=== PATIENT | male | born 1975 | race Caucasian/White ===

== ENCOUNTER → 2020-07-01 12:39 | Outpatient (CLI) | payer BC, SELFPAY ==
--- NOTE | 2020-07-01 12:44 | RAD_ITS ---
STUDY: X-RAY - LUMBAR SPINE REASON FOR EXAM: Male, 44 years old. LBP W/ RADIATION DOWN TOWARD LLE. NKI TECHNIQUE: 4 view(s) of the lumbar spine were obtained. COMPARISON: None FINDINGS: Normal lumbar lordosis. There is no substantial scoliosis. There is a normal alignment of the vertebrae. Normal vertebral bodies and endplates. Normal disc space heights. The soft tissue structures are unremarkable. RAD/L/S Spine Min 4 Views IMPRESSION: Normal x-ray examination of the lumbar spine. Electronically Signed: Steve Chappell DO at 18:41 EDT Tel [phone], Service support ,
--- NOTE | 2020-07-01 12:45 | US_ITS ---
STUDY: ABDOMINAL ULTRASOUND - RIGHT UPPER QUADRANT REASON FOR VISIT: Male, 44 years old ELEVATED LFTS TECHNIQUE: Ultrasound evaluation of the right upper quadrant was performed with real-time and static townsend-scale imaging. TECHNICAL QUALITY: Adequate. COMPARISON: None. FINDINGS: Liver: The liver measures 15.7 cm. There is increased echogenicity consistent with mild degree of fatty infiltration. The bile ducts are within normal limits. There is hepatic color flow. The direction of portal flow is hepatopetal. There is a 1.4 cm x 1.2 cm x 1.4 cm cyst in the right lobe of the liver. Gallbladder: Normal distended gallbladder. The gallbladder wall measures 3.0 mm. There is a negative sonographic Meeks''s sign. There is no pericholecystic fluid. There are no gallstones. Common Bile Duct (C.B.D.): The common bile duct measures 4.0 mm. Pancreas: Normal size of the head, body and tail of the pancreas. There is normal echogenicity of the pancreas. There is no demonstrated pancreatic mass or cyst. Right Kidney: Normal size of the right kidney. The right kidney measures 10.4 cm x 5.4 cm x 3.7 cm. Normal renal cortex. The right cortex measures 1.3 cm. There is no demonstrated renal mass or cyst. There is no right hydronephrosis. US/Liver IMPRESSION: 1.4 cm x 1.2 cm x 1.4 cm cyst in the right lobe of the liver. Mild degree of fatty infiltration of the liver. Electronically Signed: Apolinar Wise, at 14:37 EDT , Service support ,
== END ==
PROVIDERS: PCP Nurse Practitioner; Referring Provider Nurse Practitioner; Visit Provider Nurse Practitioner
DX: K76.89 Other specified diseases of liver (principal); K76.0 Fatty (change of) liver, not elsewhere classified; R74.8 Abnormal levels of other serum enzymes; M54.9 Dorsalgia, unspecified
CPT/HCPCS: 72110; 76705

== ENCOUNTER 2021-11-11 15:01 | Outpatient (CLI) | payer BC, SELFPAY ==
[2021-11-11 15:19] VITALS: BP 136/90; PULSE 107; RESP 16; TEMP 36.8; O2SAT 98; BMI 25.8
[2021-11-11] MEDS: 0.9% Saline Lock 10 ML Syringe IV (15:24)
[2021-11-11 16:09] VITALS: BP 123/82; PULSE 74; RESP 16; TEMP 36.6; O2SAT 99
[2021-11-11 17:02] VITALS: BP 125/91; PULSE 65; RESP 16; TEMP 36.6; O2SAT 100
== END 2021-11-11 23:59 | disposition home or self-care (01) ==
LOC: MS3OUT 15:01 → MS3 15:02
PROVIDERS: PCP Nurse Practitioner; Referring Provider Nurse Practitioner Adult Health; Visit Provider Nurse Practitioner Adult Health
DX: Z23 Encounter for immunization (principal); U07.1 COVID-19
CPT/HCPCS: J7050; M0245; Q0245; A4216

== ENCOUNTER 2023-07-18 10:47 | Day surgery (SDC) | payer BC, SELFPAY ==
[2023-07-18 11:08] VITALS: BP 131/78; PULSE 87; RESP 16; TEMP 36.9; O2SAT 100; BMI 23.8
[2023-07-18] MEDS: Lactated Ringers 1,000 ML 15 ML IV (11:17)
--- NOTE | 2023-07-18 11:24 | HP.PCM_ITS ---
History and Physical Date of Admission: 07/18/23 47 M who presents to the office today for PCP OV to establish care. Notes history of celiac disease with active symptoms of gassy loose stools with intermittent blood when wiping. Notes skin changes on his back, red and raised. *BGI established 5.31.23 continues with gluten free diet; notes recent change in BM to lose stools with intermittent bleeding. PCP recommended fiber supplement which as been helpful. Would like to have colonoscopy screening. ROS Const Constitutional: Positive for body ache, chills and headache(s) ENT ENT: Positive for headache(s) and sore throat Resp Respiratory: Positive for cough, chest congestion and shortness of breath Neuro Neurology: Positive for headache(s) Exam Const General: cooperative and comfortable Nutritional Appearance: average body habitus and well nourished HENMT Head: normal to inspection Ears: hearing grossly normal bilaterally Nose: external nose normal Face and sinus: normal facial exam Mouth: oral mucosae normal Throat: posterior oropharynx normal Eyes General: appearance normal, both eyes and all related structures Neck Neck: normal visual inspection Chest Chest palpation & inspection: normal inspection of the chest and normal palpation of entire chest wall Resp Effort & Inspection: normal respiratory effort Auscultation: Bilateral: Clear to Auscultation Cardio Palpation: normal PMI Rate: regular rate Rhythm: regular rhythm GI Inspection: normal to inspection Auscultation: normal bowel sounds Percussion: normal to percussion Palpation: no hepatosplenomegaly Skin General: no rashes or lesions noted Neuro General: patient alert Extrem General: normal to inspection Psych Affect: normal affect Quality Reporting Tobacco Screening ([facility] 138) Smoking Status: Never smoker Assessment and Plan Assessment and Plan (1) Encounter for screening for malignant neoplasm of colon: Status: Chronic Plan: He was explained alternatives, risk, benefits include not withstanding bleeding, infection, sepsis, perforation, need for emergent surgery . Have an ASA of 2. (2) Celiac disease: Status: Chronic Plan: He will undergo an upper endoscopy so we can evaluate his upper GI tract at the same time. We recommend repeating his tissue transglutaminase along with his IgA levels. I have examined the patient and the H&P has been reviewed. There are no clinical changes since date of exam.
--- NOTE | 2023-07-18 12:00 | COLBX_PTH ---
PATIENT: KETAN RAJAN LOC: EN U#:[id number] AGE/SX: 47/M ROOM: RE07/18/[address]: Dr. Tino Duckworht DO : 1975 BED: DIS: 07/18/2023 SPEC #: [id number] RECD: 07/18/23 14:18 STATUS: ZHANE DOYLE #: [id number] WAYNE: 07/18/23 12:[address]: Tino Duckworth DEPT: SURGICAL PATHOLOGY RECD BY: Brandon Lundberg ENTERED: 07/19/23 08:32 SP TYPE: COLON BX OT DR: Dr. Sunni Foster MD Tissues: A - Duodenum, NOS B - Gastric mucous membrane C - Ileum, NOS D - COLON BIOPSY Procedures: Trichrome (control) Special Stain Group II Surgery Specimen Level IV HEADER OPERATION: Colonoscopy, EGD ([facility]), biopsy PRE-OP DIAGNOSIS: Screening, celiac disease TISSUE SUBMITTED: A - Duodenum biopsy, B - Gastric polyp biopsy, C - Terminal ileum biopsy, D - Random colonic biopsy MICROSCOPIC DIAGNOSIS A. Duodenum, biopsy: Fragments of duodenal mucosa, no pathologic diagnosis. B. Gastric polyp, biopsy: Fundic gland polyp. Mild chronic inflammation. See comment. C. Terminal ileum, biopsy: Fragments of small intestinal mucosa, no pathologic diagnosis. D. Colon, random biopsy: Lymphocytic (microscopic) colitis and collagenous colitis. See comment. SJ:jake 07/20/2023 COMMENT B. The results of immunohistochemistry for Helicobacter pylori will be reported separately ([id number]). D. Trichrome stain with matched control was used in the evaluation of the specimen and shows focal thickening of subepithelial collagen band. Case has been reviewed in consultation with Dr. Michel who concurs with the above diagnosis. IDC:AM MICROSCOPIC DESCRIPTION Slides are reviewed. GROSS DESCRIPTION A - Received in fixative is one container labeled with the patient's name and designated duodenum biopsy. The specimen consists of two irregular fragments of light barnes soft tissue that in aggregate measure 1.0 x 0.5 x 0.1 cm. The specimen is totally submitted in one cassette. B - Received in fixative is one container labeled with the patient's name and designated gastric polyp. The specimen consists of one irregular fragment of light barnes soft tissue that measures 0.5 x 0.3 x 0.1 cm. The specimen is totally submitted in one cassette. C - Received in fixative is one container labeled with the patient's name and designated terminal ileum. The specimen consists of two irregular fragments of light barnes soft tissue that in aggregate measure 0.7 x 0.5 x 0.1 cm. The specimen is totally submitted in one cassette. D - Received in fixative is one container labeled with the patient's name and designated random colon biopsy. The specimen consists of multiple irregular fragments of light barnes soft tissue that in aggregate measure 2.0 x 0.6 x 0.1 cm. The specimen is totally submitted in one cassette. / AM:jake 07/19/2023 TC:3 CPT: 12257 x4, 01983
--- NOTE | 2023-07-18 12:00 | IMM_PTH ---
PATIENT: KETAN RAJAN LOC: EN U#:[id number] AGE/SX: 47/M ROOM: RE07/18/[address]: Dr. Tino uDckworth DO : 1975 BED: DIS: 07/18/2023 SPEC #: [id number] RECD: 07/19/23 09:38 STATUS: ZHANE REQ #: [id number] WAYNE: 07/18/23 12:[address]: Tino Duckworth DEPT: IMMUNOHISTOCHEMISTRY RECD BY: Adry Ambrosio ENTERED: 07/19/23 09:39 SP TYPE: IMMUNO OTHR DR: Dr. Sunni Foster MD Tissues: B - Stomach, NOS Procedures: H Pylori (initial) PHYSICIAN & INSTITUTION [place] [address] SPECIMEN INFORMATION: Tissue Source: B - Gastric polyp Clinical Info: Screening, celiac disease Specimen Number: [id number] CPT code: 28085 METHODOLOGY: Deparaffinized sections of prefer/formalin-fixed tissue or PAP/DQ stained slides are incubated with monoclonal/polyclonal antibodies/oligonucleotide probes. Localization is made via biotin free immunoperoxidase method. Appropriate controls are performed and reacted as expected. Results on target cell population are indicated in the following table: RESULTS: ANTIBODY / CLONE RESULT Block B H Pylori (polyclonal) negative These tests were developed and their performance characteristics determined by [facility]. They may not have been cleared or approved by the U.S. Food and Drug Administration. The FDA has determined that such clearance or approval is not necessary. The above immunohistochemical/dualISH markers are ordered and reviewed by the Pathologist. INTERPRETATION: B. Gastric polyp, biopsy: Negative for Helicobacter pylori organisms. ANNEMARIE:jake 07/21/2023
[2023-07-18 12:11] VITALS: BP 131/78; BP 87/59; PULSE 60; RESP 18; TEMP 36; O2SAT 96
[2023-07-18 12:15] VITALS: BP 131/78; BP 99/62; PULSE 59; RESP 18; O2SAT 96
--- NOTE | 2023-07-18 12:18 | OP.EGD_ITS ---
Patient Name: Jono Menchaca Procedure Date: 07/18/2023 11:38 AM Date of : 1975 Age: 47 Procedure: Upper GI endoscopy Indications: Functional Dyspepsia, Failure to respond to medical treatment Providers: Tino Duckworth DO Referring MD: Sunni Foster Medicines: Monitored Anesthesia Care Patient Profile: This is a 47 year old male. Refer to note in patient chart for documentation of history and physical. Patient has symptoms of chronic abdominal cramping, chronic chest pain and chronic heartburn. Complications: No immediate complications. Procedure: Pre-Anesthesia Assessment: - Prior to the procedure, a History and Physical was performed, and patient medications and allergies were reviewed. The patient is competent. The risks and benefits of the procedure and the sedation options and risks were discussed with the patient. All questions were answered and informed consent was obtained. Patient identification and proposed procedure were verified in the pre-procedure area. Mental Status Examination: alert and oriented. Airway Examination: normal oropharyngeal airway and neck mobility. Respiratory Examination: clear to auscultation. CV Examination: normal. Prophylactic Antibiotics: The patient does not require prophylactic antibiotics. Prior Anticoagulants: The patient has taken no anticoagulant or antiplatelet agents. ASA Grade Assessment: II - A patient with mild systemic disease. After reviewing the risks and benefits, the patient was deemed in satisfactory condition to undergo the procedure. The anesthesia plan was to use monitored anesthesia care (MAC). Immediately prior to administration of medications, the patient was re-assessed for adequacy to receive sedatives. The heart rate, respiratory rate, oxygen saturations, blood pressure, adequacy of pulmonary ventilation, and response to care were monitored throughout the procedure. The physical status of the patient was re-assessed after the procedure. After obtaining informed consent, the endoscope was passed under direct vision. Throughout the procedure, the patient's blood pressure, pulse, and oxygen saturations were monitored continuously. The colonoscope was introduced through the mouth, and advanced to the second part of duodenum. The upper GI endoscopy was accomplished without difficulty. The patient tolerated the procedure well. Scope In: 11:48:06 AM Scope Out: 11:52:06 AM Total Procedure Duration Time 0 hours 4 minutes 0 seconds Findings: LA Grade A (one or more mucosal breaks less than 5 mm, not extending between tops of 2 mucosal folds) esophagitis with no bleeding was found 37 to 40 cm from the incisors. No gross lesions were noted in the entire examined stomach. Decreased folds were found in the duodenal bulb, decreased folds were found in the first portion of the duodenum, decreased folds were found in the second portion of the duodenum, decreased folds were found in the area of the minor papilla, flattening was found in the duodenal bulb, flattening was found in the first portion of the duodenum, flattening was found in the second portion of the duodenum, scalloped mucosa was found in the duodenal bulb, scalloped mucosa was found in the first portion of the duodenum, thickened folds were found in the duodenal bulb, thickened folds were found in the first portion of the duodenum and thickened folds were found in the second portion of the duodenum. Biopsies for histology were taken with a cold forceps for evaluation of celiac disease. Verification of patient identification for the specimen was done. Estimated blood loss was minimal. A single 5 mm sessile polyp with no stigmata of recent bleeding was found in the cardia. The polyp was removed with a cold snare. Resection and retrieval were complete. Verification of patient identification for the specimen was done. Estimated blood loss was minimal. Impression: - LA Grade A reflux esophagitis with no bleeding. - No gross lesions in the entire stomach. - Duodenal mucosal changes seen, diagnostic of celiac disease. Biopsied. Recommendation: - Discharge patient to home. - Resume previous diet. - Continue present medications. - Await pathology results. Procedure Code(s): --- Professional --- 37895, Esophagogastroduodenoscopy, flexible, transoral; with removal of tumor(s), polyp(s), or other lesion(s) by snare technique 08593, 59,51, Esophagogastroduodenoscopy, flexible, transoral; with biopsy, single or multiple CPT copyright 2021 [employer]. All rights reserved. The codes documented in this report are preliminary and upon title i teacher review may be revised to meet current compliance requirements. Tino Duckworth DO 07/18/2023 12:18:49 PM This report has been signed electronically. Number of Addenda: 0 Note Initiated On: 07/18/2023 11:38 AM
--- NOTE | 2023-07-18 12:19 | OP.CCLET_ITS ---
07/18/2023 Sunni Foster Re : Upper GI endoscopy procedure for Jono Menchaca Dear Kristin This procedure was performed on Tuesday, July 18, 2023. My impressions and recommendations are as follows: Impressions : - LA Grade A reflux esophagitis with no bleeding. - No gross lesions in the entire stomach. - Duodenal mucosal changes seen, diagnostic of celiac disease. Biopsied. Recommendations : - Discharge patient to home. - Resume previous diet. - Continue present medications. - Await pathology results. My findings are described in the full procedure note, which is enclosed. If I can be of further assistance, please feel free to contact me at . Sincerely, Tino Duckworth, 07/18/2023 12:18:49 PM This report has been signed electronically.
--- NOTE | 2023-07-18 12:21 | OP.COLON_ITS ---
Patient Name: Jono Menchaca Procedure Date: 07/18/2023 11:52 AM Date of : 1975 Age: 47 Procedure: Colonoscopy Indications: Clinically significant diarrhea of unexplained origin Providers: Tino Duckworth DO Referring MD: Sunni Foster Medicines: Monitored Anesthesia Care Patient Profile: This is a 47 year old male. Refer to note in patient chart for documentation of history and physical. Patient has symptoms of chronic abdominal cramping, chronic chest pain and chronic heartburn. Last Colonoscopy: none. The patient's first colonoscopy is today. Complications: No immediate complications. Procedure: Pre-Anesthesia Assessment: - Prior to the procedure, a History and Physical was performed, and patient medications and allergies were reviewed. The patient is competent. The risks and benefits of the procedure and the sedation options and risks were discussed with the patient. All questions were answered and informed consent was obtained. Patient identification and proposed procedure were verified in the pre-procedure area. Mental Status Examination: alert and oriented. Airway Examination: normal oropharyngeal airway and neck mobility. Respiratory Examination: clear to auscultation. CV Examination: normal. Prophylactic Antibiotics: The patient does not require prophylactic antibiotics. Prior Anticoagulants: The patient has taken no anticoagulant or antiplatelet agents. ASA Grade Assessment: II - A patient with mild systemic disease. After reviewing the risks and benefits, the patient was deemed in satisfactory condition to undergo the procedure. The anesthesia plan was to use monitored anesthesia care (MAC). Immediately prior to administration of medications, the patient was re-assessed for adequacy to receive sedatives. The heart rate, respiratory rate, oxygen saturations, blood pressure, adequacy of pulmonary ventilation, and response to care were monitored throughout the procedure. The physical status of the patient was re-assessed after the procedure. After I obtained informed consent, the scope was passed under direct vision. Throughout the procedure, the patient's blood pressure, pulse, and oxygen saturations were monitored continuously. The colonoscope was introduced through the anus and advanced to the terminal ileum. The colonoscopy was performed without difficulty. The patient tolerated the procedure well. The quality of the bowel preparation was adequate. The terminal ileum, ileocecal valve, appendiceal orifice, and rectum were photographed. Scope In: 11:54:27 AM Scope Withdrawal Time 0 hours 8 minutes 54 seconds Scope Out: 12:06:44 PM Total Procedure Duration Time 0 hours 12 minutes 17 seconds Findings: The perianal and digital rectal examinations were normal. An area of mildly congested mucosa was found in the entire colon. Biopsies were taken with a cold forceps for histology. Verification of patient identification for the specimen was done. Estimated blood loss was minimal. Patchy mild mucosal changes were found in the terminal ileum. Biopsies were taken with a cold forceps for histology. Verification of patient identification for the specimen was done. Estimated blood loss was minimal. Impression: - Congested mucosa in the entire examined colon. Biopsied. - Mild mucosal changes were found in the ileum secondary to ileitis. Biopsied. Recommendation: - Discharge patient to home. - Resume previous diet. - Continue present medications. - Await pathology results. - Repeat colonoscopy in 5 years for surveillance. Procedure Code(s): --- Professional --- 23652, Colonoscopy, flexible; with biopsy, single or multiple CPT copyright 2021 [employer]. All rights reserved. The codes documented in this report are preliminary and upon telecommunications professional review may be revised to meet current compliance requirements. Tino Duckworth DO 07/18/2023 12:21:03 PM This report has been signed electronically. Number of Addenda: 0 Note Initiated On: 07/18/2023 11:52 AM
--- NOTE | 2023-07-18 12:21 | OP.CCLET_ITS ---
07/18/2023 Sunni Foster Re : Colonoscopy procedure for Jono Menchaca Dear Kristin This procedure was performed on Tuesday, July 18, 2023. My impressions and recommendations are as follows: Impressions : - Congested mucosa in the entire examined colon. Biopsied. - Mild mucosal changes were found in the ileum secondary to ileitis. Biopsied. Recommendations : - Discharge patient to home. - Resume previous diet. - Continue present medications. - Await pathology results. - Repeat colonoscopy in 5 years for surveillance. My findings are described in the full procedure note, which is enclosed. If I can be of further assistance, please feel free to contact me at . Sincerely, Tino Duckworth, 07/18/2023 12:21:03 PM This report has been signed electronically.
[2023-07-18 12:22] VITALS: BP 131/78; BP 96/71; PULSE 57; RESP 18; O2SAT 99
[2023-07-18 12:24] VITALS: BP 131/78; BP 96/67; PULSE 66; RESP 18; TEMP 36.2; O2SAT 100
[2023-07-18 12:43] VITALS: BP 131/78
== END 2023-07-18 12:52 | disposition home or self-care (01) ==
LOC: EN 10:47 → AC 10:48
PROVIDERS: PCP Internal Medicine; Referring Provider Internal Medicine; Visit Provider Internal Medicine Gastroenterology
PROC: 0DJD8ZZ Inspection of Lower Intestinal Tract, Via Natural or Artificial Opening Endoscopic (ICD-10-PCS; CPT 45378; principal; 2023-07-18 11:55)
DX: Z12.11 Encounter for screening for malignant neoplasm of colon (principal); K52.831 Collagenous colitis; K21.00 Gastro-esophageal reflux disease with esophagitis, without bleeding; K31.7 Polyp of stomach and duodenum; R19.7 Diarrhea, unspecified; E55.9 Vitamin D deficiency, unspecified; F32.A Depression, unspecified; Z79.899 Other long term (current) drug therapy; Z86.16 Personal history of COVID-19
CPT/HCPCS: 45380; 43239; 43251; 88305; 88313; 88342; J7120; J2405

== ENCOUNTER → 2023-08-23 | Outpatient (CLI) | payer BC, SELFPAY ==
[2023-08-23 13:23] LABS: ALB/GLOB Ratio 1.1 RATIO (0.9-2.4); AST(SGOT) 19 U/L (15-37); Alanine Aminotransfer ALT/SGPT 50 U/L (16-61); Albumin, Serum 3.9 g/dL (3.2-5.0); Alkaline Phosphatase 77 U/L (45-117); Anion Gap 3 (5-15); BUN 12 mg/dL (7-18); BUN/Creat Ratio 13.8 RATIO (10-20); CRP < 2.90 mg/L (0.0-3.0); Chloride 107 mmol/L (98-107); Creatinine, Serum 0.87 mg/dL (0.70-1.30); EST Glomerular Filtration Rate 99 mL/min (>60); Est Glom Filt Rate - Afr Amer 120 mL/min (>60); Globulin 3.7 g/dL (2.2-4.2); Glucose 91 mg/dL (74-106); LDH 169 U/L (87-241); Potassium 3.5 mmol/L (3.5-5.1); Protein, Total 7.6 g/dL (6.4-8.2); Sodium Level 140 mmol/L (136-145)
[2023-08-23 13:26] LABS: Erythrocyte Sedimentation Rate 7 mm/hr (0-20)
[2023-08-23 13:29] LABS: Absolute Lymphocyte Count 1.27 X10^3/uL (0.83-4.51); Absolute Neutrophil Count 3.2 X10^3/uL (2.0-7.7); Basophil# 0.07 X10^3/uL; Basophil% 1.3 % (0-1); Eosinophils% 7.4 % (0-5); Hematocrit 46.1 % (40-54); Hemoglobin 15.2 g/dL (13.0-16.5); Lymphocyte # 1.27 X10^3/ul (0.83-4.51); Lymphocyte % 23.5 % (19-41); Mean Corpuscular Hgb 29.1 pg (27.0-32.0); Mean Corpuscular Volume 88.3 fL (80-94); Mean Platelet Vol. 10.3 fl (6.2-12.0); Monocyte# 0.49 X10^3/uL; Monocyte% 9.1 % (0-10); NRBC Flagged by Analyzer 0 % (0-5); Neutrophil # 3.17 X10^3/uL (2.7-7.7); Neutrophil % 58.5 % (47-70); Platelet Count 331 K/mm3 (150-450); RBC Distribution Width CV 11.8 % (11.6-14.6); RBC Distribution Width SD 37.9 fl (35.1-43.9); Red Blood Count 5.22 M/mm3 (4.6-6.2); White Blood Count 5.4 K/mm3 (4.4-11.0)
[2023-08-24 12:08] LABS: Anti-Centromere B Ab <0.2 AI (0.0-0.9); Anti-Chromatin 0.2 AI (0.0-0.9); Anti-Jo <0.2 AI (0.0-0.9); Anti-Scleroderma-70 AB <0.2 AI (0.0-0.9); Anti-dsDNA Ab <1 IU/mL (0-9); RNP Ab 0.2 AI (0.0-0.9); SJOGREN'S Anti-SS-A test < 0.2 AI (0.0-0.9); SJOGREN'S Anti-SS-B test < 0.2 AI (0.0-0.9); Smith Ab <0.2 AI (0.0-0.9)
[2023-08-27 04:06] LABS: Alpha-1-Globulins 0.2 g/dL (0.0-0.4); Alpha-2-Globulins 0.6 g/dL (0.4-1.0); Cytoplasmic Ab (C-ANCA) <1:20 titer (Neg:<1:20); Endomysial Antibody IgA Negative (Negative); Gamma Globulin 1.2 g/dL (0.4-1.8); Immunoglobulin A 145 mg/dL (90-386); Immunoglobulin E 355 IU/mL (6-495); Immunoglobulin G 1238 mg/dL (603-1613); Immunoglobulin M 121 mg/dL (20-172); PROEL- TOTAL PROTEIN 7.1 g/dL (6.0-8.5); Perinuclear Ab (P-ANCA) <1:20 titer (Neg:<1:20); t-Transglutaminase IgA <2 U/mL (0-3)
== END | disposition home or self-care (01) ==
LOC: LAB 12:13
PROVIDERS: PCP Internal Medicine; Referring Provider Internal Medicine Gastroenterology; Visit Provider Internal Medicine Gastroenterology
DX: K52.832 Lymphocytic colitis (principal); K90.0 Celiac disease
CPT/HCPCS: 36415; 80053; 82784; 82785; 83516; 83615; 84165; 85025; 85652; 86140; 86225; 86235; 86255; 86256; 86334

== ENCOUNTER → 2024-11-26 | Outpatient (CLI) | payer BC, SELFPAY ==
[2024-11-26 09:27] LABS: Absolute Lymphocyte Count 1.12 X10^3/uL (0.83-4.51); Absolute Neutrophil Count 2.5 X10^3/uL (2.0-7.7); Basophil# 0.05 X10^3/uL; Basophil% 1.1 % (0-1); Eosinophils% 8.6 % (0-5); Hematocrit 48.6 % (40-54); Hemoglobin 16.2 g/dL (13.0-16.5); Lymphocyte # 1.12 X10^3/ul (0.83-4.51); Mean Corp Hgb Conc 33.3 g/dL (32-36); Mean Corpuscular Volume 86.9 fL (80-94); Mean Platelet Vol. 10.1 fl (6.2-12.0); Monocyte% 12.8 % (0-10); NRBC Flagged by Analyzer 0 % (0-5); Neutrophil # 2.49 X10^3/uL (2.7-7.7); Neutrophil % 53.3 % (47-70); Platelet Count 338 K/mm3 (150-450); RBC Distribution Width CV 11.9 % (11.6-14.6); Red Blood Count 5.59 M/mm3 (4.6-6.2); White Blood Count 4.7 K/mm3 (4.4-11.0)
[2024-11-26 09:51] LABS: CRP < 2.90 mg/L (0.0-3.0)
[2024-11-26 10:10] LABS: Erythrocyte Sedimentation Rate 8 mm/hr (0-20)
[2024-11-28 08:10] LABS: Deamidated Gliadin IgA 6 units (0-19); Deamidated Gliadin IgG 4 units (0-19); Endomysial Antibody IgA Negative (Negative); Immunoglobulin A 149 mg/dL (90-386); t-Transglutaminase IgA <2 U/mL (0-3)
== END | disposition home or self-care (01) ==
LOC: LAB 08:38
PROVIDERS: PCP Internal Medicine; Referring Provider Internal Medicine Gastroenterology; Visit Provider Internal Medicine Gastroenterology
DX: K52.832 Lymphocytic colitis (principal); K90.0 Celiac disease
CPT/HCPCS: 36415; 82784; 83516; 85025; 85652; 86140; 86255

== ENCOUNTER → 2025-07-08 | Outpatient (CLI) | payer BC, SELFPAY ==
[2025-07-08 17:55] LABS: Hematocrit 45.4 % (40-54); Hemoglobin 15.7 g/dL (13.0-16.5); Immature Granulocytes Count 0.020 X10^3/uL (0.0-0.0); Mean Corp Hgb Conc 34.6 g/dL (32-36); Mean Corpuscular Volume 85.0 fL (80-94); Mean Platelet Vol. 10.3 fl (6.2-12.0); NRBC Flagged by Analyzer 0 % (0-5); Platelet Count 355 K/mm3 (150-450); RBC Distribution Width CV 12.0 % (11.6-14.6); RBC Distribution Width SD 36.9 fl (35.1-43.9); Red Blood Count 5.34 M/mm3 (4.6-6.2); White Blood Count 8.2 K/mm3 (4.4-11.0)
[2025-07-08 19:14] LABS: AST(SGOT) 23 U/L (<=37); Alanine Aminotransfer ALT/SGPT 51 U/L (<=46); Albumin, Serum 4.5 g/dL (3.5-5.0); Alkaline Phosphatase 78 U/L (40-129); Anion Gap 12 (5-15); BUN 17 mg/dL (4-19); BUN/Creat Ratio 19.2 RATIO (10-20); Calcium,Total 9.7 mg/dL (7.6-11.0); Carbon Dioxide 25.5 mmol/L (21.0-32.0); Chloride 102 mmol/L (98-108); Globulin 3.1 g/dL (2.2-4.2); Glucose 80 mg/dL (70-99); Potassium 3.7 mmol/L (3.3-5.1); Vitamin D,25 Hydroxy 33.4 ng/mL (30-100)
[2025-07-08 19:21] LABS: CRP < 3.00 mg/L (0.0-3.0)
== END | disposition home or self-care (01) ==
LOC: MTLAB 15:58
PROVIDERS: PCP Internal Medicine; Referring Provider Internal Medicine; Visit Provider Internal Medicine
DX: E55.9 Vitamin D deficiency, unspecified (principal); R51.9 Headache, unspecified
CPT/HCPCS: 36415; 80053; 82306; 84443; 85025; 85652; 86140

== ENCOUNTER → 2025-08-21 | Outpatient (CLI) | payer BC, SELFPAY ==
[2025-08-21 15:24] LABS: AST(SGOT) 31 U/L (<=37); Alanine Aminotransfer ALT/SGPT 66 U/L (<=46); Albumin, Serum 4.2 g/dL (3.5-5.0); Alkaline Phosphatase 83 U/L (40-129); Bilirubin, Direct 0.15 mg/dL (0.00-0.30); Ferritin 163 ng/mL (37-417); Globulin 2.8 g/dL (2.2-4.2)
[2025-08-23 04:07] LABS: HEPATITIS B SURFACE AG Negative (Negative); Hep C Antibodies Non Reactive (Non Reactive)
[2025-08-25 14:08] LABS: ANTINUCLEAR ANTIBODIES DIRECT Negative (Negative)
== END | disposition home or self-care (01) ==
PROVIDERS: PCP Internal Medicine; Referring Provider Internal Medicine; Visit Provider Internal Medicine
DX: R74.8 Abnormal levels of other serum enzymes (principal); G44.221 Chronic tension-type headache, intractable
CPT/HCPCS: 36415; 70553; 76705; 76981; 80074; 80076; 82728; 83516; 86038; A9575; A4216

== ENCOUNTER → 2025-10-29 | Outpatient (CLI) | payer BC, SELFPAY ==
--- OUTSIDE RECORDS SUMMARY | 2025-10-29 06:43 | XMS RPT_ITS | CCD ---
Author Organization [facility] Care Team Providers Care Air Value Tester Name Role Phone Blossom Moncada E Unavailable Tiago Ortiz Unavailable Tiago Ortiz Unavailable Gene Gallegos Unavailable Unavailable Unavailable Unavailable Unavailable Unavailable Tiago Ortiz Unavailable Gene Gallegos Unavailable Unavailable Gene Armando Unavailable Unavailable Slarb, Gretchen Unavailable Unavailable Unavailable Unavailable Nikolaifili LYNNBlossom E Unavailable Tiago Ortiz MD Unavailable Angel , Tiago Mccormick Unavailable Gene Armando LPN Unavailable Unavailable Slatia ADORNO, Gretchen Unavailable Unavailable Unavailable Unavailable Coral Blossom Unavailable Coral Blossom Unavailable Sunni Foster MD Unavailable Friend, Dr. Jiménez Unavailable Nia Brizuela Unavailable Radha Bonilla LPN Unavailable Unavailable Coral Blossom Unavailable Sunni Foster MD Referring Unavailable Sunni Foster MD Attending Unavailable Sunni Foster MD Consulting Unavailable Nikolaia FOUNDATION MAKER, FOUNDATION MAKER-C Blossom Primary Care Provider Coral FOUNDATION MAKER, FOUNDATION MAKER-C Blossom Referring Provider Friend, Dr. Jiménez Attending Provider Dr. Sunni Foster Primary Care Provider Dr. Sunni Foster Referring Provider Friend, Dr. Jiménez Other Provider Friend, Dr. Jiménez Attending Provider Kristin UMANA, Dr. Moeller Primary Care Physician Kristin UMANA, Dr. Moeller Attending Physician Kristin UMANA, Dr. Moeller Referring Provider Bonezzi, Sunni Primary Care Unavailable Bonezzi, Sunni Attending Unavailable Bonezzi, Sunni Primary Care Unavailable Friend, Tino Attending Unavailable Friend, Tino Referring Unavailable Bonezzi, Sunni Referring Unavailable Bonezzi, Sunni Primary Care Unavailable Bonezzi, Sunni Attending Unavailable Bonezzi, Sunni Referring Unavailable Bonezzi, Sunni Primary Care Unavailable Bonezzi, Sunni Attending Unavailable Bonezzi, Sunni Primary Care Unavailable Friend, Tino Attending Unavailable Bonezzi, Sunni Referring Unavailable Allergies Allergy Classification Reported Allergen(s) Allergy Type Date of Onset Reaction(s) Facility Budesonide / formoterol (1 source) Budesonide / formoterol; Translations: [Symbicort *ANTIASTHMATIC AND BRONCHODILATOR AGENTS*] Drug Allergy [facility] Work Phone: Comment on above: rash Dust (1 source) Dust; Translations: [Dust] Substance Allergy [facility] Work Phone: Pollen (1 source) Pollen; Translations: [Pollens] Substance Allergy [facility] Work Phone: (20 sources) Budesonide / formoterol; Translations: [Symbicort *ANTIASTHMATIC AND BRONCHODILATOR AGENTS*] Drug Allergy [facility] Work Phone: Comment on above: rash (20 sources) Dust; Translations: [Dust] allergy to substance [facility] Work Phone: (20 sources) Mold spore; Translations: [Mold Spores] allergy to substance [facility] Work Phone: (20 sources) Pollen; Translations: [Pollens] allergy to substance [facility] Work Phone: (3 sources) Wheat preparation Drug Allergy 07-18-20 [facility] (1 source) Wheat preparation Drug Allergy 07-18-20 [facility] Repository Medications Current Medications Medication Drug Class(es) Dates Sig (Normalized) Sig (Original) albuterol 0.83 mg/ml inhalation solution (20 sources) beta2-Adrenergic Agonist Start: 01-13-2023 take 2.5 mg by inhalation every six hours as needed for wheezing Start: 11-28-2022 albuterol sulf ate 2.5 mg /3 mL (0.083 %) inhalation vial for nebulizer 1 (one) Nebulized Soln QID/PRN for 0 days Quantity: 30 {Each} Refills: 6 Ordered: 28-Nov-2022 Kristin UMANA, Sunni Foster MD, Sunni Littlejohn Start : 28-Nov-2022 Active Start: 04-11-2022 Albuterol Sulf ate (2.5 MG/3ML) 0.083% Inhalation Nebulization Solution 1 (one) Nebulized Soln QID/PRN for 0 days Quantity: 30 {Each} Refills: 6 Ordered: 11-Apr-2022 Brenda Lozano CNP Start : 11-Apr-2022 Active Start: 08-26-2021 Albuterol Sulf ate (2.5 MG/3ML) 0.083% Inhalation Nebulization Solution 1 (one) Nebulized Soln QID/PRN for 0 days Quantity: 30 {Ampule} Refills: 6 Ordered: 26-Aug-2021 Blossom Moncada Mary Start : 26-Aug-2021 Active Start: 07-28-2020 Albuterol Sulf ate (2.5 MG/3ML) 0.083% Inhalation Nebulization Solution 1 (one) Nebulized Soln QID/PRN for 0 days Quantity: 30 {Ampule} Refills: 6 Ordered: 28-Jul-2020 Blossom Moncada CNP, CNP, Mary E Start : 28-Jul-2020 Active Start: 06-08-2020 Albuterol Sulf ate (2.5 MG/3ML) 0.083% Inhalation Nebulization Solution 1 (one) Nebulized Soln QID/PRN for 0 days Quantity: 30 {Ampule} Refills: 6 Ordered: 08-Jun-2020 Gene Gallegos LPN Start : 08-Jun-2020 Active Start: 04-20-2020 Albuterol Sulf ate (2.5 MG/3ML) 0.083% Inhalation Nebulization Solution 1 (one) Nebulized Soln QID/PRN for 0 days Quantity: 30 {Ampule} Refills: 6 Ordered: 20-Apr-2020 Blossom Moncada CNP, CNP Blossom Montenegro Start : 20-Apr-2020 Active Start: 01-30-2019 Albuterol Sulf ate (2.5 MG/3ML) 0.083% Inhalation Nebulization Solution 1 (one) Nebulized Soln QID/PRN for 0 days Quantity: 30 {Ampule} Refills: 6 Ordered: 30-Jan-2019 Blossom Moncada CNP, CNP Nohemi Start : 30-Jan-2019 Active Start: 02-07-2018 Albuterol Sulf ate (2.5 MG/3ML) 0.083% Inhalation Nebulization Solution 1 (one) Nebulized Soln QID/PRN for 0 days Quantity: 30 {Ampule} Refills: 6 Ordered: 07-Feb-2018 Blossom Moncada CNP, CNP Blossom Montenegro Start : 07-Feb-2018 Active budesonide 3 mg delayed release oral capsule (2 sources) Corticosteroid Start: 07-31-[address] [facility] once daily Start: 07-31-2023 take 9 mg by mouth once daily Budesonide Active 9 MG PO DAILY July 31, 2023 12:00am cholecalciferol 0.05 mg oral capsule (20 sources) Vitamin D Start: 01-13-2023 take 1 capsule by [facility] once daily Start: 06-22-2020 take 2 tablets by mo [facility] once daily Vitamin D3 50 MCG (1999) Oral Tablet 2 (two) Tablet daily for 0 days Quantity: 30 {Tablet} Refills: 0 Ordered: 22-Jun-2020 Blossom Moncada Start : 22-Jun-2020 Active Start: 01-30-2019 take 1 tablet by [place] th once daily Vitamin D3 2000 UNIT Oral Tablet 1 (one) Tablet Tablet daily for 0 days Quantity: 30 {Tablet} Refills: 0 Ordered: 30-Jan-2019 Coral LEAH, Blossom Moncada LEAH, Blossom Montenegro Start : 30-Jan-2019 Active Start: 05-11-2016 take 1 tablet by [place] th once daily Vitamin D3 2000 UNIT Oral Tablet 1 (one) Tablet Tablet daily for 0 days Quantity: 30 {Tablet} Refills: 0 Ordered: 13-Feb-2018 Gene Gallegos Start : 11-May-2016 Active take 1 [IU] by mouth twice daily VITAMIN D3, 2000UNIT (Oral Tablet) bid (2000 UNIT) Inactive Completed/Discontinued Medications Medication Drug Class(es) Dates Sig (Normalized) Sig (Original) amitriptyline hydrochloride 50 mg oral tablet (20 sources) Tricyclic Antidepressant Start: 08-17-2006 End: 05-16-2008 take 1 tablet by mouth once daily at bedtime AMITRIPTYLINE HCL, 50MG (Oral Tablet) Tablet QHS / HS for 0 days Refills: 0 Ordered: 17-Aug-2006 KAYLAH Crawford LPN Start : 17-Aug-2006 End : 16-May-2008 Discontinued bacitracin zinc 0.5 unt/mg topical ointment (20 sources) Start: 12-11-2015 End: 02-04-2016 BACITRACIN ZINC, 500UNIT/GM (External Ointment) uad Ointment dailly prn to affected area for 0 days Quantity: 15 {Gram} Refills: 1 Ordered: 04-Feb-2016 KAYLAH Crawford LPN Start : 11-Dec-2015 End : 04-Feb-2016 Inactive Start: 12-11-2015 End: 02-04-2016 BACITRACIN ZINC, 500UNIT/GM (External Ointment) uad Ointment dailly prn to affected area for 0 days Quantity: 15 {Gram} Refills: 1 Ordered: 04-Feb-2016 KAYLAH Crawford LPN Start : 11-Dec-2015 End : 04-Feb-2016 Inactive 120 actuat budesonide 0.08 mg/actuat / formoterol fumarate 0.0045 mg/actuat metered dose inhaler (20 sources) Corticosteroid, beta2-Adrenergic Agonist Start: 04-30-2014 End: 05-30-2014 take 2 puff(s) by inhalation twice daily SYMBICORT, 80-4.5MCG/ACT (Inhalation Aerosol) 2 (two) puff puff bid for 30 days Quantity: 1 {Inhaler} Refills: 0 Ordered: 30-Apr-2014 KAYLAH Crawford LPN Start : 30-Apr-2014 End : 30-May-2014 Inactive Start: 04-30-2014 End: 05-30-2014 take 2 puff(s) by inhalation twice daily SYMBICORT, 80-4.5MCG/ACT (Inhalation Aerosol) 2 (two) puff puff bid for 30 days Quantity: 1 {Inhaler} Refills: 0 Ordered: 30-Apr-2014 KAYLAH Crawford LPN Start : 30-Apr-2014 End : 30-May-2014 Inactive chlorhexidine gluconate 40 mg/ml medicated liquid soap (20 sources) Start: 12-07-2010 End: 01-26-2012 HIBICLENS, 4% (External Liquid) 1 Liquid daily scrub for 2 weeks for 0 days Quantity: 1 {Liquid} Refills: 0 Ordered: 26-Jan-2012 KAYLAH Crawford LPN Start : 07-Dec-2010 End : 26-Jan-2012 Inactive clobetasol propionate 0.5 mg/ml topical cream (20 sources) Corticosteroid Start: 06-08-2020 End: 11-10-2021 Clobetasol Propionate 0.05 % External Cream 1 (one) Cream bid to area on buttocks for 0 days Quantity: 1 {Tube} Refills: 0 Ordered: 10-Nov-2021 Gene Armando LPN Start : 08-Jun-2020 End : 10-Nov-2021 Inactive Start: 02-13-2018 Clobetasol Pro pionate 0.05 % External Cream 1 (one) Cream bid to area on buttocks for 0 days Quantity: 1 {Tube} Refills: 0 Ordered: 13-Feb-2018 Blossom Moncada CNP, CNP, Mary E Start : 13-Feb-2018 Active 12 hr dextromethorphan polistirex 6 mg/ml extended release suspension (16 sources) Uncompetitive X-ztyiie-G-aspartate Receptor Antagonist, Sigma-1 Agonist Start: 11-10-2021 End: 12-26-2022 take 1 mL by mouth twice daily Delsym 12 hour 30 mg/5 mL oral suspension,extended release 1 (one) Milliliter twice a day for 0 days Quantity: 1 {Milliliter} Refills: 0 Ordered: 26-Dec-2022 Radha Bonilla LPN Start : 10-Nov-2021 End : 26-Dec-2022 Inactive diphenhydrAMINE hydrochloride 25 mg oral tablet (20 sources) Histamine-1 Receptor Antagonist Start: 12-13-2010 End: 01-26-2012 take 1 tablet by mouth once daily BENADRYL, 25MG (Oral Tablet) 1 Tablet daily for 0 days Quantity: 30 {Tablet} Refills: 0 Ordered: 26-Jan-2012 KAYLAH Crawford LPN Start : 13-Dec-2010 End : 26-Jan-2012 Inactive doxycycline hyclate 100 mg oral capsule (20 sources) Tetracycline-class Drug Start: 12-13-2010 End: 12-23-2010 take 1 capsule by mouth twice daily DOXYCYCLINE HYCLATE, 100MG (Oral Capsule) 1 Capsule bid for 10 days Quantity: 20 {Capsule} Refills: 0 Ordered: 13-Dec-2010 Monicamarina Blossom Start : 13-Dec-2010 End : 23-Dec-2010 Inactive ergocalciferol 1.25 mg oral capsule (20 sources) Provitamin D2 Compound Start: 02-16-2009 End: 12-07-2010 take 1 capsule by mouth two times weekly DRISDOL, [id number] (Oral Capsule) 1 Capsule twice weekly for 0 days Quantity: 4 {Capsule} Refills: 1 Ordered: 07-Dec-2010 KAYLAH Crawford LPN Start : 28-Jan-2010 End : 07-Dec-2010 Inactive Comment on above: This order discontin ued per [facility]. famotidine 20 mg oral tablet (20 sources) Histamine-2 Receptor Antagonist Start: 12-13-2010 End: 01-26-2012 take 1 tablet by mouth twice daily PEPCID, 20MG (Oral Tablet) 1 Tablet bid for 0 days Quantity: 30 Refills: 0 Ordered: 26-Jan-2012 KAYLAH Crawford LPN Start : 13-Dec-2010 End : 26-Jan-2012 Inactive 14 actuat fluticasone propionate 0.1 mg/actuat / salmeterol 0.05 mg/actuat dry powder inhaler (20 sources) Corticosteroid, beta2-Adrenergic Agonist Start: 01-11-2023 Advair Diskus 100 mcg-50 mcg/dose powder for inhalation 1 Aero Pow Br Act bid for 90 days Quantity: 3 {Each} Refills: 3 Ordered: 11-Jan-2023 Kristin UMANA, Sunni Foster MD, Sunni Littlejohn Start : 11-Jan-2023 Active Comments: or generic Start: 02-15-2022 Advair Diskus 100-50 MCG/DOSE Inhalation Aerosol Powder Breath Activated 1 Aero Pow Br Act bid for 0 days Quantity: 3 {Box} Refills: 3 Ordered: 15-Feb-2022 Fast DO, Jeri A Start : 15-Feb-2022 Active Comments: or generic Start: 02-15-2022 Advair Diskus 100-50 MCG/DOSE Inhalation Aerosol Powder Breath Activated 1 Aero Pow Br Act bid for 0 days Quantity: 3 {Box} Refills: 3 Ordered: 15-Feb-2022 Fast DO, Jeri A Start : 15-Feb-2022 Active Comments: or generic Start: 12-28-2021 Advair Diskus 100-50 MCG/DOSE Inhalation Aerosol Powder Breath Activated 1 Aero Pow Br Act bid for 0 days Quantity: 3 {Box} Refills: 3 Ordered: 28-Dec-2021 Blossom Moncada CNP, CNP, Mary E Start : 28-Dec-2021 Active Comments: or generic Start: 11-11-2021 Start: 11-11-2021 Fluticasone Pr opion-Salmeterol (Advair Diskus) 100-50 mcg/dose Blister With Device Active 1 INH INHALATION TWICE A DAY November 11, 2021 1:00am Start: 02-15-2021 Advair Diskus 100-50 MCG/DOSE Inhalation Aerosol Powder Breath Activated 1 Aero Pow Br Act bid for 0 days Quantity: 3 {Box} Refills: 3 Ordered: 15-Feb-2021 Blossom Moncada CNP, CNP, Mary E Start : 15-Feb-2021 Active Comments: or generic Start: 11-23-2020 Advair Diskus 100-50 MCG/DOSE Inhalation Aerosol Powder Breath Activated 1 Aero Pow Br Act bid for 0 days Quantity: 1 {Box} Refills: 0 Ordered: 23-Nov-2020 Blossom Moncada CNP, CNP, Mary E Start : 23-Nov-2020 Active Comments: or generic Start: 07-28-2020 Advair Diskus 100-50 MCG/DOSE Inhalation Aerosol Powder Breath Activated 1 Aero Pow Br Act bid for 0 days Quantity: 1 {Box} Refills: 0 Ordered: 28-Jul-2020 Blossom Moncada CNP E Blossom Moncada CNP Start : 28-Jul-2020 Active Comments: or generic Start: 07-04-2020 Advair Diskus 100-50 MCG/DOSE Inhalation Aerosol Powder Breath Activated 1 Aero Pow Br Act bid for 0 days Quantity: 1 {Box} Refills: 0 Ordered: 04-Jul-2020 Blossom Moncada CNP E Blossom Moncada CNP Start : 04-Jul-2020 Active Comments: or generic Start: 06-08-2020 Advair Diskus 100-50 MCG/DOSE Inhalation Aerosol Powder Breath Activated 1 Aero Pow Br Act bid for 0 days Quantity: 1 {Box} Refills: 0 Ordered: 08-Jun-2020 Gene Gallegos LPN Start : 08-Jun-2020 Active Comments: or generic Start: 04-26-2020 Advair Diskus 100-50 MCG/DOSE Inhalation Aerosol Powder Breath Activated 1 Aero Pow Br Act bid for 0 days Quantity: 1 {Box} Refills: 0 Ordered: 26-Apr-2020 Blossom Moncada CNP E Blossom Moncada CNP Start : 26-Apr-2020 Active Comments: or generic Start: 01-30-2019 Advair Diskus 100-50 MCG/DOSE Inhalation Aerosol Powder Breath Activated 1 Aero Pow Br Act bid for 0 days Quantity: 1 {Box} Refills: 6 Ordered: 30-Jan-2019 Blossom Moncada CNP E Blossom Moncada CNP Start : 30-Jan-2019 Active Comments: or generic Start: 02-13-2018 Advair Diskus 100-50 MCG/DOSE Inhalation Aerosol Powder Breath Activated 1 Aero Pow Br Act bid for 0 days Quantity: 1 {Box} Refills: 6 Ordered: 13-Feb-2018 Blossom Moncada CNP E Blossom Moncada CNP Start : 13-Feb-2018 Active Start: 06-12-2009 End: 07-28-2010 ADVAIR DISKUS, 100-50MCG/DOS E (Inhalation Miscellaneous) 1 Misc BID for 0 days Quantity: 1 {Misc} Refills: 10 Ordered: 12-Jun-2009 Blossom Moncada Start : 12-Jun-2009 End : 28-Jul-2010 Discontinued Comments: This order discontinued per [facility]. Start: 06-12-2009 End: 07-28-2010 ADVAIR DISKUS, 100-50MCG/DOS E (Inhalation Miscellaneous) 1 Misc BID for 0 days Quantity: 1 {Misc} Refills: 10 Ordered: 12-Jun-2009 Blossom Moncada Mary Start : 12-Jun-2009 End : 28-Jul-2010 Discontinued Comments: This order discontinued per [facility]. Start: 06-12-2009 End: 07-28-2010 ADVAIR DISKUS, 100-50MCG/DOS E (Inhalation Miscellaneous) 1 Misc BID for 0 days Quantity: 1 {Misc} Refills: 10 Ordered: 12-Jun-2009 Blossom Moncada CNP, CNP, Mary E Start : 12-Jun-2009 End : 28-Jul-2010 Discontinued Comments: This order discontinued per [facility]. Comment on above: This order discontin ued per [facility]. or generic folic acid 1 mg / polysaccharide iron complex 150 mg / vitamin b12 0.025 mg oral capsule (20 sources) Vitamin B12 End: 016 take 1 capsule by mouth twice daily FERREX 150 FORTE, 971-06-5MJ-MCG-MG (Oral Capsule) 1 cap bid (150-25-1 MG-MCG-MG) End : 11-May-2016 Discontinued halobetasol propionate 0.5 mg/ml topical cream (20 sources) Corticosteroid Start: 014 End: 015 ULTRAVATE, 0.05% (External Cream) 1 (one) Cream bid for 0 days Quantity: 1 {Each} Refills: 0 Ordered: 21-May-2015 KAYLAH Crawford LPN Start : 30-May-2014 End : 21-May-2015 Inactive levocetirizine dihydrochloride 5 mg oral tablet (5 sources) Histamine-1 Receptor Antagonist Start: 023 take 1 tablet by mouth in the morning XyzaL 5 mg oral tablet 1 (one) tablet in am for 0 days Quantity: 30 {Tablet} Refills: 6 Ordered: 11-Jan-2023 Kristin UMANA, Sunni Donald MD Start : 11-Jan-2023 Active methylPREDNISolone 4 mg oral tablet (20 sources) Corticosteroid Start: 022 End: 023 take 1 tablet by mouth once Medrol (Rosendo) 4 mg oral Tablet, Dose Pack 1 (one) Each use as directed per instructions in pack for 0 days Quantity: 1 {Each} Refills: 0 Ordered: 26-Dec-2022 Radha Bonilla LPN Start : 10-Nov-2021 End : 26-Dec-2022 Inactive Comments: with foodpack Start: 09-28-2020 End: 10-05-2020 take 7 tablets by mouth once at mealtime Medrol 4 MG Oral Tablet Therapy Pack use as directed per instructions in pack for 0 days Quantity: 1 {Package} Refills: 0 Ordered: 05-Oct-2020 Gene Armando LPN Start : 28-Sep-2020 End : 05-Oct-2020 Inactive Comments: with food Start: 09-28-2020 Medrol 4 MG Or al Tablet Therapy Pack use as directed per instructions in pack for 0 days Quantity: 1 {Package} Refills: 0 Ordered: 28-Sep-2020 Blossom Moncada CNP E Coral LYNN, Nohemi Start : 28-Sep-2020 Active Comments: with food Start: 08-05-2020 End: 08-28-2020 Medrol 4 MG Oral Tablet Ther apy Pack use as directed per instructions in pack for 0 days Quantity: 1 {Package} Refills: 0 Ordered: 28-Aug-2020 Gene Armando LPN Start : 05-Aug-2020 End : 28-Aug-2020 Inactive Comments: with food Start: 08-05-2020 take 7 tablets by mo uth once at mealtime Medrol 4 MG Oral Tablet Therapy Pack use as directed per instructions in pack for 0 days Quantity: 1 {Package} Refills: 0 Ordered: 05-Aug-2020 Coral LYNN Nohemi Coral LYNN, Nohemi Start : 05-Aug-2020 Active Comments: with food Comment on above: with food with foodpack montelukast 10 mg oral tablet (20 sources) Leukotriene Receptor Antagonist Start: 4 End: 5 take 1 tablet by mouth once daily SINGULAIR, 10MG (Oral Tablet) 1 Tablet QD for 0 days Quantity: 30 {Tablet} Refills: 6 Ordered: 21-May-2015 KAYLAH Crawford LPN Start : 31-Jan-2014 End : 21-May-2015 Inactive Comments: . Comment on above: . mupirocin 20 mg/ml topical cream (20 sources) RNA Synthetase Inhibitor Antibacterial Start: 5 End: 6 BACTROBAN, 2% (External Cream) uad Cream bid to affected area(s) prn for 0 days Quantity: 15 {Gram} Refills: 3 Ordered: 04-Feb-2016 KAYLAH Crawford LPN Start : 15-Jun-2015 End : 04-Feb-2016 Inactive Start: 12-07-2010 End: 12-21-2010 BACTROBAN NASAL, 2% (Nasal O intment) 1 Ointment daily nasal 2 weeks for 14 days Quantity: 14 {Ointment} Refills: 0 Ordered: 07-Dec-2010 Blossom Moncada Start : 07-Dec-2010 End : 21-Dec-2010 Inactive sulfamethoxazole 800 mg / trimethoprim 160 mg oral tablet (20 sources) Dihydrofolate Reductase Inhibitor Antibacterial, Sulfonamide Antimicrobial Start: 12-10-2010 End: 12-17-2010 take 1 tablet by mouth twice daily BACTRIM DS, 800-160MG (Oral Tablet) 1 Tablet bid for 7 days Quantity: 14 {Tablet} Refills: 0 Ordered: 10-Dec-2010 Coral Blossom Start : 10-Dec-2010 End : 17-Dec-2010 Inactive tiZANidine 2 mg oral capsule (20 sources) Central alpha-2 Adrenergic Agonist Start: 09-28-2020 End: 11-10-2021 Zanaflex 2 MG Oral Capsule 1 (one) Capsule q6-8hrs prn for 0 days Quantity: 60 {Capsule} Refills: 0 Ordered: 10-Nov-2021 Gene Armando LPN Start : 28-Sep-2020 End : 10-Nov-2021 Inactive Comments: Max 3 doses a day Start: 08-28-2020 Zanaflex 2 MG Oral Capsule 1 (one) Capsule q6-8hrs prn for 0 days Quantity: 60 {Capsule} Refills: 0 Ordered: 28-Aug-2020 Blossom Moncada CNP, CNP, Mary E Start : 28-Aug-2020 Active Comments: Max 3 doses a day Comment on above: Max 3 doses a day 24 hr venlafaxine 37.5 mg extended release oral capsule (20 sources) Serotonin and Norepinephrine Reuptake Inhibitor Start: 06-08-20 End: 06-22-20 take 1 capsule by mouth once daily at mealtime Venlafaxine HCl ER 37.5 MG Oral Capsule Extended Release 24 Hour 1 (one) Capsule daily with food for 30 days Quantity: 30 {Capsule} Refills: 6 Ordered: 22-Jun-2020 Coral Blossom Start : 08-Jun-2020 End : 22-Jun-2020 Inactive Start: 04-20-2020 take 1 capsule by mo uth once daily at mealtime Venlafaxine HCl ER 37.5 MG Oral Capsule Extended Release 24 Hour 1 (one) Capsule daily with food for 30 days Quantity: 30 {Capsule} Refills: 6 Ordered: 20-Apr-2020 Coral LYNN NohemiMoni Moncada CNP Blossom Montenegro Start : 20-Apr-2020 Active Start: 09-02-2019 take 1 capsule by mo uth once daily at mealtime Venlafaxine HCl ER 37.5 MG Oral Capsule Extended Release 24 Hour 1 (one) Capsule daily with food for 30 days Quantity: 30 {Capsule} Refills: 6 Ordered: 02-Sep-2019 Coral LYNN NohemiMoni Moncada CNP Blossom Montenegro Start : 02-Sep-2019 Active Start: 01-30-2019 take 1 capsule by mo uth once daily at mealtime Venlafaxine HCl ER 37.5 MG Oral Capsule Extended Release 24 Hour 1 (one) Capsule daily with food for 30 days Quantity: 30 {Capsule} Refills: 6 Ordered: 30-Jan-2019 Coral LYNN NohemiMoni Moncada CNP Blossom Montenegro Start : 30-Jan-2019 Active Start: 12-25-2018 take 1 capsule by mo uth once daily at mealtime Venlafaxine HCl ER 37.5 MG Oral Capsule Extended Release 24 Hour 1 (one) Capsule daily with food for 30 days Quantity: 30 {Capsule} Refills: 0 Ordered: 25-Dec-2018 Coral LYNN NohemiMoni Moncada CNP Blossom Montenegro Start : 25-Dec-2018 Active Comments: needs follow up appt for additional refills after this Comment on above: needs follow up appt for additional refills after this vortioxetine 5 mg oral tablet (20 sources) Start: End: take 1 tablet by mouth once daily Vortioxetine (Trintellix) 5 mg Tablet Discontinued 5 mg PO DAILY November 11, 2021 1:00am November 26, 2024 9:01am Start: 02-15-2021 End: 03-17-2021 take 1 tablet by mouth once daily Trintellix 5 MG Oral Tablet 1 (one) Tablet daily as directed for 30 days Quantity: 30 {Tablet} Refills: 0 Ordered: 15-Feb-2021 Coral LYNN Blossom Moncada LEAH Blossom Montenegro Start : 15-Feb-2021 End : 17-Mar-2021 Inactive Start: 11-23-2020 take 1 tablet by [place] once daily Trintellix 5 MG Oral Tablet 1 (one) Tablet daily as directed for 0 days Quantity: 90 {Tablet} Refills: 0 Ordered: 23-Nov-2020 Coral LEAH Blossom Moncada LEAH Blossom Montenegro Start : 23-Nov-2020 Active Comments: Note 90 day supply Start: 06-22-2020 take 1 tablet by [place] once daily Trintellix 5 MG Oral Tablet 1 (one) Tablet daily as directed for 0 days Quantity: 90 {Tablet} Refills: 0 Ordered: 05-Aug-2020 Coral LYNN Blossom Moncada CNP Blossom Montenegro Start : 05-Aug-2020 Active Comments: Note 90 day supply Comment on above: Note 90 day supply Problems Active Problems Problem Classification Problem Date Documented Da te Episodic/Chronic Allergic reactions (20 sources) Food allergy; Translations: [Dermatitis] Resolved: 5 02-13-2018 Episodic Comment on above: ? ezcema food allerg ies. talkabout avoidance Asthma (20 sources) Asthma; Translations: [Asthma] 02-13-2018 Chronic Comment on above: stable Bacterial infection; unspecified site (20 sources) Methicillin resistant Staphylococcus aureus infection; Translations: [Methicillin resistant Staphylococcus aureus infection as the cause of diseases classified elsewhere] Resolved: 4 12-10-2015 Episodic Comment on above: of buttocks on bactr im, if rash not go away will need another antibiotic Cardiac dysrhythmias (20 sources) Palpitations; Translations: [Palpitation] 02-13-2018 Episodic Comment on above: patient states it brooks s been going with him for years, but notice last Monday while at home and has even happened at work, seem to only last for a second or two, has a funny feeling of heart beat denies any other sx. no chest pain, SOB, excessive sweating. denies any anxiety or [id number] echo and holter monitor look ok Deficiency and other anemia (20 sources) Anemia; Translations: [Anemia] Resolved: 3 02-13-2018 Episodic Disorders of lipid metabolism (20 sources) Hypercholesterolemia; Translations: [Hypercholesterolemia] 02-13-2018 Chronic Esophageal disorders (20 sources) Gastroesophageal reflux disease; Translations: [GERD (gastroesophageal reflux disease)] 02-13-2018 Chronic Comment on above: use otc use otc need to impr ove diet Gastrointestinal hemorrhage (20 sources) Blood in stool; Translations: [Melena] Resolved: 9 07-15-2013 Episodic Comment on above: see henmoorhoids thi nk cause Headache; including migraine (20 sources) Headache; Translations: [Headache] Resolved: 9 07-15-2013 Episodic Heart valve disorders (20 sources) Heart sounds abnormal; Translations: [Abnormal cardiac sounds] 02-13-2018 Episodic Immunizations and screening for infectious disease (20 sources) Antibody studies abnormal; Translations: [Abnormal celiac antibody panel] 02-13-2018 Episodic Comment on above: likely celiac has st opped gluten and improved, wt up has not seen Baggot Malaise and fatigue (20 sources) Fatigue; Translations: [FATIGUE] Resolved: 3 02-13-2018 Episodic Mood disorders (20 sources) Depression; Translations: [Depressive disorder] Resolved: 6 02-13-2018 Chronic Comment on above: resolved staying trintelix Noninfectious gastroenteritis (3 sources) Lymphocytic colitis; Translations: [Lymphocytic colitis] Onset: 5 07-31-2023 Chronic Nutritional deficiencies (20 sources) Unspecified vitamin D deficiency; Translations: [Unspecified protein-calorie malnutrition] Onset: 5 02-13-2018 Chronic Comment on above: ? liverprotein and a lbumin a little low, patient advised to increase protein in diet as he knows not get enough through the day Nutritional deficiencies (20 sources) Undernutrition; Translations: [Nutritional disorder] 01-30-2019 Episodic Comment on above: ? liverprotein and a lbumin a little low, patient advised to increase protein in diet as he knows not get enough through the day Other gastrointestinal disorders (20 sources) Celiac disease; Translations: [Celiac disease] 02-13-2018 Chronic Comment on above: pt has been gluten f ree but fatigue Other gastrointestinal disorders (1 source) Celiac disease; Translations: [Celiac disease] 03-29-2023 Chronic Other gastrointestinal disorders (19 sources) Hemorrhagic diarrhea ; Translations: [Bloody diarrhea] 12-26-2022 Episodic Comment on above: start off by adding metamucil willcheck labs get to GI for scope. Other inflammatory condition of skin (20 sources) Pruritus ani; Translations: [Pruritus ani] Resolved: 4 05-19-2014 Episodic Comment on above: handout given give w ith mrsa and at times cuts will use bactroban Other liver diseases (20 sources) Steatosis of liver; Translations: [Fatty liver] 08-28-2020 Chronic Comment on above: diet and exercise Other liver diseases (20 sources) Abnormal levels of other serum enzymes; Translations: [Elevated liver enzymes level] Onset: 5 02-13-2018 Episodic Comment on above: ? liver disease ? he patitis b and C from straw. thompson.ultrasound not done, will relook at liver enzymes and compare then decide Other nervous system disorders (10 sources) Neurological finding; Translations: [Nocturnal leg movements] 01-11-2023 Episodic Comment on above: had sleep study and PLMS tried some CBD and melatonin. talk about benadryl. increase exercise. keep caffiene early Other screening for suspected conditions (not mental disorders or infectious disease) (18 sources) Screening status; Translations: [Encounter for screening for malignant neoplasm of prostate (Renamed from Screening for prostate cancer)] 12-26-2022 Episodic Other skin disorders (20 sources) Inflammatory dermatosis; Translations: [Dermatitis] Resolved: 5 09-11-2015 Episodic Other skin disorders (20 sources) Folliculitis; Translations: [Folliculitis] Resolved: 4 09-18-2015 Episodic Comment on above: will abscess repack will recheck monday. pulled out old packing, pack with small amount with iodiphoform gauze to repack this. tell how to decolonize Other skin disorders (20 sources) Eruption; Translations: [Perineal rash, male] 02-13-2018 Episodic Comment on above: ? psoriasis not look bacterial. consider pemphigous with tense blister. will biopsy. tried many things not help. send to derm. using cortisone right now and continue. Other skin disorders (19 sources) Actinic keratosis; Translations: [Actinic keratosis] 12-26-2022 Episodic Comment on above: right and left shoul gypsy did cryotherapy Other skin disorders (19 sources) Ephelis; Translations: [Freckle] 12-26-2022 Episodic Other upper respiratory disease (10 sources) Allergic rhinitis; Translations: [Allergic rhinitis, mild] 01-11-2023 Chronic Pleurisy; pneumothorax; pulmonary collapse (20 sources) Pneumothorax; Translations: [Mediastinal emphysema] Resolved: 9 07-15-2013 Episodic Residual codes; unclassified (20 sources) Sleep disorder; Translations: [Disturbance in sleep behavior] Episodic Residual codes; unclassified (20 sources) Body mass index (BMI) 23.0-23.9, adult; Translations: [Body mass index (BMI) 22.0-22.9, adult] 02-13-2018 Episodic Residual codes; unclassified (20 sources) Disturbance in sleep behavior; Translations: [Sleep disturbance] Resolved: 3 02-13-2018 Episodic Residual codes; unclassified (20 sources) Current non-smoker ; Translations: [Current nonsmoker (Renamed from Current non-smoker)] 10-05-2020 Episodic Residual codes; unclassified (16 sources) Non-smoker; Translations: [Current nonsmoker (Renamed from Current non-smoker)] 01-11-2023 Episodic Spondylosis; intervertebral disc disorders; other back problems (20 sources) Backache; Translations: [Sciatica] 06-22-2020 Episodic Comment on above: always sore and tigh t he will try medrol a nd exercises medrol helped short term, but back again Going to chiropracte r, without relief, and has had xray, always sore and tigh t, sneezing makes it worse lower extremity weakness, has used ibuprofen, xray in past normal, has been seeing chiropracter not helping, will see MRIBack pain for 12 years Unclassified (20 sources) Elevated liver enzymes Unclassified (20 sources) Unclassified (20 sources) Current non-smoker ; Translations: [Current nonsmoker (Renamed from Current non-smoker)] 02-13-2018 Unclassified (20 sources) Allergic to food (Renamed from Food allergy) Unclassified (20 sources) BMI 23.0-23.9, adult; Translations: [Body mass index 20-24 - normal] 04-27-2020 Unclassified (20 sources) Malnourished Unclassified (20 sources) Abnormal celiac antibody panel Unclassified (20 sources) BMI 22.0-22.9, adult; Translations: [Body mass index 20-24 - normal] 04-27-2020 Viral infection (20 sources) Disease caused by 2019-nCoV; Translations: [COVID] Resolved: 3 11-10-2021 Episodic Comment on above: Symptoms began Nov 06 , Today Oct 12 is day #5Vaccinated pfizer 1&2 no booster Symptoms began Nov 06 , Today Oct is day #10Vaccinated pfizer 1&2 no booster Past or Other Problems Problem Classification Problem Date Documented Da te Episodic/Chronic Gastrointestinal hemorrhage (20 sources) Blood-tinged feces; Translations: [Blood in stool] 01-30-2019 Comment on above: see henmoorhoids thi nk cause Headache; including migraine (16 sources) Headache; including migraine Substance-related disorders (20 sources) Smoker; Translations: [Current smoker] Resolved: 12-10-2015 12-10-2015 Chronic Unclassified (20 sources) Rash (782.1) Unclassified (20 sources) INFECTION, MRSA STAPH AUREUS (041.12) Unclassified (20 sources) Unspecified Diagnosis Resolved: 09-11-2015 05-19-2014 Unclassified (20 sources) Foliculitis (704.8) Unclassified (20 sources) Perineal rash, male Unclassified (20 sources) Abnormal cardiac sounds Unclassified (20 sources) stomach bloating Resolved: 04-23-2009 07-15-2013 Unclassified (20 sources) Palpitation Unclassified (20 sources) Body mass index 20-24 - normal; Translations: [BMI 24.0-24.9, adult] 08-05-2020 Unclassified (20 sources) Sciatica, left side Unclassified (9 sources) Exposure to SARS virus Viral infection (20 sources) Disease caused by 2019-nCoV Results Test Name Value Interpretation Reference Range [facility] OSVALDO,DIRECT Negative Normal Negative [facility] Comment on above: Result Comment: Perf ormed at: [address] [id number] Fitness Professional: Santiago Sierra PhD, Phone: [phone] Performed By: #### L 503.6550, L500.3400, L3000.0375, L3410.9992, L3100.5475, L800.1280 #### [facility] [address] [place], [place], [id number] Anti-Mitochondrial ABon 07-31 ANTIMITOCHON AB <20.0 Normal 0.0-20.0 [facility] Comment on above: Result Comment: Nega tive 0.0 - 20.0 Equivocal 20.1 - 24.9 Positive >24.9 Mitochondrial (M2) Antibodies are found in 90-96% of patients with primary biliary cirrhosis. Performed By: #### L 503.6550, L500.3400, L3000.0375, L3410.9992, L3100.5475, L800.1280 #### [facility] [address] [place], [place], [id number] L3410.9992on 08-25-2025 [facility] COMMENT Normal . [facility] Comment on above: Order Comment: [place]ST [place] [id number] LKM AB Result Comment: Test Ordered: [id number] Liver-Kidney Microsomal Ab Liver-Kidney Microsomal Ab 2.0 Units Reference Range: 0.0-20.0 Negative 0.0 - 20.0 Equivocal 20.1 - 24.9 Positive >24.9 LKM type 1 antibodies are detected in patients with autoimmune hepatitis type 2 and in up to 8% of patients with chronic HCV infection. Performed at: [address] [id number] Fitness Professional: Santiago Sierra PhD, Phone: [phone] Performed By: #### L 503.6550, L500.3400, L3000.0375, L3410.9992, L3100.5475, L800.1280 #### [facility] [address] [place], [place], [id number] Hepatitis Panel Acuteon - COMMENT Comment Normal . [facility] Comment on above: Result Comment: Not infected with HCV unless early or acute infection is suspected (which may be delayed in an immunocompromised individual), or other evidence exists to indicate HCV infection. Performed at: [facility] [id number] Fitness Professional: Santiago Sierra PhD, Phone: [phone] Performed By: #### L 503.6550, L500.3400, L3000.0375, L3410.9992, L3100.5475, L800.1280 #### [facility] [address] [place], [place], [address] HEP B CORE,IgM Negative Normal Negative [facility] Comment on above: Performed By: #### L 503.6550, L500.3400, L3000.0375, L3410.9992, L3100.5475, L800.1280 #### [facility] [address] [place], [place], [id number] HEP B SURF AG Negative Normal Negative [facility] Comment on above: Performed By: #### L 503.6550, L500.3400, L3000.0375, L3410.9992, L3100.5475, L800.1280 #### [facility] [address] [place], [place], [id number] HEP C VIRUS AB Non-Reactive Normal Non Reactive [facility] Comment on above: Performed By: #### L 503.6550, L500.3400, L3000.0375, L3410.9992, L3100.5475, L800.1280 #### [facility] [address] [place], [address] HEPATITIS A-IgM Negative Normal Negative [facility] Comment on above: Result Comment: A ne gative anti-HAV IgM result suggests no recent or current HAV infection. Performed By: #### L 503.6550, L500.3400, L3000.0375, L3410.9992, L3100.5475, L800.1280 #### [facility] [address] [place], [address] ABD Limited w/ Elastographyo n 08-21-2025 ABD Limited w/ Elastography [facility] Imaging Services [address] [place], [place] [address] ABD Limited w/ Elastography MR#: [id number] Acct: [id number] Name: JONO RAJAN Rep #: [id number] : 1975 M 49 From: Apolinar to MD PCP: Dr. Sunni Foster MD Status: REG CLI Study: ABD Limited w/ Elastography Date of Exam: 07/31 01/21 Exam# [id number] Ordering Dr: Sunni Foster MD PROCEDURE: ABD LIMITED W/ ELASTOGRAPHY REASON FOR EXAM: CHRONIC TENSION TUPE HEADACHE COMPARISON: None. TECHNIQUE: Procedure Code: USABDLELPARO Modality: US Procedure: ABD LIMITED W/ ELASTOGRAPHY Right upper quadrant abdominal ultrasound. Crystal ElastQ Imaging shear wave elastography for non- invasive assessment of liver tissue stiffness. Crystal EPIQ Elite. FINDINGS: LIVER: Size: Unremarkable Length: 15.8 cm Echotexture: Normal Contour: Normal Lesions: There is a 1.7 cm 1.5 cm 1.2 cm echogenic nodule in the inferior aspect of the right lobe of the liver suggestive of hemangioma. 2 cysts are seen in the right lobe the larger measures 1.1 cm x 1.1 cm x 0.9 cm. Elastography: EQI Med: 3.6 kPa EQI Med Thuy: 1.1 m/s IQR/Med: 6.3 %* GALLBLADDER: No stones sludge wall thickening or tenderness. COMMON BILE DUCT: Normal measuring 3.2 mm . PANCREAS: Visualized portions are unremarkable. The distal body and tail are obscured by bowel gas. Visualized portions of the right kidney are unremarkable. No right upper quadrant ascites. US/ABD Limited w/ Elastography IMPRESSION: No significant hepatic fibrosis. Cysts are seen in the right lobe of the liver as well as a hyperechoic nodule suggestive of hemangioma. Reference Values: SRU <1.37 m/s (5.7kPa): No to mild fibrosis 1.37 m/s - 2.2 m/s: Moderate to severe fibrosis >2.2 m/s (15kPa): Significant fibrosis / cirrhosis METAVIR Score F2 or higher: 1.34 m/s (5.7kPa) F3 or higher: 1.55 m/s (7.3kPa) F4: 1.80 m/s (10kPa) * If the IQR/Med is >30%, the variance in the measurements is a large and the accuracy of the measurement may be in question. Reading Location: [place] [address] CC: Dr. Sunni Foster MD Marketing Operations Analyst: Signed Normal [facility] Brain W/WO Contraston 2024 Brain W/WO Contrast [facility] Imaging Services [address] [place] [address] Brain W/WO Contrast MR#: [id number] Acct: [id number] Name: JONO RAJAN Rep #: [id number] : 1975 M 49 From: Quique Jones MD PCP: Dr. Sunni Foster MD Status: REG CLI Study: Brain W/WO Contrast Date of Exam: 08/21/25 Exam# [id number] Ordering Dr: Sunni Foster MD PROCEDURE: BRAIN W/WO CONTRAST 08/21/2025 REASON FOR EXAM: CHRONIC TENSION TYPE HEADACHES TECHNIQUE: Procedure Code: MRIBRWW Modality: MR Procedure: BRAIN W/WO CONTRAST Multiplanar and multisequence images were obtained. CONTRAST: 15 cc Clariscan IV. FINDINGS: The brain parenchyma appears unremarkable. The townsend-white matter differentiation is appropriate. The ventricles are normal in size and configuration. No midline shift. The midline structures are intact, specifically the corpus callosum, septum pellucidum, pituitary gland, and cerebellar vermis. The cervicomedullary junction appears unremarkable. Mild mucosal thickening within the bilateral maxillary sinuses. The remainder of the paranasal sinuses and mastoid air cells are clear. Diffusion-weighted images demonstrate no restricted diffusion. No abnormal enhancement. MRI/Brain W/WO Contrast IMPRESSION: Unremarkable MRI of the brain. Mild bilateral maxillary sinusitis. Reading Location: [facility] CC: Dr. Sunni Foster MD Marketing Operations Analyst: Signed Normal [facility] Ferritinon 08-21-2025 Ferritin [Mass/Vol] 163 ng/mL Normal 37-417 [facility] Comment on above: Performed By: #### L 503.6550, L500.3400, L3000.0375, L3410.9992, L3100.5475, L800.1280 #### [facility] [address] [place], [address] Liver Profileon 08-21-2025 Albumin [Mass/Vol] 4.2 g/dL Normal 3.5-5.0 [facility] Comment on above: Performed By: #### L 503.6550, L500.3400, L3000.0375, L3410.9992, L3100.5475, L800.1280 #### [facility] [address] [place], [address] ALK PHOS 83 U/L Normal 40-129 [facility] Comment on above: Performed By: #### L 503.6550, L500.3400, L3000.0375, L3410.9992, L3100.5475, L800.1280 #### [facility] [address] [place], [address] ALT [Catalytic activity/Vol] 66 U/L High <=46 [facility] Comment on above: Performed By: #### L 503.6550, L500.3400, L3000.0375, L3410.9992, L3100.5475, L800.1280 #### [facility] [address] [place], [address] AST [Catalytic activity/Vol] 31 U/L Normal <=37 [facility] Comment on above: Performed By: #### L 503.6550, L500.3400, L3000.0375, L3410.9992, L3100.5475, L800.1280 #### [facility] [address] [place], [address] Bilirubin [Mass/Vol] 0.44 mg/dL Normal 0.00-1.30 [facility] Comment on above: Performed By: #### L 503.6550, L500.3400, L3000.0375, L3410.9992, L3100.5475, L800.1280 #### [facility] [address] [place], [address] Bilirubin.direct [Mass/Vol] 0.15 mg/dL Normal 0.00-0.30 [facility] Comment on above: Performed By: #### L 503.6550, L500.3400, L3000.0375, L3410.9992, L3100.5475, L800.1280 #### [facility] [address] [place], [address] Globulin (S) [Mass/Vol] 2.8 g/dL Normal 2.2-4.2 [facility] Comment on above: Performed By: #### L 503.6550, L500.3400, L3000.0375, L3410.9992, L3100.5475, L800.1280 #### [facility] [address] [place], [address] T PROT 7.0 g/dL Normal 5.9-8.4 [facility] Comment on above: Performed By: #### L 503.6550, L500.3400, L3000.0375, L3410.9992, L3100.5475, L800.1280 #### [facility] [address] [place], [place], [id number] Absolute lymphocyte countOrd ered By: Sunni Foster on 07-08-2025 Lymphocytes Auto (Unsp spec) [#/Vol] 2.07 10*3/uL 0.83-4.51 [facility] Absolute neutrophil countOrd ered By: Sunni Foster on 07-08-2025 Neutrophils (Bld) [#/Vol] 4.7 10*3/uL 2.0-7.7 [facility] Anion gap in Serum or Plasma Ordered By: Sunni Foster on 07-08-2025 Anion gap [Moles/Vol] 12 mmol/L 5-15 [facility] Automated blood erythrocyte countOrdered By: Sunni Foster on 07-08-2025 RBC (Bld) [#/Vol] 5.34 10*6/uL Normal 4.6-6.2 [facility] Comment on above: Performed By: #### L 503.6550, L500.3400, L3000.0375, L3410.9992, L3100.5475, L800.1280 #### [facility] [address] [facility] [address] [place], [place], [id number] Automated blood hematocrit ( percentage)Ordered By: Sunni Foster on 07-08-2025 Hematocrit (Bld) [Volume fraction] 45.4 % Normal 40-54 [facility] Comment on above: Performed By: #### L 503.6550, L500.3400, L3000.0375, L3410.9992, L3100.5475, L800.1280 #### [facility] [address] [place], [place], [id number] Automated lymphocyte count a s percentage of total leukocytesOrdered By: Sunni Foster on 07-08-2025 Lymphocytes/100 WBC Auto (Unsp spec) 25.4 % 19- [facility] BUN/creatinine ratioOrdered By: Sunni Pagansuni on 07-08-2025 Urea nitrogen/Creatinine [Mass ratio] 19.2 mg/mg 10-20 [facility] Basophil percentageOrdered B y: Sunni Harrisofe on 07-08-2025 Basophils/100 WBC (Bld) 1.0 % Normal 0-1 [facility] Comment on above: Performed By: #### L 503.6550, L500.3400, L3000.0375, L3410.9992, L3100.5475, L800.1280 #### [facility] [address] [place], [place], [id number] (012) Bilirubin, totalOrdered By: Sunnifili Foster on 07-08-2025 Bilirubin [Mass/Vol] 0.29 mg/dL Normal 0.00-1.30 [facility] Comment on above: Performed By: #### L 503.6550, L500.3400, L3000.0375, L3410.9992, L3100.5475, L800.1280 #### [facility] [address] [place], [place], [id number] [phone] CBC W/Diff, Automatedon 09-0 Absolute Lymph 2.07 X10 3/uL Normal 0.83-4.51 [facility] Comment on above: Performed By: #### L 503.6550, L500.3400, L3000.0375, L3410.9992, L3100.5475, L800.1280 #### [facility] [address] [place], [address] Absolute Neut 4.7 X10 3/uL Normal 2.0-7.7 [facility] Comment on above: Performed By: #### L 503.6550, L500.3400, L3000.0375, L3410.9992, L3100.5475, L800.1280 #### [facility] [address] [place], [address] IG% 0.200 Normal 0.0-0.9 [facility] Comment on above: Result Comment: IG% - Immature Granulocytes (promyelocytes, myelocytes and metamyelocytes) > 1% indicates that a LEFT SHIFT is Present. Performed By: #### L 503.6550, L500.3400, L3000.0375, L3410.9992, L3100.5475, L800.1280 #### [facility] [address] [place], [address] Lymphocytes/100 WBC (Bld) 25.4 % Normal 19-41 [facility] Comment on above: Performed By: #### L 503.6550, L500.3400, L3000.0375, L3410.9992, L3100.5475, L800.1280 #### [facility] [address] [place], [address] Nucleated RBC (Bld) [#/Vol] 0 10*3/uL Normal 0-5 [facility] Comment on above: Performed By: #### L 503.6550, L500.3400, L3000.0375, L3410.9992, L3100.5475, L800.1280 #### [facility] [address] [place], [address] RDW SD 36.9 fl Normal 35.1-43.9 [facility] Comment on above: Performed By: #### L 503.6550, L500.3400, L3000.0375, L3410.9992, L3100.5475, L800.1280 #### [facility] [address] [place], [address] CRPon 07-08-2025 C-REACTIVE PROT < 3.00 Normal 0.0-3.0 [facility] Comment on above: Performed By: #### L 503.6550, L500.3400, L3000.0375, L3410.9992, L3100.5475, L800.1280 #### [facility] [address] [place], [address] Carbon dioxide, total [Moles /volume] in Central venous bloodOrdered By: Sunni Foster on 07-08-2025 CO2 [Moles/Vol] 25.5 mmol/L Normal 21.0-32.0 [facility] Comment on above: Performed By: #### L 503.6550, L500.3400, L3000.0375, L3410.9992, L3100.5475, L800.1280 #### [facility] [address] [place], [address] Chloride assayOrdered By: Edmond Foster on 07-08-2025 Chloride [Moles/Vol] 102 mmol/L Normal 98-108 [facility] Comment on above: Performed By: #### L 503.6550, L500.3400, L3000.0375, L3410.9992, L3100.5475, L800.1280 #### [facility] [address] [place], [address] Comprehensive Metabolic Prof ilon 07-08-2025 ALK PHOS 78 U/L Normal 40-129 [facility] Comment on above: Performed By: #### L 503.6550, L500.3400, L3000.0375, L3410.9992, L3100.5475, L800.1280 #### [facility] [address] [place], [address] BUN/CRE 19.2 RATIO Normal 10-20 [facility] Comment on above: Performed By: #### L 503.6550, L500.3400, L3000.0375, L3410.9992, L3100.5475, L800.1280 #### [facility] [address] [place], [address] GAP 12 Normal 5-15 [facility] Comment on above: Performed By: #### L 503.6550, L500.3400, L3000.0375, L3410.9992, L3100.5475, L800.1280 #### [facility] [address] [place], [address] Potassium [Moles/Vol] 3.7 mmol/L Normal 3.3-5.1 [facility] Comment on above: Performed By: #### L 503.6550, L500.3400, L3000.0375, L3410.9992, L3100.5475, L800.1280 #### [facility] [address] [place], [address] T PROT 7.5 g/dL Normal 5.9-8.4 [facility] Comment on above: Performed By: #### L 503.6550, L500.3400, L3000.0375, L3410.9992, L3100.5475, L800.1280 #### [facility] [address] [place], [address] Comprehensive Metabolic Prof ilOrdered By: Sunni Foster on 07-08-2025 AST [Catalytic activity/Vol] 23 U/L Normal <=37 [facility] Comment on above: Performed By: #### L 503.6550, L500.3400, L3000.0375, L3410.9992, L3100.5475, L800.1280 #### [facility] [address] [place], [address] Eosinophil percentageOrdered By: Sunni Foster on 07-08-2025 Eosinophils/100 WBC (Bld) 6.6 % High 0-5 [facility] Comment on above: Performed By: #### L 503.6550, L500.3400, L3000.0375, L3410.9992, L3100.5475, L800.1280 #### [facility] [address] [place], [id number] Erythrocyte Sed Rateon 07-08 SED RATE 7 mm/hr Normal 0-20 [facility] Comment on above: Performed By: #### L 503.6550, L500.3400, L3000.0375, L3410.9992, L3100.5475, L800.1280 #### [facility] [address] [place], [place], [address] Erythrocyte distribution wid th ratioOrdered By: Sunni Foster on 07-08-2025 Erythrocyte distribution width (RBC) [Ratio] 12.0 % Normal 11.6-14.6 [facility] Comment on above: Performed By: #### L 503.6550, L500.3400, L3000.0375, L3410.9992, L3100.5475, L800.1280 #### [facility] [address] [place], [place], [address] Erythrocyte distribution wid th standard deviationOrdered By: Sunni Foster on 07-08-2025 Erythrocyte distribution width (RBC) [Ratio] 36.9 fl 35.1-43.9 [facility] Erythrocyte sedimentation ra teOrdered By: Sunni Foster on 07-08-2025 ESR (Bld) [Velocity] 7 mm/h 0-20 [facility] Glomerular filtration rate ( GFR) estimation/1.73 sq m using serum, plasma, or whole bOrdered By: Sunni Foster on 07-08-2025 GFR/1.73 sq M.predicted among non-blacks MDRD (S/P/Bld) [Vol rate/Area] 105 mL/min/{1.73_m2} Normal >60 [facility] Comment on above: mL/min/1.73m2 CKD-EP I Creatinine Equation (2020) Result Comment: mL/m in/1.73m2 CKD-EPI Creatinine Equation (2020) Performed By: #### L 503.6550, L500.3400, L3000.0375, L3410.9992, L3100.5475, L800.1280 #### [facility] [address], [place], [id number] Hemoglobin measurementOrdere d By: Sunni Foster on 07-08-2025 Hemoglobin (Bld) [Mass/Vol] 15.7 g/dL Normal 13.0-16.5 [facility] Comment on above: Performed By: #### L 503.6550, L500.3400, L3000.0375, L3410.9992, L3100.5475, L800.1280 #### [facility] [address], [place], [id number] Immature granulocytes/100 WB C Auto (Bld)Ordered By: Sunni Foster on 07-08-2025 Immature granulocytes/100 WBC (Bld) 0.200 % 0.0-0.9 [facility] Comment on above: IG% - Immature Granu locytes (promyelocytes, myelocytes and metamyelocytes) > 1% indicates that a LEFT SHIFT is Present. MCV (mean corpuscular volume ) determinationOrdered By: Sunni Foster on 07-08-2025 MCV (RBC) [Entitic vol] 85.0 fL Normal 80-94 [facility] Comment on above: Performed By: #### L 503.6550, L500.3400, L3000.0375, L3410.9992, L3100.5475, L800.1280 #### [facility] [address], [place], [id number] Mean corpuscular hemoglobin (MCH) determinationOrdered By: Sunni Foster on 07-08-2025 MCH (RBC) [Entitic mass] 29.4 pg Normal 27.0-32.0 [facility] Comment on above: Performed By: #### L 503.6550, L500.3400, L3000.0375, L3410.9992, L3100.5475, L800.1280 #### [facility] [address], [place], [id number] Mean corpuscular hemoglobin concentration (MCHC) determinationOrdered By: Sunni Foster on 07-08-2025 MCHC (RBC) [Mass/Vol] 34.6 g/dL Normal 32-36 [facility] Comment on above: Performed By: #### L 503.6550, L500.3400, L3000.0375, L3410.9992, L3100.5475, L800.1280 #### [facility] [address] [place], [address] Mean platelet volume determi nationOrdered By: Sunni Foster on 07-08-2025 Platelet mean volume (Bld) [Entitic vol] 10.3 fL Normal 6.2-12.0 [facility] Comment on above: Performed By: #### L 503.6550, L500.3400, L3000.0375, L3410.9992, L3100.5475, L800.1280 #### [facility] [address] [place], [address] Monocyte percentageOrdered B y: Sunni Foster on 07-08-2025 Monocytes/100 WBC (Bld) 9.0 % Normal 0-10 [facility] Comment on above: Performed By: #### L 503.6550, L500.3400, L3000.0375, L3410.9992, L3100.5475, L800.1280 #### [facility] [address] [place], [address] Neutrophil percentageOrdered By: Sunni Foster on 07-08-2025 Neutrophils/100 WBC (Bld) 57.8 % Normal 47-70 [facility] Comment on above: Performed By: #### L 503.6550, L500.3400, L3000.0375, L3410.9992, L3100.5475, L800.1280 #### [facility] [address] [place], [place], [id number] ([phone] Nucleated red blood cell per centageOrdered By: Sunni Foster on 07-08-2025 Nucleated RBC/100 WBC (Bld) [Ratio] 0 % 0-5 [facility] Platelet countOrdered By: Edmond Foster on 07-08-2025 Platelets (Bld) [#/Vol] 355 10*3/uL Normal 150-450 [facility] Comment on above: Performed By: #### L 503.6550, L500.3400, L3000.0375, L3410.9992, L3100.5475, L800.1280 #### [facility] [address], [place], [id number] Potassium measurement (mass/ volume)Ordered By: Sunni Foster on 07-08-2025 Potassium (Unsp spec) [Mass/Vol] 3.7 mmol/L 3.3-5.1 [facility] Serum creatinine measurement (mass/volume)Ordered By: Sunni Foster on 07-08-2025 Creatinine [Mass/Vol] 0.86 mg/dL Normal 0.70-1.20 [facility] Comment on above: Performed By: #### L 503.6550, L500.3400, L3000.0375, L3410.9992, L3100.5475, L800.1280 #### [facility] [address], [place], [id number] Serum globulin measurementOr dered By: Sunni Foster on 07-08-2025 Globulin (S) [Mass/Vol] 3.1 g/dL Normal 2.2-4.2 [facility] Comment on above: Performed By: #### L 503.6550, L500.3400, L3000.0375, L3410.9992, L3100.5475, L800.1280 #### [facility] [address] [facility] [place], [address] Serum glucose measurement (m ass/volume)Ordered By: Sunni Foster on 07-08-2025 Glucose [Mass/Vol] 80 mg/dL Normal 70-99 [facility] Comment on above: Performed By: #### L 503.6550, L500.3400, L3000.0375, L3410.9992, L3100.5475, L800.1280 #### [facility] [address] [place], [place], [phone] Serum or plasma C reactive p rotein measurement (mass/volume)Ordered By: Sunni Foster on 07-08-2025 CRP [Mass/Vol] mg/L 0.0-3.0 [facility] Serum or plasma alanine evans otransferase (ALT) measurementOrdered By: Sunni Foster on 07-08-2025 ALT [Catalytic activity/Vol] 51 U/L High <=46 [facility] Comment on above: Performed By: #### L 503.6550, L500.3400, L3000.0375, L3410.9992, L3100.5475, L800.1280 #### [facility] [address] [place], [place], [phone] [phone] Serum or plasma albumin ramya urement (mass/volume)Ordered By: Sunni Foster on 07-08-2025 Albumin [Mass/Vol] 4.5 g/dL Normal 3.5-5.0 [facility] Comment on above: Performed By: #### L 503.6550, L500.3400, L3000.0375, L3410.9992, L3100.5475, L800.1280 #### [facility] [address] [place], [place], [phone] Serum or plasma albumin/glob ulin mass ratioOrdered By: Sunni Foster on 07-08-2025 Albumin/Globulin [Mass ratio] 1.5 {ratio} Normal 0.9-2.4 [facility] Comment on above: Performed By: #### L 503.6550, L500.3400, L3000.0375, L3410.9992, L3100.5475, L800.1280 #### [facility] [address] [place], [address] Serum or plasma alkaline evan sphatase measurementOrdered By: Sunni Foster on 07-08-2025 ALP [Catalytic activity/Vol] 78 U/L 40-129 [facility] Serum or plasma calcium ramya urement (mass/volume)Ordered By: Sunni Foster on 07-08-2025 Calcium [Mass/Vol] 9.7 mg/dL Normal 7.6-11.0 [facility] Comment on above: Performed By: #### L 503.6550, L500.3400, L3000.0375, L3410.9992, L3100.5475, L800.1280 #### [facility] [address] [place], [place], [id number] Serum or plasma urea nitroge n measurement (mass/volume)Ordered By: Sunni Foster on 07-08-2025 Urea nitrogen [Mass/Vol] 17 mg/dL Normal 4-19 [facility] Comment on above: Performed By: #### L 503.6550, L500.3400, L3000.0375, L3410.9992, L3100.5475, L800.1280 #### [facility] [address] [place], [place], [id number] Sodium levelOrdered By: Sunni Foster on 07-08-2025 Sodium [Moles/Vol] 139 mmol/L Normal 133-145 [facility] Comment on above: Performed By: #### L 503.6550, L500.3400, L3000.0375, L3410.9992, L3100.5475, L800.1280 #### [facility] [address] [place], [address] TSH DL <= 0.005 mIU/L QnOrde red By: Sunni Foster on 07-08-2025 TSH Qn 1.930 uIU/mL 0.300-4.20 0 [facility] Thyroid Stim Hormone (TSH)on 07-08-2025 TSH 1.930 uIU/mL Normal 0.300-4.20 0 [facility] Comment on above: Performed By: #### L 503.6550, L500.3400, L3000.0375, L3410.9992, L3100.5475, L800.1280 #### [facility] [address] [place], [place], [id number] Total proteinOrdered By: Fam Foster on 07-08-2025 Protein [Mass/Vol] 7.5 g/dL 5.9-8.4 [facility] Vitamin D,25 Hydroxyon 07-08 Vitamin D 25-OH 33.4 ng/mL Normal 30-100 [facility] Comment on above: Result Comment: Yuki min D Status Deficiency: <20 ng/mL (50nmol/L) Insufficiency: 20-30 ng/mL (50-75 nmol/L) Sufficiency: 30-100 ng/mL (75-250 nmol/L) Toxicity: >100 ng/mL (>250 nmol/L) Performed By: #### L 503.6550, L500.3400, L3000.0375, L3410.9992, L3100.5475, L800.1280 #### [facility] [address] [place], [address] White blood cell (WBC) count Ordered By: Sunni Foster on 07-08-2025 WBC (Bld) [#/Vol] 8.2 10*3/uL Normal 4.4-11.0 [facility] Comment on above: Performed By: #### L 503.6550, L500.3400, L3000.0375, L3410.9992, L3100.5475, L800.1280 #### [facility] [address] [place], [address] Celiac AB,Comprehensiveon ANTIGLIADIN IGA 6 units Normal 0-19 [facility] Comment on above: Result Comment: Nega tive 0 - 19 Weak Positive 20 - 30 Moderate to Strong Positive >30 Performed By: #### L 3410.2350, L501.6710, L100.0100, L101.9900 #### [facility] [address] [place], [address] ANTIGLIADIN IGG 4 units Normal 0-19 [facility] Comment on above: Result Comment: Nega tive 0 - 19 Weak Positive 20 - 30 Moderate to Strong Positive >30 Performed By: #### L 3410.2350, L501.6710, L100.0100, L101.9900 #### [facility] [address] [place], [address] ENDOMYSIAL IGA Negative Normal Negative [facility] Comment on above: Performed By: #### L 3410.2350, L501.6710, L100.0100, L101.9900 #### [facility] [address] [place], [place], [id number] IMMUNOGLOB A QN 149 mg/dL Normal 90-386 [facility] Comment on above: Result Comment: Perf ormed at: - [facility] [address] [id number] Fitness Professional: Santiago Sierra PhD, Phone: [phone] Performed By: #### L 3410.2350, L501.6710, L100.0100, L101.9900 #### [facility] [address] [place], [place], [address] tTG IGA <2 Normal 0-3 [facility] Comment on above: Result Comment: Nega tive 0 - 3 Weak Positive 4 - 10 Positive >10 Tissue Transglutaminase (tTG) has been identified as the endomysial antigen. Studies have demonstr- ated that endomysial IgA antibodies have over 99% specificity for gluten sensitive enteropathy. Performed By: #### L 3410.2350, L501.6710, L100.0100, L101.9900 #### [facility] [address] [place], [address] tTG IGG 5 U/mL Normal 0-5 [facility] Comment on above: Result Comment: Nega tive 0 - 5 Weak Positive 6 - 9 Positive >9 Performed By: #### L 3410.2350, L501.6710, L100.0100, L101.9900 #### [facility] [address] [place], [address] CBC W/Diff, Automatedon 10-31 Absolute Lymph 1.12 X10 3/uL Normal 0.83-4.51 [facility] Comment on above: Performed By: #### L 3410.2350, L501.6710, L100.0100, L101.9900 #### [facility] [address] [place], [address] Absolute Neut 2.5 X10 3/uL Normal 2.0-7.7 [facility] Comment on above: Performed By: #### L 3410.2350, L501.6710, L100.0100, L101.9900 #### [facility] [address] [place], [address] Basophils/100 WBC (Bld) 1.1 % High 0-1 [facility] Comment on above: Performed By: #### L 3410.2350, L501.6710, L100.0100, L101.9900 #### [facility] [address] [place], [address] Eosinophils/100 WBC (Bld) 8.6 % High 0-5 [facility] Comment on above: Performed By: #### L 3410.2350, L501.6710, L100.0100, L101.9900 #### [facility] [address] [place], [address] Erythrocyte distribution width (RBC) [Ratio] 11.9 % Normal 11.6-14.6 [facility] Comment on above: Performed By: #### L 3410.2350, L501.6710, L100.0100, L101.9900 #### [facility] [address] [place], [address] Hematocrit (Bld) [Volume fraction] 48.6 % Normal 40-54 [facility] Comment on above: Performed By: #### L 3410.2350, L501.6710, L100.0100, L101.9900 #### [facility] [address] [place], [address] Hemoglobin (Bld) [Mass/Vol] 16.2 g/dL Normal 13.0-16.5 [facility] Comment on above: Performed By: #### L 3410.2350, L501.6710, L100.0100, L101.9900 #### [facility] [address] [place], [address] IG% 0.200 Normal 0.0-0.9 [facility] Comment on above: Result Comment: IG% - Immature Granulocytes (promyelocytes, myelocytes and metamyelocytes) > 1% indicates that a LEFT SHIFT is Present. Performed By: #### L 3410.2350, L501.6710, L100.0100, L101.9900 #### [facility] [address] [place], [address] Lymphocytes/100 WBC (Bld) 24.0 % Normal 19-41 [facility] Comment on above: Performed By: #### L 3410.2350, L501.6710, L100.0100, L101.9900 #### [facility] [address] [place], [address] MCH (RBC) [Entitic mass] 29.0 pg Normal 27.0-32.0 [facility] Comment on above: Performed By: #### L 3410.2350, L501.6710, L100.0100, L101.9900 #### [facility] [address] [place], [address] MCHC (RBC) [Mass/Vol] 33.3 g/dL Normal 32-36 [facility] Comment on above: Performed By: #### L 3410.2350, L501.6710, L100.0100, L101.9900 #### [facility] [address] [place], [address] MCV (RBC) [Entitic vol] 86.9 fL Normal 80-94 [facility] Comment on above: Performed By: #### L 3410.2350, L501.6710, L100.0100, L101.9900 #### [facility] [address] [place], [address] Monocytes/100 WBC (Bld) 12.8 % High 0-10 [facility] Comment on above: Performed By: #### L 3410.2350, L501.6710, L100.0100, L101.9900 #### [facility] [address] [place], [address] Neutrophils/100 WBC (Bld) 53.3 % Normal 47-70 [facility] Comment on above: Performed By: #### L 3410.2350, L501.6710, L100.0100, L101.9900 #### [facility] [address] [place], [address] Nucleated RBC (Bld) [#/Vol] 0 10*3/uL Normal 0-5 [facility] Comment on above: Performed By: #### L 3410.2350, L501.6710, L100.0100, L101.9900 #### [facility] [address] [place], [address] Platelet mean volume (Bld) [Entitic vol] 10.1 fL Normal 6.2-12.0 [facility] Comment on above: Performed By: #### L 3410.2350, L501.6710, L100.0100, L101.9900 #### [facility] [address] [place], [address] Platelets (Bld) [#/Vol] 338 10*3/uL Normal 150-450 [facility] Comment on above: Performed By: #### L 3410.2350, L501.6710, L100.0100, L101.9900 #### [facility] [address] [place], [address] RBC (Bld) [#/Vol] 5.59 10*6/uL Normal 4.6-6.2 [facility] Comment on above: Performed By: #### L 3410.2350, L501.6710, L100.0100, L101.9900 #### [facility] [address] [place], [address] RDW SD 38.0 fl Normal 35.1-43.9 [facility] Comment on above: Performed By: #### L 3410.2350, L501.6710, L100.0100, L101.9900 #### [facility] [address] [place], [address] WBC (Bld) [#/Vol] 4.7 10*3/uL Normal 4.4-11.0 [facility] Comment on above: Performed By: #### L 3410.2350, L501.6710, L100.0100, L101.9900 #### [facility] [address] [place], [address] CRPon 11-26-2024 C-REACTIVE PROT < 2.90 Normal 0.0-3.0 [facility] Comment on above: Result Comment: C-Re active Protein (CRP) provides useful information for the diagnosis, therapy and monitoring of inflammatory processes and associated diseases. For the evaluation of Relative Risk for Cardiovascular Disease, a High Sensitivity CRP (HSCRP) should be ordered. Performed By: #### L 3410.2350, L501.6710, L100.0100, L101.9900 #### [facility] [address] [place] [place], [address] Erythrocyte Sed Rateon 11-26 SED RATE 8 mm/hr Normal 0-20 [facility] Comment on above: Performed By: #### L 3410.2350, L501.6710, L100.0100, L101.9900 #### [facility] [address] [place], [address] Gastroenterology Visit Repor ton 11-26-2024 Gastroenterology Visit Report [facility] [address] [address] OFFICE VISIT Date of Service: 11/26/24 MR#: [id number] Acct: [id number] Name: JONO RAJAN Rep #: [id number] : 1975 Provider: Tino Duckworth DO Age/Sex: 49/M Location: [facility] [place] Status: Signed Intake Vital Signs 07/18/23 11:08 Height 5 ft 7 in Intake Visit Reasons: Follow up Allergies wheat Adverse Reaction (Intermediate, Verified 07/18/23 11:20) SKIN IRRITATION Medications ???Medication ???Instructions ???Recorded ???Confirmed ???Type fluticasone 100 mcg-salmeterol 50 1 inh inhalation BID 11/11/21 11/26/24 History mcg/dose blistr powdr for inhalation (Advair Diskus) albuterol sulfate 2.5 mg/3 mL 2.5 mg inhalation Q6H PRN 01/13/23 11/26/24 History (0.083 %) solution for nebulization shortness of breath or wheezing cholecalciferol (vitamin D3) 50 50 mcg PO DAILY 01/13/23 11/26/24 History mcg (2,000 unit) capsule budesonide 3 mg 9 mg (3 x 3 mg) PO DAILY #90 ea 07/31/23 Rx capsule,delayed,extende d release [facility] Medical History (Updated 07/31/23 @ 15:41 by Anastasiia Estrada) Wears glasses Marijuana use Restless legs Back pain Heartburn Asthma Non-smoker Vitamin D deficiency Pure hypercholesterolemia, unspecified Depression Bloody diarrhea Fatigue Food additives allergy status Surgical History (Updated 07/17/23 @ 09:55 by Clementina Michaels) Hx of wisdom tooth extraction Family History Other Seizures Thyroid disorder Social History Smoking Status: Never smoker alcohol intake: current HPI HPI Details: JONO MENCHACA, is a 49 M who presents to the office today forfollow up. PCP OV to establish care. Notes history of celiac disease with active symptoms of gassy loose stools with intermittent blood when wiping. Notes skin changes on his back, red and raised. *BGI established 03.29.23 continues with gluten free diet; notes recent change in BM to lose stools with intermittent bleeding. PCP recommended fiber supplement which as been helpful. Would like to have colonoscopy screening. EGD and Colonoscopy 07.18.23 EGD LA Grade A reflux esophagitis with no bleeding. No gross lesions in the entire stomach. Duodenal mucosal changes seen, diagnostic of celiac disease. Biopsied. Colonoscopy Congested mucosa in the entire examined colon. Biopsied. Mild mucosal changes were found in the ileum secondary to ileitis. Biopsied. OV 11.26.24 pt reports that he continues with a gluten free diet and feels well overall. Pt reports loose stools, but reports improvement with fiber supplement. Pt would like to review previous test results. ROS Const Constitutional: No fatigue, fever(s) or weight change ENT ENT: No difficulty swallowing Gastro GI: Positive for bloating and excessive flatus; No abdominal pain, belching, change in bowel habits, change in stool character, coffee ground emesis, constipation, cramping, diarrhea, heartburn, difficulty swallowing, feeling full early, incontinent of stools, Vomiting blood/hematemesis, Blood in stool, loose stools, Black,tarry stools, nausea/dyspepsia, pain with swallowing, vomiting or other Musc Musculoskeletal: Positive for back pain and stiffness; No joint pain Skin Skin: No yellowing of the eye or itchy eyes Psych Psychiatric: No anxiety and No depression Endo Endocrine: No fatigue or weight change Aller/Imm Allergy/Immunologic: No itchy eyes Konstantin/Lymp Hematologic/Lymphatic: No easy bleeding or easy bruising Exam Const General: cooperative and comfortable Nutritional Appearance: average body habitus and well nourished HENMT Head: normal to inspection Ears: hearing grossly normal bilaterally Nose: external nose normal Face and sinus: normal facial exam Mouth: oral mucosae normal Throat: posterior oropharynx normal Eyes General: appearance normal, both eyes and all related structures Neck Neck: normal visual inspection Chest Chest palpation inspection: normal inspection of the chest and normal palpation of entire chest wall Resp Effort Inspection: normal respiratory effort Auscultation: Bilateral: Clear to Auscultation Cardio Palpation: normal PMI Rate: regular rate Rhythm: regular rhythm GI Inspection: normal to inspection Auscultation: normal bowel sounds Percussion: normal to percussion Palpation: no hepatosplenomegaly Skin General: no rashes or lesions noted Neuro General: patient alert Extrem General: normal to inspection Psych Affect: normal affect Assessment and Plan Assessment and Plan (1) Lymphocytic colitis: Status: Chronic Plan: He underwent colonoscopy back in 2022 for diarrhea in the setting o (more content not included)... Normal [facility] Absolute lymphocyte countOrd ered By: Tino Duckworth on 08-23-2023 Lymphocytes Auto (Unsp spec) [#/Vol] 1.27 10*3/uL 0.83-4.51 [facility] Albumin Elph [Mass/Vol]Order ed By: Tino Duckworth on 08-23-2023 Albumin [Mass/Vol] 4.0 g/dL 2.9-4.4 [facility] Atypical perinuclear antineu trophil cytoplasmic antibodies measurementOrdered By: Tino Duckworth on 08-23-2023 Neutrophil cytoplasmic Ab.perinuclear.atypical IF (S) [Titer] <1:20 titer Neg:<1:20 [facility] Comment on above: The atypical pANCA p attern has been observed in asignificant percentage of patients with ulcerative colitis,primary sclerosing cholangitis and autoimmune hepatitis.Performed at: [facility] [id number] Director: Santiago Sierra PhD, Phone: [phone] at: [facility] [employer] [id number] Director: Gerardo Benavides MD, Phone: [phone] Basophil percentageOrdered B y: Tino Friend on 08-23-2023 Basophil percentage < 0.2 AI 0.0-0.9 [facility] Basophils/100 WBC (Bld) 1.3 % 0-1 [facility] Bilirubin [Mass/Vol] 0.60 mg/dL 0.20-1.00 [facility] Comment on above: For patients on eltr ombopag therapy, use of Dimension [place] TBIL is not recommended. Chloride [Moles/Vol] 107 mmol/L 98-107 [facility] Eosinophils/100 WBC (Bld) 7.4 % 0-5 [facility] Glucose [Mass/Vol] 91 mg/dL 74-106 [facility] LDH [Catalytic activity/Vol] 169 U/L 87-241 [facility] Neutrophils (Bld) [#/Vol] 3.2 10*3/uL 2.0-7.7 [facility] Neutrophils/100 WBC (Bld) 58.5 % 47-70 [facility] Potassium [Moles/Vol] 3.5 mmol/L 3.5-5.1 [facility] Protein [Mass/Vol] 7.6 g/dL 6.4-8.2 [facility] Sodium [Moles/Vol] 140 mmol/L 136-145 [facility] WBC (Bld) [#/Vol] 5.4 10*3/uL 4.4-11.0 [facility] Blood erythrocytes count (nu mber/volume)Ordered By: Tinoame Duckworth on 08-23-2023 RBC (Bld) [#/Vol] 5.22 10*6/uL 4.6-6.2 [facility] Blood hemoglobin measurement (mass/volume)Ordered By: Tinoame Dcukworth on 08-23-2023 Hemoglobin (Bld) [Mass/Vol] 15.2 g/dL 13.0-16.5 [facility] Blood lymphocytes/100 leukoc ytesOrdered By: Tino Duckworth on 08-23-2023 Lymphocytes/100 WBC (Bld) 23.5 % 19-41 [facility] Blood monocytes/100 leukocyt esOrdered By: Tino Duckworth on 08-23-2023 Monocytes/100 WBC (Bld) 9.1 % 0-10 [facility] Blood platelet mean volumeOr dered By: Tino Duckworth on 08-23-2023 Platelet mean volume (Bld) [Entitic vol] 10.3 fL 6.2-12.0 [facility] Determination of erythrocyte mean corpuscular volume (MCV)Ordered By: Tino Duckworth on 08-23-2023 MCV (RBC) [Entitic vol] 88.3 fL 80-94 [facility] Erythrocyte sedimentation ra teOrdered By: Tino Duckworth on 08-23-2023 ESR (Bld) [Velocity] 7 mm/h 0-20 [facility] Hematocrit Auto (Bld) [Volum e fraction]Ordered By: Tino Duckworth on 08-23-2023 Hematocrit (Bld) [Volume fraction] 46.1 % 40-54 [facility] Interpretation of serum or p lasma protein pattern by immunofixation (narrative resultOrdered By: Tino Duckworth on 08-23-2023 Protein Fractions Immunofixation Jared [Interp] See comment [facility] Comment on above: Result: Not Observed Laboratory - Chemistry and C hemistry - challengeOrdered By: Tino Duckworth on 08-23-2023 ALP [Catalytic activity/Vol] 77 U/L 45-117 [facility] ALT [Catalytic activity/Vol] 50 U/L 16-61 [facility] CO2 [Moles/Vol] 30.0 mmol/L 21.0-32.0 [facility] Urea nitrogen/Creatinine [Mass ratio] 13.8 mg/mg 10-20 [facility] - Hematology and Cell countsOrdered By: Tino Duckworth on 08-23-2023 Erythrocyte distribution width (RBC) [Entitic vol] 37.9 fL 35.1-43.9 [facility] Erythrocyte distribution width (RBC) [Ratio] 11.8 % 11.6-14.6 [facility] Immature granulocytes/100 WBC (Bld) 0.200 % 0.0-0.9 [facility] Comment on above: IG% - Immature Granu locytes (promyelocytes, myelocytes and metamyelocytes) > 1% indicates that a LEFT SHIFT is Present. MCH (RBC) [Entitic mass] 29.1 pg 27.0-32.0 [facility] Nucleated RBC/100 WBC (Bld) [Ratio] 0 % 0-5 [facility] MCHC Auto (RBC) [Mass/Vol]Or dered By: Tino Duckworth on 08-23-2023 MCHC (RBC) [Mass/Vol] 33.0 g/dL 32-36 [facility] No Panel InformationOrdered By: Tino Dukcworth on 08-23-2023 Addendum Document Comment . [facility] Comment on above: Protein electrophore sis scan will follow via computer,mail, or trailer rental clerk delivery. Centromere B Antibody <0.2 AI 0.0-0.9 [facility] Endomysial IgA Antibody Negative Negative [facility] Estimated GFR (MDRD) Amer 120 mL/min >60 [facility] Comment on above: GFR Calc Estimated GFR (MDRD) Non-Af Amer 99 mL/min >60 [facility] Comment on above: Non- GFR Calc Immunoglobulin E 355 IU/mL 6-495 [facility] OFFSET LITHOGRAPHIC PRESS SETTER Antibody 0.2 AI 0.0-0.9 [facility] Platelets bldOrdered By: Nathaniel Duckworth on 08-23-2023 Platelets (Bld) [#/Vol] 331 10*3/uL 150-450 [facility] Serum DNA double strand anti body assay (units/volume)Ordered By: Tino Duckworth on 08-23-2023 DNA double strand Ab Qn (S) [IU]/mL 0-9 [facility] Comment on above: Negative <5 Equivoca l 5 - 9 Positive >9 Serum Renate-1 antibody assay (u nits/volume)Ordered By: Tino Duckworth on 08-23-2023 Renate-1 extractable nuclear Ab Qn (S) <0.2 AI 0.0-0.9 [facility] Serum Scl-70 extractable nuc lear antibody assay (units/volume)Ordered By: Tino Duckworth on 08-23-2023 SCL-70 extractable nuclear Ab Qn (S) <0.2 AI 0.0-0.9 [facility] Serum Gallegos extractable nucl ear antibody detectionOrdered By: Tino Duckworth on 08-23-2023 Gallegos extractable nuclear Ab Ql (S) <0.2 AI 0.0-0.9 [facility] Serum [id number] measu rement by electrophoresisOrdered By: Tino Duckworth on 08-23-2023 Alpha 1 globulin Elph [Mass/Vol] 0.2 g/dL 0.0-0.4 [facility] Alpha 1 globulin Elph [Mass/Vol] 0.6 g/dL 0.4-1.0 [facility] Serum classic neutrophil cyt oplasmic antibody assay (units/volume)Ordered By: Tino Duckworth on 08-23-2023 Neutrophil cytoplasmic Ab.classic Qn (S) <1:20 titer Neg:<1:20 [facility] Serum globulin measurement ( mass/volume)Ordered By: Tino Duckworth on 08-23-2023 Globulin (S) [Mass/Vol] 3.1 g/dL 2.2-3.9 [facility] Serum or plasma C reactive p rotein measurement (mass/volume)Ordered By: Tino Duckworth on 08-23-2023 CRP [Mass/Vol] mg/L 0.0-3.0 [facility] Comment on above: C-Reactive Protein ( CRP) provides useful information for thediagnosis, therapy and monitoring of inflammatory processesand associated diseases. For the evaluation of Relative Riskfor Cardiovascular Disease, a High Sensitivity CRP (HSCRP)should be ordered. Serum or plasma IgA measurem ent (mass/volume)Ordered By: Tino Duckworth on 08-23-2023 IgA [Mass/Vol] 145 mg/dL 90-386 [facility] Serum or plasma IgG measurem ent (mass/volume)Ordered By: Tino Duckworth 08-23-2023 IgG [Mass/Vol] 1238 mg/dL 603-1613 [facility] Serum or plasma IgM measurem ent (mass/volume)Ordered By: Tino Duckworth on 08-23-2023 IgM [Mass/Vol] 121 mg/dL 20-172 [facility] Serum or plasma albumin ramya urement (mass/volume)Ordered By: Tino Duckworth on 08-23-2023 Albumin [Mass/Vol] 3.9 g/dL 3.2-5.0 [facility] Serum or plasma albumin/glob ulin mass ratioOrdered By: Tino Duckworth on 08-23-2023 Albumin/Globulin [Mass ratio] 1.1 {ratio} 0.9-2.4 [facility] Serum or plasma beta globuli n measurement by electrophoresis (mass/volume)Ordered By: Tino Duckworth on 08-23-2023 Beta globulin Elph [Mass/Vol] 1.1 g/dL 0.7-1.3 [facility] Serum or plasma calcium ramya urement (mass/volume)Ordered By: Tino Duckworth on 08-23-2023 Calcium [Mass/Vol] 9.0 mg/dL 8.5-10.1 [facility] Serum or plasma creatinine m easurement (mass/volume)Ordered By: Tino Duckworth on 08-23-2023 Creatinine [Mass/Vol] 0.87 mg/dL 0.70-1.30 [facility] Comment on above: The validity of the calculated GFR & GFRAA in patients over 70 years has not been determined. Clinical correlation is essential. Serum or plasma gamma globul in measurement by electrophoresis (mass/volume)Ordered By: Tino Duckworth on 08-23-2023 Gamma globulin Elph [Mass/Vol] 1.2 g/dL 0.4-1.8 [facility] Serum or plasma immunoelectr ophoresis interpretation (nominal result)Ordered By: Tino Duckworth on 08-23-2023 Interpretation IEP [Interp] Comment . [facility] Comment on above: No monoclonality det ected. Serum or plasma urea nitroge n measurement (mass/volume)Ordered By: Tino Duckworth on 08-23-2023 Urea nitrogen [Mass/Vol] 12 mg/dL 7-18 [facility] Serum perinuclear neutrophil cytoplasmic antibody titer by immunofluorescenceOrdered By: Tino Duckworth on 08-23-2023 Neutrophil cytoplasmic Ab.perinuclear IF (S) [Titer] <1:20 titer Neg:<1:20 [facility] Comment on above: The presence of posi tive fluorescence exhibiting P-ANCA orC-ANCA patterns alone is not specific for the diagnosis ofWegener's Granulomatosis (WG) or microscopic polyangiitis.Decisions about treatment should not be based solely onANCA IFA results. The International ANCA Group Consensusrecommends follow up testing of positive sera with both TX-3 and MPO-ANCA enzyme immunoassays. As many as 5% serumsamples are positive only by EIA. Ref. AM J Clin [id number];111:507-513. Serum tissue transglutaminas e IgA antibody assay (units/volume)Ordered By: Tino Duckworth on 08-23-2023 tTG IgA Qn (S) <2 U/mL 0-3 [facility] Comment on above: Negative 0 - 3 Weak Positive 4 - 10 Positive >10 Tissue Transglutaminase (tTG) has been identified as the endomysial antigen. Studies have demonstr- ated that endomysial IgA antibodies have over 99% specificity for gluten sensitive enteropathy. Thin prep Papanicolaou smear with manual screeningOrdered By: Tino Duckworth on 08-23-2023 Thin prep Papanicolaou smear with manual screening 19 U/L 15-37 [facility] Thin prep Papanicolaou smear with manual screening 3 5-15 [facility] Thin prep Papanicolaou smear with manual screening 1.3 0.7-1.7 [facility] Total protein bloodOrdered B y: Tino Duckworth on 08-23-2023 Protein [Mass/Vol] 7.1 g/dL 6.0-8.5 [facility] CARCINOEMBRYONIC ANTIGEN (CE A) ([id number])Ordered By: Certified Massage Therapist on 01-02-2023 Carcinoembryonic Ag [Mass/Vol] 1.6 ng/mL Normal 0.0-4.7 [facility]; [facility] Work Phone: Comment on above: Nonsmokers <3.9 Smok ers <5.6 . [facility] Electrochemiluminescence Immunoassay (ECLIA) . Values obtained with different assay methods or kits cannot be used interchangeably. Results cannot be interpreted as absolute evidence of the presence or absence of malignant disease. PATIENT WAS FASTINGP ERFORMED BY: [facility] Znvdgi9369 [facility] [id number] Ferritin ([id number])Ordered By: Certified Massage Therapist on 01-02-2023 Ferritin [Mass/Vol] 97 ng/mL Normal 30-400 [facility]; [facility] Work Phone: Comment on above: PATIENT WAS FASTINGP ERFORMED BY: [employer] Ebwtby0617 [facility] [id number] PSA (PROSTATE SPECIFIC ANTIG EN) (V76.44)Ordered By: Certified Massage Therapist on 01-02-2023 Prostate specific Ag [Mass/Vol] 0.6 ng/mL Normal 0.0-4.0 [facility]; [facility] Work Phone: Comment on above: [employer] ECLIA methodol ogy. .According to the [place] U[employer] Association, Serum PSA shoulddecrease and remain at undetectable levels after radicalprostatectomy. The AUA defines biochemical recurrence as an initialPSA value 0.2 ng/mL or greater followed by a subsequent confirmatoryPSA value 0.2 ng/mL or greater.Values obtained with different assay methods or kits cannot be usedinterchangeably. Results cannot be interpreted as absolute evidenceof the presence or absence of malignant disease. all thesse labs plus CHL labs with the nurse; PATIENT WAS FASTINGPERFORMED BY: [employer] [employer]6370 [facility] [id number] INHOUSE COVID 19 (ONLY) RAPI D ([id number])Ordered By: Radha Bonilla on 11-09-2021 SARS-CoV-2 (COVID-19) RNA [place]+probe Ql (Unsp spec) Positive Normal [facility]; [facility] Work Phone: Urinalysis, Office ([id number])Or dered By: Gretchen Haq on 09-28-2020 Bilirubin Ql (U) Negative Normal Comprehe nsive Internal Medicine Work Phone: Bilirubin Ql (U) Negative Normal Comprehe nsive [facility]; [facility] Work Phone: Glucose Test strip (U) [Mass/Vol] Negative Normal [facility] Work Phone: Glucose Test strip (U) [Mass/Vol] Negative Normal [facility]; [facility] Work Phone: Hemoglobin Ql (U) Negative Normal Compreh ensive [facility] Work Phone: Hemoglobin Ql (U) Negative Normal Compreh ensive [facility]; [facility] Work Phone: Ketones Ql (U) Negative Normal Comprehens jose [facility] Work Phone: Ketones Ql (U) Negative Normal Comprehens j[facility]; [facility] Work Phone: Leukocyte esterase Test strip Ql (U) Negative Normal [facility] Work Phone: Leukocyte esterase Test strip Ql (U) Negative Normal [facility]; [facility] Work Phone: Nitrite Ql (U) Negative Normal Comprehens [facility] Work Phone: Nitrite Ql (U) Negative Normal Comprehens j[facility]; [facility] Work Phone: pH (U) 6.0 [pH] Normal [facility] Work Phone: Protein Ql (U) Negative Normal Comprehens [facility] Work Phone: Protein Ql (U) Negative Normal Comprehens jose [facility]; [facility] Work Phone: Specific gravity (U) [Rel density] 1.020 1 Normal [facility] Work Phone: Urobilinogen (24H U) [Mass/Time] Normal Normal [facility] Work Phone: CALCIFEDIOL ([id number])Ordered B y: Certified Massage Therapist on 06-12-2020 25-Hydroxyvitamin D2+25-Hydroxyvitamin D3 [Mass/Vol] 37.9 ng/mL Normal 30.0-100.0 [facility] Work Phone: Comment on above: Vitamin D deficiency has been defined by the [place] ofMedicine and an Endocrine Society practice guideline as alevel of serum 25-OH vitamin D less than 20 ng/mL (1,2).The Endocrine Society went on to further define vitamin Dinsufficiency as a level between 21 and 29 ng/mL (2).1. IOM ([place] of Medicine). 2010. Dietary reference intakes for calcium and D. [place]: The National Academies Press.2. Lisy MF, Jovani NC, Montserrat BROOKS, et al. Evaluation, treatment, and prevention of vitamin D deficiency: an Endocrine Society clinical practice guideline. JCEM. 2010; 96(7):1911-30. PATIENT WAS FASTINGP ERFORMED BY: [facility] Hhvoot7150 [address]eter RoadDublin [place] [id number] CBC & PLATELETS (AUTO) (8502 [id number])Ordered By: Certified Massage Therapist on 06-12-2020 Erythrocyte distribution width (RBC) [Ratio] 11.6 % Normal 11.6-15.4 [facility] Work Phone: Comment on above: PATIENT WAS FASTINGP ERFORMED BY: LabTripleTreerp Fngayn8441 Jeter RoadDublin [place] [id number] Hematocrit (Bld) [Volume fraction] 47.0 % Normal 37.5-51.0 [facility] Work Phone: Comment on above: PATIENT WAS FASTINGP ERFORMED BY: Maintenance Assistant Oonqax2580 [address] RoadDublin [place] [id number] Hemoglobin (Bld) [Mass/Vol] 15.8 g/dL Normal 13.0-17.7 [facility] Work Phone: Comment on above: PATIENT WAS FASTINGP ERFORMED BY: LabTripleTreerp Ibdukq5466 Jeter RoadDublin [place] [id number] MCH (RBC) [Entitic mass] 28.6 pg Normal 26.6-33.0 [facility] Work Phone: Comment on above: PATIENT WAS FASTINGP ERFORMED BY: [facility] Tinuuv4104 [address]Dublin [place] [id number] MCHC (RBC) [Mass/Vol] 33.6 g/dL Normal 31.5-35.7 [facility] Internal Medicine Work Phone: Comment on above: PATIENT WAS FASTINGP ERFORMED BY: LabTripleTreerp Oirtwa8061 [address]Dublin [place] [id number] MCV (RBC) [Entitic vol] 85 fL Normal 79-97 C [facility] Internal Medicine Work Phone: Comment on above: PATIENT WAS FASTINGP ERFORMED BY: CB [facility] Csthar7618 [address]Dublin [place] [id number] Platelets (Bld) [#/Vol] 346 {x10E3/uL} Normal 150-450 [facility] Work Phone: Comment on above: PATIENT WAS FASTINGP ERFORMED BY: CB [facility] Qxaqod9096 [address] RoadDublin [place] [id number] Platelets (Bld) [#/Vol] 346 10*3/uL Normal 150-450 [facility]; [facility] Work Phone: Comment on above: PATIENT WAS FASTINGP ERFORMED BY: CB [facility] Btjfix9084 [address] RoadDublin [place] [id number] RBC (Bld) [#/Vol] 5.53 {x10E6/uL} Normal 4.14-5.80 [facility] Internal [facility] Work Phone: Comment on above: PATIENT WAS FASTINGP ERFORMED BY: CB [facility] Imqafm3086 [address] RoadDublin [place] [id number] RBC (Bld) [#/Vol] 5.53 10*6/uL Normal 4.14-5.80 [facility]; [facility] Work Phone: Comment on above: PATIENT WAS FASTINGP ERFORMED BY: CB [facility] Tnfzby8089 [address] RoadDublin [place] [id number] WBC (Bld) [#/Vol] 5.6 {x10E3/uL} Normal 3.4-10.8 [facility] Internal [facility] Work Phone: Comment on above: PATIENT WAS FASTINGP ERFORMED BY: CB [facility] Cfrlbi3419 J[address] RoadDublin [place] [id number] WBC (Bld) [#/Vol] 5.6 10*3/uL Normal 3.4-10.8 [facility]; [facility] Work Phone: Comment on above: PATIENT WAS FASTINGP ERFORMED BY: CB [facility] Navhve2587 J[address] RoadDublin [place] [id number] LIPID PANEL ([id number])Ordered B y: Certified Massage Therapist on 06-12-2020 Cholesterol [Mass/Vol] 214 mg/dL Abnormal 100-199 Co mprensive Internal Medicine Work Phone: Comment on above: PATIENT WAS FASTINGP ERFORMED BY: LORENA [facility] Fbukzu4820 [address] RoadDublin [place] [id number] Cholesterol in HDL [Mass/Vol] 48 mg/dL Normal [facility] Work Phone: Comment on above: PATIENT WAS FASTINGP ERFORMED BY: LORENA [facility] Caiitg1371 [address] RoadDublin [place] [id number] Cholesterol in LDL [Mass/Vol] 142 mg/dL Abnormal 0-99 [facility] Work Phone: Comment on above: PATIENT WAS FASTINGP ERFORMED BY: LORENA LabCoricardo PrescottKlowya4752 J[address] RoadDublin [place] [id number] Cholesterol in LDL/Cholesterol in HDL [Mass ratio] 3.0 {ratio} Normal 0.0-3.6 [facility] Work Phone: Comment on above: LDL/HDL Ratio Men Wo men 1/2 Avg.Risk 1.0 1.5 Avg.Risk 3.6 3.2 2X Avg.Risk 6.2 5.0 3X Avg.Risk 8.0 6.1 PATIENT WAS FASTINGP ERFORMED BY: LORENA LabCoricardo Bezqcj6674 [address]Dublin [place] [id number] Cholesterol in VLDL [Mass/Vol] 24 mg/dL Normal 5-40 [facility] Work Phone: Comment on above: PATIENT WAS FASTINGP ERFORMED BY: LORENA [facility] Vcasbs6479 [address] RoadDublin [place] [id number] Triglyceride [Mass/Vol] 118 mg/dL Normal 0-149 [facility] Work Phone: Comment on above: PATIENT WAS FASTINGP ERFORMED BY: LORENA [facility] Kuymgl9842 [address] RoadDublin [place] [id number] METABOLIC PANEL, COMPREHENSI VE ([id number])Ordered By: Certified Massage Therapist on 06-12-2020 Albumin [Mass/Vol] 4.5 g/dL Normal 4.0-5.0 [facility] Internal [facility] Work Phone: Comment on above: PATIENT WAS FASTINGP ERFORMED BY: CB [facility] Ibmrsi9525 [address] RoadDublin [place] [id number] Albumin/Globulin [Mass ratio] 1.8 {ratio} Normal 1.2-2.2 [facility] Work Phone: Comment on above: PATIENT WAS FASTINGP ERFORMED BY: CB [facility] Dmfwko1939 [address] RoadDublin [place] [id number] ALP [Catalytic activity/Vol] 86 [iU]/L Normal 39-117 [facility] Work Phone: Comment on above: PATIENT WAS FASTINGP ERFORMED BY: CB [facility] Xgapvb2177 [address] RoadDublin [place] [id number] ALP [Catalytic activity/Vol] 86 U/L Normal 39-117 [facility]; [facility] Work Phone: Comment on above: PATIENT WAS FASTINGP ERFORMED BY: [facility] Prkmym3319 [address] RoadDublin [place] [id number] ALT [Catalytic activity/Vol] 57 [iU]/L Abnormal 0-44 [facility] Work Phone: Comment on above: PATIENT WAS FASTINGP ERFORMED BY: [facility] Aowrtk7488 Jteer RoadDublin [place] [id number] ALT [Catalytic activity/Vol] 57 U/L Abnormal 0-44 [facility]; [facility] Work Phone: Comment on above: PATIENT WAS FASTINGP ERFORMED BY: CB [facility] Omyxpr6090 [address] RoadDublin [place] [id number] AST [Catalytic activity/Vol] 30 [iU]/L Normal 0-40 [facility] Work Phone: Comment on above: PATIENT WAS FASTINGP ERFORMED BY: CB [facility] Nieqru9145 [address]Dublin [place] [id number] AST [Catalytic activity/Vol] 30 U/L Normal 0-40 [facility]; [facility] Work Phone: Comment on above: PATIENT WAS FASTINGP ERFORMED BY: CB [facility] Ldkera4442 Ejter RoadDublin [place] [id number] Bilirubin [Mass/Vol] 0.7 mg/dL Normal 0.0-1.2 [facility] Work Phone: Comment on above: PATIENT WAS FASTINGP ERFORMED BY: CB [facility] Mcewod8355 [address] RoadDublin [place] [id number] Calcium [Mass/Vol] 9.4 mg/dL Normal 8.7-10.2 [facility] Internal [facility] Work Phone: Comment on above: PATIENT WAS FASTINGP ERFORMED BY: CB [facility] Ayebiz3581 [address] RoadDublin [place] [id number] Chloride [Moles/Vol] 102 mmol/L Normal 96-106 [facility] Work Phone: Comment on above: PATIENT WAS FASTINGP ERFORMED BY: [facility] Xyhcle7627 [address] RoadDublin [place] [id number] CO2 [Moles/Vol] 27 mmol/L Normal 20-[address] [facility] Internal Medicine Work Phone: Comment on above: PATIENT WAS FASTINGP ERFORMED BY: [facility] Ipnfgy7602 [address]Dublin [place] [id number] Creatinine [Mass/Vol] 1.04 mg/dL Normal 0.76-1.27 [facility] Internal Medicine Work Phone: Comment on above: PATIENT WAS FASTINGP ERFORMED BY: CB [facility] Vxtfcb5312 [address] RoadDublin [place] [id number] GFR/1.73 sq M predicted among blacks CKD-EPI (S/P/Bld) [Vol rate/Area] 99 mL/min/1.73 Normal [facility] Work Phone: Comment on above: PATIENT WAS FASTINGP ERFORMED BY: CB [facility] Xilrqh9762 [address] RoadDublin [place] [id number] GFR/1.73 sq M predicted among non-blacks CKD-EPI (S/P/Bld) [Vol rate/Area] 86 mL/min/1.73 Normal [facility] Work Phone: Comment on above: PATIENT WAS FASTINGP ERFORMED BY: LORENA [facility] Ndnknx2471 J[address] RoadDublin [place] [id number] Globulin (S) [Mass/Vol] 2.5 g/dL Normal 1.5-4.5 [facility]erens[facility] Work Phone: Comment on above: PATIENT WAS FASTINGP ERFORMED BY: LORENA [facility] Qmcedx9387 [address] RoadDublin [place] [id number] Glucose [Mass/Vol] 87 mg/dL Normal 65-99 [facility] Internal Medicine Work Phone: Comment on above: PATIENT WAS FASTINGP ERFORMED BY: LORENA [facility] Tfvykr3431 [address] RoadDublin [place] [id number] Potassium [Moles/Vol] 4.1 mmol/L Normal 3.5-5.2 [facility] Internal Medicine Work Phone: Comment on above: PATIENT WAS FASTINGP ERFORMED BY: LORENA [facility] Kaletr3212 [address] RoadDublin [place] [id number] Protein [Mass/Vol] 7.0 g/dL Normal 6.0-8.5 [facility] Internal Medicine Work Phone: Comment on above: PATIENT WAS FASTINGP ERFORMED BY: LORENA [facility] Kisnke7516 [address] RoadDublin [place] [id number] Sodium [Moles/Vol] 142 mmol/L Normal 134-144 [facility] Internal Medicine Work Phone: Comment on above: PATIENT WAS FASTINGP ERFORMED BY: LORENA [facility] Wctboh5826 Jeter RoadDublin [place] [id number] Urea nitrogen [Mass/Vol] 11 mg/dL Normal 6-24 [facility] Work Phone: Comment on above: PATIENT WAS FASTINGP ERFORMED BY: LORENA [facility] Nsvour2683 [address] RoadDublin [place] [id number] Urea nitrogen/Creatinine [Mass ratio] 11 mg/mg Normal 9-20 [facility] Work Phone: Comment on above: PATIENT WAS FASTINGP ERFORMED BY: [facility] Nzdrka3277 [address] [place] [id number] [facility] CNNURSE Nurse Visit (PEDSWS) JONO MENCHACA ([id number]) 1975 M Date Time Provider Department 08/12/19 7:00 PM NURSE/[facility] W[facility] PEDSWS During your visit today, we recorded the following information about you: Referring Provider: SELF [200] Allergies As of Date: 08/12/2019 (Not on File) Date Reviewed: Never Reviewed Reason for Visit: Immunizations [194] Primary Visit Diagnosis:Encounter for immunization [Z23] Order(s):INFLUENZA VAC 4 VALENT PSRV FREE 6 MO-64 YRS IM [[id number]] Order #: [id number] Problem List As Of Date: 08/12/2019 (None) Encounter Status:Closed by CHICA CASTILLO RN on 08/12/19 Normal [facility] CALCIFEDIOL ([id number])Ordered B y: Certified Massage Therapist on 02-14-2018 25-Hydroxyvitamin D2+25-Hydroxyvitamin D3 mass conc 27.2 ng/mL Abnormal 30.0-100.0 [facility] Work Phone: Comment on above: Vitamin D deficiency has been defined by the [place] of[place]icine and an Endocrine Society practice guideline as alevel of serum 25-OH vitamin D less than 20 ng/mL (1,2).The Endocrine Society went on to further define vitamin Dinsufficiency as a level between 21 and 29 ng/mL (2).1. IOM ([place] of [place]). 2010. Dietary reference intakes for calcium and D. [place]: The National Academies Press.2. Lisy MF, Jovani RUIZ, Montserrat BROOKS, et al. Evaluation, treatment, and prevention of vitamin D deficiency: an Endocrine Society clinical practice guideline. JCEM. 2010; 96(7):1911-30. PATIENT WAS FASTINGP ERFORMED BY: LORENA [facility] Imhtsc6197 [facility] [id number] BY: [address] [id number] CBC, Platelets & Auto Diff ( [id number])Ordered By: Certified Massage Therapist on 02-14-2018 Basophils #/vol (Bld) 0.1 {x10E3/uL} Normal 0.0-0.2 [facility] Work Phone: Comment on above: PATIENT WAS FASTINGP ERFORMED BY: LabCoAtlantic Rehabilitation InstituteEdmyfq1560 [facility] [id number] BY: [address] [id number] Basophils (Bld) [#/Vol] 0.1 10*3/uL Normal 0.0-0.2 [facility]; [facility] Work Phone: Comment on above: PATIENT WAS FASTINGP ERFORMED BY: [facility] Mxzhmn1961 [facility] [id number] BY: [address] [id number] Basophils/100 WBC (Bld) 1 % Normal C omprehensive [facility] Work Phone: Comment on above: PATIENT WAS FASTINGP ERFORMED BY: [facility] Kfuabo1202 [facility] [id number] BY: [address] [id number] Eosinophils #/vol (Bld) 0.6 {x10E3/uL} Abnormal 0.0-0.4 [facility] Work Phone: Comment on above: PATIENT WAS FASTINGP ERFORMED BY: [facility] Pxekno1398 [facility] [id number] BY: [address] [id number] Eosinophils (Bld) [#/Vol] 0.6 10*3/uL Abnormal 0.0-0.4 [facility]; [facility] Work Phone: Comment on above: PATIENT WAS FASTINGP ERFORMED BY: LabCoDavid [place] [id number] [facility] [id number] BY: [address] [id number] Eosinophils/100 WBC (Bld) 10 % Normal [facility] Work Phone: Comment on above: PATIENT WAS FASTINGP ERFORMED BY: LabCo[address] [id number] BY: [address] [id number] Erythrocyte distribution width Ratio (RBC) 12.7 % Normal 12.3-15.4 [facility] Work Phone: Comment on above: PATIENT WAS FASTINGP ERFORMED BY: LabTripleTreeDavid [place] [id number] [facility] [id number] BY: [address] [id number] Hematocrit Volume Fraction (Bld) 46.3 % Normal 37.5-51.0 [facility] Work Phone: Comment on above: PATIENT WAS FASTINGP ERFORMED BY: LabTripleTreeDavid [place] [id number] [facility] [id number] BY: [address] [id number] Hemoglobin mass conc (Bld) 15.8 g/dL Normal 13.0-17.7 [facility] Work Phone: Comment on above: PATIENT WAS FASTINGP ERFORMED BY: [facility] Ykkdyw9285 [facility] [id number] BY: [address] [id number] Immature granulocytes #/vol (Bld) 0.0 {x10E3/uL} Normal 0.0-0.1 [facility] Work Phone: Comment on above: PATIENT WAS FASTINGP ERFORMED BY: LORENA [facility] Crysts9508 [facility] [id number] BY: [address] [id number] Immature granulocytes (Bld) [#/Vol] 0.0 10*3/uL Normal 0.0-0.1 [facility]; [facility] Work Phone: Comment on above: PATIENT WAS FASTINGP ERFORMED BY: LORENA [facility] Acstmd1396 [facility] [id number] BY: [address] [id number] Immature granulocytes/100 WBC (Bld) 0 % Normal [facility] Work Phone: Comment on above: PATIENT WAS FASTINGP ERFORMED BY: LORENA [facility] Ebggdl9978 [facility] [id number] BY: Lab[address] [id number] Lymphocytes #/vol (Bld) 1.6 {x10E3/uL} Normal 0.7-3.1 [facility] Work Phone: Comment on above: PATIENT WAS FASTINGP ERFORMED BY: LORENA [facility] Wtzomm4276 [facility] [id number] BY: Lab[address] [id number] Lymphocytes (Bld) [#/Vol] 1.6 10*3/uL Normal 0.7-3.1 [facility]; [facility] Work Phone: Comment on above: PATIENT WAS FASTINGP ERFORMED BY: LORENA [facility] Divcan4151 [facility] [id number] BY: [address] [id number] Lymphocytes/100 WBC (Bld) 25 % Normal [facility] Work Phone: Comment on above: PATIENT WAS FASTINGP ERFORMED BY: [facility] Vlkxxy6683 [facility] [id number] BY: [address] [id number] MCH Entitic mass (RBC) 29.3 pg Normal 26.6-33.0 [facility] Internal Medicine Work Phone: Comment on above: PATIENT WAS FASTINGP ERFORMED BY: [facility] Ltably2983 [facility] [id number] BY: [address] [id number] MCHC mass conc (RBC) 34.1 g/dL Normal 31.5-35.7 [facility] Internal Medicine Work Phone: Comment on above: PATIENT WAS FASTINGP ERFORMED BY: [facility] Fetrmr9571 [facility] [id number] BY: [address] [id number] MCV Entitic volume (RBC) 86 fL Normal 79-97 [facility] Internal Medicine Work Phone: Comment on above: PATIENT WAS FASTINGP ERFORMED BY: [facility] Wywymm4365 [facility] [id number] BY: [address] [id number] Monocytes #/vol (Bld) 0.7 {x10E3/uL} Normal 0.1-0.9 [facility] Internal Medicine Work Phone: Comment on above: PATIENT WAS FASTINGP ERFORMED BY: [facility] Awuton9767 [facility] [id number] BY: [address] [id number] Monocytes (Bld) [#/Vol] 0.7 10*3/uL Normal 0.1-0.9 [facility]; [facility] Work Phone: Comment on above: PATIENT WAS FASTINGP ERFORMED BY: LORENA [facility] Hqreip0165 Jeter RoadDublin [place] [id number] BY: LabCo[address] [id number] Monocytes/100 WBC (Bld) 11 % Normal C omprehensive Internal Medicine Work Phone: Comment on above: PATIENT WAS FASTINGP ERFORMED BY: LORENA [facility] Qdwabq7806 Jeter RoadDublin [place] [id number] BY: LabCo[address] [id number] Neutrophils #/vol (Bld) 3.3 {x10E3/uL} Normal 1.4-7.0 [facility] Work Phone: Comment on above: PATIENT WAS FASTINGP ERFORMED BY: LORENA [facility] Bkgipv5068 Jeter RoadDublin [place] [id number] BY: [address] [id number] Neutrophils (Bld) [#/Vol] 3.3 10*3/uL Normal 1.4-7.0 [facility]; [facility] Work Phone: Comment on above: PATIENT WAS FASTINGP ERFORMED BY: LORENA [facility] Fggsxs7932 Jeter RoadDublin [place] [id number] BY: [address] [id number] Neutrophils/100 WBC (Bld) 53 % Normal [facility] Work Phone: Comment on above: PATIENT WAS FASTINGP ERFORMED BY: LORENA [facility] Zmcmqp6809 [address]eter RoadDublin [place] [id number] BY: Lab[address] [id number] Platelets #/vol (Bld) 342 {x10E3/uL} Normal 150-379 [facility] Work Phone: Comment on above: PATIENT WAS FASTINGP ERFORMED BY: LORENA [facility] Hzvjat8786 Jeter RoadDublin [place] [id number] BY: [address] [id number] Platelets (Bld) [#/Vol] 342 10*3/uL Normal 150-379 [facility]; [facility] Work Phone: Comment on above: PATIENT WAS FASTINGP ERFORMED BY: LabCoAtlantic Rehabilitation InstituteVyaijq8804 [facility] [id number] BY: [address] [id number] RBC #/vol (Bld) 5.39 {x10E6/uL} Normal 4.14-5.80 [facility] Work Phone: Comment on above: PATIENT WAS FASTINGP ERFORMED BY: [facility] Yvpcci6127 [facility] [id number] BY: [address] [id number] RBC (Bld) [#/Vol] 5.39 10*6/uL Normal 4.14-5.80 Compr ensive Internal Medicine; [facility] Work Phone: Comment on above: PATIENT WAS FASTINGP ERFORMED BY: [facility] Xnmtar6842 [facility] [id number] BY: [address] [id number] WBC #/vol (Bld) 6.3 {x10E3/uL} Normal 3.4-10.8 Compr ensive Internal Medicine Work Phone: Comment on above: PATIENT WAS FASTINGP ERFORMED BY: [facility]6370 [facility] [id number] BY: [address] [id number] WBC (Bld) [#/Vol] 6.3 10*3/uL Normal 3.4-10.8 [facility]pre [facility]; [facility] Work Phone: Comment on above: PATIENT WAS FASTINGP ERFORMED BY: CB [facility] Osdyto2410 Jeter RoadDublin [place] [id number] BY: BN [facility] [address] [id number] FERRITIN ([id number])Ordered By: Certified Massage Therapist on 02-14-2018 Ferritin mass conc 57 ng/mL Normal 30-400 [facility] Internal Medicine Work Phone: Comment on above: PATIENT WAS FASTINGP ERFORMED BY: CB [facility] Zdbyun6325 Jeter RoadDublin [place] [id number] BY: BN [facility] [address] [id number] IRON ([id number])Ordered By: Syst em Vinyl Cutter on 02-14-2018 Iron mass conc 161 ug/dL Normal 38-169 [facility] Internal Medicine Work Phone: Comment on above: PATIENT WAS FASTINGP ERFORMED BY: CB [facility] Zyabnl6060 [address]eter RoadDublin [place] [id number] BY: BN [facility] [address] [id number] LIPID PANEL ([id number])Ordered B y: Certified Massage Therapist on 02-14-2018 Cholesterol in HDL mass conc 56 mg/dL Normal [facility] Work Phone: Comment on above: PATIENT WAS FASTINGP ERFORMED BY: CB [facility] Zepeev5865 [address]eter RoadDublin [place] [id number] BY: [facility] [address] [id number] Cholesterol in LDL mass conc 117 mg/dL Abnormal 0-99 [facility] Work Phone: Comment on above: PATIENT WAS FASTINGP ERFORMED BY: CB [facility] Cbtcuh9735 Jeter RoadDublin [place] [id number] BY: BN [facility] [address] [id number] Cholesterol in LDL/Cholesterol in HDL mass ratio 2.1 {ratio} Normal 0.0-3.6 [facility] Work Phone: Comment on above: LDL/HDL Ratio Men Wo men 1/2 Avg.Risk 1.0 1.5 Avg.Risk 3.6 3.2 2X Avg.Risk 6.2 5.0 3X Avg.Risk 8.0 6.1 PATIENT WAS FASTINGP ERFORMED BY: CB [facility] Veizbf5675 [facility] [id number] BY: Lab[address] [id number] Cholesterol in VLDL mass conc 15 mg/dL Normal 5-40 [facility] Work Phone: Comment on above: PATIENT WAS FASTINGP ERFORMED BY: CB [facility] Ahwbmr0005 [address]eter [facility] [id number] BY: [facility] [address] [id number] Cholesterol mass conc 188 mg/dL Normal 100-199 [facility] prehensive Internal Medicine Work Phone: Comment on above: PATIENT WAS FASTINGP ERFORMED BY: CB [facility] Gxlxsx5700 [facility] [id number] BY: LabCo[address] [id number] Triglyceride mass conc 74 mg/dL Normal 0-149 [facility] Work Phone: Comment on above: PATIENT WAS FASTINGP ERFORMED BY: CB [facility] Gvixth1519 [facility] [id number] BY: LabCo[address] [id number] Metabolic Panel, Comprehensi ve ([id number])Ordered By: Certified Massage Therapist on 02-14-2018 Albumin mass conc 4.4 g/dL Normal 3.5-5.5 Compreh ensive Internal Medicine Work Phone: Comment on above: PATIENT WAS FASTINGP ERFORMED BY: CB [facility] Geryjm5180 [facility] [id number] BY: Lab[address] [id number] Albumin/Globulin mass ratio 1.7 {ratio} Normal 1.2-2.2 [facility] Work Phone: Comment on above: PATIENT WAS FASTINGP ERFORMED BY: [facility] Etjacd2645 [facility] [id number] BY: Lab[address] [id number] ALP [Catalytic activity/Vol] 76 U/L Normal 39-117 [facility]; [facility] Work Phone: Comment on above: PATIENT WAS FASTINGP ERFORMED BY: [facility] Rpsipb0061 [facility] [id number] BY: LabCo[address] [id number] ALP enzyme act/vol 76 [iU]/L Normal 39-117 [facility] Internal Medicine Work Phone: Comment on above: PATIENT WAS FASTINGP ERFORMED BY: [facility] Shcuvj7741 [facility] [id number] BY: Lab[address] [id number] ALT [Catalytic activity/Vol] 32 U/L Normal 0-44 [facility]; [facility] Work Phone: Comment on above: PATIENT WAS FASTINGP ERFORMED BY: [facility] Pqnfez3131 [facility] [id number] BY: Lab[address] [id number] ALT enzyme act/vol 32 [iU]/L Normal 0-44 [facility] Internal Medicine Work Phone: Comment on above: PATIENT WAS FASTINGP ERFORMED BY: [facility] Cpqbrk4874 [facility] [id number] BY: Lab[address] [id number] AST [Catalytic activity/Vol] 24 U/L Normal 0-40 [facility]; [facility] Work Phone: Comment on above: PATIENT WAS FASTINGP ERFORMED BY: [facility] Gokfzw3464 [address]eter RoadDublin [place] [id number] BY: LabCo[address] [id number] AST enzyme act/vol 24 [iU]/L Normal 0-40 Compre hensive Internal Medicine Work Phone: Comment on above: PATIENT WAS FASTINGP ERFORMED BY: CB [facility] Zpbnvb5211 [address]eter RoadDublin [place] [id number] BY: LabCo[address] [id number] Bilirubin mass conc 0.7 mg/dL Normal 0.0-1.2 Compr ensive Internal Medicine Work Phone: Comment on above: PATIENT WAS FASTINGP ERFORMED BY: LORENA [facility] Dnujms1707 Jeter RoadDublin [place] [id number] BY: Lab[address] [id number] Calcium mass conc 9.5 mg/dL Normal 8.7-10.2 Compreh ensive Internal Medicine Work Phone: Comment on above: PATIENT WAS FASTINGP ERFORMED BY: LORENA [facility] Wlcjel5177 Jeter RoadDublin [place] [id number] BY: [address] [id number] Chloride molar conc 100 mmol/L Normal 96-106 Compr ensive Internal Medicine Work Phone: Comment on above: PATIENT WAS FASTINGP ERFORMED BY: [facility] Vipslx1070 [address] RoadDublin [place] [id number] BY: Lab[address] [id number] CO2 molar conc 26 mmol/L Normal 18-29 Comprehens jose Internal Medicine Work Phone: Comment on above: PATIENT WAS FASTINGP ERFORMED BY: LORENA [facility] Axrnjy5105 [address] RoadDublin [place] [id number] BY: Lab[address] [id number] Creatinine mass conc 0.86 mg/dL Normal 0.76-1.27 Comp rehensive Internal Medicine Work Phone: Comment on above: PATIENT WAS FASTINGP ERFORMED BY: CB [facility] Wmollx1001 Jeter RoadDublin [place] [id number] BY: BN [facility] [address] [id number] GFR/1.73 sq M predicted among blacks CKD-EPI vol rate/area (S/P/Bld) 122 mL/min/1.73 Normal Comprehe nsive Internal Medicine Work Phone: Comment on above: PATIENT WAS FASTINGP ERFORMED BY: CB [facility] Qwdqnw7373 Jeter RoadO[facility] [id number] BY: BN [facility] [address] [id number] GFR/1.73 sq M predicted among non-blacks CKD-EPI vol rate/area (S/P/Bld) 105 mL/min/1.73 Normal [facility] Work Phone: Comment on above: PATIENT WAS FASTINGP ERFORMED BY: CB [facility] Szqmua0976 [address] [facility] [id number] BY: [facility] [address] [id number] Globulin mass conc (S) 2.6 g/dL Normal 1.5-4.5 [facility] Work Phone: Comment on above: PATIENT WAS FASTINGP ERFORMED BY: CB [facility] Fctpoi2215 [address] [facility] [place] [id number] BY: [facility] [address] [id number] Glucose mass conc 70 mg/dL Normal 65-99 Compreh ensive Internal Medicine Work Phone: Comment on above: PATIENT WAS FASTINGP ERFORMED BY: CB [facility] Lpuicq5059 [address] [facility] [id number] BY: [facility] [address] [id number] Potassium molar conc 4.5 mmol/L Normal 3.5-5.2 Comp rehensive Internal Medicine Work Phone: Comment on above: PATIENT WAS FASTINGP ERFORMED BY: LORENA [facility] Znsgvi7589 [facility] [id number] BY: [address] [id number] Protein mass conc 7.0 g/dL Normal 6.0-8.5 Compreh ensive Internal Medicine Work Phone: Comment on above: PATIENT WAS FASTINGP ERFORMED BY: CB [facility] Xcolhi0974 [facility] [id number] BY: Lab[address] [id number] Sodium molar conc 140 mmol/L Normal 134-144 Compreh ensive Internal Medicine Work Phone: Comment on above: PATIENT WAS FASTINGP ERFORMED BY: LORENA [facility] Mciibh5966 [facility] [id number] BY: Lab[address] [id number] Urea nitrogen mass conc 15 mg/dL Normal 6-24 C omprehensive Internal Medicine Work Phone: Comment on above: PATIENT WAS FASTINGP ERFORMED BY: [facility] Zwncks9502 [facility] [id number] BY: Lab[address] [id number] Urea nitrogen/Creatinine mass ratio 17 mg/mg Normal 9-20 [facility] Work Phone: Comment on above: PATIENT WAS FASTINGP ERFORMED BY: CB [facility] Eenvcb2540 [facility] [id number] BY: Lab[address] [id number] TESTOSTERONE FREE ([id number])Ord ered By: Certified Massage Therapist on 02-14-2018 Testosterone Free mass conc 13.6 pg/mL Normal 6.8-21.5 [facility] Work Phone: Comment on above: PATIENT WAS FASTINGP ERFORMED BY: LORENA [facility] Uhruap5286 [facility] [id number] BY: LabGina [place] 412017 [facility] [id number] TSH ([id number])Ordered By: Kloudcoe m Vinyl Cutter on 02-14-2018 Thyrotropin Qn 1.970 {uIU/mL} Normal 0.450-4.50 0 [facility] Work Phone: Comment on above: PATIENT WAS FASTINGP ERFORMED BY: LORENA [facility] Dryzcj7834 [facility] [id number] BY: LabGina [place] 412017 [facility] [id number] Celiac Disease Comphrehensiv e Profile ([id number])Ordered By: Certified Massage Therapist on 02-04-2016 Endomysium IgA Ql (S) Positive Abnormal Com prehensive Internal Medicine Work Phone: Comment on above: PATIENT NOT FASTINGP ERFORMED BY: LORENA [facility] Uqazfw0017 [facility] [id number] Information: [id number] Endomysium IgA Ql (S) Positive Abnormal Com prehensive Internal Medicine; [facility] Work Phone: Comment on above: PATIENT NOT FASTINGP ERFORMED BY: [facility] Qgsmis9118 [facility] [id number] Information: [id number] Gliadin peptide IgA Qn (S) 145 {units} Abnormal 0-19 [facility] Work Phone: Comment on above: Negative 0 - 19 Weak Positive 20 - 30 Moderate to Strong Positive >30 PATIENT NOT FASTINGP ERFORMED BY: [facility] Mqbutx3146 [facility] [id number] Information: [id number] Gliadin peptide IgG Qn (S) 96 {units} Abnormal 0-19 [facility] Work Phone: Comment on above: Negative 0 - 19 Weak Positive 20 - 30 Moderate to Strong Positive >30 PATIENT NOT FASTINGP ERFORMED BY: LORENA MandyCoricardo Uyslty1094 [address] [facility] [id number] Information: [id number] IgA mass conc 199 mg/dL Normal 90-386 Comprehensi Internal Medicine Work Phone: Comment on above: PATIENT NOT FASTINGP ERFORMED BY: LORENA MandyCo Jyoxsy4481 [address]eter [facility] [id number] Information: [id number] Tissue transglutaminase IgA Qn (S) >100 Abnormal 0-3 [facility] Work Phone: Comment on above: Negative 0 - 3 Weak Positive 4 - 10 Positive >10 . Tissue Transglutaminase (tTG) has been identified as the endomysial antigen. Studies have demonstr- ated that endomysial IgA antibodies have over 99% specificity for gluten sensitive enteropathy. PATIENT NOT FASTINGP ERFORMED BY: LORENA [facility]andyKind[facility] Hospital Uklrzm2006 [facility] [id number] Information: [id number] Tissue transglutaminase IgG Qn (S) 4 U/mL Normal 0-5 [facility] Internal Medicine Work Phone: Comment on above: Negative 0 - 5 Weak Positive 6 - 9 Positive >9 PATIENT NOT FASTINGP ERFORMED BY: LORENA Froyricardo PrescottUgdqwf6787 [facility] [id number] Information: [id number] FERRITIN ([id number])Ordered By: Certified Massage Therapist on 02-04-2016 Ferritin mass conc 8 ng/mL Abnormal 30-400 [facility] Internal [facility] Work Phone: Comment on above: 6 weeks; PATIENT NOT FASTINGPERFORMED BY: LORENA [facility] Qupunz4412 [facility] [id number] HEPATIC FUNCTION PANEL ([id number])Ordered By: Certified Massage Therapist on 02-04-2016 Albumin mass conc 4.0 g/dL Normal 3.5-5.5 Compreh [facility] Internal Medicine Work Phone: Comment on above: 6 weeks; PATIENT NOT FASTINGPERFORMED BY: LORENA [facility]Kind[facility] Hkisag8153 [facility] [id number] ALP [Catalytic activity/Vol] 95 U/L Normal 39-117 [facility]; [facility] Internal Medicine Work Phone: Comment on above: 6 weeks; PATIENT NOT FASTINGPERFORMED BY: CB [facility] Qhpsfd5129 [address] RoadDublin [place] [id number] ALP enzyme act/vol 95 [iU]/L Normal 39-117 [facility] Internal Medicine Work Phone: Comment on above: 6 weeks; PATIENT NOT FASTINGPERFORMED BY: CB [facility] Idgasm9716 [address] RoadDublin [place] [id number] ALT [Catalytic activity/Vol] 53 U/L Abnormal 0-44 [facility]; [facility] Internal Medicine Work Phone: Comment on above: 6 weeks; PATIENT NOT FASTINGPERFORMED BY: CB [facility] Mxpwye1845 [address] RoadDublin [place] [id number] ALT enzyme act/vol 53 [iU]/L Abnormal 0-44 [facility] Internal Medicine Work Phone: Comment on above: 6 weeks; PATIENT NOT FASTINGPERFORMED BY: CB [facility] Frzzii6821 [address] RoadDublin [place] [id number] AST [Catalytic activity/Vol] 41 U/L Abnormal 0-40 [facility]; [facility] Internal Medicine Work Phone: Comment on above: 6 weeks; PATIENT NOT FASTINGPERFORMED BY: CB [facility] Dmtwot7306 [address] RoadDublin [place] [id number] AST enzyme act/vol 41 [iU]/L Abnormal 0-40 [facility] Internal Medicine Work Phone: Comment on above: 6 weeks; PATIENT NOT FASTINGPERFORMED BY: CB [facility] Qvdgkj6738 [address] RoadDublin [place] [id number] Bilirubin [Mass/Vol] mg/dL Normal 0.0-1.2 [facility] Internal Medicine; [facility] Internal Medicine Work Phone: Comment on above: 6 weeks; PATIENT NOT FASTINGPERFORMED BY: CB [facility] Wxlxxu7110 [address] RoadDublin [place] [id number] Bilirubin mass conc mg/dL Normal 0.0-1.2 Compr ensive Internal Medicine Work Phone: Comment on above: 6 weeks; PATIENT NOT FASTINGPERFORMED BY: LORENA [facility] Yoiedn9109 [address]eter [facility]in [place] [id number] Bilirubin.direct mass conc 0.07 mg/dL Normal 0.00-0.40 [facility] Work Phone: Comment on above: 6 weeks; PATIENT NOT FASTINGPERFORMED BY: LORENA [facility] Egpuqr6170 [address] [facility] [id number] Protein mass conc 6.1 g/dL Normal 6.0-8.5 Compreh ensive Internal Medicine Work Phone: Comment on above: 6 weeks; PATIENT NOT FASTINGPERFORMED BY: LORENA [facility] Bgzlff1142 [facility]eter[facility] [id number] PREALBUMIN ([id number])Ordered By : Certified Massage Therapist on 02-04-2016 Prealbumin mass conc 23 mg/dL Normal 9-31 [facility] Internal Medicine Work Phone: Comment on above: PATIENT NOT FASTINGP ERFORMED BY: LORENA [facility] Vvcnpn2979 [address]eter [facility] [id number] SPEP ([id number])Ordered By: Syst em Vinyl Cutter on 02-04-2016 Albumin mass conc 3.6 g/dL Normal 3.2-5.6 Compreh [facility] Internal Medicine Work Phone: Comment on above: PATIENT NOT FASTINGP ERFORMED BY: LORENA [facility] Oejlps6336 [facility]eterCap[facility] [id number] Information: [id number] Albumin/Globulin mass ratio 1.2 {ratio} Normal 0.7-2.0 [facility] Work Phone: Comment on above: PATIENT NOT FASTINGP ERFORMED BY: LORENA [facility] Kayzyf3313 [address]eter [facility] [id number] Information: [id number] Alpha 1 globulin Elph mass conc 0.2 g/dL Normal 0.1-0.4 [facility] Work Phone: Comment on above: PATIENT NOT FASTINGP ERFORMED BY: LORENA GalvanCoAtlantic Rehabilitation InstituteDhcliw1356 [facility] [id number] Information: [id number] Alpha 2 globulin Elph mass conc 0.6 g/dL Normal 0.4-1.2 [facility] Work Phone: Comment on above: PATIENT NOT FASTINGP ERFORMED BY: LabCoAtlantic Rehabilitation InstituteNvpbly0416 [facility] [id number] Information: [id number],[id number] Beta globulin Elph mass conc 1.0 g/dL Normal 0.6-1.3 [facility] Work Phone: Comment on above: PATIENT NOT FASTINGP ERFORMED BY: LabStephanie Ville 0583370 [facility] [id number] Information: [id number] Gamma globulin Elph mass conc 1.0 g/dL Normal 0.5-1.6 [facility] Work Phone: Comment on above: PATIENT NOT FASTINGP ERFORMED BY: LabStephanie [place]ille 0583370 [facility] [id number] Information: [id number],[id number] Globulin mass conc (S) 2.9 g/dL Normal 2.0-4.5 [facility]prehlim[facility] Internal Medicine Work Phone: Comment on above: PATIENT NOT FASTINGP ERFORMED BY: [place] 4613770 [facility] [id number] Information: [id number] Laboratory comment Jared (Report) SPRCS Normal [facility] Work Phone: Comment on above: Protein electrophore sis scan will follow via computer, mail, orcourier delivery. PATIENT NOT FASTINGP ERFORMED BY: LabCoAtlantic Rehabilitation InstituteDmwlcs3543 [facility] [id number] Information: [id number] Protein mass conc 6.5 g/dL Normal 6.0-8.5 Compreh ensive Internal Medicine Work Phone: Comment on above: PATIENT NOT FASTINGP ERFORMED BY: LabStephanie Ville [id number] Jeter [facility] [id number] Information: [id number] Protein.monoclonal Elph mass conc Not Observed Normal [facility] Work Phone: Comment on above: PATIENT NOT FASTINGP ERFORMED BY: LORENA Maintenance Assistant Juenhb0994 Jeter [facility] [place] [id number] Information: [id number] ANTI-LIVER/KIDNEY MICROSOMAL ANTIBODY (94949)Ordered By: Certified Massage Therapist on 12-10-2015 Thyroperoxidase Ab Qn 9 {IU/mL} Normal 0-34 Com prehensive Internal Medicine Work Phone: Comment on above: PATIENT NOT FASTINGP ERFORMED BY: LORENA Maintenance Assistant Hvfphy7902 Jeter [facility] [id number] TPO Ab Qn 9 [IU]/mL Normal 0-34 [facility]; [facility] Work Phone: Comment on above: PATIENT NOT FASTINGP ERFORMED BY: Maintenance Assistant Jcwtnw2302 Jeter [facility] [id number] ASM (ANTI SMOOTH MUSCLE ANTI BODY) (98437)Ordered By: Certified Massage Therapist on 12-10-2015 Actin IgG Qn 8 {Units} Normal 0-19 Comprehensiv e Internal Medicine Work Phone: Comment on above: Negative 0 - 19 Weak positive 20 - 30 Moderate to strong positive >30 . Actin Antibodies are found in 52-85% of patients with autoimmune hepatitis or chronic active hepatitis and in 22% of patients with primary biliary cirrhosis. PATIENT NOT FASTINGP ERFORMED BY: SuperLikers Rqpnxp0790 Jeter [facility] [id number] CERULOPLASMIN ([id number])Ordered By: Certified Massage Therapist on 12-10-2015 Ceruloplasmin mass conc 21.7 mg/dL Normal 16.0-31.0 C omprehensive Internal Medicine Work Phone: Comment on above: all these today; PAT IENT NOT FASTINGPERFORMED BY: SuperLikers Ycuccr9221 Jeter ApseUnc Health Rex Holly Springsin [place] [id number] FERRITIN ([id number])Ordered By: Certified Massage Therapist on 12-10-2015 Ferritin mass conc 7 ng/mL Abnormal 30-400 Compre [facility] hospitalive Internal [facility] Work Phone: Comment on above: PATIENT NOT FASTINGP ERFORMED BY: LORENA Suzy Brewer6370 Jeter RoadDublin [place] [id number] HEPATITIS PANEL ([id number])Order ed By: Certified Massage Therapist on 12-10-2015 HAV IgM IA Ql Negative Normal Comprehensi ve Internal Medicine Work Phone: Comment on above: PATIENT NOT FASTINGP ERFORMED BY: LORENA [facility] Jizcif7689 Jeter RoadUnc Health Rex Holly Springsin [place] [id number] Information: [id number] HAV IgM IA Ql Negative Normal Comprehensi ve Internal Medicine; [facility] Work Phone: Comment on above: PATIENT NOT FASTINGP ERFORMED BY: LORENA MandyKadie PrescottKlgybd4073 Jeter RoadFall River [place] [id number] Information: [id number] HBV core IgM IA Ql Negative Normal Compre [facility] Internal Medicine Work Phone: Comment on above: PATIENT NOT FASTINGP ERFORMED BY: LORENA LabNadinericardo PrescottWaiwkz2978 Jeter [facility]in [place] [id number] Information: [id number] HBV core IgM IA Ql Negative Normal Compre [facility] Internal Medicine; [facility] Work Phone: Comment on above: PATIENT NOT FASTINGP ERFORMED BY: LORENA LabNadinericardo PrescottAkuqdw8607 Jeter [facility]in [place] [id number] Information: [id number] HBV surface Ag IA Ql Negative Normal Comp rehensive Internal Medicine Work Phone: Comment on above: PATIENT NOT FASTINGP ERFORMED BY: LORENA LabKadie PrescottOpftfx9985 Jeter [facility]in [place] [id number] Information: [id number] HBV surface Ag IA Ql Negative Normal Comp rehensive Internal Medicine; [facility] Work Phone: Comment on above: PATIENT NOT FASTINGP ERFORMED BY: LORENA [facility] Qkdwsz9228 [facility] [id number] Information: [id number] HCV Ab Signal/Cutoff IA [Rel units/Vol] {ratio} Normal 0.0-0.9 [facility]; [facility] Work Phone: Comment on above: Negative: < 0.8 Inde terminate: 0.8 - 0.9 Positive: > 0.9 . The CDC recommends that a positive HCV antibody result be followed up with a HCV Nucleic Acid Amplification test (763073). PATIENT NOT FASTINGP ERFORMED BY: [facility]6370 [facility] [id number] Information: [id number] HCV Ab Signal/Cutoff IA RelACnc {ratio} Normal 0.0-0.9 [facility] Work Phone: Comment on above: Negative: < 0.8 Inde terminate: 0.8 - 0.9 Positive: > 0.9 . The CDC recommends that a positive HCV antibody result be followed up with a HCV Nucleic Acid Amplification test (346303). PATIENT NOT FASTINGP ERFORMED BY: [facility]6370 [facility] [id number] Information: [id number] Iron and TIBCOrdered By: Allyn tem Vinyl Cutter on 12-10-2015 Iron binding capacity mass conc 367 ug/dL Normal 250-450 [facility] Work Phone: Comment on above: PATIENT NOT FASTINGP ERFORMED BY: LabCoAtlantic Rehabilitation InstituteHhdcjq8019 [facility] [id number] Information: [id number] Iron binding capacity.unsaturated mass conc 341 ug/dL Normal 111-343 [facility] Work Phone: Comment on above: PATIENT NOT FASTINGP ERFORMED BY: LabCoAtlantic Rehabilitation InstituteRbizix8869 [facility] [id number] Information: [id number] Iron mass conc 26 ug/dL Abnormal 38-169 Comprehens jose Internal Medicine Work Phone: Comment on above: PATIENT NOT FASTINGP ERFORMED BY: LORENA McduffieAtlantic Rehabilitation InstituteQwahfh9735 Jeter [facility]in [place] [id number] Information: 126684,L23793 Iron saturation mass fraction 7 % Abnormal 15-55 [facility] Work Phone: Comment on above: PATIENT NOT FASTINGP ERFORMED BY: LORENA Mcduffie Fbmgft3704 [facility] [id number] Information: [id number],[id number] PT (Prothrobim Time) (68701) Ordered By: Certified Massage Therapist on 12-10-2015 INR Coag RelTime (PPP) 1.1 {INR} Normal 0.8-1.2 Co [facility]ensive Internal [facility] Work Phone: Comment on above: Reference interval i s for non-anticoagulated patients. . Suggested INR therapeutic range for Vitamin K antagonist therapy: Standard Dose (moderate intensity therapeutic range): 2.0 - 3.0 Higher intensity therapeutic range 2.5 - 3.5 PATIENT NOT FASTINGP ERFORMED BY: LORENA [facility]vanKindred Hospital Mazjpw3196 Jeter [facility] [id number] Prothrombin time (PT) Coag time (PPP) 10.9 {sec} Normal 9.1-12.0 [facility] Work Phone: Comment on above: PATIENT NOT FASTINGP ERFORMED BY: LORENA Prescottlin6370 Jeter [facility]in [place] [id number] PT Coag (PPP) [Time] 10.9 s Normal 9.1-12.0 [facility] Internal Medicine; [facility] Work Phone: Comment on above: PATIENT NOT FASTINGP ERFORMED BY: [facility]andyKindred Hospital Ygjysy4100 Jeter [facility]in [place] [id number] PTT (Activated Partial Throm boplastin Time) (94370)Ordered By: Certified Massage Therapist on 12-10-2015 aPTT Coag (PPP) [Time] 29 s Normal 24-33 Co [facility] hospitalensive Internal [facility]; [facility] Work Phone: Comment on above: This test has not be en validated for monitoring unfractionated heparintherapy. aPTT-based therapeutic ranges for unfractionated heparintherapy have not been established. For general guidelines onHeparin monitoring, refer to the [facility]Kindred [facility] Directory of Services. PATIENT NOT FASTINGP ERFORMED BY: [facility]6370 [facility] [id number] aPTT Coag time (PPP) 29 {sec} Normal 24-33 [facility] Springsensive [facility] Work Phone: Comment on above: This test has not be en validated for monitoring unfractionated heparintherapy. aPTT-based therapeutic ranges for unfractionated heparintherapy have not been established. For general guidelines onHeparin monitoring, refer to the LabKindred [facility] Directory of Services. PATIENT NOT FASTINGP ERFORMED BY: [facility]6370 [facility] [id number] Written AuthorizationOrdered By: Certified Massage Therapist on 12-10-2015 Written Authorization WAR Normal [facility] Work Phone: Comment on above: Written Authorizatio n Received.Authorization received from Savannah QUARLES LPN [id number] by Analia Avery PATIENT NOT FASTINGP ERFORMED BY: [facility]6370 [facility] [id number] CBC with auto diff ([id number])Or dered By: Certified Massage Therapist on 11-30-2015 Basophils #/vol (Bld) 0.0 {x10E3/uL} Normal 0.0-0.2 [facility] Work Phone: Comment on above: PATIENT NOT FASTINGP ERFORMED BY: [facility]6370 [facility] [id number] Information: [id number] Basophils (Bld) [#/Vol] 0.0 10*3/uL Normal 0.0-0.2 [facility]; [facility] Work Phone: Comment on above: PATIENT NOT FASTINGP ERFORMED BY: [facility]6370 [facility] [id number] Information: 490344,[id number] Basophils/100 WBC (Bld) 1 % Normal C [facility] centerensive Internal Medicine Work Phone: Comment on above: PATIENT NOT FASTINGP ERFORMED BY: LORENA Mcduffie Lvzxyt1072 [facility] [id number] Information: [id number] Eosinophils #/vol (Bld) 0.5 {x10E3/uL} Abnormal 0.0-0.4 [facility] Work Phone: Comment on above: PATIENT NOT FASTINGP ERFORMED BY: MandyStephanie Ville 0583370 [facility] [id number] Information: 109521,[id number] Eosinophils (Bld) [#/Vol] 0.5 10*3/uL Abnormal 0.0-0.4 [facility]; [facility] Work Phone: Comment on above: PATIENT NOT FASTINGP ERFORMED BY: LORENA Froy Ejatwe97[address] [id number] Information: [id number] Eosinophils/100 WBC (Bld) 6 % Normal [facility] Work Phone: Comment on above: PATIENT NOT FASTINGP ERFORMED BY: LORENA GalvanKindred Hospital Dewmva64[address] [id number] Information: [id number] Erythrocyte distribution width Ratio (RBC) 13.8 % Normal 12.3-15.4 [facility] Work Phone: Comment on above: PATIENT NOT FASTINGP ERFORMED BY: Mandy[address] [id number] Information: [id number],[id number] Hematocrit Volume Fraction (Bld) 41.1 % Normal 37.5-51.0 [facility] Work Phone: Comment on above: PATIENT NOT FASTINGP ERFORMED BY: Mandy[address] [id number] Information: [id number] Hemoglobin mass conc (Bld) 13.1 g/dL Normal 12.6-17.7 [facility] Work Phone: Comment on above: PATIENT NOT FASTINGP ERFORMED BY: [facility]6370 [facility] [id number] Information: [id number],G13410 Immature granulocytes #/vol (Bld) 0.0 {x10E3/uL} Normal 0.0-0.1 [facility] Work Phone: Comment on above: PATIENT NOT FASTINGP ERFORMED BY: Froy[address] [id number] Information: [id number] Immature granulocytes (Bld) [#/Vol] 0.0 10*3/uL Normal 0.0-0.1 [facility]; [facility] Work Phone: Comment on above: PATIENT NOT FASTINGP ERFORMED BY: LORENA Mcduffie Alvgyd6000[address] [id number] Information: 484551,[id number] Immature granulocytes/100 WBC (Bld) 0 % Normal [facility] Work Phone: Comment on above: PATIENT NOT FASTINGP ERFORMED BY: Froy Thpdrj0125[address] [id number] Information: [id number] Lymphocytes #/vol (Bld) 1.5 {x10E3/uL} Normal 0.7-3.1 [facility] Work Phone: Comment on above: PATIENT NOT FASTINGP ERFORMED BY: Mandy[address] [id number] Information: [id number],[id number] Lymphocytes (Bld) [#/Vol] 1.5 10*3/uL Normal 0.7-3.1 [facility]; [facility] Work Phone: Comment on above: PATIENT NOT FASTINGP ERFORMED BY: LORENA Mcduffie Qoumss4203 [facility] [id number] Information: [id number],[id number] Lymphocytes/100 WBC (Bld) 19 % Normal [facility] Work Phone: Comment on above: PATIENT NOT FASTINGP ERFORMED BY: [place] 4613770 [facility] [id number] Information: [id number],[id number] MCH Entitic mass (RBC) 24.4 pg Abnormal 26.6-33.0 Co [facility] Internal Medicine Work Phone: Comment on above: PATIENT NOT FASTINGP ERFORMED BY: [address] [id number] Information: [id number],[id number] MCHC mass conc (RBC) 31.9 g/dL Normal 31.5-35.7 [facility] Internal Medicine Work Phone: Comment on above: PATIENT NOT FASTINGP ERFORMED BY: [address] [id number] Information: 332856,[id number] MCV Entitic volume (RBC) 77 fL Abnormal 79-97 [facility] Work Phone: Comment on above: PATIENT NOT FASTINGP ERFORMED BY: [address] [id number] Information: [id number],[id number] Monocytes #/vol (Bld) 0.8 {x10E3/uL} Normal 0.1-0.9 [facility] Work Phone: Comment on above: PATIENT NOT FASTINGP ERFORMED BY: [address] [id number] Information: [id number] Monocytes (Bld) [#/Vol] 0.8 10*3/uL Normal 0.1-0.9 [facility]; [facility] Work Phone: Comment on above: PATIENT NOT FASTINGP ERFORMED BY: [place] 4613770 [facility] [id number] Information: [id number] Monocytes/100 WBC (Bld) 9 % Normal C [facility] Internal Medicine Work Phone: Comment on above: PATIENT NOT FASTINGP ERFORMED BY: [address] RoadDublin [place] [id number] Information: [id number] Neutrophils #/vol (Bld) 5.2 {x10E3/uL} Normal 1.4-7.0 [facility] Work Phone: Comment on above: PATIENT NOT FASTINGP ERFORMED BY: LORENA Prescottlin6370 [facility] [id number] Information: [id number] Neutrophils (Bld) [#/Vol] 5.2 10*3/uL Normal 1.4-7.0 [facility]; [facility] Work Phone: Comment on above: PATIENT NOT FASTINGP ERFORMED BY: LORENA Browne [facility] [id number] Information: [id number],[id number] Neutrophils/100 WBC (Bld) 65 % Normal [facility] Work Phone: Comment on above: PATIENT NOT FASTINGP ERFORMED BY: LORENA Prescottlin6370 [facility] [id number] Information: [id number] Platelets #/vol (Bld) 422 {x10E3/uL} Abnormal 150-379 [facility] Work Phone: Comment on above: PATIENT NOT FASTINGP ERFORMED BY: LORENA Mcduffie Dldqkp5006 [facility] [id number] Information: [id number] Platelets (Bld) [#/Vol] 422 10*3/uL Abnormal 150-379 [facility]; [facility] Work Phone: Comment on above: PATIENT NOT FASTINGP ERFORMED BY: LORENA Prescottlin6370 [facility] [id number] Information: [id number] RBC #/vol (Bld) 5.36 {x10E6/uL} Normal 4.14-5.80 Comp [facility] Internal Medicine Work Phone: Comment on above: PATIENT NOT FASTINGP ERFORMED BY: LORENA Mcduffierp Ixvjry9755 Jeter [facility] [id number] Information: 710694,[id number] RBC (Bld) [#/Vol] 5.36 10*6/uL Normal 4.14-5.80 Compr ensive Internal Medicine; [facility] Work Phone: Comment on above: PATIENT NOT FASTINGP ERFORMED BY: LORENA [facility] Bzvarj8836 Jeter [facility] [id number] Information: [id number],[id number] WBC #/vol (Bld) 8.0 {x10E3/uL} Normal 3.4-10.8 Compr [facility] Internal Medicine Work Phone: Comment on above: PATIENT NOT FASTINGP ERFORMED BY: LORENA LabCoricardo BrewerNlpsyi0947 Jeter [facility] [id number] Information: 111637,[id number] WBC (Bld) [#/Vol] 8.0 10*3/uL Normal 3.4-10.8 Compre [facility] Internal Medicine; [facility] Work Phone: Comment on above: PATIENT NOT FASTINGP ERFORMED BY: LORENA [facility] Ukfsia5209 [facility] [id number] Information: [id number] METABOLIC PANEL, COMPREHENSI VE (42984)Ordered By: Certified Massage Therapist on 11-30-2015 Albumin mass conc 3.3 g/dL Abnormal 3.5-5.5 Compreh [facility] centerive Internal Medicine Work Phone: Comment on above: PATIENT NOT FASTINGP ERFORMED BY: LORENA [facility] Agbtuw8663 Jeter [facility] [id number] Albumin/Globulin mass ratio 1.4 {ratio} Normal 1.1-2.5 [facility] Work Phone: Comment on above: PATIENT NOT FASTINGP ERFORMED BY: LORENA [facility] Frcyqf3988 Jeter [facility] [id number] ALP [Catalytic activity/Vol] 85 U/L Normal 39-117 [facility]; [facility] Work Phone: Comment on above: PATIENT NOT FASTINGP ERFORMED BY: CB [facility] Oqefbu8199 Jeter RoadDublin [place] [id number] ALP enzyme act/vol 85 [iU]/L Normal 39-117 [facility] Internal Medicine Work Phone: Comment on above: PATIENT NOT FASTINGP ERFORMED BY: CB [facility] Qsktjd7735 Jeter RoadDublin [place] [id number] ALT [Catalytic activity/Vol] 84 U/L Abnormal 0-44 [facility] Internal [facility]; [facility] Internal Medicine Work Phone: Comment on above: PATIENT NOT FASTINGP ERFORMED BY: CB [facility] Dnalup4567 Jeter RoadDublin [place] [id number] ALT enzyme act/vol 84 [iU]/L Abnormal 0-44 [facility] Internal Medicine Work Phone: Comment on above: PATIENT NOT FASTINGP ERFORMED BY: CB [facility] Qkviyq2709 Jeter RoadDublin [place] [id number] AST [Catalytic activity/Vol] 53 U/L Abnormal 0-40 [facility]; [facility] Internal Medicine Work Phone: Comment on above: PATIENT NOT FASTINGP ERFORMED BY: CB [facility] Pxzzrx1168 Jeter RoadDublin [place] [id number] AST enzyme act/vol 53 [iU]/L Abnormal 0-40 [facility] Internal Medicine Work Phone: Comment on above: PATIENT NOT FASTINGP ERFORMED BY: CB [facility] Sdqbya3719 Jeter RoadDublin [place] [id number] Bilirubin [Mass/Vol] mg/dL Normal 0.0-1.2 [facility] Internal Medicine; [facility] Internal Medicine Work Phone: Comment on above: PATIENT NOT FASTINGP ERFORMED BY: CB [facility] Nyeebw6478 Jeter RoadDublin [place] [id number] Bilirubin mass conc mg/dL Normal 0.0-1.2 [facility] Internal [facility] Work Phone: Comment on above: PATIENT NOT FASTINGP ERFORMED BY: CB [facility] Weyvak1121 Jeter RoadDublin [place] [id number] Calcium mass conc 8.6 mg/dL Abnormal 8.7-10.2 Compreh ensive Internal Medicine Work Phone: Comment on above: PATIENT NOT FASTINGP ERFORMED BY: LORENA LabCoricardo PrescottOmdfhs2727 Jeter [facility] [id number] Chloride molar conc 104 mmol/L Normal 97-108 Compr ehensive Internal Medicine Work Phone: Comment on above: PATIENT NOT FASTINGP ERFORMED BY: CB [facility] Evcafk8678 Jeter [facility] [id number] CO2 molar conc 24 mmol/L Normal 18-29 Comprehens jose Internal Medicine Work Phone: Comment on above: PATIENT NOT FASTINGP ERFORMED BY: LORENA [facility] Wpfrba9051 Jeter [facility] [id number] Creatinine mass conc 0.65 mg/dL Abnormal 0.76-1.27 Comp rehensive Internal Medicine Work Phone: Comment on above: PATIENT NOT FASTINGP ERFORMED BY: CB [facility] Hifdez9413 Jeter [facility] [id number] GFR/1.73 sq M predicted among blacks CKD-EPI vol rate/area (S/P/Bld) 139 mL/min/1.73 Normal Comprehe nsive Internal Medicine Work Phone: Comment on above: PATIENT NOT FASTINGP ERFORMED BY: CB [facility] Snihaw0601 Jeter [facility] [place] [id number] GFR/1.73 sq M predicted among non-blacks CKD-EPI vol rate/area (S/P/Bld) 120 mL/min/1.73 Normal [facility] Work Phone: Comment on above: PATIENT NOT FASTINGP ERFORMED BY: CB [facility] Nkyepc8018 Jeter [facility] [place] [id number] Globulin mass conc (S) 2.3 g/dL Normal 1.5-4.5 Co mprehensive Internal Medicine Work Phone: Comment on above: PATIENT NOT FASTINGP ERFORMED BY: CB [facility] Bgzqyp2212 Jeter RoadDublin [place] [id number] Glucose mass conc 71 mg/dL Normal 65-99 Compreh ensive Internal Medicine Work Phone: Comment on above: PATIENT NOT FASTINGP ERFORMED BY: LORENA LabNadinerp Dgpnbu9742 Jeter [facility] [place] [id number] Potassium molar conc 4.6 mmol/L Normal 3.5-5.2 Comp rehensive Internal Medicine Work Phone: Comment on above: PATIENT NOT FASTINGP ERFORMED BY: LORENA [facility] Timmow8146 Jeter [facility] [id number] Protein mass conc 5.6 g/dL Abnormal 6.0-8.5 Compreh ensive Internal Medicine Work Phone: Comment on above: PATIENT NOT FASTINGP ERFORMED BY: LORENA [facility] Csodmi2007 Jeter [facility] [id number] Sodium molar conc 142 mmol/L Normal 134-144 Compreh ensive Internal Medicine Work Phone: Comment on above: PATIENT NOT FASTINGP ERFORMED BY: LORENA [facility] Ydxhpd2723 Jeter [facility] [id number] Urea nitrogen mass conc 15 mg/dL Normal 6-24 C omprehensive Internal Medicine Work Phone: Comment on above: PATIENT NOT FASTINGP ERFORMED BY: LORENA [facility] Ffrhyf6817 Jeter [facility] [id number] Urea nitrogen/Creatinine mass ratio 23 mg/mg Abnormal 9-20 [facility] Work Phone: Comment on above: PATIENT NOT FASTINGP ERFORMED BY: LORENA [facility] Omwcbq1794 Jeter [facility] [id number] TSH ([id number])Ordered By: Tamra m Vinyl Cutter on 11-30-2015 Thyrotropin Qn 1.630 {uIU/mL} Normal 0.450-4.50 0 [facility] Work Phone: Comment on above: PATIENT NOT FASTINGP ERFORMED BY: LORENA [facility] Swbpyl8131 Jeter [facility] [id number] Pathology ReportOrdered By: Certified Massage Therapist on 05-19-2014 Pathology report site of origin Narrative MATER Normal Comprehensiv e Internal Medicine Work Phone: Comment on above: Material submitted: .PUNCH BUTTOCKSClinician provided ICD-9:782.1 ; Rash and other nonspecific skin eruptionClinical history: .PATIENT HAD THICK LESIONS ON BUTTOCKRESPOND TO KETOCONAZLE ORAL, KETOCONAZOLE CREAM AND ORAL ATIS Diagnosis:PERIVASCULAR INFILTRATE WITH EOSINOPHILS..COMMENT:THE SPECIMEN DISPLAYS HYPERKERATOSIS, ACANTHOSIS, PAPILLARYDERMAL EDEMA AND A BRISK PERIVASCULAR INFILTRATE OF EOSINOPHILSADMIXED WITH LYMPHOCYTES..THE CHANGES PRESENT IN THIS BIOPSY SPECIMEN ARE CONSISTENT WITH ACHRONIC ECZEMATOUS DERMATITIS. THE INTENSITY OF THE EOSINOPHILSSUGGESTS ATOPIC OR DRUG-INDUCED DERMATITIS.05/30/2014 Electronically signed: .Mary Jane Steven MD, DermatopathologistGross description: .1 Container, formalin-filled, labeled with patient identification.PUNCH BUTTOCKS:Received in formalin labeled JONO MENCHACA is a barnes-yellow punchbiopsy measuring 0.3 x 0.3 x 0.4 cm.The margin is marked with greenink.It is bisected and submitted entirely in a single cassette./LMSLMS/LMSPathologist provided ICD-9:709.8CPT .073910 PERFORMED BY: CYT [facility] [id number] [facility] [id number] BY: Moni) [facility] Dept Of [address] [place] [address] [id number] Information: [id number] OSVALDO (ANTINUCLEAR ANTIBODY) ( [id number])Ordered By: Certified Massage Therapist on 01-31-2014 Nuclear Ab Ql (S) Negative Normal Compreh ensive Internal Medicine Work Phone: Comment on above: PATIENT NOT FASTINGP ERFORMED BY: LORENA [facility] Nsrgpy5076 Jeter [facility] [place] [id number] Nuclear Ab Ql (S) Negative Normal Compreh ensive Internal Medicine; [facility] Work Phone: Comment on above: PATIENT NOT FASTINGP ERFORMED BY: [facility] Stcggk2992 Jeter [facility] [id number] C-REACTIVE PROTEIN ([id number])Or dered By: Certified Massage Therapist on 01-31-2014 CRP mass conc 0.6 mg/L Normal 0.0-4.9 Comprehensi ve Internal Medicine Work Phone: Comment on above: PATIENT NOT FASTINGP ERFORMED BY: [facility] Ofppqi5408 [facility] [id number] CBC (AUTO) ([id number])Ordered By : Certified Massage Therapist on 01-31-2014 Erythrocyte distribution width Ratio (RBC) 13.1 % Normal 12.3-15.4 [facility] Work Phone: Comment on above: PATIENT NOT FASTINGP ERFORMED BY: LORENA LabTripleTreerp Hfavnd6421 [facility] [id number] Hematocrit Volume Fraction (Bld) 41.5 % Normal 37.5-51.0 [facility] Work Phone: Comment on above: PATIENT NOT FASTINGP ERFORMED BY: [facility] Rajvdx2919 [facility] [id number] Hemoglobin mass conc (Bld) 13.9 g/dL Normal 12.6-17.7 [facility] Work Phone: Comment on above: PATIENT NOT FASTINGP ERFORMED BY: LORENA [facility] Whmsom6940 Jeter [facility] [id number] MCH Entitic mass (RBC) 27.3 pg Normal 26.6-33.0 Co mprehensive Internal Medicine Work Phone: Comment on above: PATIENT NOT FASTINGP ERFORMED BY: CB [facility] Bkfrfw0869 [address]eter RoadDublin [place] [id number] MCHC mass conc (RBC) 33.5 g/dL Normal 31.5-35.7 [facility] Work Phone: Comment on above: PATIENT NOT FASTINGP ERFORMED BY: CB [facility] Ucchhs2037 Jeter RoadDublin [place] [id number] MCV Entitic volume (RBC) 81 fL Normal 79-97 [facility] Work Phone: Comment on above: PATIENT NOT FASTINGP ERFORMED BY: CB [facility] Lkwwym5519 Jeter RoadDublin [place] [id number] Platelets #/vol (Bld) 332 {x10E3/uL} Normal 155-379 [facility] Work Phone: Comment on above: PATIENT NOT FASTINGP ERFORMED BY: CB [facility] Sakcsx1523 Jeter RoadDublin [place] [id number] Platelets (Bld) [#/Vol] 332 10*3/uL Normal 155-379 [facility]; [facility] Work Phone: Comment on above: PATIENT NOT FASTINGP ERFORMED BY: CB [facility] Eiecun2892 [address]eter RoadDublin [place] [id number] RBC #/vol (Bld) 5.10 {x10E6/uL} Normal 4.14-5.80 [facility] Work Phone: Comment on above: PATIENT NOT FASTINGP ERFORMED BY: CB [facility] Tfsxmc2772 [address]eter RoadDublin [place] [id number] RBC (Bld) [#/Vol] 5.10 10*6/uL Normal 4.14-5.80 [facility]ensive Internal Medicine; [facility] Work Phone: Comment on above: PATIENT NOT FASTINGP ERFORMED BY: CB [facility] Xclwvu9722 Jeter RoadDublin [place] [id number] WBC #/vol (Bld) 7.0 {x10E3/uL} Normal 3.4-10.8 Compr ensive Internal Medicine Work Phone: Comment on above: PATIENT NOT FASTINGP ERFORMED BY: LORENA LabCoricardo PrescottOchmta5093 Jeter RoadJuan Manuelblin [place] [id number] WBC (Bld) [#/Vol] 7.0 10*3/uL Normal 3.4-10.8 Compre hensive Internal Medicine; [facility] Work Phone: Comment on above: PATIENT NOT FASTINGP ERFORMED BY: LORENA [facility] Ozhmje6536 Jeter RoadUnc Health Rex Holly Springsin [place] [id number] Folate ([id number])Ordered By: [employer] stem Vinyl Cutter on 01-31-2014 Folate mass conc 8.0 ng/mL Normal Comprehe nsive Internal Medicine Work Phone: Comment on above: A serum folate rosenda ntration of less than 3.1 ng/mL isconsidered to represent clinical deficiency. PATIENT NOT FASTINGP ERFORMED BY: LORENA [facility] Jnfvyh8667 Jeter [facility] [place] [id number] METABOLIC PANEL, COMPREHENSI VE (38558)Ordered By: Certified Massage Therapist on 01-31-2014 Albumin mass conc 3.6 g/dL Normal 3.5-5.5 Compreh ensive Internal Medicine Work Phone: Comment on above: PATIENT NOT FASTINGP ERFORMED BY: LORENA LabKadie Brewer6370 [address]eter [facility] [place] [id number] Information: [id number] Albumin/Globulin mass ratio 1.7 {ratio} Normal 1.1-2.5 [facility] Work Phone: Comment on above: PATIENT NOT FASTINGP ERFORMED BY: LORENA [facility] Qfpnhp9023 Jeter [facility] [place] [id number] Information: [id number] ALP [Catalytic activity/Vol] 95 U/L Normal 39-117 [facility]; [facility] Work Phone: Comment on above: PATIENT NOT FASTINGP ERFORMED BY: LORENA [facility] Blkrqg4168 Jeter [facility] [id number] Information: [id number] ALP enzyme act/vol 95 [iU]/L Normal 39-117 [facility] Internal Medicine Work Phone: Comment on above: PATIENT NOT FASTINGP ERFORMED BY: LORENA Brewer6370 Jeter [facility] [id number] Information: [id number] ALT [Catalytic activity/Vol] 56 U/L Abnormal 0-44 [facility]; [facility] Internal Medicine Work Phone: Comment on above: PATIENT NOT FASTINGP ERFORMED BY: LORENA Prescottlin6370 [facility] [id number] Information: [id number] ALT enzyme act/vol 56 [iU]/L Abnormal 0-44 [facility] Internal Medicine Work Phone: Comment on above: PATIENT NOT FASTINGP ERFORMED BY: LORENA Prescottlin6370 [facility] [id number] Information: [id number] AST [Catalytic activity/Vol] 40 U/L Normal 0-40 [facility] Internal Medicine; [facility] Internal Medicine Work Phone: Comment on above: PATIENT NOT FASTINGP ERFORMED BY: LORENA Brewer6370 [facility] [id number] Information: [id number] AST enzyme act/vol 40 [iU]/L Normal 0-40 [facility] Internal Medicine Work Phone: Comment on above: PATIENT NOT FASTINGP ERFORMED BY: LORENA [facility] Zhoojr3369 [facility] [id number] Information: [id number] Bilirubin mass conc 0.1 mg/dL Normal 0.0-1.2 [facility] Work Phone: Comment on above: PATIENT NOT FASTINGP ERFORMED BY: LORENA Prescottlin6370 [facility] [id number] Information: [id number] Calcium mass conc 9.2 mg/dL Normal 8.7-10.2 Compreh [facility] Internal Medicine Work Phone: Comment on above: PATIENT NOT FASTINGP ERFORMED BY: CB [facility] Vsloag2016 Jeter RoadUnc Health Rex Holly Springsin [place] [id number] Information: [id number] Chloride molar conc 106 mmol/L Normal 97-108 Compr ensive Internal Medicine Work Phone: Comment on above: PATIENT NOT FASTINGP ERFORMED BY: CB [facility] Bkgsod7927 Jeter RoadUnc Health Rex Holly Springsin [place] [id number] Information: [id number] CO2 molar conc 25 mmol/L Normal 19-28 Comprehens jose Internal Medicine Work Phone: Comment on above: PATIENT NOT FASTINGP ERFORMED BY: CB [facility] Qbtdsp8118 Jeter RoadOnslow [facility] [id number] Information: [id number] Creatinine mass conc 0.71 mg/dL Abnormal 0.76-1.27 [facility] Work Phone: Comment on above: PATIENT NOT FASTINGP ERFORMED BY: CB [facility] Perdad8023 Jeter [facility] [id number] Information: [id number] GFR/1.73 sq M predicted among blacks CKD-EPI vol rate/area (S/P/Bld) 136 mL/min/1.73 Normal Comprehe nsive Internal Medicine Work Phone: Comment on above: PATIENT NOT FASTINGP ERFORMED BY: CB [facility] Zaeqxl1505 Jeter [facility] [id number] Information: [id number] GFR/1.73 sq M predicted among non-blacks CKD-EPI vol rate/area (S/P/Bld) 117 mL/min/1.73 Normal [facility] Work Phone: Comment on above: PATIENT NOT FASTINGP ERFORMED BY: CB [facility] Emyinq6568 Jeter [facility] [place] [id number] Information: [id number] Globulin mass conc (S) 2.1 g/dL Normal 1.5-4.5 Co mprehensive Internal Medicine Work Phone: Comment on above: PATIENT NOT FASTINGP ERFORMED BY: LORENA LabCoricardo Hdlnuf4483 Jeter [facility]in [place] [id number] Information: [id number] Glucose mass conc 76 mg/dL Normal 65-99 Compreh ensive Internal Medicine Work Phone: Comment on above: PATIENT NOT FASTINGP ERFORMED BY: LORENA [facility] Izhiom3322 Jeter [facility] [id number] Information: [id number] Potassium molar conc 4.6 mmol/L Normal 3.5-5.2 Comp rehensive Internal Medicine Work Phone: Comment on above: PATIENT NOT FASTINGP ERFORMED BY: LORENA LabCoricardo BrewerCbhbnd5367 [facility] [id number] Information: [id number] Protein mass conc 5.7 g/dL Abnormal 6.0-8.5 Compreh ensive Internal Medicine Work Phone: Comment on above: PATIENT NOT FASTINGP ERFORMED BY: LORENA [facility] Mnltyk2650 Jeter [facility] [id number] Information: [id number] Sodium molar conc 143 mmol/L Normal 134-144 Compreh ensive Internal Medicine Work Phone: Comment on above: PATIENT NOT FASTINGP ERFORMED BY: LORENA [facility] Uvzpei6518 Jeter [facility] [id number] Information: [id number] Urea nitrogen mass conc 15 mg/dL Normal 6-24 C omprehensive Internal Medicine Work Phone: Comment on above: PATIENT NOT FASTINGP ERFORMED BY: LORENA [facility] Yhhzyv7064 Jeter [facility] [id number] Information: [id number] Urea nitrogen/Creatinine mass ratio 21 mg/mg Abnormal 9-20 [facility] Work Phone: Comment on above: PATIENT NOT FASTINGP ERFORMED BY: LORENA [facility] Xnyctu2784 Jeter [facility] [id number] Information: [id number] RHEUMATOID FACTOR-QUANT (135 34)Ordered By: Certified Massage Therapist on 01-31-2014 Rheumatoid factor Qn 6.3 {IU/mL} Normal 0.0-13.9 [facility] prehensive Internal Medicine Work Phone: Comment on above: PATIENT NOT FASTINGP ERFORMED BY: LORENA [facility] Jdvfyh7071 Jeter RoadDublin [place] [id number] Rheumatoid factor Qn 6.3 [IU]/mL Normal 0.0-13.9 [facility] prehensive Internal Medicine; [facility] Work Phone: Comment on above: PATIENT NOT FASTINGP ERFORMED BY: CB [facility] Qcduxp7777 Jeter RoadDublin [place] [id number] SED RATE ERYTHROCYTE (93157) Ordered By: Certified Massage Therapist on 01-31-2014 ESR Velocity (Bld) 3 mm/h Normal 0-15 [facility] Internal Medicine Work Phone: Comment on above: PATIENT NOT FASTINGP ERFORMED BY: LORENA [facility] Xwymec9535 Jeter RoadDublin [place] [id number] TSH (36431)Ordered By: Syste m Vinyl Cutter on 01-31-2014 Thyrotropin Qn 2.230 {uIU/mL} Normal 0.450-4.50 0 [facility] Work Phone: Comment on above: PATIENT NOT FASTINGP ERFORMED BY: CB [facility] Cwekza3889 Jeter RoadDublin [place] [id number] VITAMIN B-12 (CYANOCOBALAMIN ) (56592)Ordered By: Certified Massage Therapist on 01-31-2014 Cobalamin (Vitamin B12) mass conc 1267 pg/mL Abnormal 211-946 [facility] Work Phone: Comment on above: PATIENT NOT FASTINGP ERFORMED BY: CB [facility] Beaskj9914 Jeter RoadDublin [place] [id number] Vitamin D Hydroxy (42943)Ord ered By: Certified Massage Therapist on 01-31-2014 25-Hydroxyvitamin D2+25-Hydroxyvitamin D3 mass conc 27.6 ng/mL Abnormal 30.0-100.0 [facility] Work Phone: Comment on above: Vitamin D deficiency has been defined by the [place] ofMedicine and an Endocrine Society practice guideline as alevel of serum 25-OH vitamin D less than 20 ng/mL (1,2).The Endocrine Society went on to further define vitamin Dinsufficiency as a level between 21 and 29 ng/mL (2).1. IOM ([place] of Medicine). 2010. Dietary reference intakes for calcium and D. [place]: The National Academies Press.2. Lisy MF, Jovani RUIZ, Montserrat BROOKS, et al. Evaluation, treatment, and prevention of vitamin D deficiency: an Endocrine Society clinical practice guideline. JCEM. 2010; 96(7):1911-30. PATIENT NOT FASTINGP ERFORMED BY: LORENA Maintenance Assistantricardo BrewerVsnquk7690 Steffany ZhouOnslow [facility] Hospital [id number] MISCOrdered By: System Manag er on 02-06-2012 MISC . Normal [facility] Work Phone: Comment on above: TEST RESULT LIMITSPi nworm Prep - Enterobius No pinworm eggs seen. None Seen TESTING PERFORMED AT [facility]. ORIGINAL REPORT ON FILE IN LAB CONTAINS ADDITIONAL TEST SITE INFORMATION. CALCIFEDIOL (52984)Ordered B y: Certified Massage Therapist on 01-27-2010 Calcitriol mass conc 27.1 ng/mL Abnormal 32.0-100.0 [facility] Work Phone: Comment on above: Recent studies consi gypsy the lower limit of 32.0 ng/mL to be athreshold for optimal health.Robin [place]. J Nutr. 2004;135(2):317-22. PATIENT NOT FASTINGP ERFORMED BY: [employer] Gldnff7465 [facility] [id number] Information: [id number] Carbon Monoxide, BloodOrdere d By: Certified Massage Therapist on 02-12-2009 Carboxyhemoglobin/Hemog lobin.total mass fraction (Bld) 0.9 % Normal 0.0-1.9 [facility] Work Phone: Comment on above: Environmental Exposu re: Nonsmokers <2.0 Smokers <9.0 Occupational Exposure: XUAN 3.5 . Detection Limit = 0.1 PERFORMED BY: LIVELENZ [facility] [employer] [address] [id number] Vitamin D, 25-HydroxyOrdered By: Certified Massage Therapist on 02-12-2009 Calcitriol mass conc 20.9 ng/mL Abnormal 32.0-100.0 Comp rehensive Internal Medicine Work Phone: Comment on above: Recent studies consi gypsy the lower limit of 32.0 ng/mL to be athreshold for optimal health.Robin [place]. J Nutr. 2004;135(2):317-22. PERFORMED BY: LIVELENZ [facility] [address] [id number] Vital Signs Date Time Vital Sign Value Performing Clinician Facility 07-18-2023 12:24-0400 Body temperature 97.2 [degF] [employer] Blossom Moncada [employer] Work Phone: [facility] 07-18-2023 12:24-0400 Diastolic blood pressure 67 mm[Hg] [employer] Blossom Moncada [employer] Work Phone: [facility] 07-18-2023 12:24-0400 Heart rate 66 /min [employer] Blossom Moncada [employer] Work Phone: [facility] 07-18-2023 12:24-0400 Respiratory rate 18 /min [employer] Blossom Moncada [employer] Work Phone: [facility] 07-18-2023 12:24-0400 SaO2% (BldA) [Mass fraction] 100 % [employer] Blossom Moncada [employer] Work Phone: [facility] 07-18-2023 12:24-0400 Systolic blood pressure 96 mm[Hg] [employer] Blossom Moncada [employer] Work Phone: [facility] 07-18-2023 11:08-0400 Body height 170.18 cm [employer] Blossom Moncada [employer] Work Phone: [facility] 07-18-2023 11:08-0400 Body mass index (BMI) [Ratio] 23.8 kg/m2 [employer] Blossom Moncada [employer] Work Phone: [facility] 07-18-2023 11:08-0400 Body weight 69 kg [employer] Blossom Moncada [employer] Work Phone: [facility] 01-11-2023 07:54-0400 Body height 175.26 cm Radha Bonilla LPN [facility]; [facility] Work Phone: 01-11-2023 07:54-0400 Body mass index (BMI) [Ratio] 23.48 kg/m2 Radha Bonilla LPN [facility]; [facility] Work Phone: 01-11-2023 07:54-0400 Body surface area Derived from formula 1.87 m2 Radha Bonilla LPN [facility]; [facility] Work Phone: 01-11-2023 07:54-0400 Body temperature 98.3 [degF] Radha Bonilla LPN [facility]; [facility] Work Phone: 01-11-2023 07:54-0400 Body weight 72.12 kg Radha Bonilla LPN [facility]; [facility] Work Phone: 01-11-2023 07:54-0400 Diastolic blood pressure 68 mm[Hg] Radha Bonilla LPN [facility]; [facility] Work Phone: Comment on above: Patient Position: Sitting; Cuff Location : Left Arm; Cuff Size: Standard 01-11-2023 07:54-0400 Heart rate 85 /min Radha Bonilla LPN [facility]; [facility] Work Phone: Comment on above: Pattern: Regular 01-11-2023 07:54-0400 Respiratory rate 16 /min Radha Bonilla TILA [facility]; [facility] Work Phone: Comment on above: Pattern: Unlabored 01-11-2023 07:54-0400 SaO2% (BldA) [Mass fraction] 98 % Radha Bonilla TILA [facility]; [facility] Work Phone: Comment on above: Room air 01-11-2023 07:54-0400 Systolic blood pressure 110 mm[Hg] Radha Bonilla TILA [facility]; [facility] Work Phone: Comment on above: Patient Position: Sitting; Cuff Location : Left Arm; Cuff Size: Standard 12-26-2022 11:00-0500 Body height 175.26 cm Radha Bonilla TILA [facility]; [facility] Work Phone: 12-26-2022 11:00-0500 Body mass index (BMI) [Ratio] 24.37 kg/m2 Radha Bonilla TILA [facility]; [facility] Work Phone: 12-26-2022 11:00-0500 Body surface area Derived from formula 1.9 m2 Radha Bonilla TILA [facility]; [facility] Work Phone: 12-26-2022 11:00-0500 Body temperature 98.3 [degF] Radha Bonilla TILA [facility]; [facility] Work Phone: 12-26-2022 11:00-0500 Body weight 74.84 kg Radha Bonilla TILA [facility]; [facility] Work Phone: 12-26-2022 11:00-0500 Diastolic blood pressure 78 mm[Hg] Radha Bonilla TILA [facility]; [facility] Work Phone: Comment on above: Patient Position: Sitting; Cuff Location : Left Arm; Cuff Size: Standard 12-26-2022 11:00-0500 Heart rate 99 /min Radha Irene TILA [facility]; [facility] Work Phone: Comment on above: Pattern: Regular 12-26-2022 11:00-0500 Respiratory rate 16 /min Radha Irene ADORNO [facility]; [facility] Work Phone: Comment on above: Pattern: Unlabored 12-26-2022 11:00-0500 SaO2% (BldA) [Mass fraction] 98 % Radha Bonilla LPN [facility]; [facility] Work Phone: Comment on above: Room air 12-26-2022 11:00-0500 Systolic blood pressure 128 mm[Hg] Radha Bonilla LPN [facility]; [facility] Work Phone: Comment on above: Patient Position: Sitting; Cuff Location : Left Arm; Cuff Size: Standard 11-10-2021 09:43-0500 Body height 175.26 cm Blossom Moncada [employer]GR[employer] Work Phone: [facility]; [facility] Work Phone: 11-10-2021 09:43-0500 Body mass index (BMI) [Ratio] 24.81 kg/m2 Blossom Moncada [employer] Work Phone: [facility]; [facility] Work Phone: 11-10-2021 09:43-0500 Body surface area Derived from formula 1.92 m2 Blossom Moncada [employer]GR[employer] Work Phone: [facility]; [facility] Work Phone: 11-10-2021 09:43-0500 Body weight 76.21 kg Blossom Moncada [employer] PH[employer]GRAPHER Work Phone: [facility]; [facility] Work Phone: 10-05-2020 15:58-0500 BMI (Body Mass Index) 24.81 kg/m2 Gene Armando LPN [facility] Internal Medicine; [facility] Work Phone: 10-05-2020 15:58-0500 Body Temperature 97.8 [degF] Gene Armando LPN [facility]; [facility] Work Phone: Comment on above: Method: Infrared 10-05-2020 15:58-0500 Body weight 76.21 kg Gene Armando LPN [facility]; [facility] Work Phone: 10-05-2020 15:58-0500 BP Diastolic 58 mm[Hg] Gene Armando LPN [facility]; [facility] Work Phone: Comment on above: Patient Position: Sitting; Cuff Location : Left Arm; Cuff Size: Standard 10-05-2020 15:58-0500 BP Systolic 94 mm[Hg] Gene Armando LPN [facility]; [facility] Work Phone: Comment on above: Patient Position: Sitting; Cuff Location : Left Arm; Cuff Size: Standard 10-05-2020 15:58-0500 BSA (Body Surface Area) 1.92 m2 Gene Armando LPN [facility]; [facility] Work Phone: 10-05-2020 15:58-0500 Height 175.26 cm Gene Armando LPN [facility]; [facility] Work Phone: 10-05-2020 15:58-0500 Pulse (Heart Rate) 99 /min Gene Armando LPN Comprehensiv e Internal Medicine; [facility] Work Phone: Comment on above: Pattern: Regular 10-05-2020 15:58-0500 Pulse Oximetry 99 % Blossom Moncada [facility]; [facility] Work Phone: Comment on above: Room air 10-05-2020 15:58-0500 Respiratory Rate 16 /min Gene Armando LPN [facility]; [facility] Work Phone: Comment on above: Pattern: Unlabored 10-05-2020 15:58-0500 SaO2% (BldA) [Mass fraction] 99 % Gene Armando LPN [facility]; [facility] Work Phone: Comment on above: Room air 09-28-2020 14:08-0500 BMI (Body Mass Index) 24.07 kg/m2 Gretchen Haq LPN Comprehen sive Internal Medicine Work Phone: 09-28-2020 14:08-0500 Body Temperature 98.2 [degF] Gretchen Slarb [employer] [facility] Work Phone: 09-28-2020 14:08-0500 Body weight 73.94 kg Gretchen Codyrb [employer] [facility] Work Phone: 09-28-2020 14:08-0500 BP Diastolic 78 mm[Hg] Gretchen Slarb [employer] [facility] Work Phone: Comment on above: Patient Position: Sitting; Cuff Location : Left Arm; Cuff Size: Standard 09-28-2020 14:08-0500 BP Systolic 116 mm[Hg] Gretchen Slarb [employer] [facility] Work Phone: Comment on above: Patient Position: Sitting; Cuff Location : Left Arm; Cuff Size: Standard 09-28-2020 14:08-0500 BSA (Body Surface Area) 1.89 m2 Gretchen Codyrb [employer] [facility] Work Phone: 09-28-2020 14:08-0500 Height 175.26 cm Gretchen Codytia [employer] [facility] Work Phone: 09-28-2020 14:08-0500 Pulse (Heart Rate) 110 /min Gretchenfili Haq [employer] Comprehensiv e Internal Medicine Work Phone: Comment on above: Pattern: Regular 09-28-2020 14:08-0500 Pulse Oximetry 98 % Blossom Moncada [facility] Work Phone: Comment on above: Room air 09-28-2020 14:08-0500 Respiratory Rate 16 /min Gretchenfili Haq [employer] [facility] Work Phone: Comment on above: Pattern: Unlabored 09-28-2020 14:08-0500 SaO2% (BldA) [Mass fraction] 98 % Gretchne Slatia [employer] [facility]; [facility] Work Phone: Comment on above: Room air 08-28-2020 10:47-0400 BMI (Body Mass Index) 24.22 kg/m2 Gene Armando LPN Comprehen sive Internal Medicine Work Phone: 08-28-2020 10:47-0400 Body Temperature 96.9 [degF] Gene Armando LPN [facility] Work Phone: Comment on above: Method: Infrared 08-28-2020 10:47-0400 Body weight 74.4 kg Gene Armando LPN [facility] Work Phone: 08-28-2020 10:47-0400 BP Diastolic 68 mm[Hg] Gene Armando LPN [facility] Work Phone: Comment on above: Patient Position: Sitting; Cuff Location : Left Arm; Cuff Size: Standard 08-28-2020 10:47-0400 BP Systolic 112 mm[Hg] Gene Armando LPN [facility] Work Phone: Comment on above: Patient Position: Sitting; Cuff Location : Left Arm; Cuff Size: Standard 08-28-2020 10:47-0400 BSA (Body Surface Area) 1.9 m2 Gene Armando LPN [facility] Work Phone: 08-28-2020 10:47-0400 Height 175.26 cm Gene Armando LPN [facility] Work Phone: 08-28-2020 10:47-0400 Pulse (Heart Rate) 109 /min Gene Armando LPN [facility] Work Phone: Comment on above: Pattern: Regular 08-28-2020 10:47-0400 Pulse Oximetry 98 % Blossom Moncada [facility] Work Phone: Comment on above: Room air 08-28-2020 10:47-0400 Respiratory Rate 16 /min Gene Armando LPN [facility] Work Phone: Comment on above: Pattern: Unlabored 08-28-2020 10:47-0400 SaO2% (BldA) [Mass fraction] 98 % Gene Armando LPN [facility]; [facility] Work Phone: Comment on above: Room air 08-05-2020 13:10-0400 BMI (Body Mass Index) 24.22 kg/m2 Gene Armando LPN [facility] Work Phone: 08-05-2020 13:10-0400 Body Temperature 96.9 [degF] Gene Armando LPN [facility] Work Phone: Comment on above: Method: Infrared 08-05-2020 13:10-0400 Body weight 74.4 kg Gene Armando LPN [facility] Work Phone: 08-05-2020 13:10-0400 BP Diastolic 92 mm[Hg] Gene Armando LPN [facility] Work Phone: Comment on above: Patient Position: Sitting; Cuff Location : Left Arm; Cuff Size: Standard 08-05-2020 13:10-0400 BP Systolic 118 mm[Hg] Gene Armando LPN [facility] Work Phone: Comment on above: Patient Position: Sitting; Cuff Location : Left Arm; Cuff Size: Standard 08-05-2020 13:10-0400 BSA (Body Surface Area) 1.9 m2 Gene Armando LPN [facility] Work Phone: 08-05-2020 13:10-0400 Height 175.26 cm Gene Armando LPN [facility] Work Phone: 08-05-2020 13:10-0400 Pulse (Heart Rate) 110 /min Gene Armando LPN [facility] Work Phone: Comment on above: Pattern: Regular 08-05-2020 13:10-0400 Pulse Oximetry 97 % Blossom Moncada [facility] Work Phone: Comment on above: Room air 08-05-2020 13:10-0400 Respiratory Rate 16 /min Gene Armando LPN [facility] Work Phone: Comment on above: Pattern: Unlabored 08-05-2020 13:10-0400 SaO2% (BldA) [Mass fraction] 97 % Gene Armando LPN [facility]; [facility] Work Phone: Comment on above: Room air 06-22-2020 12:44-0400 BMI (Body Mass Index) 23.78 kg/m2 Gene Armando LPN [facility] Work Phone: 06-22-2020 12:44-0400 Body Temperature 97.6 [degF] Gene Armando LPN [facility] Work Phone: Comment on above: Method: Infrared 06-22-2020 12:44-0400 Body weight 73.03 kg Gene Armando LPN [facility] Work Phone: 06-22-2020 12:44-0400 BP Diastolic 78 mm[Hg] Gene Armando LPN [facility] Work Phone: Comment on above: Patient Position: Sitting; Cuff Location : Left Arm; Cuff Size: Standard 06-22-2020 12:44-0400 BP Systolic 142 mm[Hg] Gene Armando LPN [facility] Work Phone: Comment on above: Patient Position: Sitting; Cuff Location : Left Arm; Cuff Size: Standard 06-22-2020 12:44-0400 BSA (Body Surface Area) 1.88 m2 Gene Armando LPN [facility] Work Phone: 06-22-2020 12:44-0400 Height 175.26 cm Gene Armando LPN [facility] Work Phone: 06-22-2020 12:44-0400 Pulse (Heart Rate) 103 /min Gene Armando LPN [facility] Work Phone: Comment on above: Pattern: Regular 06-22-2020 12:44-0400 Pulse Oximetry 98 % Blossom Moncada [facility] Work Phone: Comment on above: Room air 06-22-2020 12:44-0400 Respiratory Rate 16 /min Gene Armando LPN [facility] Work Phone: Comment on above: Pattern: Unlabored 06-22-2020 12:44-0400 SaO2% (BldA) [Mass fraction] 98 % Gene Armando LPN [facility]; [facility] Work Phone: Comment on above: Room air 01-30-2019 12:52-0400 BMI (Body Mass Index) 22.6 kg/m2 Gene Armando LPN [facility] Work Phone: 01-30-2019 12:52-0400 Body Temperature 97.9 [degF] Gene Armando LPN [facility] Work Phone: Comment on above: Method: Temporal 01-30-2019 12:52-0400 Body weight 69.42 kg Gene Armando LPN [facility] Work Phone: 01-30-2019 12:52-0400 BP Diastolic 68 mm[Hg] Gene Armando LPN [facility] Work Phone: Comment on above: Patient Position: Sitting; Cuff Location : Left Arm; Cuff Size: Standard 01-30-2019 12:52-0400 BP Systolic 112 mm[Hg] Gene Armando LPN [facility] Work Phone: Comment on above: Patient Position: Sitting; Cuff Location : Left Arm; Cuff Size: Standard 01-30-2019 12:52-0400 BSA (Body Surface Area) 1.84 m2 Gene Armando LPN [facility] Work Phone: 01-30-2019 12:52-0400 Height 175.26 cm Gene Armando LPN [facility] Work Phone: 01-30-2019 12:52-0400 Pulse (Heart Rate) 110 /min Gene Armando LPN [facility] Work Phone: Comment on above: Pattern: Regular 01-30-2019 12:52-0400 Pulse Oximetry 95 % Blossom Coral [facility] Work Phone: Comment on above: Room air 01-30-2019 12:52-0400 Respiratory Rate 16 /min Gene Armando LPN [facility] Work Phone: Comment on above: Pattern: Unlabored 01-30-2019 12:52-0400 SaO2% (BldA) [Mass fraction] 95 % Gene Armando LPN [facility]; [facility] Work Phone: Comment on above: Room air 01-30-2019 12:52-0400 Weight 69.42 kg Blossom Coral [facility] Work Phone: 02-13-2018 11:18-0400 BMI (Body Mass Index) 23.04 kg/m2 Gene Armando LPN [facility] Work Phone: 02-13-2018 11:18-0400 Body Temperature 97.6 [degF] Gene Armando LPN [facility] Work Phone: 02-13-2018 11:18-0400 Body weight 70.76 kg Gene Tr ADORNO [facility] Work Phone: 02-13-2018 11:18-0400 BP Diastolic 68 mm[Hg] Gene Armando LPN [facility] Work Phone: Comment on above: Patient Position: Sitting; Cuff Location : Left Arm; Cuff Size: Standard 02-13-2018 11:18-0400 BP Systolic 102 mm[Hg] Gene Armando LPN [facility] Work Phone: Comment on above: Patient Position: Sitting; Cuff Location : Left Arm; Cuff Size: Standard 02-13-2018 11:18-0400 BSA (Body Surface Area) 1.86 m2 Gene Armando LPN [facility] Work Phone: 02-13-2018 11:18-0400 Height 175.26 cm Gene Armando LPN [facility] Work Phone: 02-13-2018 11:18-0400 Pulse (Heart Rate) 101 /min Gene Armando LPN [facility] Work Phone: Comment on above: Pattern: Regular 02-13-2018 11:18-0400 Pulse Oximetry 98 % Blossom Coral [facility] Work Phone: Comment on above: Room air 02-13-2018 11:18-0400 Respiratory Rate 17 /min Gene Armando LPN [facility] Work Phone: Comment on above: Pattern: Unlabored 02-13-2018 11:18-0400 SaO2% (BldA) [Mass fraction] 98 % Gene Armando LPN [facility]; [facility] Work Phone: Comment on above: Room air 02-13-2018 11:18-0400 Weight 70.76 kg Blossom Coral [facility] Work Phone: 05-11-2016 11:58-0400 BMI (Body Mass Index) 20.58 kg/m2 Gretchen Haq [facility] Work Phone: 05-11-2016 11:58-0400 Body Temperature 97 [degF] Gretchen Haq [employer] [facility] Work Phone: 05-11-2016 11:58-0400 Body weight 63.22 kg Gretchen Haq LPN [facility] Work Phone: 05-11-2016 11:58-0400 BP Diastolic 78 mm[Hg] Gretchen Haq [employer] [facility] Work Phone: Comment on above: Patient Position: Sitting; Cuff Location : Left Arm; Cuff Size: Standard 05-11-2016 11:58-0400 BP Systolic 116 mm[Hg] Gretchen Haq [employer] [facility] Work Phone: Comment on above: Patient Position: Sitting; Cuff Location : Left Arm; Cuff Size: Standard 05-11-2016 11:58-0400 BSA (Body Surface Area) 1.77 m2 Gretchen Haq LPN [facility] Work Phone: 05-11-2016 11:58-0400 Height 175.26 cm Gretchen Haq [employer] [facility] Work Phone: 05-11-2016 11:58-0400 Pulse (Heart Rate) 81 /min Gretchen Haq LPN [facility] Work Phone: Comment on above: Pattern: Regular 05-11-2016 11:58-0400 Pulse Oximetry 98 % Blossom Moncada [facility] Work Phone: Comment on above: Room air 05-11-2016 11:58-0400 Respiratory Rate 17 /min Gretchen Haq [employer] [facility] Work Phone: Comment on above: Pattern: Unlabored 05-11-2016 11:58-0400 SaO2% (BldA) [Mass fraction] 98 % Gretchen Haq [employer] [facility]; [facility] Work Phone: Comment on above: Room air 05-11-2016 11:58-0400 Weight 63.22 kg Blossom Moncada [facility] Work Phone: 02-04-2016 11:33-0400 BMI (Body Mass Index) 20.23 kg/m2 KAYLAH Crawford LPN [facility] Work Phone: 02-04-2016 11:33-0400 Body Temperature 97.6 [degF] KAYLAH Crawford LPN [facility] Work Phone: Comment on above: Method: Temporal 02-04-2016 11:33-0400 Body weight 62.14 kg KAYLAH Crawford LPN [facility] Work Phone: 02-04-2016 11:33-0400 BP Diastolic 80 mm[Hg] KAYLAH Crawford LPN [facility] Work Phone: Comment on above: Patient Position: Sitting; Cuff Location : Left Arm; Cuff Size: Standard 02-04-2016 11:33-0400 BP Systolic 120 mm[Hg] KAYLAH Crawford LPN [facility] Work Phone: Comment on above: Patient Position: Sitting; Cuff Location : Left Arm; Cuff Size: Standard 02-04-2016 11:33-0400 BSA (Body Surface Area) 1.76 m2 KAYLAH Crawford LPN [facility] Work Phone: 02-04-2016 11:33-0400 Height 175.26 cm KAYLAH Crawford LPN [facility] Work Phone: 02-04-2016 11:33-0400 Pulse (Heart Rate) 90 /min KAYLAH Crawford LPN [facility] Work Phone: Comment on above: Pattern: Regular 02-04-2016 11:33-0400 Pulse Oximetry 98 % Blossom Moncada [facility] Work Phone: Comment on above: Room air 02-04-2016 11:33-0400 Respiratory Rate 18 /min KAYLAH Crawford LPN [facility] Work Phone: Comment on above: Pattern: Unlabored 02-04-2016 11:33-0400 SaO2% (BldA) [Mass fraction] 98 % KAYLAH Crawford LPN [facility]; [facility] Work Phone: Comment on above: Room air 02-04-2016 11:33-0400 Weight 62.14 kg Blossom Moncada [facility] Work Phone: 12-10-2015 09:13-0500 BMI (Body Mass Index) 19.79 kg/m2 KAYLAH Crawford LPN [facility] Work Phone: 12-10-2015 09:13-0500 Body Temperature 97.2 [degF] KAYLAH Crawford LPN [facility] Work Phone: Comment on above: Method: Temporal 12-10-2015 09:13-0500 Body weight 60.78 kg KAYLAH Crawford LPN [facility] Work Phone: 12-10-2015 09:13-0500 BP Diastolic 74 mm[Hg] KAYLAH Crawford LPN [facility] Work Phone: Comment on above: Patient Position: Sitting; Cuff Location : Left Arm; Cuff Size: Standard 12-10-2015 09:13-0500 BP Systolic 114 mm[Hg] KAYLAH Crawford LPN [facility] Work Phone: Comment on above: Patient Position: Sitting; Cuff Location : Left Arm; Cuff Size: Standard 12-10-2015 09:13-0500 BSA (Body Surface Area) 1.74 m2 KAYLAH Crawford LPN [facility] Work Phone: 12-10-2015 09:13-0500 Height 175.26 cm KAYLAH Crawford LPN [facility] Work Phone: 12-10-2015 09:13-0500 Pulse (Heart Rate) 74 /min KAYLAH Crawford LPN [facility] Work Phone: Comment on above: Pattern: Regular 12-10-2015 09:13-0500 Pulse Oximetry 98 % Blossom Moncada [facility] Work Phone: Comment on above: Room air 12-10-2015 09:13-0500 Respiratory Rate 18 /min KAYLAH Crawford LPN [facility] Work Phone: Comment on above: Pattern: Unlabored 12-10-2015 09:13-0500 SaO2% (BldA) [Mass fraction] 98 % KAYLAH Crawford LPN [facility]; [facility] Work Phone: Comment on above: Room air 12-10-2015 09:13-0500 Weight 60.78 kg Blossom Moncada [facility] Work Phone: 11-30-2015 12:00-0500 BMI (Body Mass Index) 19.79 kg/m2 KAYLAH Crawford LPN [facility] Work Phone: 11-30-2015 12:00-0500 Body Temperature 97.6 [degF] KAYLAH Crawford LPN [facility] Work Phone: Comment on above: Method: Temporal 11-30-2015 12:00-0500 Body weight 60.78 kg KAYLAH Crawford LPN [facility] Work Phone: 11-30-2015 12:00-0500 BP Diastolic 74 mm[Hg] KAYLAH Crawford LPN [facility] Work Phone: Comment on above: Patient Position: Sitting; Cuff Location : Left Arm; Cuff Size: Standard 11-30-2015 12:00-0500 BP Systolic 118 mm[Hg] KAYLAH Crawford LPN [facility] Work Phone: Comment on above: Patient Position: Sitting; Cuff Location : Left Arm; Cuff Size: Standard 11-30-2015 12:00-0500 BSA (Body Surface Area) 1.74 m2 KAYLAH Crawford LPN [facility] Work Phone: 11-30-2015 12:00-0500 Height 175.26 cm KAYLAH Crawford LPN [facility] Work Phone: 11-30-2015 12:00-0500 Pulse (Heart Rate) 94 /min KAYLAH Crawford LPN [facility] Work Phone: Comment on above: Pattern: Regular 11-30-2015 12:00-0500 Pulse Oximetry 99 % Blossom Moncada [facility] Work Phone: Comment on above: Room air 11-30-2015 12:00-0500 Respiratory Rate 18 /min KAYLAH Crawford LPN [facility] Work Phone: Comment on above: Pattern: Unlabored 11-30-2015 12:00-0500 SaO2% (BldA) [Mass fraction] 99 % KAYLAH Crawford TILA [facility]; [facility] Work Phone: Comment on above: Room air 11-30-2015 12:00-0500 Weight 60.78 kg Blossom Moncada [facility] Work Phone: 09-11-2015 13:28-0500 BMI (Body Mass Index) 19.94 kg/m2 KAYLAH Crawford LPN [facility] Work Phone: 09-11-2015 13:28-0500 Body Temperature 97.9 [degF] KAYLAH Crawford LPN [facility] Work Phone: Comment on above: Method: Temporal 09-11-2015 13:28-0500 Body weight 61.24 kg KAYLAH Crawford LPN [facility] Work Phone: 09-11-2015 13:28-0500 BP Diastolic 68 mm[Hg] KAYLAH Crawford LPN [facility] Work Phone: Comment on above: Patient Position: Sitting; Cuff Location : Left Arm; Cuff Size: Standard 09-11-2015 13:28-0500 BP Systolic 110 mm[Hg] KAYLAH Crawford LPN [facility] Work Phone: Comment on above: Patient Position: Sitting; Cuff Location : Left Arm; Cuff Size: Standard 09-11-2015 13:28-0500 BSA (Body Surface Area) 1.75 m2 KAYLAH Crawford LPN [facility] Work Phone: 09-11-2015 13:28-0500 Height 175.26 cm KAYLAH Crawford LPN [facility] Work Phone: 09-11-2015 13:28-0500 Pulse (Heart Rate) 70 /min KAYLAH Crawford LPN [facility] Work Phone: Comment on above: Pattern: Regular 09-11-2015 13:28-0500 Pulse Oximetry 98 % Blossom Moncada [facility] Work Phone: Comment on above: Room air 09-11-2015 13:28-0500 Respiratory Rate 18 /min KAYLAH Crawford LPN [facility] Work Phone: Comment on above: Pattern: Unlabored 09-11-2015 13:28-0500 SaO2% (BldA) [Mass fraction] 98 % KAYLAH Crawford LPN [facility]; [facility] Work Phone: Comment on above: Room air 09-11-2015 13:28-0500 Weight 61.24 kg Blossom Moncada [facility] Work Phone: 05-21-2015 11:43-0400 BMI (Body Mass Index) 19.94 kg/m2 KAYLAH Crawford LPN [facility] Work Phone: 05-21-2015 11:43-0400 Body Temperature 97.9 [degF] KAYLAH Crawford LPN [facility] Work Phone: Comment on above: Method: Temporal 05-21-2015 11:43-0400 Body weight 61.24 kg KAYLAH Crawford LPN [facility] Work Phone: 05-21-2015 11:43-0400 BP Diastolic 70 mm[Hg] KAYLAH Crawford LPN [facility] Work Phone: Comment on above: Patient Position: Sitting; Cuff Location : Left Arm; Cuff Size: Standard 05-21-2015 11:43-0400 BP Systolic 114 mm[Hg] KAYLAH Crawford LPN [facility] Work Phone: Comment on above: Patient Position: Sitting; Cuff Location : Left Arm; Cuff Size: Standard 05-21-2015 11:43-0400 BSA (Body Surface Area) 1.75 m2 KAYLAH Crawford LPN [facility] Work Phone: 05-21-2015 11:43-0400 Height 175.26 cm KAYLAH Crawford LPN [facility] Work Phone: 05-21-2015 11:43-0400 Pulse (Heart Rate) 100 /min AKYLAH Crawford LPN [facility] Work Phone: Comment on above: Pattern: Regular 05-21-2015 11:43-0400 Pulse Oximetry 99 % Blossom Moncada [facility] Work Phone: Comment on above: Room air 05-21-2015 11:43-0400 Respiratory Rate 18 /min KAYLAH Crawford LPN [facility] Work Phone: Comment on above: Pattern: Unlabored 05-21-2015 11:43-0400 SaO2% (BldA) [Mass fraction] 99 % KAYLAH Crawford LPN [facility]; [facility] Work Phone: Comment on above: Room air 05-21-2015 11:43-0400 Weight 61.24 kg Blossom Moncada [facility] Work Phone: 05-19-2014 09:49-0400 BMI (Body Mass Index) 19.64 kg/m2 KAYLAH Crawford LPN [facility] Work Phone: 05-19-2014 09:49-0400 Body Temperature 97.9 [degF] KAYLAH Crawford LPN [facility] Work Phone: Comment on above: Method: Oral 05-19-2014 09:49-0400 Body weight 60.33 kg KAYLAH Crawford LPN [facility] Work Phone: 05-19-2014 09:49-0400 BP Diastolic 68 mm[Hg] KAYLAH Crawford LPN [facility] Work Phone: Comment on above: Patient Position: Sitting; Cuff Location : Left Arm; Cuff Size: Standard 05-19-2014 09:49-0400 BP Systolic 114 mm[Hg] KAYLAH Crawford LPN [facility] Work Phone: Comment on above: Patient Position: Sitting; Cuff Location : Left Arm; Cuff Size: Standard 05-19-2014 09:49-0400 BSA (Body Surface Area) 1.74 m2 KAYLAH Crawford LPN [facility] Work Phone: 05-19-2014 09:49-0400 Height 175.26 cm KAYLAH Crawford LPN [facility] Work Phone: 05-19-2014 09:49-0400 Pulse (Heart Rate) 76 /min KAYLAH Crawford LPN [facility] Work Phone: Comment on above: Pattern: Regular 05-19-2014 09:49-0400 Respiratory Rate 20 /min KAYLAH Crawford LPN [facility] Work Phone: Comment on above: Pattern: Unlabored 05-19-2014 09:49-0400 Weight 60.33 kg Blossom Moncada [facility] Work Phone: 01-31-2014 10:24-0400 BMI (Body Mass Index) 19.71 kg/m2 Na Valentin RN [facility] Work Phone: 01-31-2014 10:24-0400 Body Temperature 97.6 [degF] Na Valentin RN [facility] Work Phone: Comment on above: Method: Oral 01-31-2014 10:24-0400 Body weight 60.53 kg Na Valentin RN [facility] Work Phone: 01-31-2014 10:24-0400 BP Diastolic 62 mm[Hg] Na Valentin RN [facility] Work Phone: Comment on above: Patient Position: Sitting; Cuff Location : Left Arm; Cuff Size: Standard 01-31-2014 10:24-0400 BP Systolic 110 mm[Hg] Na Valentin RN [facility] Work Phone: Comment on above: Patient Position: Sitting; Cuff Location : Left Arm; Cuff Size: Standard 01-31-2014 10:24-0400 BSA (Body Surface Area) 1.74 m2 Na Valentin RN [facility] Work Phone: 01-31-2014 10:24-0400 Height 175.26 cm Na Valentin RN [facility] Work Phone: 01-31-2014 10:24-0400 Pulse (Heart Rate) 68 /min Na Valentin RN [facility] Work Phone: Comment on above: Pattern: Regular 01-31-2014 10:24-0400 Pulse Oximetry 98 % Blossom Moncada [facility] Work Phone: Comment on above: 9L O2 01-31-2014 10:24-0400 Respiratory Rate 20 /min Na Valentin RN [facility] Work Phone: Comment on above: Pattern: Unlabored 01-31-2014 10:24-0400 SaO2% (BldA) [Mass fraction] 98 % Na Valentin RN [facility]; [facility] Work Phone: Comment on above: 9L O2 01-31-2014 10:24-0400 Weight 60.53 kg Blossom Moncada [facility] Work Phone: 01-26-2012 12:17-0400 BMI (Body Mass Index) 18.46 kg/m2 KAYLAH Crawford TILA [facility] Work Phone: 01-26-2012 12:17-0400 Body Temperature 98 [degF] KAYLAH Crawford TILA [facility] Work Phone: Comment on above: Method: Oral 01-26-2012 12:17-0400 Body weight 56.7 kg KAYLAH Crawford TILA [facility] Work Phone: 01-26-2012 12:17-0400 BP Diastolic 60 mm[Hg] KAYLAH Crawford LPN [facility] Work Phone: Comment on above: Patient Position: Sitting; Cuff Location : Left Arm; Cuff Size: Standard 01-26-2012 12:17-0400 BP Systolic 100 mm[Hg] KAYLAHJOHNY Crawford LPN [facility] Work Phone: Comment on above: Patient Position: Sitting; Cuff Location : Left Arm; Cuff Size: Standard 01-26-2012 12:17-0400 BSA (Body Surface Area) 1.69 m2 KAYLAH Crawford LPN [facility] Work Phone: 01-26-2012 12:17-0400 Height 175.26 cm KAYLAH Crawford LPN [facility] Work Phone: 01-26-2012 12:17-0400 Pulse (Heart Rate) 70 /min KAYLAH Crawford LPN [facility] Work Phone: Comment on above: Pattern: Regular 01-26-2012 12:17-0400 Pulse Oximetry 98 % Blossom Moncada [facility] Work Phone: Comment on above: Room air 01-26-2012 12:17-0400 Respiratory Rate 18 /min KAYLAH Crawford TILA [facility] Work Phone: Comment on above: Pattern: Unlabored 01-26-2012 12:17-0400 SaO2% (BldA) [Mass fraction] 98 % KAYLAH Crawford LPN [facility]; [facility] Work Phone: Comment on above: Room air 01-26-2012 12:17-0400 Weight 56.7 kg Blossom Moncada [facility] Work Phone: 12-13-2010 14:06-0500 Body Temperature 96.9 [degF] Blossom Moncada [facility] Work Phone: Comment on above: Method: Oral 12-13-2010 14:06-0500 Body weight 56.7 kg Blossom Moncada [facility] Work Phone: 12-13-2010 14:06-0500 BP Diastolic 68 mm[Hg] Blossom Moncada [facility] Work Phone: Comment on above: Patient Position: Sitting; Cuff Location : Left Arm; Cuff Size: Standard 12-13-2010 14:06-0500 BP Systolic 104 mm[Hg] Blossom Moncada [facility] Work Phone: Comment on above: Patient Position: Sitting; Cuff Location : Left Arm; Cuff Size: Standard 12-13-2010 14:06-0500 Pulse (Heart Rate) 72 /min Blossom Moncada [facility] Work Phone: Comment on above: Pattern: Regular 12-13-2010 14:06-0500 Respiratory Rate 16 /min Blossom Moncada [facility] Work Phone: Comment on above: Pattern: Unlabored 12-13-2010 14:06-0500 Weight 56.7 kg Blossom Moncada [facility] Work Phone: 12-10-2010 11:42-0500 Body Temperature 97.9 [degF] Jeri Parker RN [facility] Work Phone: Comment on above: Method: Oral 12-10-2010 11:42-0500 BP Diastolic 68 mm[Hg] Jeri Parker RN [facility] Work Phone: Comment on above: Patient Position: Sitting; Cuff Location : Left Arm; Cuff Size: Standard 12-10-2010 11:42-0500 BP Systolic 102 mm[Hg] Jeri Parker RN [facility] Work Phone: Comment on above: Patient Position: Sitting; Cuff Location : Left Arm; Cuff Size: Standard 12-10-2010 11:42-0500 Pulse (Heart Rate) 64 /min Jeri Parker RN [facility] Work Phone: Comment on above: Pattern: Regular 12-10-2010 11:42-0500 Respiratory Rate 16 /min Jeri Parker RN [facility] Work Phone: Comment on above: Pattern: Unlabored 02-12-2009 09:57-0400 Body Temperature 97 [degF] Pina [facility] Work Phone: Comment on above: Method: Oral 02-12-2009 09:57-0400 Body weight 56.7 kg Pina [facility] Work Phone: 02-12-2009 09:57-0400 BP Diastolic 72 mm[Hg] [facility] Work Phone: Comment on above: Patient Position: Sitting; Cuff Location : Left Arm; Cuff Size: Standard 02-12-2009 09:57-0400 BP Systolic 118 mm[Hg] [facility] Work Phone: Comment on above: Patient Position: Sitting; Cuff Location : Left Arm; Cuff Size: Standard 02-12-2009 09:57-0400 Head Circumference 0 cm [facility] Work Phone: 02-12-2009 09:57-0400 Head Occipital-frontal circumference 0 cm [facility]; [facility] Work Phone: 02-12-2009 09:57-0400 Height 0 cm [facility] Work Phone: 02-12-2009 09:57-0400 Pulse (Heart Rate) 71 /min Pnia [facility] Work Phone: Comment on above: Pattern: Regular 02-12-2009 09:57-0400 Pulse Oximetry 99 % [facility] Work Phone: Comment on above: Room air 02-12-2009 09:57-0400 Respiratory Rate 18 /min Pina Francis [facility] Work Phone: Comment on above: Pattern: Unlabored 02-12-2009 09:57-0400 SaO2% (BldA) [Mass fraction] 99 % Pina [facility]; [facility] Work Phone: Comment on above: Room air 02-12-2009 09:57-0400 Weight 56.7 kg Blossom Moncada [facility] Work Phone: 05-16-2008 12:56-0400 Body Temperature 98.2 [degF] KAYLAH Crawford LPN [facility] Work Phone: Comment on above: Method: Oral 05-16-2008 12:56-0400 Body weight 56.7 kg KAYLAH Crawford LPN [facility] Work Phone: 05-16-2008 12:56-0400 BP Diastolic 80 mm[Hg] KAYLAH Crawford LPN [facility] Work Phone: Comment on above: Patient Position: Sitting; Cuff Location : Left Arm; Cuff Size: Standard 05-16-2008 12:56-0400 BP Systolic 124 mm[Hg] KAYLAH Crawford LPN [facility] Work Phone: Comment on above: Patient Position: Sitting; Cuff Location : Left Arm; Cuff Size: Standard 05-16-2008 12:56-0400 Head Circumference 0 cm Blossom Moncada [facility] Work Phone: 05-16-2008 12:56-0400 Head Occipital-frontal circumference 0 cm KAYLAH Crawford LPN [facility]; [facility] Work Phone: 05-16-2008 12:56-0400 Height 0 cm KAYLAH Crawford LPN [facility] Work Phone: 05-16-2008 12:56-0400 Pulse (Heart Rate) 90 /min KAYLAH Crawford LPN [facility] Work Phone: Comment on above: Pattern: Regular 05-16-2008 12:56-0400 Pulse Oximetry 98 % Blossom Moncada [facility] Work Phone: Comment on above: Room air 05-16-2008 12:56-0400 Respiratory Rate 16 /min KAYLAH Crawford LPN [facility] Work Phone: Comment on above: Pattern: Unlabored 05-16-2008 12:56-0400 SaO2% (BldA) [Mass fraction] 98 % KAYLAH Crawford LPN [facility]; [facility] Work Phone: Comment on above: Room air 05-16-2008 12:56-0400 Weight 56.7 kg Blossom Moncada [facility] Work Phone: 08-17-2006 08:12-0400 BMI (Body Mass Index) 18.51 kg/m2 Bruna Churchgett [facility] Internal [facility] Work Phone: 08-17-2006 08:12-0400 [facility] Work Phone: 08-17-2006 08:12-0400 BP Diastolic 60 mm[Hg] Bruna [facility] Work Phone: Comment on above: Patient Position: Sitting; Cuff Location : Right Arm; Cuff Size: Standard 08-17-2006 08:12-0400 BP Systolic 114 mm[Hg] Bruna [facility] Work Phone: Comment on above: Patient Position: Sitting; Cuff Location : Right Arm; Cuff Size: Standard 08-17-2006 08:12-0400 BSA (Body Surface Area) 1.69 m2 [facility] Work Phone: 08-17-2006 08:12-0400 Head Circumference 0 cm Blossom Moncada [facility] Work Phone: 08-17-2006 08:12-0400 Head Occipital-frontal circumference 0 cm [facility] Work Phone: 08-17-2006 08:12-0400 Height 175.26 [facility] Work Phone: 08-17-2006 08:12-0400 Pulse (Heart Rate) 60 /min [facility] Work Phone: Comment on above: Pattern: Regular 08-17-2006 08:12-0400 Weight 56.84 kg Blossom Moncada [facility] Work Phone: Encounters Encounter Date Encounter Type Care Provider Facility Start: 08-21-2025 End: 08-21-2025 ambulatory Sunni Bonedeepthii Facility:[facility] Start: 08-05-2025 ambulatory Sunni Bonedeepthii Facility:[facility] Start: 07-08-2025 End: 07-08-[address] Sunni Foster MD Work Phone: -[facility] Start: 07-08-2025 End: 07-08-[address] Sunni Foster MD -Laboratory [facility] Work Phone: Start: 07-08-2025 End: 07-08-2025 ambulatory Sunni Bonedeepthii Facility:[facility] Start: 11-26-2024 End: 11-26-2024 ambulatory Sunni Bonezzi Facility:[facility] Start: 11-26-2024 End: 11-26-2024 ambulatory Sunni Bonezzi Facility:[facility] Start: 08-23-2023 End: 08-23-[address] Sunni Foster Work Phone: [facility] Work Phone: Start: 08-23-2023 End: 08-23-[address] Sunni Foster Work Phone: [facility] Work Phone: Start: 07-18-2023 Non-patient / Non-visit [employer] Blossom Moncada [employer] Work Phone: [facility] Start: 07-18-2023 End: 07-18-2023 Admission to same day surgery center [employer] Blossom Moncada [employer] Work Phone: [facility] Work Phone: Start: 07-18-2023 End: 07-18-2023 ambulatory [employer] Blossom Moncada [employer] Work Phone: [facility] Work Phone: Start: 03-29-2023 End: 03-29-2023 Patient encounter procedure [employer] Blossom Moncada [employer] Work Phone: [facility] Work Phone: Start: 01-11-2023 ambulatory Sunni Foster MD [facility] Start: 01-11-2023 End: 01-11-2023 Patient encounter procedure Sunni Foster MD Work Phone: [facility] Start: 01-11-2023 End: 01-11-2023 Patient encounter status Sunni Foster MD Work Phone: [facility]; [facility] Work Phone: Comment on above: 01-11-23 VIMark settin g up coolnospcy and PSA 01-19 Start: 01-11-2023 Review Sunni Healy Work Phone: [facility] Start: 12-26-2022 End: 12-26-2022 Office outpatient visit 25 minutes Sunni Foster MD Work Phone: [facility] Start: 11-15-2021 End: 11-15-2021 Office outpatient visit 15 minutes Blossom Moncada [employer] Work Phone: [facility] Start: 11-10-2021 End: 11-10-2021 Office outpatient visit 15 minutes Blossom Moncada [employer] Work Phone: [facility] Start: 11-09-2021 End: 11-09-2021 Office outpatient visit 5 minutes Blossom Moncada [employer] Work Phone: [facility] Start: 10-05-2020 End: 10-05-2020 Office outpatient visit 15 minutes Blossom Moncada [facility] Start: 09-28-2020 End: 09-28-2020 Office outpatient visit 15 minutes Blossom Moncada [facility] Start: 09-28-2020 Review Blossom Garcia jose [facility] Start: 08-28-2020 End: 08-28-2020 Office outpatient visit 15 minutes Blossom Albrecht [facility] Start: 08-28-2020 Review Blossom Moncada Jose garcia [facility] Start: 08-05-2020 End: 08-05-2020 Office outpatient visit 15 minutes Blossom Albrecht [facility] Start: 06-22-2020 End: 06-22-2020 Office outpatient visit 25 minutes Blossom Albrecht [facility] Start: 06-08-2020 End: 06-08-2020 Annotation/Addendum Blossom Albrecht 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 Start: 04-27-2020 End: 04-27-2020 Lab Order Blossom Coral Albrecht 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 Start: 04-26-2020 End: 04-26-2020 Patient encounter procedure Blossom Albrecht [facility] Start: 01-30-2019 End: 01-30-2019 Office outpatient visit 15 minutes Blossom Albrecht [facility] Start: 02-13-2018 End: 02-13-2018 Office outpatient visit 25 minutes Blossom Albrecht [facility] Start: 05-11-2016 End: 05-11-2016 Office outpatient visit 15 minutes Blossom Albrecht [facility] Start: 02-10-2016 End: 02-10-2016 Phone Encounter Blossom Albrecht 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 Start: 02-04-2016 End: 02-04-2016 Periodic preventive med est patient 18-39 yrs Blossom Albrecht [facility] Start: 12-17-2015 End: 12-17-2015 Phone Encounter lBossom Albrecht 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 Start: 12-15-2015 End: 12-15-2015 Lab Order Blossom Albrecht 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 Start: 12-10-2015 End: 12-10-2015 Office outpatient visit 10 minutes Blossom Albrecht [facility] Start: 11-30-2015 End: 11-30-2015 Office outpatient visit 40 minutes Blossom Albrecht [facility] Start: 09-11-2015 End: 09-11-2015 Periodic preventive med est patient 40-64yrs Blossom Albrecht [facility] Start: 05-21-2015 End: 05-21-2015 Office outpatient visit 10 minutes Blossom Albrecht [facility] Start: 05-30-2014 End: 05-30-2014 Phone Encounter Blossom Albrecht 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 Start: 05-19-2014 End: 05-23-2014 Office outpatient visit 15 minutes Blossom Moncada [facility] Start: 04-30-2014 End: 04-30-2014 Phone Encounter Blossom Moncada Ambrocio 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 Start: 02-28-2014 End: 02-28-2014 Phone Encounter Blossom Moncada Ambrocio 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 Start: 01-31-2014 End: 01-31-2014 Patient encounter procedure Blossom Moncada [facility] Start: 01-26-2012 End: 01-26-2012 Patient encounter procedure Blossom Moncada [facility] Start: 12-13-2010 End: 12-13-2010 Annotation/Addendum Blossom Moncada Ambrocio 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 Start: 12-13-2010 End: 12-13-2010 Office outpatient visit 25 minutes Blossom Moncada [facility] Start: 12-10-2010 End: 12-10-2010 Patient encounter procedure Blossom Moncada [facility] Start: 12-07-2010 End: 12-07-2010 Patient encounter procedure Blossom Moncada [facility] Start: 07-28-2010 End: 07-28-2010 Annotation/Addendum Blossom Moncada [facility] 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 Start: 01-28-2010 End: 01-28-2010 Phone Encounter Blossom Moncada mAbrocio 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 Start: 02-16-2009 End: 02-16-2009 Patient encounter procedure Blossom Moncada [facility] Start: 02-12-2009 End: 02-12-2009 Office outpatient new 20 minutes Blossom Moncada [facility] Start: 05-16-2008 End: 05-16-2008 Patient encounter procedure Blossom Moncada [facility] Start: 08-17-2006 End: 08-17-2006 Patient encounter procedure Blossom Moncada [facility] Start: 08-16-2006 End: 08-16-2006 Historical Summary Blossom Moncada [facility] 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 Procedures Date Procedure Procedure Detail Performing Clinician Start: 07-08-2025 Vitamin D, 25-hydroxy measurement Dr. Sunni Foster MD Work Phone: Comment on above: Vitamin D StatusDeficiency: <20 ng/mL (5 0nmol/L)Insufficiency: 20-30 ng/mL (50-75 nmol/L)Sufficiency: 30-100 ng/mL (75-250 nmol/L)Toxicity: >100 ng/mL (>250 nmol/L) Start: 07-18-2023 End: 07-18-2023 Colonoscopy Report Procedure Note: See Note; NOTES: [facility] Medical Records Department [address] [place] [address] Colonoscopy Report MR#: [id number] Acct: [id number] Name: JONO RAJAN Rep #: [id number] : 1975 47 From: Tino Duckworth DO PCP: Dr. Sunni Foster MD Status:[facility] Patient Name: Jono Menchaca Procedure Date: 07/18/2023 11:52 AM Date of : 1975 Age: 47 Procedure: Colonoscopy Indications: Clinically significant diarrhea of unexplained origin Providers: Tino Duckworth DO Referring MD: Sunni Foster Medicines: Monitored Anesthesia Care Patient Profile: This is a 47 year old male. Refer to note in patient chart for documentation of history and physical. Patient has symptoms of chronic abdominal cramping, chronic chest pain and chronic heartburn. Last Colonoscopy: none. The patient's first colonoscopy is today. Complications: No immediate complications. Procedure: Pre-Anesthesia Assessment: - Prior to the procedure, a History and Physical was performed, and patient medications and allergies were reviewed. The patient is competent. The risks and benefits of the procedure and the sedation options and risks were discussed with the patient. All questions were answered and informed consent was obtained. Patient identification and proposed procedure were verified in the pre-procedure area. Mental Status Examination: alert and oriented. Airway Examination: normal oropharyngeal airway and neck mobility. Respiratory Examination: clear to auscultation. CV Examination: normal. Prophylactic Antibiotics: The patient does not require prophylactic antibiotics. Prior Anticoagulants: The patient has taken no anticoagulant or antiplatelet agents. ASA Grade Assessment: II - A patient with mild systemic disease. After reviewing the risks and benefits, the patient was deemed in satisfactory condition to undergo the procedure. The anesthesia plan was to use monitored anesthesia care (MAC). Immediately prior to administration of medications, the patient was re-assessed for adequacy to receive sedatives. The heart rate, respiratory rate, oxygen saturations, blood pressure, adequacy of pulmonary ventilation, and response to care were monitored throughout the procedure. The physical status of the patient was re-assessed after the procedure. After I obtained informed consent, the scope was passed under direct vision. Throughout the procedure, the patient's blood pressure, pulse, and oxygen saturations were monitored continuously. The colonoscope was introduced through the anus and advanced to the terminal ileum. The colonoscopy was performed without difficulty. The patient tolerated the procedure well. The quality of the bowel preparation was adequate. The terminal ileum, ileocecal valve, appendiceal orifice, and rectum were photographed. Scope In: 11:54:27 AM Scope Withdrawal Time 0 hours 8 minutes 54 seconds Scope Out: 12:06:44 PM Total Procedure Duration Time 0 hours 12 minutes 17 seconds Findings: The perianal and digital rectal examinations were normal. An area of mildly congested mucosa was found in the entire colon. Biopsies were taken with a cold forceps for histology. Verification of patient identification for the specimen was done. Estimated blood loss was minimal. Patchy mild mucosal changes were found in the terminal ileum. Biopsies were taken with a cold forceps for histology. Verification of patient identification for the specimen was done. Estimated blood loss was minimal. Impression: - Congested mucosa in the entire examined colon. Biopsied. - Mild mucosal changes were found in the ileum secondary to ileitis. Biopsied. Recommendation: - Discharge patient to home. - Resume previous diet. - Continue present medications. - Await pathology results. - Repeat colonoscopy in 5 years for surveillance. Procedure Code(s): --- Professional --- 40406, Colonoscopy, flexible; with biopsy, single or multiple CPT copyright 2021 [employer]. All rights reserved. The codes documented in this report are preliminary and upon electrical sign servicer review may be revised to meet current compliance requirements. Tino Duckworth DO 07/18/2023 12:21:03 PM This report has been signed electronically. Number of Addenda: 0 Note Initiated On: 07/18/2023 11:52 AM 07/18/23 1221 Date Tino Contreras Signature: Date (if indicated) CC: Dr. Sunni Foster MD; Tino Duckworth DO Date Dictated: 07/18/23 1152 Date Transcribed: Marketing Operations Analyst: RF Signed Sunni Foster MD Work Phone: Start: 07-18-2023 End: 07-18-2023 EGD Report Procedure Note: See Note; NOTES: [facility] Medical Records Department [address] [place] [address] EGD Report MR#: [id number] Acct: [id number] Name: JONO RAJAN Rep #: [id number] : 1975 47 From: Tino Duckworth DO PCP: Dr. 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 Refer to note in patient chart for documentation of history and physical. Patient has symptoms of chronic abdominal cramping, chronic chest pain and chronic heartburn. Complications: No immediate complications. Procedure: Pre-Anesthesia Assessment: - Prior to the procedure, a History and Physical was performed, and patient medications and allergies were reviewed. The patient is competent. The risks and benefits of the procedure and the sedation options and risks were discussed with the patient. All questions were answered and informed consent was obtained. Patient identification and proposed procedure were verified in the pre-procedure area. Mental Status Examination: alert and oriented. Airway Examination: normal oropharyngeal airway and neck mobility. Respiratory Examination: clear to auscultation. CV Examination: normal. Prophylactic Antibiotics: The patient does not require prophylactic antibiotics. Prior Anticoagulants: The patient has taken no anticoagulant or antiplatelet agents. ASA Grade Assessment: II - A patient with mild systemic disease. After reviewing the risks and benefits, the patient was deemed in satisfactory condition to undergo the procedure. The anesthesia plan was to use monitored anesthesia care (MAC). Immediately prior to administration of medications, the patient was re-assessed for adequacy to receive sedatives. The heart rate, respiratory rate, oxygen saturations, blood pressure, adequacy of pulmonary ventilation, and response to care were monitored throughout the procedure. The physical status of the patient was re-assessed after the procedure. After obtaining informed consent, the endoscope was passed under direct vision. Throughout the procedure, the patient's blood pressure, pulse, and oxygen saturations were monitored continuously. The colonoscope was introduced through the mouth, and advanced to the second part of duodenum. The upper GI endoscopy was accomplished without difficulty. The patient tolerated the procedure well. Scope In: 11:48:06 AM Scope Out: 11:52:06 AM Total Procedure Duration Time 0 hours 4 minutes 0 seconds Findings: LA Grade A (one or more mucosal breaks less than 5 mm, not extending between tops of 2 mucosal folds) esophagitis with no bleeding was found 37 to 40 cm from the incisors. No gross lesions were noted in the entire examined stomach. Decreased folds were found in the duodenal bulb, decreased folds were found in the first portion of the duodenum, decreased folds were found in the second portion of the duodenum, decreased folds were found in the area of the minor papilla, flattening was found in the duodenal bulb, flattening was found in the first portion of the duodenum, flattening was found in the second portion of the duodenum, scalloped mucosa was found in the duodenal bulb, scalloped mucosa was found in the first portion of the duodenum, thickened folds were found in the duodenal bulb, thickened folds were found in the first portion of the duodenum and thickened folds were found in the second portion of the duodenum. Biopsies for histology were taken with a cold forceps for evaluation of celiac disease. Verification of patient identification for the specimen was done. Estimated blood loss was minimal. A single 5 mm sessile polyp with no stigmata of recent bleeding was found in the cardia. The polyp was removed with a cold snare. Resection and retrieval were complete. Verification of patient identification for the specimen was done. Estimated blood loss was minimal. Impression: - LA Grade A reflux esophagitis with no bleeding. - No gross lesions in the entire stomach. - Duodenal mucosal changes seen, diagnostic of celiac disease. Biopsied. Recommendation: - Discharge patient to home. - Resume previous diet. - Continue present medications. - Await pathology results. Procedure Code(s): --- Professional --- 45041, Esophagogastroduodenoscopy , flexible, transoral; with removal of tumor(s), polyp(s), or other lesion(s) by snare technique 08748, 59,51, Esophagogastroduodenoscopy , flexible, transoral; with biopsy, single or multiple CPT copyright 2021 [employer]. All rights reserved. The codes documented in this report are preliminary and upon electrical sign servicer review may be revised to meet current compliance requirements. Tino Duckworth DO 07/18/2023 12:18:49 PM This report has been signed electronically. Number of Addenda: 0 Note Initiated On: 07/18/2023 11:38 AM 07/18/23 1218 Date Tino Duckworth DO Cosigner Signature: Date (if indicated) CC: Dr. Sunni Foster MD; Tino Duckworth DO Date Dictated: 07/18/23 1138 Date Transcribed: Marketing Operations Analyst: RF Signed Sunni Foster MD Work Phone: Start: 07-18-2023 Colonoscopy [employer] Blossom Moncada [employer] Work Phone: Start: 07-18-2023 End: 07-18-2023 History and Physical Exam Procedure Note: See Note; NOTES: [facility] Medical Records Department [address] [place] [address] History Physical Exam 07/18/23 1124 MR#: [id number] Acct: [id number] Name: JONO RAJAN Rep #: [id number] : 1975 47 From: Tino Duckworth DO PCP: Dr. Sunni Foster MD Status:[facility] Location: [place] [address] History and Physical Date of Admission: 07/18/23 47 M who presents to the office today for PCP OV to establish care. Notes history of celiac disease with active symptoms of gassy loose stools with intermittent blood when wiping. Notes skin changes on his back, red and raised. *BGI established 5.31.23 continues with gluten free diet; notes recent change in BM to lose stools with intermittent bleeding. PCP recommended fiber supplement which as been helpful. Would like to have colonoscopy screening. ROS Const Constitutional: Positive for body ache, chills and headache(s) ENT ENT: Positive for headache(s) and sore throat Resp Respiratory: Positive for cough, chest congestion and shortness of breath Neuro Neurology: Positive for headache(s) Exam Const General: cooperative and comfortable Nutritional Appearance: average body habitus and well nourished HENMT Head: normal to inspection Ears: hearing grossly normal bilaterally Nose: external nose normal Face and sinus: normal facial exam Mouth: oral mucosae normal Throat: posterior oropharynx normal Eyes General: appearance normal, both eyes and all related structures Neck Neck: normal visual inspection Chest Chest palpation inspection: normal inspection of the chest and normal palpation of entire chest wall Resp Effort Inspection: normal respiratory effort Auscultation: Bilateral: Clear to Auscultation Cardio Palpation: normal PMI Rate: regular rate Rhythm: regular rhythm GI Inspection: normal to inspection Auscultation: normal bowel sounds Percussion: normal to percussion Palpation: no hepatosplenomegaly Skin General: no rashes or lesions noted Neuro General: patient alert Extrem General: normal to inspection Psych Affect: normal affect Quality Reporting Tobacco Screening ([facility] 138) Smoking Status: Never smoker Assessment and Plan Assessment and Plan (1) Encounter for screening for malignant neoplasm of colon: Status: Chronic Plan: He was explained alternatives, risk, benefits include not withstanding bleeding, infection, sepsis, perforation, need for emergent surgery . Have an ASA of 2. (2) Celiac disease: Status: Chronic Plan: He will undergo an upper endoscopy so we can evaluate his upper GI tract at the same time. We recommend repeating his tissue transglutaminase along with his IgA levels. I have examined the patient and the H P has been reviewed. There are no clinical changes since date of exam. 07/18/23 1124 <Electronically signed by Tino Duckworth DO> Cosigner Signature (if applicable): CC: Dr. Sunni Foster MD; Tino Duckworth DO Signed Sunni Foster MD Work Phone: Start: 03-29-2023 End: 03-30-2023 Gastroenterology Visit Report Procedure Note: See Note; NOTES: [facility] Gastroenterology [address] [place] [address] OFFICE VISIT Date of Service: 03/29/23 MR#: [id number] Acct: [id number] Name: JONO RAJAN Rep #: [id number] : 1975 Provider: Tino Duckworth DO Age/Sex: 47/M Location: [facility] [place] Status: Signed Intake Vital Signs 11/11/21 15:19 Height 5 ft 7 in Intake Visit Reasons: Consult Allergies No Known Allergies Allergy (Verified 01/13/23 10:49) Medications fluticasone 100 mcg-salmeterol 50 mcg/dose blistr powdr for inhalation (Advair Diskus) 1 inh inhalation BID 11/11/21 [History Confirmed 01/13/23] vortioxetine 5 mg tablet (Trintellix) 5 mg PO DAILY 11/11/21 [History Confirmed 01/13/23] albuterol sulfate 2.5 mg/3 mL (0.083 %) solution for nebulization 2.5 mg inhalation Q6H 01/13/23 [History Confirmed 01/13/23] cholecalciferol (vitamin D3) 50 mcg (2,000 unit) capsule 50 mcg PO DAILY 01/13/23 [History Confirmed 01/13/23] PFSH Medical History (Updated 03/29/23 @ 15:15 by Anastasiia Estrada) Anemia Bloody diarrhea Depression Elevated LFTs Fatigue Fatty liver Food additives allergy status GERD (gastroesophageal reflux disease) Other cardiac sounds Palpitation Pure hypercholesterolemia, unspecified Vitamin D deficiency Family History Other Seizures Thyroid disorder Social History Smoking Status: Never smoker alcohol intake: current HPI HPI Details: JONO MENCHACA, is a 47 M who presents to the office today for PCP OV to establish care. Notes history of celiac disease with active symptoms of gassy loose stools with intermittent blood when wiping. Notes skin changes on his back, red and raised. *BGI established 5.31.23 continues with gluten free diet; notes recent change in BM to lose stools with intermittent bleeding. PCP recommended fiber supplement which as been helpful. Would like to have colonoscopy screening. ROS Const Constitutional: Positive for body ache, chills and headache(s) ENT ENT: Positive for headache(s) and sore throat Resp Respiratory: Positive for cough, chest congestion and shortness of breath Neuro Neurology: Positive for headache(s) Exam Const General: cooperative and comfortable Nutritional Appearance: average body habitus and well nourished HENMT Head: normal to inspection Ears: hearing grossly normal bilaterally Nose: external nose normal Face and sinus: normal facial exam Mouth: oral mucosae normal Throat: posterior oropharynx normal Eyes General: appearance normal, both eyes and all related structures Neck Neck: normal visual inspection Chest Chest palpation inspection: normal inspection of the chest and normal palpation of entire chest wall Resp Effort Inspection: normal respiratory effort Auscultation: Bilateral: Clear to Auscultation Cardio Palpation: normal PMI Rate: regular rate Rhythm: regular rhythm GI Inspection: normal to inspection Auscultation: normal bowel sounds Percussion: normal to percussion Palpation: no hepatosplenomegaly Skin General: no rashes or lesions noted Neuro General: patient alert Extrem General: normal to inspection Psych Affect: normal affect Quality Reporting Tobacco Screening ([facility] 138) Smoking Status: Never smoker Assessment and Plan Assessment and Plan (1) Encounter for screening for malignant neoplasm of colon: Status: Chronic Plan: He was explained alternatives, risk, benefits include not withstanding bleeding, infection, sepsis, perforation, need for emergent surgery . Have an ASA of 2. (2) Celiac disease: Status: Chronic Plan: He will undergo an upper endoscopy so we can evaluate his upper GI tract at the same time. We recommend repeating his tissue transglutaminase along with his IgA levels. Coding Level of Care Code Off vis,new,level 3 Diagnoses Encounter for screening for malignant neoplasm of colon Z12.11 Celiac disease K90.0 03/30/231901 <Electronically signed by Tino Friend DO> Date Tino Friend DO Thompson Signature: Date (if applicable) CC: Sunni Foster MD Work Phone: Start: 11-10-2021 End: 11-11-2021 Virtual Office Visit Comments: See Note; NOTES: [facility] [address] [place] [address] OFFICE VISIT Date of Service: 11/10/21 MR#: [id number] Acct: [id number] Patient: JONO RAJAN Rep #: [id number] : 1975 Provider: REID mg Age/Sex: 45/M Location: [facility] [place] Status: Signed Intake Intake Visit Reasons: COVID-19 Allergies No Known Allergies Allergy (Verified 11/10/21 14:09) PFSH Social History Smoking Status: Never smoker HPI HPI Details: Patient was informed that this visit will be billed to patient. This visit was conducted during COVID-19 pandemic. Statement read to the patient: This telehealth visit is being offered during our stay at home measures in response to the pandemic. It is subject to an office visit charge. There are also charges for the monoclonal antibody infusion which may or may not be covered by your insurance. The patient consents to continue. The FDA has authorized the emergency use of monoclonal antibody treatment (bamlanivimab/etesevimab or casirivimab/imdevimab) for mild to moderate COVID-19 in adults and pediatric patients with positive results of direct SARS-Cov-2 viral testing ages 12 and older, at least 40 kg, who are at high risk for progressing to severe COVID-19 and or hospitalization. The significant known and potential risks (allergic reactions, worsening of symptoms after treatment, or side effects from injection including brief pain, bleeding, bruising of the skin, soreness, swelling, possible infection at the infusion site) and benefits (decrease chance of progression to severe COVID-19) of a monoclonal antibody infusion, and the extent to which such potential risks and benefits are unknown. Note that worsening symptoms after treatment may occur but it is unknown whether these symptoms are related to treatment or are due to the progression of COVID-19. Worsening symptoms may include: fever, difficulty breathing, rapid or slow heart rate, tiredness, weakness or confusion. If these symptoms occur, patients are encouraged to seek immediate medical attention. These treatments are still being studied, all possible side effects may not be listed or known at this time. Patients treated with monoclonal antibody infusion should continue to self-isolate and use infection control measures (such as wear mask, isolate, social distance, avoid sharing personal items, clean and disinfect high touch surfaces, and frequent handwashing) according to the CDC guidelines. The fact sheet will be provided prior to the administration of the medication. Oral medications have received authorization from the FDA to treat meyh-sm-zzszzcag COVID-19 in patients at high risk for progression to severe COVID-19. These medications may not be appropriate for all patients and available drug supply may be limited. However, these oral medications may be more effective against the omicron variant. The patient had the option to refuse or accept treatment with monoclonal antibody therapy. The patient was informed that the number of people treated with monoclonal antibody therapy at this time is small. Due to the changes in the virus that causes COVID-19, some monoclonal antibody treatments may not be effective for all forms of the virus (known as variants). This includes the omicron variant. The patient stated understanding of this information communicated and wished to proceed with monoclonal antibody infusion therapy. COVID + test date: 11/09/21 @ [facility] Sx Onset: 11/06/21 Sx: congestion, cough, RBOOKS, Body aches, sore throat, chills, SOB O2: No Wt 165 Ht 5'6 BMI 26.63 Age: 45 yrs Vaccine: Pfizer x2 Qualifier: Asthma ROS Const Constitutional: Positive for body ache, chills and headache(s) ENT ENT: Positive for headache(s) and sore throat Resp Respiratory: Positive for cough, chest congestion and shortness of breath Neuro Neurology: Positive for headache(s) Exam Const General: cooperative and no acute distress Resp Effort Inspection: normal respiratory effort and able to speak in complete sentences Neuro General: patient alert, patient awake and patient oriented x3 Cognition: normal cognition Speech: speech normal Psych Mental Status: mental status grossly normal Mood: congruent mood Attitude: cooperative Thought Process: normal Thought Content: normal Judgment: judgment good Details: Details:: Exam was limited due to phone visit with no video. Quality Reporting Tobacco Screening ([facility] 138) Smoking Status: Never smoker Coding Level of Care Code New Pt Level 1 Telephone Patient Type New History Problem Focused Exam Problem Focused Medical Decision Making Straight Forward Diagnoses COVID-19 U07.1 Asthma J45.909 Time Spent (min) 10 Comment 82069 Assessment and Plan Assessment and Plan (1) COVID-19: Status: Acute Plan - Soheila Fernandez NP, [employer]: The patient remains appropriate for the Monoclonal Antibody Infusion. The patient states understanding of this information communicated and wishes to proceed with monoclonal antibody infusion therapy. Patient agrees to receive either balanivimab/etesvimab or casirivimab/imdevimab upon availability. (2) Asthma: Status: Acute 11/10/21 1412 <Electronically signed by Soheila Fernandez NP [employer]> Date Soheila Fernandez NP [employer] Cosigner Signature: Date (if applicable) CC: [employer] Blossom Moncada NEWBORN PHOTOGRAPHER Work Phone: Start: 07-01-2020 End: 07-07-2020 Liver Comments: See Note; NOTES: [facility] Imaging Services [address] [place] [address] Liver MR#: [id number] Acct: [id number] Name: JONO RAJAN Rep #: [id number] : 1975 M 44 From: Apolinar to MD PCP: REID Vinson Status: REG CLI Study: Liver Date of Exam: 07/01/20 Exam# [id number] Ordering Dr: lBossom Moncada STUDY: ABDOMINAL ULTRASOUND - RIGHT UPPER QUADRANT REASON FOR VISIT: Male, 44 years old ELEVATED LFTS TECHNIQUE: Ultrasound evaluation of the right upper quadrant was performed with real-time and static townsend-scale imaging. TECHNICAL QUALITY: Adequate. COMPARISON: None. FINDINGS: Liver: The liver measures 15.7 cm. There is increased echogenicity consistent with mild degree of fatty infiltration. The bile ducts are within normal limits. There is hepatic color flow. The direction of portal flow is hepatopetal. There is a 1.4 cm x 1.2 cm x 1.4 cm cyst in the right lobe of the liver. Gallbladder: Normal distended gallbladder. The gallbladder wall measures 3.0 mm. There is a negative sonographic Meeks''s sign. There is no pericholecystic fluid. There are no gallstones. Common Bile Duct (C.B.D.): The common bile duct measures 4.0 mm. Pancreas: Normal size of the head, body and tail of the pancreas. There is normal echogenicity of the pancreas. There is no demonstrated pancreatic mass or cyst. Right Kidney: Normal size of the right kidney. The right kidney measures 10.4 cm x 5.4 cm x 3.7 cm. Normal renal cortex. The right cortex measures 1.3 cm. There is no demonstrated renal mass or cyst. There is no right hydronephrosis. US/Liver IMPRESSION: 1.4 cm x 1.2 cm x 1.4 cm cyst in the right lobe of the liver. Mild degree of fatty infiltration of the liver. Electronically Signed: Apolinar Wise, at 14:37 EDT , Service support , CC: REID Moncada Marketing Operations Analyst: Signed Blossom Moncada Work Phone: Start: 07-01-2020 End: 07-07-2020 L/S Spine Min 4 Views Comments: See Note; NOTES: [facility] Imaging Services [address] [place] [address] L/S Spine Min 4 Views MR#: [id number] Acct: [id number] Name: JONO RAJAN Rep #: [id number] : 1975 M 44 From: Steve Chappell DO PCP: REID Vinson Status: REG CLI Study: L/S Spine Min 4 Views Date of Exam: 07/01/20 Exam# [id number] Ordering Dr: Blossom Moncada STUDY: X-RAY - LUMBAR SPINE REASON FOR EXAM: Male, 44 years old. LBP W/ RADIATION DOWN TOWARD LLE. NKI TECHNIQUE: 4 view(s) of the lumbar spine were obtained. COMPARISON: None FINDINGS: Normal lumbar lordosis. There is no substantial scoliosis. There is a normal alignment of the vertebrae. Normal vertebral bodies and endplates. Normal disc space heights. The soft tissue structures are unremarkable. RAD/L/S Spine Min 4 Views IMPRESSION: Normal x-ray examination of the lumbar spine. Electronically Signed: Steve Chappell DO at 18:41 EDT Tel [phone], Service support , CC: [employer]-[place]annah Moncada Marketing Operations Analyst: Signed Blossom Moncada Work Phone: Start: 12-03-2015 End: 12-03-2015 Echocardiogram Complete Comments: See Note; NOTES: [facility] Cardiovascular Services [address] [place] [address] Echo Complete 12/03/15 1302 MR#: [id number] Acct: [id number] Name: JONO MENCHACA Rep #: [id number] : 1975 40 From: Chay Pickett MD Attending Dr: Sunni Foster MD Status: REG CLI Ordering Dr: Sunni Foster MD Date: 12/03/15 Location: [facility] Sex: M C Admitted: Procedure This was a 2D Doppler, Color Flow transthoracic echocardiogram. Exam performed in department. Left Ventricle Normal size and thickness. The estimated ejection fraction is 65 %. Normal diastology for age. No regional wall motion abnormalities noted. Right Ventricle Normal size and thickness. Normal systolic function. Atria Normal left atrium. Normal right atrium. Normal atrial septum. Mitral Valve The mitral valve is structurally normal. No prolapse or stenosis seen. Trivial mitral valve insufficiency. Tricuspid Valve Normal tricuspid valve. Trivial tricuspid valve insufficiency. Right ventricular systolic pressure estimated to be 20 mmHg. Aortic Valve Normal aortic valve. Trisinus/trileaflet aortic valve. Pulmonic Valve Normal pulmonic valve. Great Vessels Normal aortic root. Normal arch. Normal inferior vena cava. Inferior vena cava collapse with sniff. Pericardium/Pleural No pericardial effusion. MMode/2D Measurements AND Calculations LVIDd: 4.5 cm IVSd: 0.64 cm Ao root diam: 2.2 cm LAV(MOD-bp): 26.7 ml LVIDs: 2.7 cm LVPWd: 0.60 cm Ao root area: 3.8 cm2 LAV(MOD-bp) Indexed: 15.1 ml /m2 RVDd: 3.4 cm FS: 40.3 % LA dimension: 3.1 cm LAV(MOD-sp2): 25.1 ml LAV(MOD-sp4): 28.0 ml ___ LA A4 area: 12.1 cm2 RA A4 area: 9.9 cm2 Doppler Measurements AND Calculations MV E max thuy: Lat Peak E' Thuy: Med Peak E' Thuy: Ao V2 max: 66.4 cm/sec 18.4 cm/sec 13.8 cm/sec 146.3 cm/sec MV A max thuy: Ao max P.6 mmHg 60.3 cm/sec MV E/A: 1.1 ___ LV V1 max: 97.4 cm/sec PA V2 max: 145.2 cm/sec TR max thuy: 194.1 cm/sec E/E' lat: 3.6 LV V1 max P.8 mmHg PA max P.4 mmHg TR max P.1 mmHg ___ E/E' med: 4.8 Interpretation Summary The estimated ejection fraction is 65 %. Normal diastology for age. Right ventricular systolic pressure estimated to be 20 mmHg. There is no comparison study available. Ordering Physician: Sunni Foster Performed By: India Crump RDCS 12/03/15 1447 Date Chay Pickett MD CC: Sunni Foster MD Date Dictated: 12/03/15 1302 Date Transcribed: 12/03/15 1447 Marketing Operations Analyst: Signed Sunni Foster Work Phone: Start: 11-30-2015 End: 11-30-2015 Ecg routine ecg w/least 12 lds w/i&r [MEASUREMENTS ANALYSIS] Date of Test: 11/30/2015 12:04:22; Heart Rate: 75; TX Interval: 136; QRS: 86; QT Interval: 354; Corrected QT Interval (QTc): 380; P Wave [place]: 34; QRS Wave [place]: 47; T Wave [place]: 60; Blood Pressure: 118/74 [ECG DIAGNOSTIC STATEMENTS] Date of Test: 11/30/2015 12:04:22; Summary: Sinus Rhythm WITHIN NORMAL LIMITS Sunni Foster Work Phone: Comment on above: see scanned document of test done to see results reviewed today with patient Plan of Treatment Date Care Activity Detail Author Start: 07-18-2023 Colonoscopy w/biopsy single/multiple COLONOSCOPY AND BIOPSY [facility] Start: 07-18-2023 Egd removal tumor polyp/other lesion snare tech EGD REMOVE LESION SNARE [facility] Start: 07-18-2023 Egd transoral biopsy single/multiple EGD BIOPSY SINGLE/MULTIPLE [facility] Start: 07-18-2023 Patient discharge [facility] Start: 01-11-2023 Procedure Education Eprescribed prescriptions (G8553) [facility]; [facility] Work Phone: Start: 12-26-2022 Carcinoembryonic antigen cea CARCINOEMBRYONIC ANTIGEN (CEA) (36805) [facility]; [facility] Work Phone: Start: 12-26-2022 Assay of prostate specific antigen total PSA (PROSTATE SPECIFIC ANTIGEN) (V76.44) [facility]; [facility] Work Phone: Comment on above: all thesse labs plus CHL labs with the [facility] Start: 12-26-2022 Nursing Care Education [facility] - [facility]; [facility] Work Phone: Start: 12-26-2022 Procedure Education Eprescribed prescriptions (G8553) [facility]; [facility] Work Phone: Start: 12-26-2022 Assay of ferritin Ferritin (79878) [facility]; [facility] Work Phone: Start: 11-15-2021 Provider Instructions for Treatment Follow up if no improvement or if symptoms worsen [facility]; [facility] Work Phone: Start: 11-10-2021 Procedure Education Eprescribed prescriptions (G8553) [facility]; [facility] Work Phone: Start: 11-10-2021 Provider Instructions for Treatment Follow up in5 days [facility]; [facility] Work Phone: Start: 10-05-2020 Procedure Education Eprescribed prescriptions (G8553) [facility]; [facility] Work Phone: Start: 10-05-2020 Provider Instructions for Treatment [facility]; [facility] Work Phone: Start: 09-28-2020 Procedure Education Eprescribed prescriptions (G8553) [facility] Work Phone: Start: 09-28-2020 Provider Instructions for Treatment [facility] Work Phone: Start: 08-28-2020 Procedure Education Eprescribed prescriptions (G8553) [facility] Work Phone: Start: 08-28-2020 Provider Instructions for Treatment Follow up if no improvement or if symptoms worsen [facility] Work Phone: Start: 08-05-2020 Procedure Education Eprescribed prescriptions (G8553) [facility] Work Phone: Start: 08-05-2020 Provider Instructions for Treatment Follow up in 4 months [facility] Work Phone: Start: 06-22-2020 Lipid panel LIPID PANEL (73086) [facility] Work Phone: Comment on above: Aug 11 Start: 06-22-2020 Patient Education Celiac Disease and the Gluten-Free Diet: diet [facility] Work Phone: Start: 06-22-2020 Procedure Education Eprescribed prescriptions (G8553) [facility] Work Phone: Start: 06-22-2020 Provider Instructions for Treatment Follow up in 6 weeks [facility] Work Phone: Start: 06-08-2020 Lipid panel LIPID PANEL (85978) [facility] Work Phone: Start: 06-08-2020 25 hydroxy includes fractions if performed CALCIFEDIOL (24183) [facility] Work Phone: Start: 06-08-2020 Comprehensive metabolic panel METABOLIC PANEL, COMPREHENSIVE (22598) [facility] Work Phone: Start: 06-08-2020 Blood count complete automated CBC & PLATELETS (AUTO) (95013) [facility] Work Phone: Start: 04-27-2020 Comprehensive metabolic panel METABOLIC PANEL, COMPREHENSIVE (88016) [facility] Work Phone: Start: 04-27-2020 Blood count complete automated CBC & PLATELETS (AUTO) (64145) [facility] Work Phone: Start: 04-27-2020 25 hydroxy includes fractions if performed CALCIFEDIOL (11247) [facility] Work Phone: Start: 04-27-2020 Lipid panel LIPID PANEL (56018) [facility] Work Phone: Start: 01-30-2019 Procedure Education Eprescribed prescriptions (G8553) [facility] Work Phone: Start: 01-30-2019 Provider Instructions for Treatment Follow up in 4 months [facility] Work Phone: Start: 02-13-2018 Patient Education Celiac Disease and the Gluten-Free Diet: celiac disease [facility] Work Phone: Start: 02-13-2018 Provider Instructions for Treatment Follow up in 6 weeks [facility] Work Phone: Start: 05-11-2016 Procedure Education Eprescribed prescriptions (G8553) [facility] Work Phone: Start: 05-11-2016 Comprehensive metabolic panel Metabolic Panel, Comprehensive (53238) [facility] Work Phone: Start: 05-11-2016 Blood count complete auto&auto difrntl wbc CBC, Platelets & Auto Diff (19181) [facility] Work Phone: Start: 12-17-2015 Albumin mass conc ALBUMIN SERUM (11660) [facility] Work Phone: Comment on above: 6 weeks Start: 12-17-2015 Albumin serum plasma/whole blood ALBUMIN SERUM (22780) [facility]; [facility] Work Phone: Comment on above: 6 weeks Start: 12-15-2015 Gases blood o2 saturation only direct ramya O2 SATURATION (36354) [facility]; [facility] Work Phone: Start: 12-15-2015 Oxygen saturation in Blood O2 SATURATION (23349) [facility] Work Phone: Start: 12-15-2015 Assay of iron IRON (84186) [facility]; [facility] Work Phone: Start: 12-15-2015 Iron mass conc IRON (20020) [facility] Medicine Work Phone: Start: 12-10-2015 Hepatic function panel HEPATIC FUNCTION PANEL (98036) [facility] Work Phone: Comment on above: recheck in 8 weeks Start: 11-30-2015 Provider Instructions for Treatment *palpitation discusssion [facility] Work Phone: Start: 05-21-2015 Patient Education Eczema: allergic skin reaction [facility] Work Phone: Start: 05-21-2015 Procedure Education Eprescribed prescriptions (G8553) [facility] Work Phone: Start: 05-21-2015 Hepatic function panel HEPATIC FUNCTION PANEL (51525) [facility] Work Phone: Start: 05-21-2015 25 hydroxy includes fractions if performed CALCIFIDIOL (11541) VIT D 25 [facility] Work Phone: Start: 05-21-2015 Allergen spec ige crude allergen extract each Food Allergy Profile (19913) [facility] Work Phone: Start: 05-21-2015 Protein mass conc Food Allergy Profile (81885) [facility] Work Phone: Start: 05-19-2014 Provider Instructions for Treatment Punch Biopsy with Epi [facility] Work Phone: Start: 01-31-2014 Provider Instructions for Treatment [facility] Work Phone: Start: 01-31-2014 HCG.beta subunit ( test) Ql (U) Urine Test, Office (41392) [facility] Work Phone: Start: 01-31-2014 Urine test visual color cmprsn meths Urine Test, Office (52394) [facility]; [facility] Work Phone: Start: 01-26-2012 Pinworm examination PINWORM EXAM (05692) [facility] Work Phone: Start: 02-12-2009 Carboxyhemoglobin qualitative CARBON MONOXIDE QUALITAT (02672) [facility] Work Phone: Start: 02-12-2009 Carboxyhemoglobin quantitative CARBON MONOXIDE (39572) [facility] Work Phone: Start: 05-16-2008 Blood count complete automated CBC (Auto) (60526) [facility] Work Phone: Start: 05-16-2008 Comprehensive metabolic panel Metabolic Panel, Comprehensive (35640) [facility] Work Phone: Start: 05-16-2008 Lipid panel Lipid Panel (76424) [facility] Work Phone: Patient referral [facility] Work Phone: Procedure [facility] Work Phone: [facility] Work Phone: [facility] Work Phone: [facility] Work Phone: [facility] Work Phone: [facility] Work Phone: [facility] Work Phone[facility] Work Phone: [facility] Work Phone: [facility] Work Phone: [facility] Work Phone: [facility] Work Phone: [facility] Work Phone: [facility]; [facility] Work Phone: [facility]; [facility] Work Phone: Payers Date Payer Category Payer Self-pay [id number] Unknown [id number] 2020 Unknown [id number] 2015 Unknown [id number] 2008 Private Health Insurance [id number] 1975 Unknown [id number] Unknown Unknown [id number] Unknown [id number] Unknown [id number] [id number] [id number] Unknown [id number] [id number] Unknown [id number] [id number] [id number] Unknown [id number] [id number] [id number] Unknown [id number] [id number] [id number] Social History Date Type Detail Facility Alcohol Use Never smoker [facility] Work Phone: Comment on above: Occasional alcohol u se 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 Exercise History: Exercises occasionally. [facility] Work Phone: Living Situation: Lives with spouse. [facility] Work Phone: Comment on above: Tobacco use: Never smoker. [facility] Work Phone: Exercise History: Exercise History: Compr [facility]; [facility] Work Phone: Living Situation: Living Situation: [facility]; [facility] Work Phone: Comment on above: Kelli Choudhury Tobacco use: Tobacco use: [facility]; [facility] Work Phone: Start: 07-17-2023 Tobacco smoking stat [facility] Unknown if ever smoked [facility] Start: 1975 Sex Assigned At Male [facility] Start: 07-17-2023 [facility] Sex Male [facility] Goals Date Patient Goal Desired Activity /State Mental Status Date Assessment Result Facility 07-18-2023 Cognitive function Voice/Name [facility] Work Phone: Clinical Notes 07-18-2023 Note Date & Type Note Facility 07-18-2023 Procedure note [facility] 07-18-2023 Procedure note [facility] 07-18-2023 Procedure note [facility] 07-18-2023 Procedure note [facility] Evaluation note Diagnosis Onset Date Celiac disease chronic Encounter for screening for malignant neoplasm of colon chronic [facility] Work Phone: Evaluation noteNo assessment information available [facility] Work Phone: History and physical note Author Tino Friend [facility] July 18, 2023 11:24am Note Date/Time July 18, 2023 11:25am [facility] Medical Records Department [address] [place] [id number] History & Physical Exam 07/18/23 1124 MR#: [id number] Acct: [id number] Name: JONO RAJAN Rep #:[id number] : 1975 47 From: Tino Duckworth DO PCP: Dr. Sunni Foster MD Status:REG S DC Location: [place] [address] History and Physical Date of Admission: 07/18/23 47 M who presents to the office today for PCP OV to establish care. Notes history of celiac disease with active symptoms of gassy loose stools with intermittent blood when wiping. Notes skin changes onhis back, red and raised. *BGI established 5.31.23 continues with gluten free diet; notes recent change inBM to lose stools with intermittent bleeding. PCP recommended fiber supplement which as been helpful. Would like to have colonoscopy screening. ROS Const Constitutional: Positive for body ache, chills and headache(s) ENT ENT: Positive for headache(s) and sore throat Resp Respiratory: Positive for cough, chest congestion and shortness of breath Neuro Neurology: Positive for headache(s) Exam Const General: cooperative and comfortable Nutritional Appearance: average body habitus and well nourished HENMT Head: normal to inspection Ears: hearing grossly normal bilaterally Nose: external nose normal Face and sinus: normal facial exam Mouth: oral mucosae normal Throat: posterior oropharynx normal Eyes General: appearance normal, both eyes and all related structures Neck Neck: normal visual inspection Chest Chest palpation & inspection: normal inspection of the chest and normal palpation of entire chest wall Resp Effort & Inspection: normal respiratory effort Auscultation: Bilateral: Clear to Auscultation Cardio Palpation: normal PMI Rate: regular rate Rhythm: regular rhythm GI Inspection: normal to inspection Auscultation: normal bowel sounds Percussion: normal to percussion Palpation: no hepatosplenomegaly Skin General: no rashes or lesions noted Neuro General: patient alert Extrem General: normal to inspection Psych Affect: normal affect Quality Reporting Tobacco Screening ([facility] 138) Smoking Status: Never smoker Assessment and Plan Assessment and Plan (1) Encounter for screening for malignant neoplasm of colon: Status: Chronic Plan: He was explained alternatives, risk, benefits include not withstanding bleeding,infection, sepsis, perforation, need for emergent surgery . Have an ASA of2. (2) Celiac disease: Status: Chronic Plan: He will undergo an upper endoscopy so we can evaluate his upper GI tract at the same time. We recommend repeating his tissue transglutaminase along with his IgA levels. I have examined the patient and the H&P has been reviewed. There are no clinicalchanges since date of exam. 07/18/23 1124 <Electronically signed by Tino Duckworth DO> Cosigner Signature (if applicable): CC: Dr. Sunni oFster MD; Tino Duckworth DO~ Signed [facility] Work Phone: Instructions* Name Dates Details How to access health informa tion online Indication:BMI 24.0-24.9, adult Start:05-Oct-2020 Instruction Type:Patient Education How to access health informa tion online - Detail Indication:BMI 24.0-24.9, adult Start:05-Oct-2020 Instruction Type:Patient Education Patient Instructions Indication:BMI 24.0-24.9, adult Start:05-Oct-2020 Instruction Type:Provider Instructions for Treatment How to access health informa tion online Indication:Current nonsmoker (Renamed from Current non-smoker) Start:28-Sep-2020 Instruction Type:Patient Education How to access health informa tion online - Detail Indication:Current nonsmoker (Renamed from Current non-smoker) Start:28-Sep-2020 Instruction Type:Patient Education Patient Instructions Indication:Current nonsmoker (Renamed from Current non-smoker) Start:28-Sep-2020 Instruction Type:Provider Instructions for Treatment How to access health informa tion online Indication:Current nonsmoker (Renamed from Current non-smoker) Start:28-Aug-2020 Instruction Type:Patient Education How to access health informa tion online - Detail Indication:Current nonsmoker (Renamed from Current non-smoker) Start:28-Aug-2020 Instruction Type:Patient Education Patient Instructions Indication:Current nonsmoker (Renamed from Current non-smoker) Start:28-Aug-2020 Instruction Type:Provider Instructions for Treatment How to access health informa tion online Indication:Current nonsmoker (Renamed from Current non-smoker) Start:05-Aug-2020 Instruction Type:Patient Education How to access health informa tion online - Detail Indication:Current nonsmoker (Renamed from Current non-smoker) Start:05-Aug-2020 Instruction Type:Patient Education Patient Instructions Indication:Current nonsmoker (Renamed from Current non-smoker) Start:05-Aug-2020 Instruction Type:Provider Instructions for Treatment How to access health informa tion online Indication:Current nonsmoker (Renamed from Current non-smoker) Start:22-Jun-2020 Instruction Type:Patient Education How to access health informa tion online - Detail Indication:Current nonsmoker (Renamed from Current non-smoker) Start:22-Jun-2020 Instruction Type:Patient Education Patient Instructions Indication:Current nonsmoker (Renamed from Current non-smoker) Start:22-Jun-2020 Instruction Type:Provider Instructions for Treatment How to access health informa tion online Indication:Current nonsmoker (Renamed from Current non-smoker) Start:30-Jan-2019 Instruction Type:Patient Education How to access health informa tion online - Detail Indication:Current nonsmoker (Renamed from Current non-smoker) Start:30-Jan-2019 Instruction Type:Patient Education Patient Instructions Indication:Current nonsmoker (Renamed from Current non-smoker) Start:30-Jan-2019 Instruction Type:Provider Instructions for Treatment How to access health informa tion online Indication:Elevated liver enzymes Start:11-May-2016 Instruction Type:Patient Education How to access health informa tion online - Detail Indication:Elevated liver enzymes Start:11-May-2016 Instruction Type:Patient Education Patient Instructions Indication:Elevated liver enzymes Start:11-May-2016 Instruction Type:Provider Instructions for Treatment How to access health informa tion online Indication:Elevated liver enzymes Start:04-Feb-2016 Instruction Type:Patient Education How to access health informa tion online - Detail Indication:Elevated liver enzymes Start:04-Feb-2016 Instruction Type:Patient Education Patient Instructions Indication:Elevated liver enzymes Start:04-Feb-2016 Instruction Type:Provider Instructions for Treatment How to access health informa tion online Indication:Malnourished Start:10-Dec-2015 Instruction Type:Patient Education How to access health informa tion online - Detail Indication:Malnourished Start:10-Dec-2015 Instruction Type:Patient Education Patient Instructions Indication:Malnourished Start:10-Dec-2015 Instruction Type:Provider Instructions for Treatment How to access health informa tion online Indication:Palpitation Start:30-Nov-2015 Instruction Type:Patient Education How to access health informa tion online - Detail Indication:Palpitation Start:30-Nov-2015 Instruction Type:Patient Education Patient Instructions Indication:Palpitation Start:30-Nov-2015 Instruction Type:Provider Instructions for Treatment How to access health informa tion online Indication:Perineal rash, male Start:11-Sep-2015 Instruction Type:Patient Education How to access health informa tion online - Detail Indication:Perineal rash, male Start:11-Sep-2015 Instruction Type:Patient Education Patient Instructions Indication:Perineal rash, male Start:11-Sep-2015 Instruction Type:Provider Instructions for Treatment How to access health informa tion online - Detail Indication:Asthma Start:21-May-2015 Instruction Type:Patient Education Patient Instructions Indication:Asthma Start:21-May-2015 Instruction Type:Provider Instructions for Treatment Patient Instructions Indication:Asthma Start:31-Jan-2014 Instruction Type:Provider Instructions for Treatment [facility]; [facility] Work Phone: Instructions* Name Dates Details How to access health informa tion online Indication:BMI 24.0-24.9, adult Start:05-Oct-2020 Instruction Type:Patient Education How to access health informa tion online - Detail Indication:BMI 24.0-24.9, adult Start:05-Oct-2020 Instruction Type:Patient Education Patient Instructions Indication:BMI 24.0-24.9, adult Start:05-Oct-2020 Instruction Type:Provider Instructions for Treatment How to access health informa tion online Indication:Current nonsmoker (Renamed from Current non-smoker) Start:28-Sep-2020 Instruction Type:Patient Education How to access health informa tion online - Detail Indication:Current nonsmoker (Renamed from Current non-smoker) Start:28-Sep-2020 Instruction Type:Patient Education Patient Instructions Indication:Current nonsmoker (Renamed from Current non-smoker) Start:28-Sep-2020 Instruction Type:Provider Instructions for Treatment How to access health informa tion online Indication:Current nonsmoker (Renamed from Current non-smoker) Start:28-Aug-2020 Instruction Type:Patient Education How to access health informa tion online - Detail Indication:Current nonsmoker (Renamed from Current non-smoker) Start:28-Aug-2020 Instruction Type:Patient Education Patient Instructions Indication:Current nonsmoker (Renamed from Current non-smoker) Start:28-Aug-2020 Instruction Type:Provider Instructions for Treatment How to access health informa tion online Indication:Current nonsmoker (Renamed from Current non-smoker) Start:05-Aug-2020 Instruction Type:Patient Education How to access health informa tion online - Detail Indication:Current nonsmoker (Renamed from Current non-smoker) Start:05-Aug-2020 Instruction Type:Patient Education Patient Instructions Indication:Current nonsmoker (Renamed from Current non-smoker) Start:05-Aug-2020 Instruction Type:Provider Instructions for Treatment How to access health informa tion online Indication:Current nonsmoker (Renamed from Current non-smoker) Start:22-Jun-2020 Instruction Type:Patient Education How to access health informa tion online - Detail Indication:Current nonsmoker (Renamed from Current non-smoker) Start:22-Jun-2020 Instruction Type:Patient Education Patient Instructions Indication:Current nonsmoker (Renamed from Current non-smoker) Start:22-Jun-2020 Instruction Type:Provider Instructions for Treatment How to access health informa tion online Indication:Current nonsmoker (Renamed from Current non-smoker) Start:30-Jan-2019 Instruction Type:Patient Education How to access health informa tion online - Detail Indication:Current nonsmoker (Renamed from Current non-smoker) Start:30-Jan-2019 Instruction Type:Patient Education Patient Instructions Indication:Current nonsmoker (Renamed from Current non-smoker) Start:30-Jan-2019 Instruction Type:Provider Instructions for Treatment How to access health informa tion online Indication:Elevated liver enzymes Start:11-May-2016 Instruction Type:Patient Education How to access health informa tion online - Detail Indication:Elevated liver enzymes Start:11-May-2016 Instruction Type:Patient Education Patient Instructions Indication:Elevated liver enzymes Start:11-May-2016 Instruction Type:Provider Instructions for Treatment How to access health informa tion online Indication:Elevated liver enzymes Start:04-Feb-2016 Instruction Type:Patient Education How to access health informa tion online - Detail Indication:Elevated liver enzymes Start:04-Feb-2016 Instruction Type:Patient Education Patient Instructions Indication:Elevated liver enzymes Start:04-Feb-2016 Instruction Type:Provider Instructions for Treatment How to access health informa tion online Indication:Malnourished Start:10-Dec-2015 Instruction Type:Patient Education How to access health informa tion online - Detail Indication:Malnourished Start:10-Dec-2015 Instruction Type:Patient Education Patient Instructions Indication:Malnourished Start:10-Dec-2015 Instruction Type:Provider Instructions for Treatment How to access health informa tion online Indication:Palpitation Start:30-Nov-2015 Instruction Type:Patient Education How to access health informa tion online - Detail Indication:Palpitation Start:30-Nov-2015 Instruction Type:Patient Education Patient Instructions Indication:Palpitation Start:30-Nov-2015 Instruction Type:Provider Instructions for Treatment How to access health informa tion online Indication:Perineal rash, male Start:11-Sep-2015 Instruction Type:Patient Education How to access health informa tion online - Detail Indication:Perineal rash, male Start:11-Sep-2015 Instruction Type:Patient Education Patient Instructions Indication:Perineal rash, male Start:11-Sep-2015 Instruction Type:Provider Instructions for Treatment How to access health informa tion online - Detail Indication:Asthma Start:21-May-2015 Instruction Type:Patient Education Patient Instructions Indication:Asthma Start:21-May-2015 Instruction Type:Provider Instructions for Treatment Patient Instructions Indication:Asthma Start:31-Jan-2014 Instruction Type:Provider Instructions for Treatment [facility]; [facility] Work Phone: Instructions* Name Dates Details Patient Instructions Indication:Current nonsmoker (Renamed from Current non-smoker) Start:10-Nov-2021 Instruction Type:Provider Instructions for Treatment How to Access Health Informa tion Online using Patient Portal and [employer] Indication:Current nonsmoker (Renamed from Current non-smoker) Start:10-Nov-2021 Instruction Type:Patient Education How to access health informa tion online Indication:BMI 24.0-24.9, adult Start:05-Oct-2020 Instruction Type:Patient Education How to access health informa tion online - Detail Indication:BMI 24.0-24.9, adult Start:05-Oct-2020 Instruction Type:Patient Education Patient Instructions Indication:BMI 24.0-24.9, adult Start:05-Oct-2020 Instruction Type:Provider Instructions for Treatment How to access health informa tion online Indication:Current nonsmoker (Renamed from Current non-smoker) Start:28-Sep-2020 Instruction Type:Patient Education How to access health informa tion online - Detail Indication:Current nonsmoker (Renamed from Current non-smoker) Start:28-Sep-2020 Instruction Type:Patient Education Patient Instructions Indication:Current nonsmoker (Renamed from Current non-smoker) Start:28-Sep-2020 Instruction Type:Provider Instructions for Treatment How to access health informa tion online Indication:Current nonsmoker (Renamed from Current non-smoker) Start:28-Aug-2020 Instruction Type:Patient Education How to access health informa tion online - Detail Indication:Current nonsmoker (Renamed from Current non-smoker) Start:28-Aug-2020 Instruction Type:Patient Education Patient Instructions Indication:Current nonsmoker (Renamed from Current non-smoker) Start:28-Aug-2020 Instruction Type:Provider Instructions for Treatment How to access health informa tion online Indication:Current nonsmoker (Renamed from Current non-smoker) Start:05-Aug-2020 Instruction Type:Patient Education How to access health informa tion online - Detail Indication:Current nonsmoker (Renamed from Current non-smoker) Start:05-Aug-2020 Instruction Type:Patient Education Patient Instructions Indication:Current nonsmoker (Renamed from Current non-smoker) Start:05-Aug-2020 Instruction Type:Provider Instructions for Treatment How to access health informa tion online Indication:Current nonsmoker (Renamed from Current non-smoker) Start:22-Jun-2020 Instruction Type:Patient Education How to access health informa tion online - Detail Indication:Current nonsmoker (Renamed from Current non-smoker) Start:22-Jun-2020 Instruction Type:Patient Education Patient Instructions Indication:Current nonsmoker (Renamed from Current non-smoker) Start:22-Jun-2020 Instruction Type:Provider Instructions for Treatment How to access health informa tion online Indication:Current nonsmoker (Renamed from Current non-smoker) Start:30-Jan-2019 Instruction Type:Patient Education How to access health informa tion online - Detail Indication:Current nonsmoker (Renamed from Current non-smoker) Start:30-Jan-2019 Instruction Type:Patient Education Patient Instructions Indication:Current nonsmoker (Renamed from Current non-smoker) Start:30-Jan-2019 Instruction Type:Provider Instructions for Treatment How to access health informa tion online Indication:Elevated liver enzymes Start:11-May-2016 Instruction Type:Patient Education How to access health informa tion online - Detail Indication:Elevated liver enzymes Start:11-May-2016 Instruction Type:Patient Education Patient Instructions Indication:Elevated liver enzymes Start:11-May-2016 Instruction Type:Provider Instructions for Treatment How to access health informa tion online Indication:Elevated liver enzymes Start:04-Feb-2016 Instruction Type:Patient Education How to access health informa tion online - Detail Indication:Elevated liver enzymes Start:04-Feb-2016 Instruction Type:Patient Education Patient Instructions Indication:Elevated liver enzymes Start:04-Feb-2016 Instruction Type:Provider Instructions for Treatment How to access health informa tion online Indication:Malnourished Start:10-Dec-2015 Instruction Type:Patient Education How to access health informa tion online - Detail Indication:Malnourished Start:10-Dec-2015 Instruction Type:Patient Education Patient Instructions Indication:Malnourished Start:10-Dec-2015 Instruction Type:Provider Instructions for Treatment How to access health informa tion online Indication:Palpitation Start:30-Nov-2015 Instruction Type:Patient Education How to access health informa tion online - Detail Indication:Palpitation Start:30-Nov-2015 Instruction Type:Patient Education Patient Instructions Indication:Palpitation Start:30-Nov-2015 Instruction Type:Provider Instructions for Treatment How to access health informa tion online Indication:Perineal rash, male Start:11-Sep-2015 Instruction Type:Patient Education How to access health informa tion online - Detail Indication:Perineal rash, male Start:11-Sep-2015 Instruction Type:Patient Education Patient Instructions Indication:Perineal rash, male Start:11-Sep-2015 Instruction Type:Provider Instructions for Treatment How to access health informa tion online - Detail Indication:Asthma Start:21-May-2015 Instruction Type:Patient Education Patient Instructions Indication:Asthma Start:21-May-2015 Instruction Type:Provider Instructions for Treatment Patient Instructions Indication:Asthma Start:31-Jan-2014 Instruction Type:Provider Instructions for Treatment [facility] Work Phone: Instructions* Name Dates Details Patient Instructions Indication:Current nonsmoker (Renamed from Current non-smoker) Start:10-Nov-2021 Instruction Type:Provider Instructions for Treatment How to Access Health Informa tion Online using Patient Portal and [employer] Apps Indication:Current nonsmoker (Renamed from Current non-smoker) Start:10-Nov-2021 Instruction Type:Patient Education How to access health informa tion online Indication:BMI 24.0-24.9, adult Start:05-Oct-2020 Instruction Type:Patient Education How to access health informa tion online - Detail Indication:BMI 24.0-24.9, adult Start:05-Oct-2020 Instruction Type:Patient Education Patient Instructions Indication:BMI 24.0-24.9, adult Start:05-Oct-2020 Instruction Type:Provider Instructions for Treatment How to access health informa tion online Indication:Current nonsmoker (Renamed from Current non-smoker) Start:28-Sep-2020 Instruction Type:Patient Education How to access health informa tion online - Detail Indication:Current nonsmoker (Renamed from Current non-smoker) Start:28-Sep-2020 Instruction Type:Patient Education Patient Instructions Indication:Current nonsmoker (Renamed from Current non-smoker) Start:28-Sep-2020 Instruction Type:Provider Instructions for Treatment How to access health informa tion online Indication:Current nonsmoker (Renamed from Current non-smoker) Start:28-Aug-2020 Instruction Type:Patient Education How to access health informa tion online - Detail Indication:Current nonsmoker (Renamed from Current non-smoker) Start:28-Aug-2020 Instruction Type:Patient Education Patient Instructions Indication:Current nonsmoker (Renamed from Current non-smoker) Start:28-Aug-2020 Instruction Type:Provider Instructions for Treatment How to access health informa tion online Indication:Current nonsmoker (Renamed from Current non-smoker) Start:05-Aug-2020 Instruction Type:Patient Education How to access health informa tion online - Detail Indication:Current nonsmoker (Renamed from Current non-smoker) Start:05-Aug-2020 Instruction Type:Patient Education Patient Instructions Indication:Current nonsmoker (Renamed from Current non-smoker) Start:05-Aug-2020 Instruction Type:Provider Instructions for Treatment How to access health informa tion online Indication:Current nonsmoker (Renamed from Current non-smoker) Start:22-Jun-2020 Instruction Type:Patient Education How to access health informa tion online - Detail Indication:Current nonsmoker (Renamed from Current non-smoker) Start:22-Jun-2020 Instruction Type:Patient Education Patient Instructions Indication:Current nonsmoker (Renamed from Current non-smoker) Start:22-Jun-2020 Instruction Type:Provider Instructions for Treatment How to access health informa tion online Indication:Current nonsmoker (Renamed from Current non-smoker) Start:30-Jan-2019 Instruction Type:Patient Education How to access health informa tion online - Detail Indication:Current nonsmoker (Renamed from Current non-smoker) Start:30-Jan-2019 Instruction Type:Patient Education Patient Instructions Indication:Current nonsmoker (Renamed from Current non-smoker) Start:30-Jan-2019 Instruction Type:Provider Instructions for Treatment How to access health informa tion online Indication:Elevated liver enzymes Start:11-May-2016 Instruction Type:Patient Education How to access health informa tion online - Detail Indication:Elevated liver enzymes Start:11-May-2016 Instruction Type:Patient Education Patient Instructions Indication:Elevated liver enzymes Start:11-May-2016 Instruction Type:Provider Instructions for Treatment How to access health informa tion online Indication:Elevated liver enzymes Start:04-Feb-2016 Instruction Type:Patient Education How to access health informa tion online - Detail Indication:Elevated liver enzymes Start:04-Feb-2016 Instruction Type:Patient Education Patient Instructions Indication:Elevated liver enzymes Start:04-Feb-2016 Instruction Type:Provider Instructions for Treatment How to access health informa tion online Indication:Malnourished Start:10-Dec-2015 Instruction Type:Patient Education How to access health informa tion online - Detail Indication:Malnourished Start:10-Dec-2015 Instruction Type:Patient Education Patient Instructions Indication:Malnourished Start:10-Dec-2015 Instruction Type:Provider Instructions for Treatment How to access health informa tion online Indication:Palpitation Start:30-Nov-2015 Instruction Type:Patient Education How to access health informa tion online - Detail Indication:Palpitation Start:30-Nov-2015 Instruction Type:Patient Education Patient Instructions Indication:Palpitation Start:30-Nov-2015 Instruction Type:Provider Instructions for Treatment How to access health informa tion online Indication:Perineal rash, male Start:11-Sep-2015 Instruction Type:Patient Education How to access health informa tion online - Detail Indication:Perineal rash, male Start:11-Sep-2015 Instruction Type:Patient Education Patient Instructions Indication:Perineal rash, male Start:11-Sep-2015 Instruction Type:Provider Instructions for Treatment How to access health informa tion online - Detail Indication:Asthma Start:21-May-2015 Instruction Type:Patient Education Patient Instructions Indication:Asthma Start:21-May-2015 Instruction Type:Provider Instructions for Treatment Patient Instructions Indication:Asthma Start:31-Jan-2014 Instruction Type:Provider Instructions for Treatment [facility] Work Phone: Instructions* Name Dates Details Patient Instructions Indication:Current nonsmoker (Renamed from Current non-smoker) Start:10-Nov-2021 Instruction Type:Provider Instructions for Treatment How to Access Health Informa tion Online using Patient Portal and [employer] Apps Indication:Current nonsmoker (Renamed from Current non-smoker) Start:10-Nov-2021 Instruction Type:Patient Education How to access health informa tion online Indication:BMI 24.0-24.9, adult Start:05-Oct-2020 Instruction Type:Patient Education How to access health informa tion online - Detail Indication:BMI 24.0-24.9, adult Start:05-Oct-2020 Instruction Type:Patient Education Patient Instructions Indication:BMI 24.0-24.9, adult Start:05-Oct-2020 Instruction Type:Provider Instructions for Treatment How to access health informa tion online Indication:Current nonsmoker (Renamed from Current non-smoker) Start:28-Sep-2020 Instruction Type:Patient Education How to access health informa tion online - Detail Indication:Current nonsmoker (Renamed from Current non-smoker) Start:28-Sep-2020 Instruction Type:Patient Education Patient Instructions Indication:Current nonsmoker (Renamed from Current non-smoker) Start:28-Sep-2020 Instruction Type:Provider Instructions for Treatment How to access health informa tion online Indication:Current nonsmoker (Renamed from Current non-smoker) Start:28-Aug-2020 Instruction Type:Patient Education How to access health informa tion online - Detail Indication:Current nonsmoker (Renamed from Current non-smoker) Start:28-Aug-2020 Instruction Type:Patient Education Patient Instructions Indication:Current nonsmoker (Renamed from Current non-smoker) Start:28-Aug-2020 Instruction Type:Provider Instructions for Treatment How to access health informa tion online Indication:Current nonsmoker (Renamed from Current non-smoker) Start:05-Aug-2020 Instruction Type:Patient Education How to access health informa tion online - Detail Indication:Current nonsmoker (Renamed from Current non-smoker) Start:05-Aug-2020 Instruction Type:Patient Education Patient Instructions Indication:Current nonsmoker (Renamed from Current non-smoker) Start:05-Aug-2020 Instruction Type:Provider Instructions for Treatment How to access health informa tion online Indication:Current nonsmoker (Renamed from Current non-smoker) Start:22-Jun-2020 Instruction Type:Patient Education How to access health informa tion online - Detail Indication:Current nonsmoker (Renamed from Current non-smoker) Start:22-Jun-2020 Instruction Type:Patient Education Patient Instructions Indication:Current nonsmoker (Renamed from Current non-smoker) Start:22-Jun-2020 Instruction Type:Provider Instructions for Treatment How to access health informa tion online Indication:Current nonsmoker (Renamed from Current non-smoker) Start:30-Jan-2019 Instruction Type:Patient Education How to access health informa tion online - Detail Indication:Current nonsmoker (Renamed from Current non-smoker) Start:30-Jan-2019 Instruction Type:Patient Education Patient Instructions Indication:Current nonsmoker (Renamed from Current non-smoker) Start:30-Jan-2019 Instruction Type:Provider Instructions for Treatment How to access health informa tion online Indication:Elevated liver enzymes Start:11-May-2016 Instruction Type:Patient Education How to access health informa tion online - Detail Indication:Elevated liver enzymes Start:11-May-2016 Instruction Type:Patient Education Patient Instructions Indication:Elevated liver enzymes Start:11-May-2016 Instruction Type:Provider Instructions for Treatment How to access health informa tion online Indication:Elevated liver enzymes Start:04-Feb-2016 Instruction Type:Patient Education How to access health informa tion online - Detail Indication:Elevated liver enzymes Start:04-Feb-2016 Instruction Type:Patient Education Patient Instructions Indication:Elevated liver enzymes Start:04-Feb-2016 Instruction Type:Provider Instructions for Treatment How to access health informa tion online Indication:Malnourished Start:10-Dec-2015 Instruction Type:Patient Education How to access health informa tion online - Detail Indication:Malnourished Start:10-Dec-2015 Instruction Type:Patient Education Patient Instructions Indication:Malnourished Start:10-Dec-2015 Instruction Type:Provider Instructions for Treatment How to access health informa tion online Indication:Palpitation Start:30-Nov-2015 Instruction Type:Patient Education How to access health informa tion online - Detail Indication:Palpitation Start:30-Nov-2015 Instruction Type:Patient Education Patient Instructions Indication:Palpitation Start:30-Nov-2015 Instruction Type:Provider Instructions for Treatment How to access health informa tion online Indication:Perineal rash, male Start:11-Sep-2015 Instruction Type:Patient Education How to access health informa tion online - Detail Indication:Perineal rash, male Start:11-Sep-2015 Instruction Type:Patient Education Patient Instructions Indication:Perineal rash, male Start:11-Sep-2015 Instruction Type:Provider Instructions for Treatment How to access health informa tion online - Detail Indication:Asthma Start:21-May-2015 Instruction Type:Patient Education Patient Instructions Indication:Asthma Start:21-May-2015 Instruction Type:Provider Instructions for Treatment Patient Instructions Indication:Asthma Start:31-Jan-2014 Instruction Type:Provider Instructions for Treatment [facility] Work Phone: Instructions* Name Dates Details Patient Instructions Indication:Current nonsmoker (Renamed from Current non-smoker) Start:10-Nov-2021 Instruction Type:Provider Instructions for Treatment How to Access Health Informa tion Online using Patient Portal and [employer] Apps Indication:Current nonsmoker (Renamed from Current non-smoker) Start:10-Nov-2021 Instruction Type:Patient Education How to access health informa tion online Indication:BMI 24.0-24.9, adult Start:05-Oct-2020 Instruction Type:Patient Education How to access health informa tion online - Detail Indication:BMI 24.0-24.9, adult Start:05-Oct-2020 Instruction Type:Patient Education Patient Instructions Indication:BMI 24.0-24.9, adult Start:05-Oct-2020 Instruction Type:Provider Instructions for Treatment How to access health informa tion online Indication:Current nonsmoker (Renamed from Current non-smoker) Start:28-Sep-2020 Instruction Type:Patient Education How to access health informa tion online - Detail Indication:Current nonsmoker (Renamed from Current non-smoker) Start:28-Sep-2020 Instruction Type:Patient Education Patient Instructions Indication:Current nonsmoker (Renamed from Current non-smoker) Start:28-Sep-2020 Instruction Type:Provider Instructions for Treatment How to access health informa tion online Indication:Current nonsmoker (Renamed from Current non-smoker) Start:28-Aug-2020 Instruction Type:Patient Education How to access health informa tion online - Detail Indication:Current nonsmoker (Renamed from Current non-smoker) Start:28-Aug-2020 Instruction Type:Patient Education Patient Instructions Indication:Current nonsmoker (Renamed from Current non-smoker) Start:28-Aug-2020 Instruction Type:Provider Instructions for Treatment How to access health informa tion online Indication:Current nonsmoker (Renamed from Current non-smoker) Start:05-Aug-2020 Instruction Type:Patient Education How to access health informa tion online - Detail Indication:Current nonsmoker (Renamed from Current non-smoker) Start:05-Aug-2020 Instruction Type:Patient Education Patient Instructions Indication:Current nonsmoker (Renamed from Current non-smoker) Start:05-Aug-2020 Instruction Type:Provider Instructions for Treatment How to access health informa tion online Indication:Current nonsmoker (Renamed from Current non-smoker) Start:22-Jun-2020 Instruction Type:Patient Education How to access health informa tion online - Detail Indication:Current nonsmoker (Renamed from Current non-smoker) Start:22-Jun-2020 Instruction Type:Patient Education Patient Instructions Indication:Current nonsmoker (Renamed from Current non-smoker) Start:22-Jun-2020 Instruction Type:Provider Instructions for Treatment How to access health informa tion online Indication:Current nonsmoker (Renamed from Current non-smoker) Start:30-Jan-2019 Instruction Type:Patient Education How to access health informa tion online - Detail Indication:Current nonsmoker (Renamed from Current non-smoker) Start:30-Jan-2019 Instruction Type:Patient Education Patient Instructions Indication:Current nonsmoker (Renamed from Current non-smoker) Start:30-Jan-2019 Instruction Type:Provider Instructions for Treatment How to access health informa tion online Indication:Elevated liver enzymes Start:11-May-2016 Instruction Type:Patient Education How to access health informa tion online - Detail Indication:Elevated liver enzymes Start:11-May-2016 Instruction Type:Patient Education Patient Instructions Indication:Elevated liver enzymes Start:11-May-2016 Instruction Type:Provider Instructions for Treatment How to access health informa tion online Indication:Elevated liver enzymes Start:04-Feb-2016 Instruction Type:Patient Education How to access health informa tion online - Detail Indication:Elevated liver enzymes Start:04-Feb-2016 Instruction Type:Patient Education Patient Instructions Indication:Elevated liver enzymes Start:04-Feb-2016 Instruction Type:Provider Instructions for Treatment How to access health informa tion online Indication:Malnourished Start:10-Dec-2015 Instruction Type:Patient Education How to access health informa tion online - Detail Indication:Malnourished Start:10-Dec-2015 Instruction Type:Patient Education Patient Instructions Indication:Malnourished Start:10-Dec-2015 Instruction Type:Provider Instructions for Treatment How to access health informa tion online Indication:Palpitation Start:30-Nov-2015 Instruction Type:Patient Education How to access health informa tion online - Detail Indication:Palpitation Start:30-Nov-2015 Instruction Type:Patient Education Patient Instructions Indication:Palpitation Start:30-Nov-2015 Instruction Type:Provider Instructions for Treatment How to access health informa tion online Indication:Perineal rash, male Start:11-Sep-2015 Instruction Type:Patient Education How to access health informa tion online - Detail Indication:Perineal rash, male Start:11-Sep-2015 Instruction Type:Patient Education Patient Instructions Indication:Perineal rash, male Start:11-Sep-2015 Instruction Type:Provider Instructions for Treatment How to access health informa tion online - Detail Indication:Asthma Start:21-May-2015 Instruction Type:Patient Education Patient Instructions Indication:Asthma Start:21-May-2015 Instruction Type:Provider Instructions for Treatment Patient Instructions Indication:Asthma Start:31-Jan-2014 Instruction Type:Provider Instructions for Treatment [facility] Work Phone: Instructions* Name Dates Details Patient Instructions Indication:Current nonsmoker (Renamed from Current non-smoker) Start:10-Nov-2021 Instruction Type:Provider Instructions for Treatment How to Access Health Informa tion Online using Patient Portal and [employer] Apps Indication:Current nonsmoker (Renamed from Current non-smoker) Start:10-Nov-2021 Instruction Type:Patient Education How to access health informa tion online Indication:BMI 24.0-24.9, adult Start:05-Oct-2020 Instruction Type:Patient Education How to access health informa tion online - Detail Indication:BMI 24.0-24.9, adult Start:05-Oct-2020 Instruction Type:Patient Education Patient Instructions Indication:BMI 24.0-24.9, adult Start:05-Oct-2020 Instruction Type:Provider Instructions for Treatment How to access health informa tion online Indication:Current nonsmoker (Renamed from Current non-smoker) Start:28-Sep-2020 Instruction Type:Patient Education How to access health informa tion online - Detail Indication:Current nonsmoker (Renamed from Current non-smoker) Start:28-Sep-2020 Instruction Type:Patient Education Patient Instructions Indication:Current nonsmoker (Renamed from Current non-smoker) Start:28-Sep-2020 Instruction Type:Provider Instructions for Treatment How to access health informa tion online Indication:Current nonsmoker (Renamed from Current non-smoker) Start:28-Aug-2020 Instruction Type:Patient Education How to access health informa tion online - Detail Indication:Current nonsmoker (Renamed from Current non-smoker) Start:28-Aug-2020 Instruction Type:Patient Education Patient Instructions Indication:Current nonsmoker (Renamed from Current non-smoker) Start:28-Aug-2020 Instruction Type:Provider Instructions for Treatment How to access health informa tion online Indication:Current nonsmoker (Renamed from Current non-smoker) Start:05-Aug-2020 Instruction Type:Patient Education How to access health informa tion online - Detail Indication:Current nonsmoker (Renamed from Current non-smoker) Start:05-Aug-2020 Instruction Type:Patient Education Patient Instructions Indication:Current nonsmoker (Renamed from Current non-smoker) Start:05-Aug-2020 Instruction Type:Provider Instructions for Treatment How to access health informa tion online Indication:Current nonsmoker (Renamed from Current non-smoker) Start:22-Jun-2020 Instruction Type:Patient Education How to access health informa tion online - Detail Indication:Current nonsmoker (Renamed from Current non-smoker) Start:22-Jun-2020 Instruction Type:Patient Education Patient Instructions Indication:Current nonsmoker (Renamed from Current non-smoker) Start:22-Jun-2020 Instruction Type:Provider Instructions for Treatment How to access health informa tion online Indication:Current nonsmoker (Renamed from Current non-smoker) Start:30-Jan-2019 Instruction Type:Patient Education How to access health informa tion online - Detail Indication:Current nonsmoker (Renamed from Current non-smoker) Start:30-Jan-2019 Instruction Type:Patient Education Patient Instructions Indication:Current nonsmoker (Renamed from Current non-smoker) Start:30-Jan-2019 Instruction Type:Provider Instructions for Treatment How to access health informa tion online Indication:Elevated liver enzymes Start:11-May-2016 Instruction Type:Patient Education How to access health informa tion online - Detail Indication:Elevated liver enzymes Start:11-May-2016 Instruction Type:Patient Education Patient Instructions Indication:Elevated liver enzymes Start:11-May-2016 Instruction Type:Provider Instructions for Treatment How to access health informa tion online Indication:Elevated liver enzymes Start:04-Feb-2016 Instruction Type:Patient Education How to access health informa tion online - Detail Indication:Elevated liver enzymes Start:04-Feb-2016 Instruction Type:Patient Education Patient Instructions Indication:Elevated liver enzymes Start:04-Feb-2016 Instruction Type:Provider Instructions for Treatment How to access health informa tion online Indication:Malnourished Start:10-Dec-2015 Instruction Type:Patient Education How to access health informa tion online - Detail Indication:Malnourished Start:10-Dec-2015 Instruction Type:Patient Education Patient Instructions Indication:Malnourished Start:10-Dec-2015 Instruction Type:Provider Instructions for Treatment How to access health informa tion online Indication:Palpitation Start:30-Nov-2015 Instruction Type:Patient Education How to access health informa tion online - Detail Indication:Palpitation Start:30-Nov-2015 Instruction Type:Patient Education Patient Instructions Indication:Palpitation Start:30-Nov-2015 Instruction Type:Provider Instructions for Treatment How to access health informa tion online Indication:Perineal rash, male Start:11-Sep-2015 Instruction Type:Patient Education How to access health informa tion online - Detail Indication:Perineal rash, male Start:11-Sep-2015 Instruction Type:Patient Education Patient Instructions Indication:Perineal rash, male Start:11-Sep-2015 Instruction Type:Provider Instructions for Treatment How to access health informa tion online - Detail Indication:Asthma Start:21-May-2015 Instruction Type:Patient Education Patient Instructions Indication:Asthma Start:21-May-2015 Instruction Type:Provider Instructions for Treatment Patient Instructions Indication:Asthma Start:31-Jan-2014 Instruction Type:Provider Instructions for Treatment [facility] Work Phone: Instructions* Name Dates Details Patient Instructions Indication:BMI 24.0-24.9, adult Start:26-Dec-2022 Instruction Type:Provider Instructions for Treatment How to Access Health Informa tion Online using Patient Portal and [employer] Apps Indication:BMI 24.0-24.9, adult Start:26-Dec-2022 Instruction Type:Patient Education Patient Instructions Indication:Current nonsmoker (Renamed from Current non-smoker) Start:10-Nov-2021 Instruction Type:Provider Instructions for Treatment How to Access Health Informa tion Online using Patient Portal and [employer] Apps Indication:Current nonsmoker (Renamed from Current non-smoker) Start:10-Nov-2021 Instruction Type:Patient Education How to access health informa tion online Indication:BMI 24.0-24.9, adult Start:05-Oct-2020 Instruction Type:Patient Education How to access health informa tion online - Detail Indication:BMI 24.0-24.9, adult Start:05-Oct-2020 Instruction Type:Patient Education Patient Instructions Indication:BMI 24.0-24.9, adult Start:05-Oct-2020 Instruction Type:Provider Instructions for Treatment How to access health informa tion online Indication:Current nonsmoker (Renamed from Current non-smoker) Start:28-Sep-2020 Instruction Type:Patient Education How to access health informa tion online - Detail Indication:Current nonsmoker (Renamed from Current non-smoker) Start:28-Sep-2020 Instruction Type:Patient Education Patient Instructions Indication:Current nonsmoker (Renamed from Current non-smoker) Start:28-Sep-2020 Instruction Type:Provider Instructions for Treatment How to access health informa tion online Indication:Current nonsmoker (Renamed from Current non-smoker) Start:28-Aug-2020 Instruction Type:Patient Education How to access health informa tion online - Detail Indication:Current nonsmoker (Renamed from Current non-smoker) Start:28-Aug-2020 Instruction Type:Patient Education Patient Instructions Indication:Current nonsmoker (Renamed from Current non-smoker) Start:28-Aug-2020 Instruction Type:Provider Instructions for Treatment How to access health informa tion online Indication:Current nonsmoker (Renamed from Current non-smoker) Start:05-Aug-2020 Instruction Type:Patient Education How to access health informa tion online - Detail Indication:Current nonsmoker (Renamed from Current non-smoker) Start:05-Aug-2020 Instruction Type:Patient Education Patient Instructions Indication:Current nonsmoker (Renamed from Current non-smoker) Start:05-Aug-2020 Instruction Type:Provider Instructions for Treatment How to access health informa tion online Indication:Current nonsmoker (Renamed from Current non-smoker) Start:22-Jun-2020 Instruction Type:Patient Education How to access health informa tion online - Detail Indication:Current nonsmoker (Renamed from Current non-smoker) Start:22-Jun-2020 Instruction Type:Patient Education Patient Instructions Indication:Current nonsmoker (Renamed from Current non-smoker) Start:22-Jun-2020 Instruction Type:Provider Instructions for Treatment How to access health informa tion online Indication:Current nonsmoker (Renamed from Current non-smoker) Start:30-Jan-2019 Instruction Type:Patient Education How to access health informa tion online - Detail Indication:Current nonsmoker (Renamed from Current non-smoker) Start:30-Jan-2019 Instruction Type:Patient Education Patient Instructions Indication:Current nonsmoker (Renamed from Current non-smoker) Start:30-Jan-2019 Instruction Type:Provider Instructions for Treatment How to access health informa tion online Indication:Elevated liver enzymes Start:11-May-2016 Instruction Type:Patient Education How to access health informa tion online - Detail Indication:Elevated liver enzymes Start:11-May-2016 Instruction Type:Patient Education Patient Instructions Indication:Elevated liver enzymes Start:11-May-2016 Instruction Type:Provider Instructions for Treatment How to access health informa tion online Indication:Elevated liver enzymes Start:04-Feb-2016 Instruction Type:Patient Education How to access health informa tion online - Detail Indication:Elevated liver enzymes Start:04-Feb-2016 Instruction Type:Patient Education Patient Instructions Indication:Elevated liver enzymes Start:04-Feb-2016 Instruction Type:Provider Instructions for Treatment How to access health informa tion online Indication:Malnourished Start:10-Dec-2015 Instruction Type:Patient Education How to access health informa tion online - Detail Indication:Malnourished Start:10-Dec-2015 Instruction Type:Patient Education Patient Instructions Indication:Malnourished Start:10-Dec-2015 Instruction Type:Provider Instructions for Treatment How to access health informa tion online Indication:Palpitation Start:30-Nov-2015 Instruction Type:Patient Education How to access health informa tion online - Detail Indication:Palpitation Start:30-Nov-2015 Instruction Type:Patient Education Patient Instructions Indication:Palpitation Start:30-Nov-2015 Instruction Type:Provider Instructions for Treatment How to access health informa tion online Indication:Perineal rash, male Start:11-Sep-2015 Instruction Type:Patient Education How to access health informa tion online - Detail Indication:Perineal rash, male Start:11-Sep-2015 Instruction Type:Patient Education Patient Instructions Indication:Perineal rash, male Start:11-Sep-2015 Instruction Type:Provider Instructions for Treatment How to access health informa tion online - Detail Indication:Asthma Start:21-May-2015 Instruction Type:Patient Education Patient Instructions Indication:Asthma Start:21-May-2015 Instruction Type:Provider Instructions for Treatment Patient Instructions Indication:Asthma Start:31-Jan-2014 Instruction Type:Provider Instructions for Treatment [facility]; [facility] Work Phone: Instructions* Name Dates Details Patient Instructions Indication:BMI 24.0-24.9, adult Start:11-Jan-2023 Instruction Type:Provider Instructions for Treatment How to Access Health Informa tion Online using Patient Portal and [employer]rd [employer] Apps Indication:BMI 24.0-24.9, adult Start:11-Jan-2023 Instruction Type:Patient Education Patient Instructions Indication:BMI 24.0-24.9, adult Start:26-Dec-2022 Instruction Type:Provider Instructions for Treatment How to Access Health Informa tion Online using Patient Portal and [employer]rd [employer] Apps Indication:BMI 24.0-24.9, adult Start:26-Dec-2022 Instruction Type:Patient Education Patient Instructions Indication:Current nonsmoker (Renamed from Current non-smoker) Start:10-Nov-2021 Instruction Type:Provider Instructions for Treatment How to Access Health Informa tion Online using Patient Portal and [employer]rd [employer] Apps Indication:Current nonsmoker (Renamed from Current non-smoker) Start:10-Nov-2021 Instruction Type:Patient Education How to access health informa tion online Indication:BMI 24.0-24.9, adult Start:05-Oct-2020 Instruction Type:Patient Education How to access health informa tion online - Detail Indication:BMI 24.0-24.9, adult Start:05-Oct-2020 Instruction Type:Patient Education Patient Instructions Indication:BMI 24.0-24.9, adult Start:05-Oct-2020 Instruction Type:Provider Instructions for Treatment How to access health informa tion online Indication:Current nonsmoker (Renamed from Current non-smoker) Start:28-Sep-2020 Instruction Type:Patient Education How to access health informa tion online - Detail Indication:Current nonsmoker (Renamed from Current non-smoker) Start:28-Sep-2020 Instruction Type:Patient Education Patient Instructions Indication:Current nonsmoker (Renamed from Current non-smoker) Start:28-Sep-2020 Instruction Type:Provider Instructions for Treatment How to access health informa tion online Indication:Current nonsmoker (Renamed from Current non-smoker) Start:28-Aug-2020 Instruction Type:Patient Education How to access health informa tion online - Detail Indication:Current nonsmoker (Renamed from Current non-smoker) Start:28-Aug-2020 Instruction Type:Patient Education Patient Instructions Indication:Current nonsmoker (Renamed from Current non-smoker) Start:28-Aug-2020 Instruction Type:Provider Instructions for Treatment How to access health informa tion online Indication:Current nonsmoker (Renamed from Current non-smoker) Start:05-Aug-2020 Instruction Type:Patient Education How to access health informa tion online - Detail Indication:Current nonsmoker (Renamed from Current non-smoker) Start:05-Aug-2020 Instruction Type:Patient Education Patient Instructions Indication:Current nonsmoker (Renamed from Current non-smoker) Start:05-Aug-2020 Instruction Type:Provider Instructions for Treatment How to access health informa tion online Indication:Current nonsmoker (Renamed from Current non-smoker) Start:22-Jun-2020 Instruction Type:Patient Education How to access health informa tion online - Detail Indication:Current nonsmoker (Renamed from Current non-smoker) Start:22-Jun-2020 Instruction Type:Patient Education Patient Instructions Indication:Current nonsmoker (Renamed from Current non-smoker) Start:22-Jun-2020 Instruction Type:Provider Instructions for Treatment How to access health informa tion online Indication:Current nonsmoker (Renamed from Current non-smoker) Start:30-Jan-2019 Instruction Type:Patient Education How to access health informa tion online - Detail Indication:Current nonsmoker (Renamed from Current non-smoker) Start:30-Jan-2019 Instruction Type:Patient Education Patient Instructions Indication:Current nonsmoker (Renamed from Current non-smoker) Start:30-Jan-2019 Instruction Type:Provider Instructions for Treatment How to access health informa tion online Indication:Elevated liver enzymes Start:11-May-2016 Instruction Type:Patient Education How to access health informa tion online - Detail Indication:Elevated liver enzymes Start:11-May-2016 Instruction Type:Patient Education Patient Instructions Indication:Elevated liver enzymes Start:11-May-2016 Instruction Type:Provider Instructions for Treatment How to access health informa tion online Indication:Elevated liver enzymes Start:04-Feb-2016 Instruction Type:Patient Education How to access health informa tion online - Detail Indication:Elevated liver enzymes Start:04-Feb-2016 Instruction Type:Patient Education Patient Instructions Indication:Elevated liver enzymes Start:04-Feb-2016 Instruction Type:Provider Instructions for Treatment How to access health informa tion online Indication:Malnourished Start:10-Dec-2015 Instruction Type:Patient Education How to access health informa tion online - Detail Indication:Malnourished Start:10-Dec-2015 Instruction Type:Patient Education Patient Instructions Indication:Malnourished Start:10-Dec-2015 Instruction Type:Provider Instructions for Treatment How to access health informa tion online Indication:Palpitation Start:30-Nov-2015 Instruction Type:Patient Education How to access health informa tion online - Detail Indication:Palpitation Start:30-Nov-2015 Instruction Type:Patient Education Patient Instructions Indication:Palpitation Start:30-Nov-2015 Instruction Type:Provider Instructions for Treatment How to access health informa tion online Indication:Perineal rash, male Start:11-Sep-2015 Instruction Type:Patient Education How to access health informa tion online - Detail Indication:Perineal rash, male Start:11-Sep-2015 Instruction Type:Patient Education Patient Instructions Indication:Perineal rash, male Start:11-Sep-2015 Instruction Type:Provider Instructions for Treatment How to access health informa tion online - Detail Indication:Asthma Start:21-May-2015 Instruction Type:Patient Education Patient Instructions Indication:Asthma Start:21-May-2015 Instruction Type:Provider Instructions for Treatment Patient Instructions Indication:Asthma Start:31-Jan-2014 Instruction Type:Provider Instructions for Treatment [facility]; [facility] Work Phone: Instructions* Name Dates Details Patient Instructions Indication:BMI 24.0-24.9, adult Start:11-Jan-2023 Instruction Type:Provider Instructions for Treatment How to Access Health Informa tion Online using Patient Portal and [employer] Apps Indication:BMI 24.0-24.9, adult Start:11-Jan-2023 Instruction Type:Patient Education Patient Instructions Indication:BMI 24.0-24.9, adult Start:26-Dec-2022 Instruction Type:Provider Instructions for Treatment How to Access Health Informa tion Online using Patient Portal and [employer]rd [employer] Apps Indication:BMI 24.0-24.9, adult Start:26-Dec-2022 Instruction Type:Patient Education Patient Instructions Indication:Current nonsmoker (Renamed from Current non-smoker) Start:10-Nov-2021 Instruction Type:Provider Instructions for Treatment How to Access Health Informa tion Online using Patient Portal and [employer]rd [employer] Apps Indication:Current nonsmoker (Renamed from Current non-smoker) Start:10-Nov-2021 Instruction Type:Patient Education How to access health informa tion online Indication:BMI 24.0-24.9, adult Start:05-Oct-2020 Instruction Type:Patient Education How to access health informa tion online - Detail Indication:BMI 24.0-24.9, adult Start:05-Oct-2020 Instruction Type:Patient Education Patient Instructions Indication:BMI 24.0-24.9, adult Start:05-Oct-2020 Instruction Type:Provider Instructions for Treatment How to access health informa tion online Indication:Current nonsmoker (Renamed from Current non-smoker) Start:28-Sep-2020 Instruction Type:Patient Education How to access health informa tion online - Detail Indication:Current nonsmoker (Renamed from Current non-smoker) Start:28-Sep-2020 Instruction Type:Patient Education Patient Instructions Indication:Current nonsmoker (Renamed from Current non-smoker) Start:28-Sep-2020 Instruction Type:Provider Instructions for Treatment How to access health informa tion online Indication:Current nonsmoker (Renamed from Current non-smoker) Start:28-Aug-2020 Instruction Type:Patient Education How to access health informa tion online - Detail Indication:Current nonsmoker (Renamed from Current non-smoker) Start:28-Aug-2020 Instruction Type:Patient Education Patient Instructions Indication:Current nonsmoker (Renamed from Current non-smoker) Start:28-Aug-2020 Instruction Type:Provider Instructions for Treatment How to access health informa tion online Indication:Current nonsmoker (Renamed from Current non-smoker) Start:05-Aug-2020 Instruction Type:Patient Education How to access health informa tion online - Detail Indication:Current nonsmoker (Renamed from Current non-smoker) Start:05-Aug-2020 Instruction Type:Patient Education Patient Instructions Indication:Current nonsmoker (Renamed from Current non-smoker) Start:05-Aug-2020 Instruction Type:Provider Instructions for Treatment How to access health informa tion online Indication:Current nonsmoker (Renamed from Current non-smoker) Start:22-Jun-2020 Instruction Type:Patient Education How to access health informa tion online - Detail Indication:Current nonsmoker (Renamed from Current non-smoker) Start:22-Jun-2020 Instruction Type:Patient Education Patient Instructions Indication:Current nonsmoker (Renamed from Current non-smoker) Start:22-Jun-2020 Instruction Type:Provider Instructions for Treatment How to access health informa tion online Indication:Current nonsmoker (Renamed from Current non-smoker) Start:30-Jan-2019 Instruction Type:Patient Education How to access health informa tion online - Detail Indication:Current nonsmoker (Renamed from Current non-smoker) Start:30-Jan-2019 Instruction Type:Patient Education Patient Instructions Indication:Current nonsmoker (Renamed from Current non-smoker) Start:30-Jan-2019 Instruction Type:Provider Instructions for Treatment How to access health informa tion online Indication:Elevated liver enzymes Start:11-May-2016 Instruction Type:Patient Education How to access health informa tion online - Detail Indication:Elevated liver enzymes Start:11-May-2016 Instruction Type:Patient Education Patient Instructions Indication:Elevated liver enzymes Start:11-May-2016 Instruction Type:Provider Instructions for Treatment How to access health informa tion online Indication:Elevated liver enzymes Start:04-Feb-2016 Instruction Type:Patient Education How to access health informa tion online - Detail Indication:Elevated liver enzymes Start:04-Feb-2016 Instruction Type:Patient Education Patient Instructions Indication:Elevated liver enzymes Start:04-Feb-2016 Instruction Type:Provider Instructions for Treatment How to access health informa tion online Indication:Malnourished Start:10-Dec-2015 Instruction Type:Patient Education How to access health informa tion online - Detail Indication:Malnourished Start:10-Dec-2015 Instruction Type:Patient Education Patient Instructions Indication:Malnourished Start:10-Dec-2015 Instruction Type:Provider Instructions for Treatment How to access health informa tion online Indication:Palpitation Start:30-Nov-2015 Instruction Type:Patient Education How to access health informa tion online - Detail Indication:Palpitation Start:30-Nov-2015 Instruction Type:Patient Education Patient Instructions Indication:Palpitation Start:30-Nov-2015 Instruction Type:Provider Instructions for Treatment How to access health informa tion online Indication:Perineal rash, male Start:11-Sep-2015 Instruction Type:Patient Education How to access health informa tion online - Detail Indication:Perineal rash, male Start:11-Sep-2015 Instruction Type:Patient Education Patient Instructions Indication:Perineal rash, male Start:11-Sep-2015 Instruction Type:Provider Instructions for Treatment How to access health informa tion online - Detail Indication:Asthma Start:21-May-2015 Instruction Type:Patient Education Patient Instructions Indication:Asthma Start:21-May-2015 Instruction Type:Provider Instructions for Treatment Patient Instructions Indication:Asthma Start:31-Jan-2014 Instruction Type:Provider Instructions for Treatment [facility]; [facility] Work Phone: Instructions* Name Dates Details Patient Instructions Indication:BMI 24.0-24.9, adult Start:11-Jan-2023 Instruction Type:Provider Instructions for Treatment How to Access Health Informa tion Online using Patient Portal and [employer]rd [employer] Apps Indication:BMI 24.0-24.9, adult Start:11-Jan-2023 Instruction Type:Patient Education Patient Instructions Indication:BMI 24.0-24.9, adult Start:26-Dec-2022 Instruction Type:Provider Instructions for Treatment How to Access Health Informa tion Online using Patient Portal and [employer] Apps Indication:BMI 24.0-24.9, adult Start:26-Dec-2022 Instruction Type:Patient Education Patient Instructions Indication:Current nonsmoker (Renamed from Current non-smoker) Start:10-Nov-2021 Instruction Type:Provider Instructions for Treatment How to Access Health Informa tion Online using Patient Portal and [employer]rd [employer] Apps Indication:Current nonsmoker (Renamed from Current non-smoker) Start:10-Nov-2021 Instruction Type:Patient Education How to access health informa tion online Indication:BMI 24.0-24.9, adult Start:05-Oct-2020 Instruction Type:Patient Education How to access health informa tion online - Detail Indication:BMI 24.0-24.9, adult Start:05-Oct-2020 Instruction Type:Patient Education Patient Instructions Indication:BMI 24.0-24.9, adult Start:05-Oct-2020 Instruction Type:Provider Instructions for Treatment How to access health informa tion online Indication:Current nonsmoker (Renamed from Current non-smoker) Start:28-Sep-2020 Instruction Type:Patient Education How to access health informa tion online - Detail Indication:Current nonsmoker (Renamed from Current non-smoker) Start:28-Sep-2020 Instruction Type:Patient Education Patient Instructions Indication:Current nonsmoker (Renamed from Current non-smoker) Start:28-Sep-2020 Instruction Type:Provider Instructions for Treatment How to access health informa tion online Indication:Current nonsmoker (Renamed from Current non-smoker) Start:28-Aug-2020 Instruction Type:Patient Education How to access health informa tion online - Detail Indication:Current nonsmoker (Renamed from Current non-smoker) Start:28-Aug-2020 Instruction Type:Patient Education Patient Instructions Indication:Current nonsmoker (Renamed from Current non-smoker) Start:28-Aug-2020 Instruction Type:Provider Instructions for Treatment How to access health informa tion online Indication:Current nonsmoker (Renamed from Current non-smoker) Start:05-Aug-2020 Instruction Type:Patient Education How to access health informa tion online - Detail Indication:Current nonsmoker (Renamed from Current non-smoker) Start:05-Aug-2020 Instruction Type:Patient Education Patient Instructions Indication:Current nonsmoker (Renamed from Current non-smoker) Start:05-Aug-2020 Instruction Type:Provider Instructions for Treatment How to access health informa tion online Indication:Current nonsmoker (Renamed from Current non-smoker) Start:22-Jun-2020 Instruction Type:Patient Education How to access health informa tion online - Detail Indication:Current nonsmoker (Renamed from Current non-smoker) Start:22-Jun-2020 Instruction Type:Patient Education Patient Instructions Indication:Current nonsmoker (Renamed from Current non-smoker) Start:22-Jun-2020 Instruction Type:Provider Instructions for Treatment How to access health informa tion online Indication:Current nonsmoker (Renamed from Current non-smoker) Start:30-Jan-2019 Instruction Type:Patient Education How to access health informa tion online - Detail Indication:Current nonsmoker (Renamed from Current non-smoker) Start:30-Jan-2019 Instruction Type:Patient Education Patient Instructions Indication:Current nonsmoker (Renamed from Current non-smoker) Start:30-Jan-2019 Instruction Type:Provider Instructions for Treatment How to access health informa tion online Indication:Elevated liver enzymes Start:11-May-2016 Instruction Type:Patient Education How to access health informa tion online - Detail Indication:Elevated liver enzymes Start:11-May-2016 Instruction Type:Patient Education Patient Instructions Indication:Elevated liver enzymes Start:11-May-2016 Instruction Type:Provider Instructions for Treatment How to access health informa tion online Indication:Elevated liver enzymes Start:04-Feb-2016 Instruction Type:Patient Education How to access health informa tion online - Detail Indication:Elevated liver enzymes Start:04-Feb-2016 Instruction Type:Patient Education Patient Instructions Indication:Elevated liver enzymes Start:04-Feb-2016 Instruction Type:Provider Instructions for Treatment How to access health informa tion online Indication:Malnourished Start:10-Dec-2015 Instruction Type:Patient Education How to access health informa tion online - Detail Indication:Malnourished Start:10-Dec-2015 Instruction Type:Patient Education Patient Instructions Indication:Malnourished Start:10-Dec-2015 Instruction Type:Provider Instructions for Treatment How to access health informa tion online Indication:Palpitation Start:30-Nov-2015 Instruction Type:Patient Education How to access health informa tion online - Detail Indication:Palpitation Start:30-Nov-2015 Instruction Type:Patient Education Patient Instructions Indication:Palpitation Start:30-Nov-2015 Instruction Type:Provider Instructions for Treatment How to access health informa tion online Indication:Perineal rash, male Start:11-Sep-2015 Instruction Type:Patient Education How to access health informa tion online - Detail Indication:Perineal rash, male Start:11-Sep-2015 Instruction Type:Patient Education Patient Instructions Indication:Perineal rash, male Start:11-Sep-2015 Instruction Type:Provider Instructions for Treatment How to access health informa tion online - Detail Indication:Asthma Start:21-May-2015 Instruction Type:Patient Education Patient Instructions Indication:Asthma Start:21-May-2015 Instruction Type:Provider Instructions for Treatment Patient Instructions Indication:Asthma Start:31-Jan-2014 Instruction Type:Provider Instructions for Treatment [facility]; [facility] Work Phone: reason for referral (narrative)No reason for referral information available[facility] Work Phone: Family History No Family History Records FoundUnknown Family Member Name Dates Details Family Members In General Comments:Emotional problems, Thyroid, seizures, stroke Status:Active Unknown Family Member Name Dates Details Family Members In General Comments:Emotional problems, Thyroid, seizures, stroke Status:Active Unknown Family Member Name Dates Details Family Members In General Comments:Emotional problems, Thyroid, seizures, stroke Status:Active Unknown Family Member Name Dates Details Family Members In General Comments:Emotional problems, Thyroid, seizures, stroke Status:Active Unknown Family Member Name Dates Details Family Members In General Comments:Emotional problems, Thyroid, seizures, stroke Status:Active Unknown Family Member Name Dates Details Family Members In General Comments:Emotional problems, Thyroid, seizures, stroke Status:Active Unknown Family Member Name Dates Details Family Members In General Comments:Emotional problems, Thyroid, seizures, stroke Status:Active Unknown Family Member Name Dates Details Family Members In General Comments:Emotional problems, Thyroid, seizures, stroke Status:Active Unknown Family Member Name Dates Details Family Members In General Comments:Emotional problems, Thyroid, seizures, stroke Status:Active Unknown Family Member Name Dates Details Family Members In General Comments:Emotional problems, Thyroid, seizures, stroke Status:Active Unknown Family Member Name Dates Details Family Members In General Comments:Emotional problems, Thyroid, seizures, stroke Status:Active Unknown Family Member Name Dates Details Family Members In General Comments:Emotional problems, Thyroid, seizures, stroke Status:Active Unknown Family Member Name Dates Details Family Members In General Comments:Emotional problems, Thyroid, seizures, stroke Status:Active Unknown Family Member Name Dates Details Family Members In General Comments:Emotional problems, Thyroid, seizures, stroke Status:Active Unknown Family Member Name Dates Details Family Members In General Comments:Emotional problems, Thyroid, seizures, stroke Status:Active Unknown Family Member Name Dates Details Family Members In General Comments:Emotional problems, Thyroid, seizures, stroke Status:Active Unknown Family Member Name Dates Details Family Members In General Comments:Emotional problems, Thyroid, seizures, stroke Status:Active Unknown Family Member Name Dates Details Family Members In General Comments:Emotional problems, Thyroid, seizures, stroke Status:Active Unknown Family Member Name Dates Details Family Members In General Comments:Emotional problems, Thyroid, seizures, stroke Status:Active Unknown Family Member Name Dates Details Family Members In General Comments:Emotional problems, Thyroid, seizures, stroke Status:Active Unknown Family Member Name Dates Details Family Members In General Comments:Emotional problems, Thyroid, seizures, stroke Status:Active Unknown Family Member Name Dates Details Family Members In General Comments:Emotional problems, Thyroid, seizures, stroke Status:Active Unknown Family Member Name Dates Details Family Members In General Comments:Emotional problems, Thyroid, seizures, stroke Status:Active Unknown Family Member Name Dates Details Family Members In General Comments:Emotional problems, Thyroid, seizures, stroke Status:Active Unknown Family Member Name Dates Details Family Members In General Comments:Emotional problems, Thyroid, seizures, stroke Status:Active Unknown Family Member Name Dates Details Family Members In General Comments:Emotional problems, Thyroid, seizures, stroke Status:Active Unknown Family Member Name Dates Details Family Members In General Comments:Emotional problems, Thyroid, seizures, stroke Status:Active Father Comments:healthy Status:Active Maternal Grandfather Comments:CAD later in life Status:Active Maternal Grandmother Comments:CAD llater in life Status:Active Mother Comments:hypothyroid, intrav entricular conduction issue Status:Active Unknown Family Member Name Dates Details Family Members In General Comments:Emotional problems, Thyroid, seizures, stroke Status:Active Father Comments:healthy Status:Active Maternal Grandfather Comments:CAD later in life Status:Active Maternal Grandmother Comments:CAD llater in life Status:Active Mother Comments:hypothyroid, intrav entricular conduction issue Status:Active Relationship Condition Age at Onset Recorded Date/T soo Not Specified Seizure Unknown Disorder of thyroid Unknown Unknown Family Member Name Dates Details Family Members In General Comments:Emotional problems, Thyroid, seizures, stroke Status:Active Father Comments:healthy Status:Active Maternal Grandfather Comments:CAD later in life Status:Active Maternal Grandmother Comments:CAD llater in life Status:Active Mother Comments:hypothyroid, intrav entricular conduction issue Status:Active Instructions Name Dates Details Elevated liver enzymes : How to access health information online Indication:Elevated liver enzymes Elevated liver enzymes : How to access health information online - Detail Indication:Elevated liver enzymes Elevated liver enzymes : Pat ient Instructions Indication:Elevated liver enzymes Malnourished : How to access health information online Indication:Malnourished Malnourished : How to access health information online - Detail Indication:Malnourished Malnourished : Patient Instr uctions Indication:Malnourished Palpitation : How to access health information online Indication:Palpitation Palpitation : How to access health information online - Detail Indication:Palpitation Palpitation : Patient Instru ctions Indication:Palpitation Perineal rash, male : How to access health information online Indication:Perineal rash, male Perineal rash, male : How to access health information online - Detail Indication:Perineal rash, male Perineal rash, male : Patien t Instructions Indication:Perineal rash, male Asthma : How to access healt h information online - Detail Indication:Asthma Asthma : Patient Instruction s Indication:Asthma Name Dates Details Current nonsmoker (Renamed f rom Current non-smoker) : How to access health information online Indication:Current nonsmoker (Renamed from Current non-smoker) Current nonsmoker (Renamed f rom Current non-smoker) : How to access health information online - Detail Indication:Current nonsmoker (Renamed from Current non-smoker) Current nonsmoker (Renamed f rom Current non-smoker) : Patient Instructions Indication:Current nonsmoker (Renamed from Current non-smoker) Elevated liver enzymes : How to access health information online Indication:Elevated liver enzymes Elevated liver enzymes : How to access health information online - Detail Indication:Elevated liver enzymes Elevated liver enzymes : Pat ient Instructions Indication:Elevated liver enzymes Malnourished : How to access health information online Indication:Malnourished Malnourished : How to access health information online - Detail Indication:Malnourished Malnourished : Patient Instr uctions Indication:Malnourished Palpitation : How to access health information online Indication:Palpitation Palpitation : How to access health information online - Detail Indication:Palpitation Palpitation : Patient Instru ctions Indication:Palpitation Perineal rash, male : How to access health information online Indication:Perineal rash, male Perineal rash, male : How to access health information online - Detail Indication:Perineal rash, male Perineal rash, male : Patien t Instructions Indication:Perineal rash, male Asthma : How to access healt h information online - Detail Indication:Asthma Asthma : Patient Instruction s Indication:Asthma Name Dates Details How to access health informa tion online Indication:Current nonsmoker (Renamed from Current non-smoker) Start:30-Jan-2019 Instruction Type:Patient Education How to access health informa tion online - Detail Indication:Current nonsmoker (Renamed from Current non-smoker) Start:30-Jan-2019 Instruction Type:Patient Education Patient Instructions Indication:Current nonsmoker (Renamed from Current non-smoker) Start:30-Jan-2019 Instruction Type:Provider Instructions for Treatment How to access health informa tion online Indication:Elevated liver enzymes Start:11-May-2016 Instruction Type:Patient Education How to access health informa tion online - Detail Indication:Elevated liver enzymes Start:11-May-2016 Instruction Type:Patient Education Patient Instructions Indication:Elevated liver enzymes Start:11-May-2016 Instruction Type:Provider Instructions for Treatment How to access health informa tion online Indication:Elevated liver enzymes Start:04-Feb-2016 Instruction Type:Patient Education How to access health informa tion online - Detail Indication:Elevated liver enzymes Start:04-Feb-2016 Instruction Type:Patient Education Patient Instructions Indication:Elevated liver enzymes Start:04-Feb-2016 Instruction Type:Provider Instructions for Treatment How to access health informa tion online Indication:Malnourished Start:10-Dec-2015 Instruction Type:Patient Education How to access health informa tion online - Detail Indication:Malnourished Start:10-Dec-2015 Instruction Type:Patient Education Patient Instructions Indication:Malnourished Start:10-Dec-2015 Instruction Type:Provider Instructions for Treatment How to access health informa tion online Indication:Palpitation Start:30-Nov-2015 Instruction Type:Patient Education How to access health informa tion online - Detail Indication:Palpitation Start:30-Nov-2015 Instruction Type:Patient Education Patient Instructions Indication:Palpitation Start:30-Nov-2015 Instruction Type:Provider Instructions for Treatment How to access health informa tion online Indication:Perineal rash, male Start:11-Sep-2015 Instruction Type:Patient Education How to access health informa tion online - Detail Indication:Perineal rash, male Start:11-Sep-2015 Instruction Type:Patient Education Patient Instructions Indication:Perineal rash, male Start:11-Sep-2015 Instruction Type:Provider Instructions for Treatment How to access health informa tion online - Detail Indication:Asthma Start:21-May-2015 Instruction Type:Patient Education Patient Instructions Indication:Asthma Start:21-May-2015 Instruction Type:Provider Instructions for Treatment Patient Instructions Indication:Asthma Start:31-Jan-2014 Instruction Type:Provider Instructions for Treatment Name Dates Details How to access health informa tion online Indication:Current nonsmoker (Renamed from Current non-smoker) Start:30-Jan-2019 Instruction Type:Patient Education How to access health informa tion online - Detail Indication:Current nonsmoker (Renamed from Current non-smoker) Start:30-Jan-2019 Instruction Type:Patient Education Patient Instructions Indication:Current nonsmoker (Renamed from Current non-smoker) Start:30-Jan-2019 Instruction Type:Provider Instructions for Treatment How to access health informa tion online Indication:Elevated liver enzymes Start:11-May-2016 Instruction Type:Patient Education How to access health informa tion online - Detail Indication:Elevated liver enzymes Start:11-May-2016 Instruction Type:Patient Education Patient Instructions Indication:Elevated liver enzymes Start:11-May-2016 Instruction Type:Provider Instructions for Treatment How to access health informa tion online Indication:Elevated liver enzymes Start:04-Feb-2016 Instruction Type:Patient Education How to access health informa tion online - Detail Indication:Elevated liver enzymes Start:04-Feb-2016 Instruction Type:Patient Education Patient Instructions Indication:Elevated liver enzymes Start:04-Feb-2016 Instruction Type:Provider Instructions for Treatment How to access health informa tion online Indication:Malnourished Start:10-Dec-2015 Instruction Type:Patient Education How to access health informa tion online - Detail Indication:Malnourished Start:10-Dec-2015 Instruction Type:Patient Education Patient Instructions Indication:Malnourished Start:10-Dec-2015 Instruction Type:Provider Instructions for Treatment How to access health informa tion online Indication:Palpitation Start:30-Nov-2015 Instruction Type:Patient Education How to access health informa tion online - Detail Indication:Palpitation Start:30-Nov-2015 Instruction Type:Patient Education Patient Instructions Indication:Palpitation Start:30-Nov-2015 Instruction Type:Provider Instructions for Treatment How to access health informa tion online Indication:Perineal rash, male Start:11-Sep-2015 Instruction Type:Patient Education How to access health informa tion online - Detail Indication:Perineal rash, male Start:11-Sep-2015 Instruction Type:Patient Education Patient Instructions Indication:Perineal rash, male Start:11-Sep-2015 Instruction Type:Provider Instructions for Treatment How to access health informa tion online - Detail Indication:Asthma Start:21-May-2015 Instruction Type:Patient Education Patient Instructions Indication:Asthma Start:21-May-2015 Instruction Type:Provider Instructions for Treatment Patient Instructions Indication:Asthma Start:31-Jan-2014 Instruction Type:Provider Instructions for Treatment Name Dates Details How to access health informa tion online Indication:Current nonsmoker (Renamed from Current non-smoker) Start:30-Jan-2019 Instruction Type:Patient Education How to access health informa tion online - Detail Indication:Current nonsmoker (Renamed from Current non-smoker) Start:30-Jan-2019 Instruction Type:Patient Education Patient Instructions Indication:Current nonsmoker (Renamed from Current non-smoker) Start:30-Jan-2019 Instruction Type:Provider Instructions for Treatment How to access health informa tion online Indication:Elevated liver enzymes Start:11-May-2016 Instruction Type:Patient Education How to access health informa tion online - Detail Indication:Elevated liver enzymes Start:11-May-2016 Instruction Type:Patient Education Patient Instructions Indication:Elevated liver enzymes Start:11-May-2016 Instruction Type:Provider Instructions for Treatment How to access health informa tion online Indication:Elevated liver enzymes Start:04-Feb-2016 Instruction Type:Patient Education How to access health informa tion online - Detail Indication:Elevated liver enzymes Start:04-Feb-2016 Instruction Type:Patient Education Patient Instructions Indication:Elevated liver enzymes Start:04-Feb-2016 Instruction Type:Provider Instructions for Treatment How to access health informa tion online Indication:Malnourished Start:10-Dec-2015 Instruction Type:Patient Education How to access health informa tion online - Detail Indication:Malnourished Start:10-Dec-2015 Instruction Type:Patient Education Patient Instructions Indication:Malnourished Start:10-Dec-2015 Instruction Type:Provider Instructions for Treatment How to access health informa tion online Indication:Palpitation Start:30-Nov-2015 Instruction Type:Patient Education How to access health informa tion online - Detail Indication:Palpitation Start:30-Nov-2015 Instruction Type:Patient Education Patient Instructions Indication:Palpitation Start:30-Nov-2015 Instruction Type:Provider Instructions for Treatment How to access health informa tion online Indication:Perineal rash, male Start:11-Sep-2015 Instruction Type:Patient Education How to access health informa tion online - Detail Indication:Perineal rash, male Start:11-Sep-2015 Instruction Type:Patient Education Patient Instructions Indication:Perineal rash, male Start:11-Sep-2015 Instruction Type:Provider Instructions for Treatment How to access health informa tion online - Detail Indication:Asthma Start:21-May-2015 Instruction Type:Patient Education Patient Instructions Indication:Asthma Start:21-May-2015 Instruction Type:Provider Instructions for Treatment Patient Instructions Indication:Asthma Start:31-Jan-2014 Instruction Type:Provider Instructions for Treatment Name Dates Details How to access health informa tion online Indication:Current nonsmoker (Renamed from Current non-smoker) Start:22-Jun-2020 Instruction Type:Patient Education How to access health informa tion online - Detail Indication:Current nonsmoker (Renamed from Current non-smoker) Start:22-Jun-2020 Instruction Type:Patient Education Patient Instructions Indication:Current nonsmoker (Renamed from Current non-smoker) Start:22-Jun-2020 Instruction Type:Provider Instructions for Treatment How to access health informa tion online Indication:Current nonsmoker (Renamed from Current non-smoker) Start:30-Jan-2019 Instruction Type:Patient Education How to access health informa tion online - Detail Indication:Current nonsmoker (Renamed from Current non-smoker) Start:30-Jan-2019 Instruction Type:Patient Education Patient Instructions Indication:Current nonsmoker (Renamed from Current non-smoker) Start:30-Jan-2019 Instruction Type:Provider Instructions for Treatment How to access health informa tion online Indication:Elevated liver enzymes Start:11-May-2016 Instruction Type:Patient Education How to access health informa tion online - Detail Indication:Elevated liver enzymes Start:11-May-2016 Instruction Type:Patient Education Patient Instructions Indication:Elevated liver enzymes Start:11-May-2016 Instruction Type:Provider Instructions for Treatment How to access health informa tion online Indication:Elevated liver enzymes Start:04-Feb-2016 Instruction Type:Patient Education How to access health informa tion online - Detail Indication:Elevated liver enzymes Start:04-Feb-2016 Instruction Type:Patient Education Patient Instructions Indication:Elevated liver enzymes Start:04-Feb-2016 Instruction Type:Provider Instructions for Treatment How to access health informa tion online Indication:Malnourished Start:10-Dec-2015 Instruction Type:Patient Education How to access health informa tion online - Detail Indication:Malnourished Start:10-Dec-2015 Instruction Type:Patient Education Patient Instructions Indication:Malnourished Start:10-Dec-2015 Instruction Type:Provider Instructions for Treatment How to access health informa tion online Indication:Palpitation Start:30-Nov-2015 Instruction Type:Patient Education How to access health informa tion online - Detail Indication:Palpitation Start:30-Nov-2015 Instruction Type:Patient Education Patient Instructions Indication:Palpitation Start:30-Nov-2015 Instruction Type:Provider Instructions for Treatment How to access health informa tion online Indication:Perineal rash, male Start:11-Sep-2015 Instruction Type:Patient Education How to access health informa tion online - Detail Indication:Perineal rash, male Start:11-Sep-2015 Instruction Type:Patient Education Patient Instructions Indication:Perineal rash, male Start:11-Sep-2015 Instruction Type:Provider Instructions for Treatment How to access health informa tion online - Detail Indication:Asthma Start:21-May-2015 Instruction Type:Patient Education Patient Instructions Indication:Asthma Start:21-May-2015 Instruction Type:Provider Instructions for Treatment Patient Instructions Indication:Asthma Start:31-Jan-2014 Instruction Type:Provider Instructions for Treatment Name Dates Details How to access health informa tion online Indication:Current nonsmoker (Renamed from Current non-smoker) Start:22-Jun-2020 Instruction Type:Patient Education How to access health informa tion online - Detail Indication:Current nonsmoker (Renamed from Current non-smoker) Start:22-Jun-2020 Instruction Type:Patient Education Patient Instructions Indication:Current nonsmoker (Renamed from Current non-smoker) Start:22-Jun-2020 Instruction Type:Provider Instructions for Treatment How to access health informa tion online Indication:Current nonsmoker (Renamed from Current non-smoker) Start:30-Jan-2019 Instruction Type:Patient Education How to access health informa tion online - Detail Indication:Current nonsmoker (Renamed from Current non-smoker) Start:30-Jan-2019 Instruction Type:Patient Education Patient Instructions Indication:Current nonsmoker (Renamed from Current non-smoker) Start:30-Jan-2019 Instruction Type:Provider Instructions for Treatment How to access health informa tion online Indication:Elevated liver enzymes Start:11-May-2016 Instruction Type:Patient Education How to access health informa tion online - Detail Indication:Elevated liver enzymes Start:11-May-2016 Instruction Type:Patient Education Patient Instructions Indication:Elevated liver enzymes Start:11-May-2016 Instruction Type:Provider Instructions for Treatment How to access health informa tion online Indication:Elevated liver enzymes Start:04-Feb-2016 Instruction Type:Patient Education How to access health informa tion online - Detail Indication:Elevated liver enzymes Start:04-Feb-2016 Instruction Type:Patient Education Patient Instructions Indication:Elevated liver enzymes Start:04-Feb-2016 Instruction Type:Provider Instructions for Treatment How to access health informa tion online Indication:Malnourished Start:10-Dec-2015 Instruction Type:Patient Education How to access health informa tion online - Detail Indication:Malnourished Start:10-Dec-2015 Instruction Type:Patient Education Patient Instructions Indication:Malnourished Start:10-Dec-2015 Instruction Type:Provider Instructions for Treatment How to access health informa tion online Indication:Palpitation Start:30-Nov-2015 Instruction Type:Patient Education How to access health informa tion online - Detail Indication:Palpitation Start:30-Nov-2015 Instruction Type:Patient Education Patient Instructions Indication:Palpitation Start:30-Nov-2015 Instruction Type:Provider Instructions for Treatment How to access health informa tion online Indication:Perineal rash, male Start:11-Sep-2015 Instruction Type:Patient Education How to access health informa tion online - Detail Indication:Perineal rash, male Start:11-Sep-2015 Instruction Type:Patient Education Patient Instructions Indication:Perineal rash, male Start:11-Sep-2015 Instruction Type:Provider Instructions for Treatment How to access health informa tion online - Detail Indication:Asthma Start:21-May-2015 Instruction Type:Patient Education Patient Instructions Indication:Asthma Start:21-May-2015 Instruction Type:Provider Instructions for Treatment Patient Instructions Indication:Asthma Start:31-Jan-2014 Instruction Type:Provider Instructions for Treatment Name Dates Details How to access health informa tion online Indication:Current nonsmoker (Renamed from Current non-smoker) Start:22-Jun-2020 Instruction Type:Patient Education How to access health informa tion online - Detail Indication:Current nonsmoker (Renamed from Current non-smoker) Start:22-Jun-2020 Instruction Type:Patient Education Patient Instructions Indication:Current nonsmoker (Renamed from Current non-smoker) Start:22-Jun-2020 Instruction Type:Provider Instructions for Treatment How to access health informa tion online Indication:Current nonsmoker (Renamed from Current non-smoker) Start:30-Jan-2019 Instruction Type:Patient Education How to access health informa tion online - Detail Indication:Current nonsmoker (Renamed from Current non-smoker) Start:30-Jan-2019 Instruction Type:Patient Education Patient Instructions Indication:Current nonsmoker (Renamed from Current non-smoker) Start:30-Jan-2019 Instruction Type:Provider Instructions for Treatment How to access health informa tion online Indication:Elevated liver enzymes Start:11-May-2016 Instruction Type:Patient Education How to access health informa tion online - Detail Indication:Elevated liver enzymes Start:11-May-2016 Instruction Type:Patient Education Patient Instructions Indication:Elevated liver enzymes Start:11-May-2016 Instruction Type:Provider Instructions for Treatment How to access health informa tion online Indication:Elevated liver enzymes Start:04-Feb-2016 Instruction Type:Patient Education How to access health informa tion online - Detail Indication:Elevated liver enzymes Start:04-Feb-2016 Instruction Type:Patient Education Patient Instructions Indication:Elevated liver enzymes Start:04-Feb-2016 Instruction Type:Provider Instructions for Treatment How to access health informa tion online Indication:Malnourished Start:10-Dec-2015 Instruction Type:Patient Education How to access health informa tion online - Detail Indication:Malnourished Start:10-Dec-2015 Instruction Type:Patient Education Patient Instructions Indication:Malnourished Start:10-Dec-2015 Instruction Type:Provider Instructions for Treatment How to access health informa tion online Indication:Palpitation Start:30-Nov-2015 Instruction Type:Patient Education How to access health informa tion online - Detail Indication:Palpitation Start:30-Nov-2015 Instruction Type:Patient Education Patient Instructions Indication:Palpitation Start:30-Nov-2015 Instruction Type:Provider Instructions for Treatment How to access health informa tion online Indication:Perineal rash, male Start:11-Sep-2015 Instruction Type:Patient Education How to access health informa tion online - Detail Indication:Perineal rash, male Start:11-Sep-2015 Instruction Type:Patient Education Patient Instructions Indication:Perineal rash, male Start:11-Sep-2015 Instruction Type:Provider Instructions for Treatment How to access health informa tion online - Detail Indication:Asthma Start:21-May-2015 Instruction Type:Patient Education Patient Instructions Indication:Asthma Start:21-May-2015 Instruction Type:Provider Instructions for Treatment Patient Instructions Indication:Asthma Start:31-Jan-2014 Instruction Type:Provider Instructions for Treatment Name Dates Details How to access health informa tion online Indication:Current nonsmoker (Renamed from Current non-smoker) Start:22-Jun-2020 Instruction Type:Patient Education How to access health informa tion online - Detail Indication:Current nonsmoker (Renamed from Current non-smoker) Start:22-Jun-2020 Instruction Type:Patient Education Patient Instructions Indication:Current nonsmoker (Renamed from Current non-smoker) Start:22-Jun-2020 Instruction Type:Provider Instructions for Treatment How to access health informa tion online Indication:Current nonsmoker (Renamed from Current non-smoker) Start:30-Jan-2019 Instruction Type:Patient Education How to access health informa tion online - Detail Indication:Current nonsmoker (Renamed from Current non-smoker) Start:30-Jan-2019 Instruction Type:Patient Education Patient Instructions Indication:Current nonsmoker (Renamed from Current non-smoker) Start:30-Jan-2019 Instruction Type:Provider Instructions for Treatment How to access health informa tion online Indication:Elevated liver enzymes Start:11-May-2016 Instruction Type:Patient Education How to access health informa tion online - Detail Indication:Elevated liver enzymes Start:11-May-2016 Instruction Type:Patient Education Patient Instructions Indication:Elevated liver enzymes Start:11-May-2016 Instruction Type:Provider Instructions for Treatment How to access health informa tion online Indication:Elevated liver enzymes Start:04-Feb-2016 Instruction Type:Patient Education How to access health informa tion online - Detail Indication:Elevated liver enzymes Start:04-Feb-2016 Instruction Type:Patient Education Patient Instructions Indication:Elevated liver enzymes Start:04-Feb-2016 Instruction Type:Provider Instructions for Treatment How to access health informa tion online Indication:Malnourished Start:10-Dec-2015 Instruction Type:Patient Education How to access health informa tion online - Detail Indication:Malnourished Start:10-Dec-2015 Instruction Type:Patient Education Patient Instructions Indication:Malnourished Start:10-Dec-2015 Instruction Type:Provider Instructions for Treatment How to access health informa tion online Indication:Palpitation Start:30-Nov-2015 Instruction Type:Patient Education How to access health informa tion online - Detail Indication:Palpitation Start:30-Nov-2015 Instruction Type:Patient Education Patient Instructions Indication:Palpitation Start:30-Nov-2015 Instruction Type:Provider Instructions for Treatment How to access health informa tion online Indication:Perineal rash, male Start:11-Sep-2015 Instruction Type:Patient Education How to access health informa tion online - Detail Indication:Perineal rash, male Start:11-Sep-2015 Instruction Type:Patient Education Patient Instructions Indication:Perineal rash, male Start:11-Sep-2015 Instruction Type:Provider Instructions for Treatment How to access health informa tion online - Detail Indication:Asthma Start:21-May-2015 Instruction Type:Patient Education Patient Instructions Indication:Asthma Start:21-May-2015 Instruction Type:Provider Instructions for Treatment Patient Instructions Indication:Asthma Start:31-Jan-2014 Instruction Type:Provider Instructions for Treatment Name Dates Details How to access health informa tion online Indication:Current nonsmoker (Renamed from Current non-smoker) Start:05-Aug-2020 Instruction Type:Patient Education How to access health informa tion online - Detail Indication:Current nonsmoker (Renamed from Current non-smoker) Start:05-Aug-2020 Instruction Type:Patient Education Patient Instructions Indication:Current nonsmoker (Renamed from Current non-smoker) Start:05-Aug-2020 Instruction Type:Provider Instructions for Treatment How to access health informa tion online Indication:Current nonsmoker (Renamed from Current non-smoker) Start:22-Jun-2020 Instruction Type:Patient Education How to access health informa tion online - Detail Indication:Current nonsmoker (Renamed from Current non-smoker) Start:22-Jun-2020 Instruction Type:Patient Education Patient Instructions Indication:Current nonsmoker (Renamed from Current non-smoker) Start:22-Jun-2020 Instruction Type:Provider Instructions for Treatment How to access health informa tion online Indication:Current nonsmoker (Renamed from Current non-smoker) Start:30-Jan-2019 Instruction Type:Patient Education How to access health informa tion online - Detail Indication:Current nonsmoker (Renamed from Current non-smoker) Start:30-Jan-2019 Instruction Type:Patient Education Patient Instructions Indication:Current nonsmoker (Renamed from Current non-smoker) Start:30-Jan-2019 Instruction Type:Provider Instructions for Treatment How to access health informa tion online Indication:Elevated liver enzymes Start:11-May-2016 Instruction Type:Patient Education How to access health informa tion online - Detail Indication:Elevated liver enzymes Start:11-May-2016 Instruction Type:Patient Education Patient Instructions Indication:Elevated liver enzymes Start:11-May-2016 Instruction Type:Provider Instructions for Treatment How to access health informa tion online Indication:Elevated liver enzymes Start:04-Feb-2016 Instruction Type:Patient Education How to access health informa tion online - Detail Indication:Elevated liver enzymes Start:04-Feb-2016 Instruction Type:Patient Education Patient Instructions Indication:Elevated liver enzymes Start:04-Feb-2016 Instruction Type:Provider Instructions for Treatment How to access health informa tion online Indication:Malnourished Start:10-Dec-2015 Instruction Type:Patient Education How to access health informa tion online - Detail Indication:Malnourished Start:10-Dec-2015 Instruction Type:Patient Education Patient Instructions Indication:Malnourished Start:10-Dec-2015 Instruction Type:Provider Instructions for Treatment How to access health informa tion online Indication:Palpitation Start:30-Nov-2015 Instruction Type:Patient Education How to access health informa tion online - Detail Indication:Palpitation Start:30-Nov-2015 Instruction Type:Patient Education Patient Instructions Indication:Palpitation Start:30-Nov-2015 Instruction Type:Provider Instructions for Treatment How to access health informa tion online Indication:Perineal rash, male Start:11-Sep-2015 Instruction Type:Patient Education How to access health informa tion online - Detail Indication:Perineal rash, male Start:11-Sep-2015 Instruction Type:Patient Education Patient Instructions Indication:Perineal rash, male Start:11-Sep-2015 Instruction Type:Provider Instructions for Treatment How to access health informa tion online - Detail Indication:Asthma Start:21-May-2015 Instruction Type:Patient Education Patient Instructions Indication:Asthma Start:21-May-2015 Instruction Type:Provider Instructions for Treatment Patient Instructions Indication:Asthma Start:31-Jan-2014 Instruction Type:Provider Instructions for Treatment Name Dates Details How to access health informa tion online Indication:Current nonsmoker (Renamed from Current non-smoker) Start:28-Aug-2020 Instruction Type:Patient Education How to access health informa tion online - Detail Indication:Current nonsmoker (Renamed from Current non-smoker) Start:28-Aug-2020 Instruction Type:Patient Education Patient Instructions Indication:Current nonsmoker (Renamed from Current non-smoker) Start:28-Aug-2020 Instruction Type:Provider Instructions for Treatment How to access health informa tion online Indication:Current nonsmoker (Renamed from Current non-smoker) Start:05-Aug-2020 Instruction Type:Patient Education How to access health informa tion online - Detail Indication:Current nonsmoker (Renamed from Current non-smoker) Start:05-Aug-2020 Instruction Type:Patient Education Patient Instructions Indication:Current nonsmoker (Renamed from Current non-smoker) Start:05-Aug-2020 Instruction Type:Provider Instructions for Treatment How to access health informa tion online Indication:Current nonsmoker (Renamed from Current non-smoker) Start:22-Jun-2020 Instruction Type:Patient Education How to access health informa tion online - Detail Indication:Current nonsmoker (Renamed from Current non-smoker) Start:22-Jun-2020 Instruction Type:Patient Education Patient Instructions Indication:Current nonsmoker (Renamed from Current non-smoker) Start:22-Jun-2020 Instruction Type:Provider Instructions for Treatment How to access health informa tion online Indication:Current nonsmoker (Renamed from Current non-smoker) Start:30-Jan-2019 Instruction Type:Patient Education How to access health informa tion online - Detail Indication:Current nonsmoker (Renamed from Current non-smoker) Start:30-Jan-2019 Instruction Type:Patient Education Patient Instructions Indication:Current nonsmoker (Renamed from Current non-smoker) Start:30-Jan-2019 Instruction Type:Provider Instructions for Treatment How to access health informa tion online Indication:Elevated liver enzymes Start:11-May-2016 Instruction Type:Patient Education How to access health informa tion online - Detail Indication:Elevated liver enzymes Start:11-May-2016 Instruction Type:Patient Education Patient Instructions Indication:Elevated liver enzymes Start:11-May-2016 Instruction Type:Provider Instructions for Treatment How to access health informa tion online Indication:Elevated liver enzymes Start:04-Feb-2016 Instruction Type:Patient Education How to access health informa tion online - Detail Indication:Elevated liver enzymes Start:04-Feb-2016 Instruction Type:Patient Education Patient Instructions Indication:Elevated liver enzymes Start:04-Feb-2016 Instruction Type:Provider Instructions for Treatment How to access health informa tion online Indication:Malnourished Start:10-Dec-2015 Instruction Type:Patient Education How to access health informa tion online - Detail Indication:Malnourished Start:10-Dec-2015 Instruction Type:Patient Education Patient Instructions Indication:Malnourished Start:10-Dec-2015 Instruction Type:Provider Instructions for Treatment How to access health informa tion online Indication:Palpitation Start:30-Nov-2015 Instruction Type:Patient Education How to access health informa tion online - Detail Indication:Palpitation Start:30-Nov-2015 Instruction Type:Patient Education Patient Instructions Indication:Palpitation Start:30-Nov-2015 Instruction Type:Provider Instructions for Treatment How to access health informa tion online Indication:Perineal rash, male Start:11-Sep-2015 Instruction Type:Patient Education How to access health informa tion online - Detail Indication:Perineal rash, male Start:11-Sep-2015 Instruction Type:Patient Education Patient Instructions Indication:Perineal rash, male Start:11-Sep-2015 Instruction Type:Provider Instructions for Treatment How to access health informa tion online - Detail Indication:Asthma Start:21-May-2015 Instruction Type:Patient Education Patient Instructions Indication:Asthma Start:21-May-2015 Instruction Type:Provider Instructions for Treatment Patient Instructions Indication:Asthma Start:31-Jan-2014 Instruction Type:Provider Instructions for Treatment Name Dates Details How to access health informa tion online Indication:Current nonsmoker (Renamed from Current non-smoker) Start:28-Aug-2020 Instruction Type:Patient Education How to access health informa tion online - Detail Indication:Current nonsmoker (Renamed from Current non-smoker) Start:28-Aug-2020 Instruction Type:Patient Education Patient Instructions Indication:Current nonsmoker (Renamed from Current non-smoker) Start:28-Aug-2020 Instruction Type:Provider Instructions for Treatment How to access health informa tion online Indication:Current nonsmoker (Renamed from Current non-smoker) Start:05-Aug-2020 Instruction Type:Patient Education How to access health informa tion online - Detail Indication:Current nonsmoker (Renamed from Current non-smoker) Start:05-Aug-2020 Instruction Type:Patient Education Patient Instructions Indication:Current nonsmoker (Renamed from Current non-smoker) Start:05-Aug-2020 Instruction Type:Provider Instructions for Treatment How to access health informa tion online Indication:Current nonsmoker (Renamed from Current non-smoker) Start:22-Jun-2020 Instruction Type:Patient Education How to access health informa tion online - Detail Indication:Current nonsmoker (Renamed from Current non-smoker) Start:22-Jun-2020 Instruction Type:Patient Education Patient Instructions Indication:Current nonsmoker (Renamed from Current non-smoker) Start:22-Jun-2020 Instruction Type:Provider Instructions for Treatment How to access health informa tion online Indication:Current nonsmoker (Renamed from Current non-smoker) Start:30-Jan-2019 Instruction Type:Patient Education How to access health informa tion online - Detail Indication:Current nonsmoker (Renamed from Current non-smoker) Start:30-Jan-2019 Instruction Type:Patient Education Patient Instructions Indication:Current nonsmoker (Renamed from Current non-smoker) Start:30-Jan-2019 Instruction Type:Provider Instructions for Treatment How to access health informa tion online Indication:Elevated liver enzymes Start:11-May-2016 Instruction Type:Patient Education How to access health informa tion online - Detail Indication:Elevated liver enzymes Start:11-May-2016 Instruction Type:Patient Education Patient Instructions Indication:Elevated liver enzymes Start:11-May-2016 Instruction Type:Provider Instructions for Treatment How to access health informa tion online Indication:Elevated liver enzymes Start:04-Feb-2016 Instruction Type:Patient Education How to access health informa tion online - Detail Indication:Elevated liver enzymes Start:04-Feb-2016 Instruction Type:Patient Education Patient Instructions Indication:Elevated liver enzymes Start:04-Feb-2016 Instruction Type:Provider Instructions for Treatment How to access health informa tion online Indication:Malnourished Start:10-Dec-2015 Instruction Type:Patient Education How to access health informa tion online - Detail Indication:Malnourished Start:10-Dec-2015 Instruction Type:Patient Education Patient Instructions Indication:Malnourished Start:10-Dec-2015 Instruction Type:Provider Instructions for Treatment How to access health informa tion online Indication:Palpitation Start:30-Nov-2015 Instruction Type:Patient Education How to access health informa tion online - Detail Indication:Palpitation Start:30-Nov-2015 Instruction Type:Patient Education Patient Instructions Indication:Palpitation Start:30-Nov-2015 Instruction Type:Provider Instructions for Treatment How to access health informa tion online Indication:Perineal rash, male Start:11-Sep-2015 Instruction Type:Patient Education How to access health informa tion online - Detail Indication:Perineal rash, male Start:11-Sep-2015 Instruction Type:Patient Education Patient Instructions Indication:Perineal rash, male Start:11-Sep-2015 Instruction Type:Provider Instructions for Treatment How to access health informa tion online - Detail Indication:Asthma Start:21-May-2015 Instruction Type:Patient Education Patient Instructions Indication:Asthma Start:21-May-2015 Instruction Type:Provider Instructions for Treatment Patient Instructions Indication:Asthma Start:31-Jan-2014 Instruction Type:Provider Instructions for Treatment Name Dates Details How to access health informa tion online Indication:Current nonsmoker (Renamed from Current non-smoker) Start:28-Sep-2020 Instruction Type:Patient Education How to access health informa tion online - Detail Indication:Current nonsmoker (Renamed from Current non-smoker) Start:28-Sep-2020 Instruction Type:Patient Education Patient Instructions Indication:Current nonsmoker (Renamed from Current non-smoker) Start:28-Sep-2020 Instruction Type:Provider Instructions for Treatment How to access health informa tion online Indication:Current nonsmoker (Renamed from Current non-smoker) Start:28-Aug-2020 Instruction Type:Patient Education How to access health informa tion online - Detail Indication:Current nonsmoker (Renamed from Current non-smoker) Start:28-Aug-2020 Instruction Type:Patient Education Patient Instructions Indication:Current nonsmoker (Renamed from Current non-smoker) Start:28-Aug-2020 Instruction Type:Provider Instructions for Treatment How to access health informa tion online Indication:Current nonsmoker (Renamed from Current non-smoker) Start:05-Aug-2020 Instruction Type:Patient Education How to access health informa tion online - Detail Indication:Current nonsmoker (Renamed from Current non-smoker) Start:05-Aug-2020 Instruction Type:Patient Education Patient Instructions Indication:Current nonsmoker (Renamed from Current non-smoker) Start:05-Aug-2020 Instruction Type:Provider Instructions for Treatment How to access health informa tion online Indication:Current nonsmoker (Renamed from Current non-smoker) Start:22-Jun-2020 Instruction Type:Patient Education How to access health informa tion online - Detail Indication:Current nonsmoker (Renamed from Current non-smoker) Start:22-Jun-2020 Instruction Type:Patient Education Patient Instructions Indication:Current nonsmoker (Renamed from Current non-smoker) Start:22-Jun-2020 Instruction Type:Provider Instructions for Treatment How to access health informa tion online Indication:Current nonsmoker (Renamed from Current non-smoker) Start:30-Jan-2019 Instruction Type:Patient Education How to access health informa tion online - Detail Indication:Current nonsmoker (Renamed from Current non-smoker) Start:30-Jan-2019 Instruction Type:Patient Education Patient Instructions Indication:Current nonsmoker (Renamed from Current non-smoker) Start:30-Jan-2019 Instruction Type:Provider Instructions for Treatment How to access health informa tion online Indication:Elevated liver enzymes Start:11-May-2016 Instruction Type:Patient Education How to access health informa tion online - Detail Indication:Elevated liver enzymes Start:11-May-2016 Instruction Type:Patient Education Patient Instructions Indication:Elevated liver enzymes Start:11-May-2016 Instruction Type:Provider Instructions for Treatment How to access health informa tion online Indication:Elevated liver enzymes Start:04-Feb-2016 Instruction Type:Patient Education How to access health informa tion online - Detail Indication:Elevated liver enzymes Start:04-Feb-2016 Instruction Type:Patient Education Patient Instructions Indication:Elevated liver enzymes Start:04-Feb-2016 Instruction Type:Provider Instructions for Treatment How to access health informa tion online Indication:Malnourished Start:10-Dec-2015 Instruction Type:Patient Education How to access health informa tion online - Detail Indication:Malnourished Start:10-Dec-2015 Instruction Type:Patient Education Patient Instructions Indication:Malnourished Start:10-Dec-2015 Instruction Type:Provider Instructions for Treatment How to access health informa tion online Indication:Palpitation Start:30-Nov-2015 Instruction Type:Patient Education How to access health informa tion online - Detail Indication:Palpitation Start:30-Nov-2015 Instruction Type:Patient Education Patient Instructions Indication:Palpitation Start:30-Nov-2015 Instruction Type:Provider Instructions for Treatment How to access health informa tion online Indication:Perineal rash, male Start:11-Sep-2015 Instruction Type:Patient Education How to access health informa tion online - Detail Indication:Perineal rash, male Start:11-Sep-2015 Instruction Type:Patient Education Patient Instructions Indication:Perineal rash, male Start:11-Sep-2015 Instruction Type:Provider Instructions for Treatment How to access health informa tion online - Detail Indication:Asthma Start:21-May-2015 Instruction Type:Patient Education Patient Instructions Indication:Asthma Start:21-May-2015 Instruction Type:Provider Instructions for Treatment Patient Instructions Indication:Asthma Start:31-Jan-2014 Instruction Type:Provider Instructions for Treatment Name Dates Details How to access health informa tion online Indication:Current nonsmoker (Renamed from Current non-smoker) Start:28-Sep-2020 Instruction Type:Patient Education How to access health informa tion online - Detail Indication:Current nonsmoker (Renamed from Current non-smoker) Start:28-Sep-2020 Instruction Type:Patient Education Patient Instructions Indication:Current nonsmoker (Renamed from Current non-smoker) Start:28-Sep-2020 Instruction Type:Provider Instructions for Treatment How to access health informa tion online Indication:Current nonsmoker (Renamed from Current non-smoker) Start:28-Aug-2020 Instruction Type:Patient Education How to access health informa tion online - Detail Indication:Current nonsmoker (Renamed from Current non-smoker) Start:28-Aug-2020 Instruction Type:Patient Education Patient Instructions Indication:Current nonsmoker (Renamed from Current non-smoker) Start:28-Aug-2020 Instruction Type:Provider Instructions for Treatment How to access health informa tion online Indication:Current nonsmoker (Renamed from Current non-smoker) Start:05-Aug-2020 Instruction Type:Patient Education How to access health informa tion online - Detail Indication:Current nonsmoker (Renamed from Current non-smoker) Start:05-Aug-2020 Instruction Type:Patient Education Patient Instructions Indication:Current nonsmoker (Renamed from Current non-smoker) Start:05-Aug-2020 Instruction Type:Provider Instructions for Treatment How to access health informa tion online Indication:Current nonsmoker (Renamed from Current non-smoker) Start:22-Jun-2020 Instruction Type:Patient Education How to access health informa tion online - Detail Indication:Current nonsmoker (Renamed from Current non-smoker) Start:22-Jun-2020 Instruction Type:Patient Education Patient Instructions Indication:Current nonsmoker (Renamed from Current non-smoker) Start:22-Jun-2020 Instruction Type:Provider Instructions for Treatment How to access health informa tion online Indication:Current nonsmoker (Renamed from Current non-smoker) Start:30-Jan-2019 Instruction Type:Patient Education How to access health informa tion online - Detail Indication:Current nonsmoker (Renamed from Current non-smoker) Start:30-Jan-2019 Instruction Type:Patient Education Patient Instructions Indication:Current nonsmoker (Renamed from Current non-smoker) Start:30-Jan-2019 Instruction Type:Provider Instructions for Treatment How to access health informa tion online Indication:Elevated liver enzymes Start:11-May-2016 Instruction Type:Patient Education How to access health informa tion online - Detail Indication:Elevated liver enzymes Start:11-May-2016 Instruction Type:Patient Education Patient Instructions Indication:Elevated liver enzymes Start:11-May-2016 Instruction Type:Provider Instructions for Treatment How to access health informa tion online Indication:Elevated liver enzymes Start:04-Feb-2016 Instruction Type:Patient Education How to access health informa tion online - Detail Indication:Elevated liver enzymes Start:04-Feb-2016 Instruction Type:Patient Education Patient Instructions Indication:Elevated liver enzymes Start:04-Feb-2016 Instruction Type:Provider Instructions for Treatment How to access health informa tion online Indication:Malnourished Start:10-Dec-2015 Instruction Type:Patient Education How to access health informa tion online - Detail Indication:Malnourished Start:10-Dec-2015 Instruction Type:Patient Education Patient Instructions Indication:Malnourished Start:10-Dec-2015 Instruction Type:Provider Instructions for Treatment How to access health informa tion online Indication:Palpitation Start:30-Nov-2015 Instruction Type:Patient Education How to access health informa tion online - Detail Indication:Palpitation Start:30-Nov-2015 Instruction Type:Patient Education Patient Instructions Indication:Palpitation Start:30-Nov-2015 Instruction Type:Provider Instructions for Treatment How to access health informa tion online Indication:Perineal rash, male Start:11-Sep-2015 Instruction Type:Patient Education How to access health informa tion online - Detail Indication:Perineal rash, male Start:11-Sep-2015 Instruction Type:Patient Education Patient Instructions Indication:Perineal rash, male Start:11-Sep-2015 Instruction Type:Provider Instructions for Treatment How to access health informa tion online - Detail Indication:Asthma Start:21-May-2015 Instruction Type:Patient Education Patient Instructions Indication:Asthma Start:21-May-2015 Instruction Type:Provider Instructions for Treatment Patient Instructions Indication:Asthma Start:31-Jan-2014 Instruction Type:Provider Instructions for Treatment Name Dates Details How to access health informa tion online Indication:BMI 24.0-24.9, adult Start:05-Oct-2020 Instruction Type:Patient Education How to access health informa tion online - Detail Indication:BMI 24.0-24.9, adult Start:05-Oct-2020 Instruction Type:Patient Education Patient Instructions Indication:BMI 24.0-24.9, adult Start:05-Oct-2020 Instruction Type:Provider Instructions for Treatment How to access health informa tion online Indication:Current nonsmoker (Renamed from Current non-smoker) Start:28-Sep-2020 Instruction Type:Patient Education How to access health informa tion online - Detail Indication:Current nonsmoker (Renamed from Current non-smoker) Start:28-Sep-2020 Instruction Type:Patient Education Patient Instructions Indication:Current nonsmoker (Renamed from Current non-smoker) Start:28-Sep-2020 Instruction Type:Provider Instructions for Treatment How to access health informa tion online Indication:Current nonsmoker (Renamed from Current non-smoker) Start:28-Aug-2020 Instruction Type:Patient Education How to access health informa tion online - Detail Indication:Current nonsmoker (Renamed from Current non-smoker) Start:28-Aug-2020 Instruction Type:Patient Education Patient Instructions Indication:Current nonsmoker (Renamed from Current non-smoker) Start:28-Aug-2020 Instruction Type:Provider Instructions for Treatment How to access health informa tion online Indication:Current nonsmoker (Renamed from Current non-smoker) Start:05-Aug-2020 Instruction Type:Patient Education How to access health informa tion online - Detail Indication:Current nonsmoker (Renamed from Current non-smoker) Start:05-Aug-2020 Instruction Type:Patient Education Patient Instructions Indication:Current nonsmoker (Renamed from Current non-smoker) Start:05-Aug-2020 Instruction Type:Provider Instructions for Treatment How to access health informa tion online Indication:Current nonsmoker (Renamed from Current non-smoker) Start:22-Jun-2020 Instruction Type:Patient Education How to access health informa tion online - Detail Indication:Current nonsmoker (Renamed from Current non-smoker) Start:22-Jun-2020 Instruction Type:Patient Education Patient Instructions Indication:Current nonsmoker (Renamed from Current non-smoker) Start:22-Jun-2020 Instruction Type:Provider Instructions for Treatment How to access health informa tion online Indication:Current nonsmoker (Renamed from Current non-smoker) Start:30-Jan-2019 Instruction Type:Patient Education How to access health informa tion online - Detail Indication:Current nonsmoker (Renamed from Current non-smoker) Start:30-Jan-2019 Instruction Type:Patient Education Patient Instructions Indication:Current nonsmoker (Renamed from Current non-smoker) Start:30-Jan-2019 Instruction Type:Provider Instructions for Treatment How to access health informa tion online Indication:Elevated liver enzymes Start:11-May-2016 Instruction Type:Patient Education How to access health informa tion online - Detail Indication:Elevated liver enzymes Start:11-May-2016 Instruction Type:Patient Education Patient Instructions Indication:Elevated liver enzymes Start:11-May-2016 Instruction Type:Provider Instructions for Treatment How to access health informa tion online Indication:Elevated liver enzymes Start:04-Feb-2016 Instruction Type:Patient Education How to access health informa tion online - Detail Indication:Elevated liver enzymes Start:04-Feb-2016 Instruction Type:Patient Education Patient Instructions Indication:Elevated liver enzymes Start:04-Feb-2016 Instruction Type:Provider Instructions for Treatment How to access health informa tion online Indication:Malnourished Start:10-Dec-2015 Instruction Type:Patient Education How to access health informa tion online - Detail Indication:Malnourished Start:10-Dec-2015 Instruction Type:Patient Education Patient Instructions Indication:Malnourished Start:10-Dec-2015 Instruction Type:Provider Instructions for Treatment How to access health informa tion online Indication:Palpitation Start:30-Nov-2015 Instruction Type:Patient Education How to access health informa tion online - Detail Indication:Palpitation Start:30-Nov-2015 Instruction Type:Patient Education Patient Instructions Indication:Palpitation Start:30-Nov-2015 Instruction Type:Provider Instructions for Treatment How to access health informa tion online Indication:Perineal rash, male Start:11-Sep-2015 Instruction Type:Patient Education How to access health informa tion online - Detail Indication:Perineal rash, male Start:11-Sep-2015 Instruction Type:Patient Education Patient Instructions Indication:Perineal rash, male Start:11-Sep-2015 Instruction Type:Provider Instructions for Treatment How to access health informa tion online - Detail Indication:Asthma Start:21-May-2015 Instruction Type:Patient Education Patient Instructions Indication:Asthma Start:21-May-2015 Instruction Type:Provider Instructions for Treatment Patient Instructions Indication:Asthma Start:31-Jan-2014 Instruction Type:Provider Instructions for Treatment Name Dates Details How to access health informa tion online Indication:BMI 24.0-24.9, adult Start:05-Oct-2020 Instruction Type:Patient Education How to access health informa tion online - Detail Indication:BMI 24.0-24.9, adult Start:05-Oct-2020 Instruction Type:Patient Education Patient Instructions Indication:BMI 24.0-24.9, adult Start:05-Oct-2020 Instruction Type:Provider Instructions for Treatment How to access health informa tion online Indication:Current nonsmoker (Renamed from Current non-smoker) Start:28-Sep-2020 Instruction Type:Patient Education How to access health informa tion online - Detail Indication:Current nonsmoker (Renamed from Current non-smoker) Start:28-Sep-2020 Instruction Type:Patient Education Patient Instructions Indication:Current nonsmoker (Renamed from Current non-smoker) Start:28-Sep-2020 Instruction Type:Provider Instructions for Treatment How to access health informa tion online Indication:Current nonsmoker (Renamed from Current non-smoker) Start:28-Aug-2020 Instruction Type:Patient Education How to access health informa tion online - Detail Indication:Current nonsmoker (Renamed from Current non-smoker) Start:28-Aug-2020 Instruction Type:Patient Education Patient Instructions Indication:Current nonsmoker (Renamed from Current non-smoker) Start:28-Aug-2020 Instruction Type:Provider Instructions for Treatment How to access health informa tion online Indication:Current nonsmoker (Renamed from Current non-smoker) Start:05-Aug-2020 Instruction Type:Patient Education How to access health informa tion online - Detail Indication:Current nonsmoker (Renamed from Current non-smoker) Start:05-Aug-2020 Instruction Type:Patient Education Patient Instructions Indication:Current nonsmoker (Renamed from Current non-smoker) Start:05-Aug-2020 Instruction Type:Provider Instructions for Treatment How to access health informa tion online Indication:Current nonsmoker (Renamed from Current non-smoker) Start:22-Jun-2020 Instruction Type:Patient Education How to access health informa tion online - Detail Indication:Current nonsmoker (Renamed from Current non-smoker) Start:22-Jun-2020 Instruction Type:Patient Education Patient Instructions Indication:Current nonsmoker (Renamed from Current non-smoker) Start:22-Jun-2020 Instruction Type:Provider Instructions for Treatment How to access health informa tion online Indication:Current nonsmoker (Renamed from Current non-smoker) Start:30-Jan-2019 Instruction Type:Patient Education How to access health informa tion online - Detail Indication:Current nonsmoker (Renamed from Current non-smoker) Start:30-Jan-2019 Instruction Type:Patient Education Patient Instructions Indication:Current nonsmoker (Renamed from Current non-smoker) Start:30-Jan-2019 Instruction Type:Provider Instructions for Treatment How to access health informa tion online Indication:Elevated liver enzymes Start:11-May-2016 Instruction Type:Patient Education How to access health informa tion online - Detail Indication:Elevated liver enzymes Start:11-May-2016 Instruction Type:Patient Education Patient Instructions Indication:Elevated liver enzymes Start:11-May-2016 Instruction Type:Provider Instructions for Treatment How to access health informa tion online Indication:Elevated liver enzymes Start:04-Feb-2016 Instruction Type:Patient Education How to access health informa tion online - Detail Indication:Elevated liver enzymes Start:04-Feb-2016 Instruction Type:Patient Education Patient Instructions Indication:Elevated liver enzymes Start:04-Feb-2016 Instruction Type:Provider Instructions for Treatment How to access health informa tion online Indication:Malnourished Start:10-Dec-2015 Instruction Type:Patient Education How to access health informa tion online - Detail Indication:Malnourished Start:10-Dec-2015 Instruction Type:Patient Education Patient Instructions Indication:Malnourished Start:10-Dec-2015 Instruction Type:Provider Instructions for Treatment How to access health informa tion online Indication:Palpitation Start:30-Nov-2015 Instruction Type:Patient Education How to access health informa tion online - Detail Indication:Palpitation Start:30-Nov-2015 Instruction Type:Patient Education Patient Instructions Indication:Palpitation Start:30-Nov-2015 Instruction Type:Provider Instructions for Treatment How to access health informa tion online Indication:Perineal rash, male Start:11-Sep-2015 Instruction Type:Patient Education How to access health informa tion online - Detail Indication:Perineal rash, male Start:11-Sep-2015 Instruction Type:Patient Education Patient Instructions Indication:Perineal rash, male Start:11-Sep-2015 Instruction Type:Provider Instructions for Treatment How to access health informa tion online - Detail Indication:Asthma Start:21-May-2015 Instruction Type:Patient Education Patient Instructions Indication:Asthma Start:21-May-2015 Instruction Type:Provider Instructions for Treatment Patient Instructions Indication:Asthma Start:31-Jan-2014 Instruction Type:Provider Instructions for Treatment Name Dates Details How to access health informa tion online Indication:Current nonsmoker (Renamed from Current non-smoker) Start:30-Jan-2019 Instruction Type:Patient Education How to access health informa tion online - Detail Indication:Current nonsmoker (Renamed from Current non-smoker) Start:30-Jan-2019 Instruction Type:Patient Education Patient Instructions Indication:Current nonsmoker (Renamed from Current non-smoker) Start:30-Jan-2019 Instruction Type:Provider Instructions for Treatment How to access health informa tion online Indication:Elevated liver enzymes Start:11-May-2016 Instruction Type:Patient Education How to access health informa tion online - Detail Indication:Elevated liver enzymes Start:11-May-2016 Instruction Type:Patient Education Patient Instructions Indication:Elevated liver enzymes Start:11-May-2016 Instruction Type:Provider Instructions for Treatment How to access health informa tion online Indication:Elevated liver enzymes Start:04-Feb-2016 Instruction Type:Patient Education How to access health informa tion online - Detail Indication:Elevated liver enzymes Start:04-Feb-2016 Instruction Type:Patient Education Patient Instructions Indication:Elevated liver enzymes Start:04-Feb-2016 Instruction Type:Provider Instructions for Treatment How to access health informa tion online Indication:Malnourished Start:10-Dec-2015 Instruction Type:Patient Education How to access health informa tion online - Detail Indication:Malnourished Start:10-Dec-2015 Instruction Type:Patient Education Patient Instructions Indication:Malnourished Start:10-Dec-2015 Instruction Type:Provider Instructions for Treatment How to access health informa tion online Indication:Palpitation Start:30-Nov-2015 Instruction Type:Patient Education How to access health informa tion online - Detail Indication:Palpitation Start:30-Nov-2015 Instruction Type:Patient Education Patient Instructions Indication:Palpitation Start:30-Nov-2015 Instruction Type:Provider Instructions for Treatment How to access health informa tion online Indication:Perineal rash, male Start:11-Sep-2015 Instruction Type:Patient Education How to access health informa tion online - Detail Indication:Perineal rash, male Start:11-Sep-2015 Instruction Type:Patient Education Patient Instructions Indication:Perineal rash, male Start:11-Sep-2015 Instruction Type:Provider Instructions for Treatment How to access health informa tion online - Detail Indication:Asthma Start:21-May-2015 Instruction Type:Patient Education Patient Instructions Indication:Asthma Start:21-May-2015 Instruction Type:Provider Instructions for Treatment Patient Instructions Indication:Asthma Start:31-Jan-2014 Instruction Type:Provider Instructions for Treatment Name Dates Details How to access health informa tion online Indication:Current nonsmoker (Renamed from Current non-smoker) Start:22-Jun-2020 Instruction Type:Patient Education How to access health informa tion online - Detail Indication:Current nonsmoker (Renamed from Current non-smoker) Start:22-Jun-2020 Instruction Type:Patient Education Patient Instructions Indication:Current nonsmoker (Renamed from Current non-smoker) Start:22-Jun-2020 Instruction Type:Provider Instructions for Treatment How to access health informa tion online Indication:Current nonsmoker (Renamed from Current non-smoker) Start:30-Jan-2019 Instruction Type:Patient Education How to access health informa tion online - Detail Indication:Current nonsmoker (Renamed from Current non-smoker) Start:30-Jan-2019 Instruction Type:Patient Education Patient Instructions Indication:Current nonsmoker (Renamed from Current non-smoker) Start:30-Jan-2019 Instruction Type:Provider Instructions for Treatment How to access health informa tion online Indication:Elevated liver enzymes Start:11-May-2016 Instruction Type:Patient Education How to access health informa tion online - Detail Indication:Elevated liver enzymes Start:11-May-2016 Instruction Type:Patient Education Patient Instructions Indication:Elevated liver enzymes Start:11-May-2016 Instruction Type:Provider Instructions for Treatment How to access health informa tion online Indication:Elevated liver enzymes Start:04-Feb-2016 Instruction Type:Patient Education How to access health informa tion online - Detail Indication:Elevated liver enzymes Start:04-Feb-2016 Instruction Type:Patient Education Patient Instructions Indication:Elevated liver enzymes Start:04-Feb-2016 Instruction Type:Provider Instructions for Treatment How to access health informa tion online Indication:Malnourished Start:10-Dec-2015 Instruction Type:Patient Education How to access health informa tion online - Detail Indication:Malnourished Start:10-Dec-2015 Instruction Type:Patient Education Patient Instructions Indication:Malnourished Start:10-Dec-2015 Instruction Type:Provider Instructions for Treatment How to access health informa tion online Indication:Palpitation Start:30-Nov-2015 Instruction Type:Patient Education How to access health informa tion online - Detail Indication:Palpitation Start:30-Nov-2015 Instruction Type:Patient Education Patient Instructions Indication:Palpitation Start:30-Nov-2015 Instruction Type:Provider Instructions for Treatment How to access health informa tion online Indication:Perineal rash, male Start:11-Sep-2015 Instruction Type:Patient Education How to access health informa tion online - Detail Indication:Perineal rash, male Start:11-Sep-2015 Instruction Type:Patient Education Patient Instructions Indication:Perineal rash, male Start:11-Sep-2015 Instruction Type:Provider Instructions for Treatment How to access health informa tion online - Detail Indication:Asthma Start:21-May-2015 Instruction Type:Patient Education Patient Instructions Indication:Asthma Start:21-May-2015 Instruction Type:Provider Instructions for Treatment Patient Instructions Indication:Asthma Start:31-Jan-2014 Instruction Type:Provider Instructions for Treatment Summary Purpose Advance Directives No Advanced Directives Records Found Advance Directive Response Recorded Date/ Time Living Will No July 17, 2023 9:49am Power of Aircraft Engineer No June 9:49am Chief Complaint and Reason for Visit Chief Complaint Consult Reason for Visit Celiac disease Encounter for screening for malignant neoplasm of colon Chief Complaint E ORDERS Additional Source Comments (unrecognized sect ion and content) No Status Records FoundNo Status Records FoundNo Status Records Found INFORMATION SOURCE (unrecogn ized section and content) DATE CREATED AUTHOR 08/12/2019 [facility] DATE CREATED AUTHOR AUTHOR'S ORGANIZ ATION 01/12/2023 [facility] DATE CREATED AUTHOR AUTHOR'S ORGANIZ ATION 08/31/2025 [facility] Care Teams (unrecognized sec tion and content) Team Status: Active Member Role Status Dates Dr. Sunni Foster MD Family Provider Active Dr. Sunni Foster MD Primary Care Provider Active Team Status: Inactive Member Role Status Dates Blossom [employer], [employer] Primary Care Provider, Referring P mayank Active Dr. Tino Duckworth DO Attending Provider Active Team Status: Active Member Role Status Dates Dr. Sunni Foster MD Primary Care Provider, Referring Provider Active Dr. Tino Duckworth DO Attending Provider, Other Prov ider Active Team Status: Inactive Member Role Status Dates Dr. Sunni Foster MD Primary Care Provider, Referring Provider Active Dr. Tino Duckworth DO Attending Provider Active Team Status: Inactive Member Role Status Dates Dr. Sunni Foster MD Primary Care Provider Active Dr. Tino Duckworth DO Attending Provider, Referring Provider Active Team Status: Active Member Role/Relationship Status Dates Dr. Sunni Foster MD Primary care physician Active Team Status: Inactive Member Role/Relationship Status Dates Dr. Sunni Foster MD Primary care physician Active Start: July 08, 2025 End: July 08, 2025 Dr. Sunni Foster MD Attending physician Active Start: July 08, 2025 End: July 08, 2025 Dr. Sunni Foster MD Referring Provider Active Start: July 08, 2025 End: July 08, 2025 Goals (unrecognized section and content) Goals may be documented in a n alternate section FOR RECORDS PERTAINING TO PATIENTS WHO ARE OR HAVE BEEN ENROLLED IN A CHEMICAL DEPENDENCY/SUBSTANCEABUSE PROGRAM, SOME INFORMATION MAY BE OMITTED. This clinical summary was aggregated from multiple sources. Caution should be exercised in using it in the provision of clinical care. This summary normalizes information from multiple sources, and as a consequence, information in this document may materially change the coding, format and clinical context of patient data. In addition, data may be omitted in some cases. CLINICAL DECISIONS SHOULD BE BASED ON THE PRIMARY CLINICAL RECORDS. [facility] [employer]. provides no warranty or guarantee of the accuracy or completeness of information in this document.
--- NOTE | 2025-10-29 06:45 | CT_ITS ---
PROCEDURE: ABDOMEN W/WO IV CONTRAST 10/29/2025 REASON FOR EXAM: CT LIVER WO THEN W CONTRAST TECHNIQUE: Procedure Code: CTABDWW Modality: CT Procedure: ABDOMEN W/WO IV CONTRAST Multiplanar Sagittal and Coronal images were obtained. One or more dose reduction techniques were used (e.g., Automated exposure control, adjustment of the mA and/or kV according to patient size, use of iterative reconstruction technique. CONTRAST: OMNIPAQUE 350 VOLUME: 100 mL RADIATION DOSE SUMMARY: CTDlvol: 10.05 mGy DLP: 225 mGycm COMPARISON: Ultrasound exam on 08/21/2025. FINDINGS: Well-defined homogeneously enhancing 1.2 x 0.8 cm hemangioma in the right hepatic lobe. A few scattered simple hepatic cysts are noted in both hepatic lobes with the largest in the segment 7 of the right hepatic lobe measuring 1.8 cm. No follow-up is needed. Small sliding hiatal hernia. The visualized lung bases are unremarkable. Normal remaining liver. Normal gallbladder and extrahepatic biliary system. Normal spleen. Normal pancreas. Normal bilateral adrenal glands. Normal size of the right kidney. There is no right renal mass. There are no right renal calculi. There is no right hydronephrosis. Normal visualized right ureter. Normal size of the left kidney. There is no left renal mass. There are no left renal calculi. There is no left hydronephrosis. Normal visualized left ureter. Normal visualized stomach. Normal small intestine. Normal colon. The appendix is visualized and appears normal. There is no demonstrated peritoneal fluid. Normal abdominal aorta. Normal inferior vena cava. Normal retroperitoneum. Normal abdominal wall. Mild focal spondylosis at L5-S1. CT/Abdomen W/WO IV Contrast IMPRESSION: Well-defined homogeneously enhancing 1.2 x 0.8 cm hemangioma in the right hepat ic lobe. A few scattered simple hepatic cysts are noted in both hepatic lobes with the l argest in the segment VII of the right hepatic lobe measuring 1.8 cm. No follow-up is needed. Small sliding hiatal hernia. Reading Location: [place] [id number]
[2025-10-29 08:40] LABS: AST(SGOT) 50 U/L (<=37); Alanine Aminotransfer ALT/SGPT 51 U/L (<=46); Albumin, Serum 3.8 g/dL (3.5-5.0); Alkaline Phosphatase 60 U/L (40-129); Bilirubin, Direct 0.24 mg/dL (0.00-0.30); Globulin 2.4 g/dL (2.2-4.2)
== END | disposition home or self-care (01) ==
PROVIDERS: PCP Internal Medicine; Referring Provider Internal Medicine; Visit Provider Internal Medicine
DX: K76.9 Liver disease, unspecified (principal); R74.8 Abnormal levels of other serum enzymes
CPT/HCPCS: 36415; 74170; 80076; 82390; Q9967